=== PATIENT | female | born 1930 | race Caucasian/White ===

== ENCOUNTER 2017-08-26 10:13 | Inpatient (IN) | payer OTHER ==
--- NOTE | 2017-08-26 10:46 | PDOC ---
History of Present Illness <Cass Robbins - Last Filed: 08/26/17 15:04> - General History Source: Patient Exam Limitations: No Limitations - History of Present Illness Initial Comments: 08/26/17 12:18 The patient is a 87 year old female with a significant PMH of HTN and HLD who presents to the emergency department with generalized weakness for the past four days. The daughter is at bedside and states the patient has been complaining of heaviness to the bilateral legs making it difficult for the patient to ambulate. The patient normally ambulates with a walker. The patient is also complaining of sweats, fever TMax 101F, less frequent urination with odor, nausea with solid food and mild shortness of breath. The patient switched to a liquid diet since the onset of these symptoms. The patient is currently on Lasix. The patient denies chest pain, headache and dizziness. Denies fever, chills, nausea, vomit, diarrhea and constipation. Denies dysuria, frequency, urgency and hematuria. Allergies: NKA Past surgical history: None reported. Social history: No reported alcohol, drug, or cigarette use. PCP: Dr. Delgado <Latonya Martínez - Last Filed: 08/26/17 16:29> - General Stated Complaint: PAIN IN LEFT KNEE Time Seen by Provider: 08/26/17 10:40 Past History - Past Medical History HTN: Yes Hypercholesterolemia: Yes - Suicide/Smoking/Psychosocial Hx Smoking Status: No Smoking History: Never smoked Number of Cigarettes Smoked Daily: 0 <Cass Robbins - Last Filed: 08/26/17 15:04> <Latonya Martínez - Last Filed: 08/26/17 16:29> - Past Medical History Allergies/Adverse Reactions: Allergies Allergy/AdvReac Type Severity Reaction Status Date / Time clindamycin Allergy Mild Rash Verified 11/12/11 12:30 sulfamethoxazole Allergy Mild Rash Verified 11/12/11 12:30 [From Bactrim] trimethoprim [From Bactrim] Allergy Mild Rash Verified 11/12/11 12:30 Home Medications: Ambulatory Orders Tramadol HCl 0 mg PO ASDIR 11/12/11 Aspirin 81 mg PO DAILY 08/26/17 Atorvastatin Ca [Lipitor] 10 mg PO HS 08/26/17 Calcium Carbonate/Vitamin D3 [Calcium 600 + Vit D Tablet] 1 each PO DAILY 05/21/ 18 Diclofenac Sodium [Voltaren] 100 gm TP ASDIR PRN 08/26/17 Meloxicam [Mobic] 15 mg PO DAILY 08/26/17 Triamcinolone 0.1% Cream [Aristocort] 0 gm TP DAILY PRN 08/26/17 Valsartan [Diovan] 320 mg PO DAILY 08/26/17 Zolpidem Tartrate [Ambien] 10 mg PO HS 08/26/17 Review of Systems - Review of Systems Able to Perform ROS?: Yes Comments:: 08/26/17 12:19 GENERAL/CONSTITUTIONAL: No chills. (+) Weakness. (+) Sweats. (+) Fever. HEAD, EYES, EARS, NOSE AND THROAT: No change in vision. No ear pain or discharge. No sore throat. CARDIOVASCULAR: No chest pain or shortness of breath. RESPIRATORY: (+) Mild shortness of breath. No cough, wheezing, or hemoptysis. GASTROINTESTINAL: (+) Nausea. No vomiting, diarrhea or constipation. GENITOURINARY: (+) Less frequent urination with odor. No dysuria. MUSCULOSKELETAL: No joint or muscle swelling or pain. No neck or back pain. SKIN: No rash NEUROLOGIC: No headache, vertigo, loss of consciousness, or change in strength/ sensation. ENDOCRINE: No increased thirst. No abnormal weight change. HEMATOLOGIC/LYMPHATIC: No anemia, easy bleeding, or history of blood clots. ALLERGIC/IMMUNOLOGIC: No hives or skin allergy. <Latonya Martínez - Last Filed: 08/26/17 16:29> *Physical Exam - Vital Signs Last Vital Signs Temp Pulse Resp BP Pulse Ox 97.5 F L 83 18 125/48 99 08/26/17 10:54 08/26/17 10:54 08/26/17 10:54 08/26/17 10:54 08/26/17 10:54 - Physical Exam Comments: 08/26/17 12:21 GENERAL: Awake, alert, and fully oriented, in no acute distress HEAD: No signs of trauma EYES: PERRLA, EOMI, sclera anicteric, conjunctiva clear ENT: Auricles normal inspection, hearing grossly normal, nares patent, oropharynx clear without exudates. Moist mucosa NECK: Normal ROM, supple, no lymphadenopathy, JVD, or masses LUNGS: (+) Decreased air entry in the bases. No wheezes, and no crackles HEART: Regular rate and rhythm, normal S1 and S2, no murmurs, rubs or gallops ABDOMEN: Soft, nontender, normoactive bowel sounds. No guarding, no rebound. No masses EXTREMITIES: (+) Asymmetrical, left leg is larger but family states this is chronic. (+) Diffusely tender. Normal range of motion, no edema. No clubbing or cyanosis. No cords or erythema. NEUROLOGICAL: Cranial nerves II through XII grossly intact. Normal speech, normal gait SKIN: Warm, Dry, normal turgor, no rashes or lesions noted. <Latonya Martínez - Last Filed: 08/26/17 16:29> Moderate Sedation - Procedure Monitoring Vital Signs: Vital Signs Temp Pulse Resp BP Pulse Ox 97.5 F L 83 18 125/48 99 08/26/17 10:54 08/26/17 10:54 08/26/17 10:54 08/26/17 10:54 08/26/17 10:54 <Latonya Martínez - Last Filed: 08/26/17 16:29> ED Treatment Course - LABORATORY CBC & Chemistry Diagram: 08/26/17 12:04 08/26/17 12:04 <Cass Robbins - Last Filed: 08/26/17 15:04> - LABORATORY CBC & Chemistry Diagram: 08/26/17 12:04 08/26/17 12:04 <Latonya Martínez - Last Filed: 08/26/17 16:29> Medical Decision Making - Medical Decision Making 08/26/17 14:57 Patient presents to the ED complaining of new onset BERNARD and orthopnea. History of HTN but no known CHF histroty. Daughter reports reduced diuresis after lasix PO. Labs show evidence of CHF. Will treat with lasix and admit for new onset CHF. <Cass Robbins - Last Filed: 08/26/17 15:04> - Medical Decision Making 08/26/17 14:[address] Delgado (PCP). Paged Dr. Jenkins to admit the patient, pending call back. 08/26/17 16:28 Daughter's phone number: [phone] ([place]) <Latonya Martínez - Last Filed: 08/26/17 16:29> *DC/Admit/Observation/Transfer - Discharge Dispostion Decision to Admit order: Yes <Cass Robbins - Last Filed: 08/26/17 15:04> - Attestations Scribe Attestion: 08/26/17 13:38 Documentation prepared by Latonya Martínez, acting as medical record consultant for Cass Robbins MD. <Latonya Martínez - Last Filed: 08/26/17 16:29> Diagnosis at time of Disposition: Congestive heart failure Qualifiers: Heart failure type: unspecified Heart failure chronicity: acute Qualified Code( s): I50.9 - Heart failure, unspecified - Discharge Dispostion Condition at time of disposition: Good
[2017-08-26] MEDS ORDERED: ACETAMINOPHEN 1000 MG/100 ML VIAL (NON FORMULARY) IVPB ONE (12:00)
[2017-08-26 12:14] LABS: BASO % 0.4 % (0-2.0); EOS % 0.3 % (0-4.5); HEMATOCRIT 33.6 % (32.4-45.2); HEMOGLOBIN 11.2 GM/dL (10.7-15.3); LYMPH % 8.3 % (8-40); MCH 29.7 pg (25.7-33.7); MCHC 33.4 g/dl (32.0-36.0); MEAN CELL VOLUME 88.9 fl (80-96); MEAN PLT VOLUME 9.2 fl (7.5-11.1); MONO % 10.4 % (3.8-10.2); NEUT % 80.6 % (42.8-82.8); PLATELET COUNT 243 K/MM3 (134-434); RBC 3.78 M/mm3 (3.60-5.2); RDW 14.5 % (11.6-15.6); WHITE BLOOD COUNT 10.9 K/mm3 (4.0-10.0)
[2017-08-26] MEDS ORDERED: ACETAMINOPHEN INJECTION 100 ML IVPB ONE (12:29)
[2017-08-26 12:46] LABS: ALBUMIN 2.7 g/dl (3.4-5.0); ANION GAP 6 (8-16); BILIRUBIN,TOTAL 0.9 mg/dL (0.2-1.0); BLOOD UREA NITROGEN 27 mg/dL (7-18); CALCIUM 8.2 mg/dL (8.5-10.1); CHLORIDE 102 mmol/L (98-107); CO2 28 mmol/L (21-32); CREATININE 1.3 mg/dL (0.55-1.02); GLUCOSE,RANDOM 117 mg/dL (74-106); POTASSIUM 4.2 mmol/L (3.5-5.1); SGOT/AST 33 U/L (15-37); SGPT/ALT 28 U/L (12-78); SODIUM 136 mmol/L (136-145)
[2017-08-26 12:52] LABS: ALK PHOS 188 U/L (45-117); N-TERMINAL BNP 1914.26 pg/ml (5-450)
[2017-08-26] MEDS ORDERED: FUROSEMIDE 40 MG/4 ML INJECTABLE VIAL IVPUSH ONE (13:36)
[2017-08-26] MEDS ORDERED: FUROSEMIDE 40 MG/4 ML INJECTABLE VIAL ONE (15:04)
[2017-08-26] MEDS ORDERED: traMADol HCL 50 MG TABLET PO PRN (15:19)
[2017-08-26] MEDS ORDERED: TRIAMCINOLONE ACET 0.1% CREAM 15 GM TUBE TP PRN (15:19)
--- NOTE | 2017-08-26 15:26 | HP ---
Admitting History and Physical - Primary Care Physician PCP: Mukesh Delgado - Admission Chief Complaint: Shortness of breath History of Present Illness: The patient is a 87 year old female with a significant PMH of HTN , Osteoarthritis of the knees and HLD who presents to the emergency department with generalized weakness for the past four days. The daughter is at bedside and states the patient has been complaining of heaviness to the bilateral legs making it difficult for the patient to ambulate. The patient normally ambulates with a walker. patient daughter also reports--- that she is getting more short of breath with walking for the last week or so no history of chest pain. patient found to be in new onset CHF Given IV Lasix--in the ER BNP significantly elevated Patient seen by me in the emergency room Above history confirmed with the patient's daughter also complains of pain in the knees----Which is chronic--- x-rays are done--- report pending Patient to be admitted to telemetry patient's daughter--also gave history of subjective fever No history of cough Denies history of urinary burning Denies history of abdominal pain No nausea or vomiting History Source: Patient, Family Member Limitations to Obtaining History: No Limitations - Past Medical History Cardiovascular: Yes: HTN, Hyperlipdemia Musculoskeletal: Yes: Osteoarthritis - Smoking History Smoking history: Never smoked Aproximately how many cigarettes per day: 0 Home Medications - Allergies Allergies/Adverse Reactions: Allergies Allergy/AdvReac Type Severity Reaction Status Date / Time clindamycin Allergy Mild Rash Verified 11/12/11 12:30 sulfamethoxazole Allergy Mild Rash Verified 11/12/11 12:30 [From Bactrim] trimethoprim [From Bactrim] Allergy Mild Rash Verified 11/12/11 12:30 - Home Medications Home Medications: Ambulatory Orders Tramadol HCl 0 mg PO ASDIR 11/12/11 Aspirin 81 mg PO DAILY 08/26/17 Atorvastatin Ca [Lipitor] 10 mg PO HS 08/26/17 Calcium Carbonate/Vitamin D3 [Calcium 600 + Vit D Tablet] 1 each PO DAILY Diclofenac Sodium [Voltaren] 100 gm TP ASDIR PRN 08/26/17 Meloxicam [Mobic] 15 mg PO DAILY 08/26/17 Triamcinolone 0.1% Cream [Aristocort] 0 gm TP DAILY PRN 08/26/17 Valsartan [Diovan] 320 mg PO DAILY 08/26/17 Zolpidem Tartrate [Ambien] 10 mg PO HS 08/26/17 Review of Systems Findings/Remarks: see [place] Physical Examination Vital Signs: Vital Signs Temperature 97.5 F L 08/26/17 10:54 Pulse Rate 76 08/26/17 14:18 Respiratory Rate 18 08/26/17 14:18 Blood Pressure 120/59 08/26/17 14:18 O2 Sat by Pulse Oximetry (%) 97 08/26/17 14:18 Constitutional: Yes: No Distress, Calm Eyes: Yes: Conjunctiva Clear Neck: Yes: Supple, Other (no JVD) Cardiovascular: Yes: Regular Rate and Rhythm Respiratory: Yes: Diminished Gastrointestinal: Yes: Soft Musculoskeletal: Yes: Joint Stiffness (both knees) Edema: LLE: Trace, RLE: Trace Neurological: Yes: Alert Psychiatric: Yes: Alert Labs: CBC, BMP 08/26/17 12:04 08/26/17 12:04 Imaging - Results Chest X-ray: Report Reviewed EKG: Report Reviewed Problem List - Problems (1) Congestive heart failure Assessment/Plan: monitor on telemetry Echocardiogram Cardiology eval Daily weight Monitor electrolytes Code(s): I50.9 - HEART FAILURE, UNSPECIFIED Qualifiers: Heart failure type: unspecified Heart failure chronicity: acute Qualified Code(s): I50.9 - Heart failure, unspecified (2) Hypertension Assessment/Plan: Monitor Code(s): I10 - ESSENTIAL (PRIMARY) HYPERTENSION Qualifiers: Hypertension type: essential hypertension Qualified Code(s): I10 - Essential (primary) hypertension (3) Hyperlipidemia Assessment/Plan: monitor Code(s): E78.5 - HYPERLIPIDEMIA, UNSPECIFIED (4) Osteoarthritis of both knees Assessment/Plan: Will review x-rays Pain control Code(s): M17.0 - BILATERAL PRIMARY OSTEOARTHRITIS OF KNEE (5) Fever Assessment/Plan: subjective history of fever afebrile here Chest x-ray unremarkable for pneumonia Check urinalysis patient also denies any urinary burning No indication for antibiotics at this time Will follow Code(s): R50.9 - FEVER, UNSPECIFIED
--- NOTE | 2017-08-26 18:04 | EKG ---
Test Reason : Blood Pressure : / mmHG Vent. Rate : 084 BPM Atrial Rate : 084 BPM P-R Int : 142 ms QRS Dur : 082 ms QT Int : 398 ms P-R-T Axes : 033 -12 -01 degrees QTc Int : 470 ms SINUS RHYTHM WITH MARKED SINUS ARRHYTHMIA VOLTAGE CRITERIA FOR LEFT VENTRICULAR HYPERTROPHY ABNORMAL ECG WHEN COMPARED WITH ECG OF 09-APR-2010 15:23, NO SIGNIFICANT CHANGE WAS FOUND Confirmed by BRAYAN HICKS MD ([id number]) on 08/26/2017 6:04:46 PM Referred By: Confirmed By:BRAYAN HICKS MD
[2017-08-26] MEDS ORDERED: ZOLPIDEM TARTRATE 5 MG TABLET PO PRN (22:00)
[2017-08-27] MEDS: ATORVASTATIN CA 10 MG TABLET (FP) PO SCH ×2 (00:09→21:32)
[2017-08-27 07:13] LABS: BASO % 0.4 % (0-2.0); HEMATOCRIT 34.1 % (32.4-45.2); HEMOGLOBIN 11.4 GM/dL (10.7-15.3); LYMPH % 12.9 % (8-40); MCH 29.9 pg (25.7-33.7); MCHC 33.5 g/dl (32.0-36.0); MEAN CELL VOLUME 89.2 fl (80-96); MEAN PLT VOLUME 8.9 fl (7.5-11.1); MONO % 8.3 % (3.8-10.2); NEUT % 77.4 % (42.8-82.8); PLATELET COUNT 273 K/MM3 (134-434); RBC 3.83 M/mm3 (3.60-5.2); RDW 14.6 % (11.6-15.6); WHITE BLOOD COUNT 10.5 K/mm3 (4.0-10.0)
[2017-08-27 07:47] LABS: ALBUMIN 2.7 g/dl (3.4-5.0); ANION GAP 8 (8-16); BILIRUBIN,TOTAL 0.7 mg/dL (0.2-1.0); BLOOD UREA NITROGEN 28 mg/dL (7-18); CALCIUM 8.4 mg/dL (8.5-10.1); CHLORIDE 103 mmol/L (98-107); CHOLESTEROL 161 mg/dL (50-200); CO2 28 mmol/L (21-32); CREATININE 1.5 mg/dL (0.55-1.02); GLUCOSE,RANDOM 134 mg/dL (74-106); POTASSIUM 3.6 mmol/L (3.5-5.1); SGOT/AST 34 U/L (15-37); SGPT/ALT 28 U/L (12-78); SODIUM 139 mmol/L (136-145); TRIGLYCERIDES 175 mg/dL (35-160)
[2017-08-27 07:48] LABS: ALK PHOS 197 U/L (45-117); HDL CHOLESTEROL 23 mg/dL (40-60); TOT PROT 7.1 g/dl (6.4-8.2)
[2017-08-27] MEDS: ASPIRIN 81 MG CHEWABLE TABLETS PO SCH (09:25)
[2017-08-27] MEDS: CALCIUM 500MG/VIT-D 200 UNITS COMBO TABLET (FP) PO SCH (09:26)
[2017-08-27] MEDS ORDERED: FUROSEMIDE 40 MG/4 ML INJECTABLE VIAL ONE (09:29)
[2017-08-27] MEDS ORDERED: ENOXAPARIN NA (PORCINE) 30 MG/0.3 ML DISP.SYRIN SQ ONE ×2 (09:29→13:32)
--- NOTE | 2017-08-27 09:58 | PN ---
Progress Note, Physician Chief Complaint: Events noted has pain in left leg and B/L knees Left > right daughter at bedside states that pt has a difficult time to walk to bathroom and back due to SOB and pain - Current Medication List Current Medications: Active Medications Aspirin (Asa -) 81 mg PO DAILY [facility] Last Admin: 08/27/17 09:25 Dose: 81 mg Atorvastatin Calcium (Lipitor -) 10 mg PO HS [facility] Last Admin: 08/27/17 00:09 Dose: 10 mg Calcium Carbonate/Cholecalciferol (Os-Samuel 500+D -) 1 tab PO DAILY [facility] Last Admin: 08/27/17 09:26 Dose: 1 tab Enoxaparin Sodium (Lovenox -) 30 mg SQ DAILY [facility] Furosemide (Lasix Injection -) 40 mg IVPUSH DAILY [facility] Tramadol HCl (Ultram -) 50 mg PO Q12H PRN PRN Reason: PAIN LEVEL 6-10 Triamcinolone Acetonide (Aristocort 0.1% Cream -) 1 applic TP DAILY PRN PRN Reason: rash Valsartan (Diovan -) 320 mg PO DAILY [facility] Last Admin: 08/27/17 09:26 Dose: 320 mg Zolpidem Tartrate (Ambien -) 5 mg PO HS PRN PRN Reason: INSOMNIA - Objective Vital Signs: Vital Signs Temperature 98.6 F 08/27/17 07:31 Pulse Rate 89 08/27/17 07:31 Respiratory Rate 18 08/27/17 07:31 Blood Pressure 131/63 08/27/17 07:31 O2 Sat by Pulse Oximetry (%) 97 08/27/17 07:31 Constitutional: Yes: Anxious Cardiovascular: Yes: Regular Rate and Rhythm Respiratory: Yes: Diminished. No: Rales, Rhonchi Gastrointestinal: Yes: Normal Bowel Sounds, Soft, Abdomen, Obese. No: Tenderness Extremities: Yes: Other (tender left leg and knee, not warm) Edema: Yes Edema: LLE: 2+ Labs: CBC, BMP 08/27/17 06:53 08/27/17 06:30 Problem List - Problems (1) Left knee pain Code(s): M25.562 - PAIN IN LEFT KNEE (2) UTI (urinary tract infection) Code(s): N39.0 - URINARY TRACT INFECTION, SITE NOT SPECIFIED (3) Edema Code(s): R60.9 - EDEMA, UNSPECIFIED (4) Congestive heart failure Code(s): I50.9 - HEART FAILURE, UNSPECIFIED Qualifiers: Heart failure type: unspecified Heart failure chronicity: acute Qualified Code(s): I50.9 - Heart failure, unspecified Assessment/Plan PLAN CHF --echo done, pt received Lasix- pt sounds euvolemic, will hold lasix today. May give PRN -- monitor renal function - worse today UTI -- cardiology eval -- ok to dc Telemetry ?UTI -- had fever [prior to coming to ER -- afebrile now -- will check UA and cultrue -- may need to straight cath Left knee pain and leg edema -- check sono leg to R./O DVT -- right leg-- no edema-- had h/o fracture of tib/fib -- xrays done -- on Lovenox for DVT prophylaxis
[2017-08-27] MEDS ORDERED: VALSARTAN 160 MG TABLET (UD) PO SCH (10:00)
[2017-08-27] MEDS ORDERED: FUROSEMIDE 40 MG/4 ML INJECTABLE VIAL IVPUSH SCH (10:00)
[2017-08-27] MEDS ORDERED: traMADol HCL 50 MG TABLET PO PRN (10:37)
[2017-08-27] MEDS: ENOXAPARIN NA (PORCINE) 30 MG/0.3 ML DISP.SYRIN SQ SCH (11:45)
--- NOTE | 2017-08-27 12:21 | CON.CARD ---
Cardiology Consult (text) - Consultation Consultation Note: CC: weakness. 87 year old female with a significant PMH of HTN, HL, LE edema on lasix and OA on daily mobic who presents to the emergency department with generalized weakness for the past four days. Also with worsened LE edema despite being adherent to home lasix and 10 pound weight gain this month in setting of dietary indiscretions. s/p lasix 40 mg IV x 1 in the ER, slight worsening of cr today but patient feels LE edema improved. + chronic orthpnea, unchanged. + stable sob. The patient is also complaining of sweats, fever TMax 101F, less frequent urination with odor, nausea/dysphagia with solid food and mild shortness of breath. The patient switched to a liquid diet since the onset of these symptoms. + chronic knee pain, on daily mobic. The patient denies chest pain, pnd, palps, dizziness, syncope, bleeding, transient neurologic sx's. Denies vomit, diarrhea , h/a, cough, congestion, rash, visual disturbances. pmhx/pshx: None reported. social hx: never smoked, The patient normally ambulates with a walker. fam hx: no premature cad. ros: per [facility] Ambulatory Orders Tramadol HCl 0 mg PO ASDIR 11/12/11 Aspirin 81 mg PO DAILY 08/26/17 Atorvastatin Ca [Lipitor] 10 mg PO HS 08/26/17 Calcium Carbonate/Vitamin D3 [Calcium 600 + Vit D Tablet] 1 each PO DAILY Diclofenac Sodium [Voltaren] 100 gm TP ASDIR PRN 08/26/17 Meloxicam [Mobic] 15 mg PO DAILY 08/26/17 Triamcinolone 0.1% Cream [Aristocort] 0 gm TP DAILY PRN 08/26/17 Valsartan [Diovan] 320 mg PO DAILY 08/26/17 Zolpidem Tartrate [Ambien] 10 mg PO HS 08/26/17 Current Medications Aspirin (Asa -) 81 mg PO DAILY [facility] Last Admin: 08/27/17 09:25 Dose: 81 mg Atorvastatin Calcium (Lipitor -) 10 mg PO HS [facility] Last Admin: 08/27/17 00:09 Dose: 10 mg Calcium Carbonate/Cholecalciferol (Os-Samuel 500+D -) 1 tab PO DAILY [facility] Last Admin: 08/27/17 09:26 Dose: 1 tab Enoxaparin Sodium (Lovenox -) 30 mg SQ DAILY [facility] Tramadol HCl (Ultram -) 50 mg PO Q8H PRN PRN Reason: PAIN LEVEL 6-10 Triamcinolone Acetonide (Aristocort 0.1% Cream -) 1 applic TP DAILY PRN PRN Reason: rash Valsartan (Diovan -) 320 mg PO DAILY [facility] Last Admin: 08/27/17 09:26 Dose: 320 mg Zolpidem Tartrate (Ambien -) 5 mg PO HS PRN PRN Reason: INSOMNIA Vital Signs - 24 hr 08/26/17 08/26/17 08/27/17 14:18 22:00 04:12 Temperature 98.7 F Pulse Rate [ 76 88 Radial] Respiratory 18 18 18 Rate Blood Pressure 120/59 119/72 [Right Arm] O2 Sat by Pulse 97 97 96 Oximetry (%) 08/27/17 07:31 Temperature 98.6 F Pulse Rate [ 89 Radial] Respiratory 18 Rate Blood Pressure 131/63 [Right Arm] O2 Sat by Pulse 97 Oximetry (%) Intake & Output 08/25/17 08/26/17 08/27/17 08/28/17 07:59 07:59 07:59 07:59 Weight 230 lb nad, calm jvd flat, neck supple ctab, nl effort rrr nl s1, s2 no mrg + bs soft nt nd ext with trace edema. no c/c + dp/pt aaox3 no jaundice, diaphoresis. CBC, BMP 08/27/17 06:53 08/27/17 06:30 Laboratory Tests 08/26/17 08/27/17 12:04 06:30 Total Bilirubin 0.7 D AST 34 ALT 28 Alkaline Phosphatase 197 H Creatine Kinase 159 125 CK-MB (CK-2) 1.411 Troponin I < 0.02 B-Natriuretic Peptide 1914.26 H Albumin 2.7 L Cholesterol 161 Total LDL Cholesterol 105 H HDL Cholesterol 23 L ekg: sr with pac's. lvh. no acute ischemic changes. cxr: no acute pathology. 87 year old female with a significant PMH of HTN, HL, LE edema on lasix and OA on daily mobic who presents to the emergency department with generalized weakness/LE edema for the past four days. Le edema/weakness - s/p lasix 40 mg IV x 1 yesterday with slight worsening of cr today. checked bladder scanner and no evidence of urinary retention. Le edema now improved, can resume home lasix dose. - echo pending - no signs of acs. con't ernie - non-cardiac work up per pmd. - bp running on low end, will reduce dose of diovan. HTN/HL - med adjustment as above. con't statin.
[2017-08-27 13:53] LABS: URINE APPEARANCE SLCLOUDY; URINE BILIRUBIN NEGATIVE (<2.0 mg/dL); URINE COLOR LTYELLOW; URINE GLUCOSE (UA) NEGATIVE (NEGATIVE); URINE KETONE NEGATIVE (NEGATIVE); URINE LEUK ESTERASE TRACE (NEGATIVE); URINE NITRITE NEGATIVE (NEGATIVE); URINE PROTEIN NEGATIVE (NEGATIVE); URINE UROBILINOGEN NEGATIVE mg/dL (0.2-1.0)
[2017-08-27 14:05] LABS: EPI CELLS RARE /HPF (FEW); URINE BACTERIA RARE /hpf (NONE SEEN); URINE HYALINE CAST 1 /lpf; URINE MUCUS RARE
[2017-08-27] MEDS ORDERED: POTASSIUM CHLORIDE TABS 10 MEQ TABLET.ER (FP) PO ONE (16:47)
[2017-08-28 08:20] LABS: CHLORIDE 105 mmol/L (98-107); POTASSIUM 3.8 mmol/L (3.5-5.1); SODIUM 141 mmol/L (136-145)
[2017-08-28 08:28] LABS: ANION GAP 9 (8-16); BLOOD UREA NITROGEN 27 mg/dL (7-18); CALCIUM 8.5 mg/dL (8.5-10.1); CO2 27 mmol/L (21-32); CREATININE 1.2 mg/dL (0.55-1.02); GLUCOSE,RANDOM 129 mg/dL (74-106)
[2017-08-28] MEDS: ASPIRIN 81 MG CHEWABLE TABLETS PO SCH (09:36)
[2017-08-28] MEDS: CALCIUM 500MG/VIT-D 200 UNITS COMBO TABLET (FP) PO SCH (09:36)
[2017-08-28] MEDS: ENOXAPARIN NA (PORCINE) 30 MG/0.3 ML DISP.SYRIN SQ SCH (09:38)
[2017-08-28] MEDS: FUROSEMIDE 40 MG TABLET (FP) PO SCH (10:26)
[2017-08-28] MEDS: VALSARTAN 160 MG TABLET (UD) PO SCH (10:27)
--- NOTE | 2017-08-28 11:26 | PN ---
Progress Note, Physician Chief Complaint: has pain in left leg and B/L knees Left > right daughter at bedside today pt underwent physical therapy - Current Medication List Current Medications: Active Medications Aspirin (Asa -) 81 mg PO DAILY [facility] Last Admin: 08/28/17 09:36 Dose: 81 mg Atorvastatin Calcium (Lipitor -) 10 mg PO HS [facility] Last Admin: 08/27/17 21:32 Dose: 10 mg Calcium Carbonate/Cholecalciferol (Os-Samuel 500+D -) 1 tab PO DAILY [facility] Last Admin: 08/28/17 09:36 Dose: 1 tab Enoxaparin Sodium (Lovenox -) 30 mg SQ DAILY [facility] Last Admin: 08/28/17 09:38 Dose: 30 mg Furosemide (Lasix -) 40 mg PO DAILY [facility] Last Admin: 08/28/17 10:26 Dose: 40 mg Ceftriaxone Sodium 1 gm/ (Dextrose) 50 mls @ 100 mls/hr IVPB DAILY [facility] Tramadol HCl (Ultram -) 50 mg PO Q8H PRN PRN Reason: PAIN LEVEL 6-10 Last Admin: 08/28/17 09:37 Dose: 50 mg Triamcinolone Acetonide (Aristocort 0.1% Cream -) 1 applic TP DAILY PRN PRN Reason: rash Valsartan (Diovan -) 160 mg PO DAILY [facility] Last Admin: 08/28/17 10:27 Dose: 160 mg Zolpidem Tartrate (Ambien -) 5 mg PO HS PRN PRN Reason: INSOMNIA - Objective Vital Signs: Vital Signs Temperature 98.8 F 08/28/17 10:00 Pulse Rate 103 H 08/28/17 10:00 Respiratory Rate 20 08/28/17 10:00 Blood Pressure 132/58 08/28/17 10:00 O2 Sat by Pulse Oximetry (%) 94 L 08/28/17 09:00 Constitutional: Yes: No Distress, Calm Cardiovascular: Yes: Regular Rate and Rhythm Respiratory: Yes: Diminished. No: Rales, Rhonchi Gastrointestinal: Yes: Normal Bowel Sounds, Soft, Abdomen, Obese. No: Tenderness Extremities: Yes: Other (tender B.L l;egs- soft palpation) Edema: Yes (decreased) Labs: CBC, BMP 08/27/17 06:53 08/28/17 07:25 Problem List - Problems (1) Left knee pain Code(s): M25.562 - PAIN IN LEFT KNEE (2) UTI (urinary tract infection) Code(s): N39.0 - URINARY TRACT INFECTION, SITE NOT SPECIFIED (3) Edema Code(s): R60.9 - EDEMA, UNSPECIFIED (4) Congestive heart failure Code(s): I50.9 - HEART FAILURE, UNSPECIFIED Qualifiers: Heart failure type: unspecified Heart failure chronicity: acute Qualified Code(s): I50.9 - Heart failure, unspecified (5) Neuropathy Code(s): G62.9 - POLYNEUROPATHY, UNSPECIFIED Assessment/Plan PLAN CHF -- monitor renal function - worse today UTI -- cardiology eval appreciated -- Echo-- normal EF , mild -- PO Lasix, decreased dose Diovan -- creatinine improved UTI -- had fever prior to coming to ER -- afebrile now -- UA and culture -- positive-- start Ceftriaxone Left knee pain and leg edema -- sono leg no DVT -- right leg-- no edema-- had h/o fracture of tib/fib -- xrays done-- arthritis -- h/o cortisone injection sto left knee in the aspt by PMD-- did not help much -- Ortho eval -- on Lovenox for DVT prophylaxis Neuropathy -- check A1C -- start Neurontin -- tramadol as needed spoke with daughter in detail
[2017-08-28] MEDS ORDERED: cefTRIAXone SODIUM 1 GM VIAL ONE ×2 (11:42→12:02)
[2017-08-28] MEDS ORDERED: DEXTROSE 5%-WATER - 50 ML IVPB ONE ×2 (11:45→12:03)
[2017-08-28] MEDS: CEFTRIAXONE 1 GM in DEXTROSE 5%-WATER - 50 ML IVPB SCH (12:06)
[2017-08-28] MEDS: GABAPENTIN 100 MG CAPSULE (FP) PO SCH ×2 (13:50→21:24)
--- NOTE | 2017-08-28 16:00 | CON.ORTH ---
Consult Reason for Consultation:: b/l knee pain - Past Medical History Cardio/Vascular: Yes: HTN, Hyperlipdemia ...: No Musculoskeletal: Yes: Osteoarthritis - Alcohol/Substance Use Hx Alcohol Use: No - Smoking History Smoking history: Never smoked Have you smoked in the past 12 months: No Aproximately how many cigarettes per day: 0 Home Medications - Allergies Allergies/Adverse Reactions: Allergies Allergy/AdvReac Type Severity Reaction Status Date / Time clindamycin Allergy Mild Rash Verified 11/12/11 12:30 sulfamethoxazole Allergy Mild Rash Verified 11/12/11 12:30 [From Bactrim] trimethoprim [From Bactrim] Allergy Mild Rash Verified 11/12/11 12:30 - Home Medications Home Medications: Ambulatory Orders Tramadol HCl 0 mg PO ASDIR 11/12/11 Aspirin 81 mg PO DAILY 08/26/17 Atorvastatin Ca [Lipitor] 10 mg PO HS 08/26/17 Calcium Carbonate/Vitamin D3 [Calcium 600 + Vit D Tablet] 1 each PO DAILY Diclofenac Sodium [Voltaren] 100 gm TP ASDIR PRN 08/26/17 Meloxicam [Mobic] 15 mg PO DAILY 08/26/17 Triamcinolone 0.1% Cream [Aristocort] 0 gm TP DAILY PRN 08/26/17 Valsartan [Diovan] 320 mg PO DAILY 08/26/17 Zolpidem Tartrate [Ambien] 10 mg PO HS 08/26/17 Furosemide [Lasix] 40 mg PO DAILY 08/27/17 Physical Exam for Ortho Vital Signs: Vital Signs Temperature 98.8 F 08/28/17 10:00 Pulse Rate 103 H 08/28/17 10:00 Respiratory Rate 20 08/28/17 10:00 Blood Pressure 132/58 08/28/17 10:00 O2 Sat by Pulse Oximetry (%) 94 L 08/28/17 09:00 Constitutional: Yes: Well Nourished, No Distress Labs: CBC, BMP 08/27/17 06:53 08/28/17 07:25 - Lower Extremity Knee: Yes: Left, Right, Limited ROM, Pain, Swelling, Tenderness, Other (Left knee- ROM 0-60, right knee 0-100, nvi) Imaging - Results X-ray: Report Reviewed, Image Reviewed Assessment/Plan 87 year old female with a significant PMH of HTN and HLD who presented to the emergency department with generalized weakness for the past four days. c/p bilateral knee pain L>R. no new injury/trauma. h/o OA a/p Bilateral knee grade 4 tricompartmental djd L>R Risks and benefits were d/w pt and daughter in detail will order lido/depo injection Injection tomorrow PT eval wbat pain control dvt ppx d/w Dr. Schaefer
[2017-08-28] MEDS ORDERED: LIDOCAINE HCL 1%, 10 MG/ML (50 mL VIAL) SQ ONE (16:15)
[2017-08-28 16:18] LABS: MAGNESIUM 2.7 mg/dL (1.8-2.4)
[2017-08-28] MEDS ORDERED: PT OWN MED DRAWER 7, Y5N ONE (17:25)
[2017-08-28] MEDS: ATORVASTATIN CA 10 MG TABLET (FP) PO SCH (21:24)
[2017-08-29] MEDS: GABAPENTIN 100 MG CAPSULE (FP) PO SCH ×3 (06:16→21:22)
[2017-08-29 08:18] LABS: CHLORIDE 102 mmol/L (98-107); POTASSIUM 4.2 mmol/L (3.5-5.1); SODIUM 137 mmol/L (136-145)
[2017-08-29 08:23] LABS: ANION GAP 8 (8-16); BLOOD UREA NITROGEN 25 mg/dL (7-18); CALCIUM 8.3 mg/dL (8.5-10.1); CO2 27 mmol/L (21-32); CREATININE 1.1 mg/dL (0.55-1.02); GLUCOSE,RANDOM 120 mg/dL (74-106)
--- NOTE | 2017-08-29 09:40 | PN ---
Progress Note (short form) - Note Progress Note: Pt seen and examined. She c/o chronic, severe, B/L knee pain. She has severe, Grade IV OA both knees. Rec WBAT, no restrictions She can be DC'd from an ortho pov NTD She refused a cortisone injection into the knee today. She will consider it as an out patient.
[2017-08-29] MEDS ORDERED: PT OWN MED DRAWER 7, Y5N ONE (09:54)
[2017-08-29] MEDS: VALSARTAN 160 MG TABLET (UD) PO SCH (09:58)
[2017-08-29] MEDS: CALCIUM 500MG/VIT-D 200 UNITS COMBO TABLET (FP) PO SCH (09:58)
[2017-08-29] MEDS: FUROSEMIDE 40 MG TABLET (FP) PO SCH (09:58)
[2017-08-29] MEDS: ASPIRIN 81 MG CHEWABLE TABLETS PO SCH (09:58)
[2017-08-29] MEDS: ENOXAPARIN NA (PORCINE) 30 MG/0.3 ML DISP.SYRIN SQ SCH (09:58)
[2017-08-29] MEDS ORDERED: cefTRIAXone SODIUM 1 GM VIAL ONE (10:24)
[2017-08-29] MEDS ORDERED: DEXTROSE 5%-WATER - 50 ML IVPB ONE (10:25)
[2017-08-29] MEDS: CEFTRIAXONE 1 GM in DEXTROSE 5%-WATER - 50 ML IVPB SCH (10:29)
--- NOTE | 2017-08-29 11:44 | PN ---
Progress Note, Physician Chief Complaint: has pain in left leg and B/L knees Left > right daughter at bedside today pt refused cortisone injection to knee- stated she wanted as outpt - Current Medication List Current Medications: Active Medications Aspirin (Asa -) 81 mg PO DAILY [facility] Last Admin: 08/29/17 09:58 Dose: 81 mg Atorvastatin Calcium (Lipitor -) 10 mg PO HS [facility] Last Admin: 08/28/17 21:24 Dose: 10 mg Calcium Carbonate/Cholecalciferol (Os-Samuel 500+D -) 1 tab PO DAILY [facility] Last Admin: 08/29/17 09:58 Dose: 1 tab Enoxaparin Sodium (Lovenox -) 30 mg SQ DAILY [facility] Last Admin: 08/29/17 09:58 Dose: 30 mg Furosemide (Lasix -) 40 mg PO DAILY [facility] Last Admin: 08/29/17 09:58 Dose: 40 mg Gabapentin (Neurontin -) 100 mg PO TID [facility] Last Admin: 08/29/17 06:16 Dose: 100 mg Ceftriaxone Sodium 1 gm/ (Dextrose) 50 mls @ 100 mls/hr IVPB DAILY [facility] Last Admin: 08/29/17 10:29 Dose: 100 mls/hr Tramadol HCl (Ultram -) 50 mg PO Q8H PRN PRN Reason: PAIN LEVEL 6-10 Last Admin: 08/28/17 09:37 Dose: 50 mg Triamcinolone Acetonide (Aristocort 0.1% Cream -) 1 applic TP DAILY PRN PRN Reason: rash Valsartan (Diovan -) 160 mg PO DAILY [facility] Last Admin: 08/29/17 09:58 Dose: 160 mg Zolpidem Tartrate (Ambien -) 5 mg PO HS PRN PRN Reason: INSOMNIA - Objective Vital Signs: Vital Signs Temperature 99.7 F H 08/29/17 06:00 Pulse Rate 90 08/29/17 06:00 Respiratory Rate 20 08/29/17 06:00 Blood Pressure 140/60 08/29/17 06:00 O2 Sat by Pulse Oximetry (%) 94 L 08/28/17 21:00 Constitutional: Yes: No Distress Cardiovascular: Yes: Regular Rate and Rhythm Respiratory: Yes: Diminished Gastrointestinal: Yes: Normal Bowel Sounds, Soft. No: Tenderness Edema: Yes Edema: LLE: 1+, RLE: 1+ Labs: CBC, BMP 08/27/17 06:53 08/29/17 06:30 Problem List - Problems (1) Left knee pain Code(s): M25.562 - PAIN IN LEFT KNEE (2) UTI (urinary tract infection) Code(s): N39.0 - URINARY TRACT INFECTION, SITE NOT SPECIFIED (3) Edema Code(s): R60.9 - EDEMA, UNSPECIFIED (4) Congestive heart failure Code(s): I50.9 - HEART FAILURE, UNSPECIFIED Qualifiers: Heart failure type: unspecified Heart failure chronicity: acute Qualified Code(s): I50.9 - Heart failure, unspecified (5) Neuropathy Code(s): G62.9 - POLYNEUROPATHY, UNSPECIFIED Assessment/Plan PLAN CHF -- monitor renal function - better -- cardiology eval appreciated -- Echo-- normal EF , mild -- PO Lasix, decreased dose Diovan -- creatinine improved UTI -- had fever prior to coming to ER -- afebrile now -- UA and culture -- positive-- on Ceftriaxone Left knee pain and leg edema -- sono leg no DVT -- right leg-- no edema-- had h/o fracture of tib/fib -- xrays done-- arthritis -- daughter requests to call back Ortho for injection to knee -- on Lovenox for DVT prophylaxis Neuropathy -- A1C noted -- on Neurontin -- tramadol as needed spoke with daughter in detail
[2017-08-29] MEDS ORDERED: methylPREDNISolone ACET (DEPO) 80 MG/1 ML VIAL IAR ONE (14:15)
[2017-08-29] MEDS: LIDOCAINE HCL 1%, 10 MG/ML (20ML VIAL) NR ONE ×2 (14:27→14:29)
[2017-08-29] MEDS: methylPREDNISolone ACET (DEPO) 80 MG/1 ML VIAL IAR ONE ×2 (14:29→14:30)
--- NOTE | 2017-08-29 14:44 | PROC ---
Arthrocentesis - Arthrocentesis Indication: Steriod Injection Arthrocentesis Site: left: knee Flexion: <20 degrees Skin prep: Alcohol Joint Injection of: Depo Medrol, Lidocaine 1% Remarks: injection tolerated well, band-aid applied
[2017-08-29] MEDS: ATORVASTATIN CA 10 MG TABLET (FP) PO SCH (21:22)
[2017-08-30] MEDS: GABAPENTIN 100 MG CAPSULE (FP) PO SCH ×3 (06:08→21:25)
[2017-08-30] MEDS: CALCIUM 500MG/VIT-D 200 UNITS COMBO TABLET (FP) PO SCH (09:25)
[2017-08-30] MEDS: FUROSEMIDE 40 MG TABLET (FP) PO SCH (09:25)
[2017-08-30] MEDS: VALSARTAN 160 MG TABLET (UD) PO SCH (09:25)
[2017-08-30] MEDS: ASPIRIN 81 MG CHEWABLE TABLETS PO SCH (09:25)
[2017-08-30] MEDS: ENOXAPARIN NA (PORCINE) 30 MG/0.3 ML DISP.SYRIN SQ SCH (09:25)
--- NOTE | 2017-08-30 09:49 | PN ---
Progress Note (short form) - Note Progress Note: Ortho Pt seen and examined feeling much better s/p injection decr pain, incr rom nvi a/p PT wbat ok to d/c from ortho pov d/w Dr. Schaefer
--- NOTE | 2017-08-30 13:46 | PN ---
Progress Note (short form) - Note Progress Note: pt seen/ examined daughter at bedside feels better no cp. no sob. knee better s/p medrol inj - left knee Vital Signs Temp 98.1 F 08/30/17 06:00 Pulse 84 08/30/17 06:00 Resp 20 08/30/17 06:00 BP 125/60 08/30/17 06:00 Pulse Ox 95 08/29/17 21:00 Intake & Output 08/29/17 08/30/17 08/30/17 23:59 11:59 23:59 Intake Total 550 Output Total 200 Balance 350 Weight 206 lb 4 oz Intake: Oral 550 Output: Urine 200 Void 200 Other: Voiding Method Bedside Commode Bedside Commode # Unmeasured Voids Void 1 2 Bowel Movement No Weight Measurement Method Built in [facility] Active Medications Amoxicillin (Amoxicillin -) 500 mg PO TID [facility] Aspirin (Asa -) 81 mg PO DAILY [facility] Last Admin: 08/30/17 09:25 Dose: 81 mg Atorvastatin Calcium (Lipitor -) 10 mg PO HS [facility] Last Admin: 08/29/17 21:22 Dose: 10 mg Calcium Carbonate/Cholecalciferol (Os-Samuel 500+D -) 1 tab PO DAILY [facility] Last Admin: 08/30/17 09:25 Dose: 1 tab Enoxaparin Sodium (Lovenox -) 30 mg SQ DAILY [facility] Last Admin: 08/30/17 09:25 Dose: 30 mg Furosemide (Lasix -) 40 mg PO DAILY [facility] Last Admin: 08/30/17 09:25 Dose: 40 mg Gabapentin (Neurontin -) 100 mg PO TID [facility] Last Admin: 08/30/17 06:08 Dose: 100 mg Tramadol HCl (Ultram -) 50 mg PO Q8H PRN PRN Reason: PAIN LEVEL 6-10 Last Admin: 08/28/17 09:37 Dose: 50 mg Triamcinolone Acetonide (Aristocort 0.1% Cream -) 1 applic TP DAILY PRN PRN Reason: rash Valsartan (Diovan -) 160 mg PO DAILY [facility] Last Admin: 08/30/17 09:25 Dose: 160 mg Zolpidem Tartrate (Ambien -) 5 mg PO HS PRN PRN Reason: INSOMNIA CBC, BMP 08/27/17 06:53 08/29/17 06:30 Microbiology 08/27/17 13:31 Urine Culture - Final Urine - Urine Clean Catch Escherichia Coli Physical Constitutional: Yes: No Distress, Calm Cardiovascular: Yes: Regular Rate and Rhythm Respiratory: Yes: Diminished. No: Rales, Rhonchi Gastrointestinal: Yes: Normal Bowel Sounds, Soft, Abdomen, Obese. No: Tenderness Extremities: Yes: Other (tender B.L l;egs- soft palpation) Edema: Yes (decreased) overall better d/c planning discussed with pts daughter wants to take her tomorrow physical therapy Problem List - Problems (1) Congestive heart failure Code(s): I50.9 - HEART FAILURE, UNSPECIFIED Qualifiers: Heart failure type: unspecified Heart failure chronicity: acute Qualified Code(s): I50.9 - Heart failure, unspecified (2) Hypertension Code(s): I10 - ESSENTIAL (PRIMARY) HYPERTENSION Qualifiers: Hypertension type: essential hypertension Qualified Code(s): I10 - Essential (primary) hypertension (3) Hyperlipidemia Code(s): E78.5 - HYPERLIPIDEMIA, UNSPECIFIED (4) Osteoarthritis of both knees Code(s): M17.0 - BILATERAL PRIMARY OSTEOARTHRITIS OF KNEE (5) Fever Code(s): R50.9 - FEVER, UNSPECIFIED
[2017-08-30] MEDS: AMOXICILLIN 500 MG CAPSULE (FP) PO SCH ×2 (17:54→21:25)
[2017-08-30] MEDS ORDERED: PT OWN MED DRAWER 7, Y5N ONE (17:57)
[2017-08-30 20:11] VITALS: BMI 38.5
[2017-08-30] MEDS: ATORVASTATIN CA 10 MG TABLET (FP) PO SCH (21:25)
[2017-08-31] MEDS: GABAPENTIN 100 MG CAPSULE (FP) PO SCH ×2 (06:01→14:06)
[2017-08-31] MEDS: AMOXICILLIN 500 MG CAPSULE (FP) PO SCH ×2 (06:28→14:06)
[2017-08-31 08:43] VITALS: BP 104/54; PULSE 76; TEMP 98.1
[2017-08-31] MEDS: CALCIUM 500MG/VIT-D 200 UNITS COMBO TABLET (FP) PO SCH (09:24)
[2017-08-31] MEDS: ENOXAPARIN NA (PORCINE) 30 MG/0.3 ML DISP.SYRIN SQ SCH (09:24)
[2017-08-31] MEDS: VALSARTAN 160 MG TABLET (UD) PO SCH (09:24)
[2017-08-31] MEDS: FUROSEMIDE 40 MG TABLET (FP) PO SCH (09:24)
[2017-08-31] MEDS: ASPIRIN 81 MG CHEWABLE TABLETS PO SCH (09:24)
--- NOTE | 2017-08-31 09:58 | DS ---
Physical Examination Vital Signs: Vital Signs Temperature 98.1 F 08/31/17 08:42 Pulse Rate 76 08/31/17 08:42 Respiratory Rate 18 08/31/17 08:42 Blood Pressure 104/54 08/31/17 08:42 O2 Sat by Pulse Oximetry (%) 99 08/31/17 08:09 Labs: CBC, BMP 08/27/17 06:53 08/29/17 06:30 Discharge Summary Reason For Visit: CHF Current Active Problems Congestive heart failure (Acute) Edema (Acute) Fever (Acute) Hyperlipidemia (Acute) Hypertension (Acute) Left knee pain (Acute) Neuropathy (Acute) Osteoarthritis of both knees (Acute) UTI (urinary tract infection) (Acute) Condition: Good - Instructions Referrals: Mukesh Delgado MD [Primary Care Provider] - - Home Medications Comprehensive Discharge Medication List: Ambulatory Orders Tramadol HCl 0 mg PO ASDIR 11/12/11 Aspirin 81 mg PO DAILY 08/26/17 Atorvastatin Ca [Lipitor] 10 mg PO HS 08/26/17 Calcium Carbonate/Vitamin D3 [Calcium 600 + Vit D Tablet] 1 each PO DAILY Diclofenac Sodium [Voltaren] 100 gm TP ASDIR PRN 08/26/17 Meloxicam [Mobic] 15 mg PO DAILY 08/26/17 Triamcinolone 0.1% Cream [Aristocort] 0 gm TP DAILY PRN 08/26/17 Valsartan [Diovan] 320 mg PO DAILY 08/26/17 Zolpidem Tartrate [Ambien] 10 mg PO HS 08/26/17 Furosemide [Lasix] 40 mg PO DAILY 08/27/17
--- NOTE | 2017-08-31 10:38 | DS ---
Physical Examination Vital Signs: Vital Signs Temperature 98.1 F 08/31/17 08:42 Pulse Rate 76 08/31/17 08:42 Respiratory Rate 18 08/31/17 08:42 Blood Pressure 104/54 08/31/17 08:42 O2 Sat by Pulse Oximetry (%) 99 08/31/17 08:09 Findings/Remarks: feels good no complains Constitutional: Yes: No Distress, Calm Eyes: Yes: Conjunctiva Clear Neck: Yes: Supple Cardiovascular: Yes: Regular Rate and Rhythm Respiratory: Yes: CTA Bilaterally Gastrointestinal: Yes: Soft Edema: No Labs: CBC, BMP 08/27/17 06:53 08/29/17 06:30 Discharge Summary Reason For Visit: CHF Current Active Problems Congestive heart failure (Acute) Edema (Acute) Fever (Acute) Hyperlipidemia (Acute) Hypertension (Acute) Left knee pain (Acute) Neuropathy (Acute) Osteoarthritis of both knees (Acute) UTI (urinary tract infection) (Acute) Hospital Course: admitted for new onset chf echo- diastolic dysfn treated with lasix cardiology followed also gor medrol for left knee arthritis walks with walker as before overall much better d/c home today meds reconcilled discussed with pts daughter also who is at bedside f/u with pmd in one week discussed with nursing staff also Condition: Improved - Instructions Referrals: Mukesh Delgado MD [Primary Care Provider] - Disposition: HOME - Home Medications Comprehensive Discharge Medication List: Ambulatory Orders Tramadol HCl 0 mg PO ASDIR 11/12/11 Aspirin 81 mg PO DAILY 08/26/17 Atorvastatin Ca [Lipitor] 10 mg PO HS 08/26/17 Calcium Carbonate/Vitamin D3 [Calcium 600 + Vit D Tablet] 1 each PO DAILY Diclofenac Sodium [Voltaren] 100 gm TP ASDIR PRN 08/26/17 Triamcinolone 0.1% Cream [Aristocort 0.1% Cream -] 0 gm TP DAILY PRN 08/26/17 Valsartan [Diovan] 320 mg PO DAILY 08/26/17 Zolpidem Tartrate [Ambien] 10 mg PO HS 08/26/17 Furosemide [Lasix] 40 mg PO DAILY 08/27/17 Amoxicillin - [Amoxicillin 500mg Capsule -] 500 mg PO TID 3 Days #9 capsule Gabapentin [Neurontin -] 100 mg PO TID capsule 08/31/17
== END 2017-08-31 14:07 | disposition home or self-care (01) | DRG 292 ==
LOC: JER 10:13 → JERBED 15:04 → J6S 08-27 15:24
PROVIDERS: ADMIT Internal Medicine; ATTEND Internal Medicine
PROC: 3E0U33Z Introduction of Anti-inflammatory into Joints, Percutaneous Approach (ICD-10-PCS; principal; 2017-08-29)
PROC: 3E0U3BZ Introduction of Anesthetic Agent into Joints, Percutaneous Approach (ICD-10-PCS; 2017-08-29)
DX: I11.0 Hypertensive heart disease with heart failure (principal); N39.0 Urinary tract infection, site not specified; I50.31 Acute diastolic (congestive) heart failure; E78.5 Hyperlipidemia, unspecified; M17.0 Bilateral primary osteoarthritis of knee; R50.9 Fever, unspecified; G62.9 Polyneuropathy, unspecified
CPT/HCPCS: 36415; 71045-TC-FY; 73560-TC-LT-FY; 73560-TC-RT-FY; 80048; 80053; 80061; 81003; 81015; 82550; 82553; 83036; 83721; 83735; 83880; 84443; 84484; 85025; 87086; 87186; 93005; 93010; 93306-TC; 93970-TC; 97116-GP; 97161-GP; 99285-25; J0131

== ENCOUNTER 2018-02-08 18:29 | Inpatient (IN) | payer OTHER ==
[2018-02-08] MEDS ORDERED: ACETAMINOPHEN 500 MG TABLET (FP) PO ONE (19:10)
[2018-02-08 19:35] LABS: BASO % 0.5 % (0-2.0); EOS % 0.9 % (0-4.5); HEMATOCRIT 33.5 % (32.4-45.2); HEMOGLOBIN 11.3 GM/dL (10.7-15.3); LYMPH % 20.4 % (8-40); MCHC 33.6 g/dl (32.0-36.0); MEAN CELL VOLUME 83.4 fl (80-96); MEAN PLT VOLUME 8.4 fl (7.5-11.1); MONO % 6.7 % (3.8-10.2); NEUT % 71.5 % (42.8-82.8); PLATELET COUNT 236 K/MM3 (134-434); RBC 4.02 M/mm3 (3.60-5.2); RDW 17.1 % (11.6-15.6); WHITE BLOOD COUNT 11.6 K/mm3 (4.0-10.0)
[2018-02-08] MEDS ORDERED: ACETAMINOPHEN 325 MG TABLET (FP) ONE (19:36)
--- NOTE | 2018-02-08 19:44 | PDOC ---
History of Present Illness <Chayo Kraft - Last Filed: 02/08/18 23:54> - General History Source: Patient, Family (daughter) Exam Limitations: Language Barrier - History of Present Illness Initial Comments: 02/08/18 19:40 Pt is an 87yo f with PMH of HTN on lasix, OA presenting to ED s/p fall. Pt said she was getting up to use the restroom when she had a pressure in her chest and fell down. Pt does not recall what happened. Son reached the patient and she was awake but could not tell him what happened. Pt is now complaining of headache where she hit her head, R shoulder pain and L knee pain (Chronic). She is not on any blood thinners. Pt has had multiple falls in the past. She has bilateral hip replacement, R ankle fracture s/p ORIF and rods, shoulder repair. Admits to SOB. Denies changes in vision, chest pain, abdominal pain, n/v/d, urinary symptoms. PMD: Danny PMH: HTN, OA PSH: see hpi Meds: lasix, tramadol Social: denies Allergies: sulfa, clindamycin <Lia Loza - Last Filed: 02/09/18 00:51> - General Chief Complaint: Injury Stated Complaint: FALL Time Seen by Provider: 02/08/18 18:32 Past History <Chayo Kraft - Last Filed: 02/08/18 23:54> - Past Medical History Anemia: No Asthma: No Cancer: No Cardiac Disorders: No CVA: No COPD: No CHF: No Dementia: No Diabetes: No GI Disorders: No Disorders: No HTN: Yes Hypercholesterolemia: Yes Liver Disease: No Seizures: No Thyroid Disease: No - Surgical History Abdominal Surgery: No Appendectomy: No Cardiac Surgery: No Cholecystectomy: No Lung Surgery: No Neurologic Surgery: No Orthopedic Surgery: No - Suicide/Smoking/Psychosocial Hx Smoking Status: No Smoking History: Never smoked Have you smoked in the past 12 months: No Number of Cigarettes Smoked Daily: 0 Information on smoking cessation initiated: No Hx Alcohol Use: No Drug/Substance Use Hx: No Substance Use Type: None Hx Substance Use Treatment: No <Lia Loza - Last Filed: 02/09/18 00:51> - Past Medical History Allergies/Adverse Reactions: Allergies Allergy/AdvReac Type Severity Reaction Status Date / Time clindamycin Allergy Mild Rash Verified 02/08/18 18:38 sulfamethoxazole Allergy Mild Rash Verified 02/08/18 18:38 [From Bactrim] trimethoprim [From Bactrim] Allergy Mild Rash Verified 02/08/18 18:38 lactose AdvReac Mild Verified 02/08/18 18:38 Home Medications: Ambulatory Orders RX: Atorvastatin Ca [Lipitor] 10 mg PO HS 08/26/17 RX: Calcium Carbonate/Vitamin D3 [Calcium 600 + Vit D Tablet] 1 each PO DAILY RX: Diclofenac Sodium [Voltaren] 100 gm TP ASDIR PRN 08/26/17 RX: Triamcinolone 0.1% Cream [Aristocort 0.1% Cream -] 0 gm TP DAILY PRN RX: Zolpidem Tartrate [Ambien] 10 mg PO HS 08/26/17 RX: Furosemide [Lasix] 40 mg PO DAILY 08/27/17 Ergocalciferol [Drisdol Oral Solution -] 1.25 units PO DAILY 02/08/18 Review of Systems - Review of Systems Constitutional: No: Symptoms Reported HEENTM: No: Blurred Vision, Recent change in vision, Double Vision Respiratory: Yes: Shortness of Breath. No: Cough, Hemoptysis Cardiac (ROS): No: Chest Pain, Lightheadedness, Palpitations, Syncope ABD/GI: No: Constipated, Diarrhea, Nausea, Vomiting, Abdominal cramping : No: Burning, Dysuria, Frequency Musculoskeletal: Yes: Joint Pain (L knee, R shoulder). No: Muscle Pain, Muscle Weakness, Neck Pain Integumentary: Yes: Lesions (laceration to lateral R orbit) Neurological: Yes: Headache. No: Numbness, Tingling, Tremors, Weakness <Lia Loza - Last Filed: 02/09/18 00:51> *Physical Exam - Vital Signs Last Vital Signs Temp Pulse Resp BP Pulse Ox 98.9 F 122 H 22 H 85/48 L 100 02/08/18 22:20 02/08/18 22:20 02/08/18 22:20 02/08/18 22:20 02/08/18 22:20 <Chayo Kraft - Last Filed: 02/08/18 23:54> - Vital Signs Last Vital Signs Temp Pulse Resp BP Pulse Ox 97 F L 117 H 16 137/76 100 02/08/18 18:32 02/08/18 18:32 02/08/18 18:32 02/08/18 18:32 02/08/18 18:32 - Physical Exam General Appearance: Yes: Nourished, Appropriately Dressed. No: Apparent Distress HEENT: positive: EOMI, CAMILA. negative: Pale Conjunctivae, Scleral Icterus (R), Scleral Icterus (L) Neck: positive: Trachea midline, Supple. negative: Carotid bruit, Lymphadenopathy (R), Lymphadenopathy (L) Respiratory/Chest: positive: Lungs Clear, Normal Breath Sounds. negative: Crackles, Rales, Rhonchi, Stridor, Wheezing Cardiovascular: positive: S1, S2, Tachycardia. negative: Edema, JVD, Murmur Vascular Pulses: Carotid (R): 2+, Carotid (L): 2+, Dorsalis-Pedis (R): 2+, Doralis-Pedis (L): 2+ Gastrointestinal/Abdominal: positive: Normal Bowel Sounds, Soft. negative: Rebound, Tenderness, Hernia, Mass Musculoskeletal: positive: Other (L knee tenderness, R upper arm tenderness). negative: CVA Tenderness Extremity: positive: Normal Capillary Refill. negative: Coldness, Cyanosis, Swelling, Calf Tenderness Integumentary: positive: Normal Color, Dry, Warm Neurologic: positive: supervisor dials II-XII NML intact, Fully Oriented, Alert, Normal Mood/ Affect, Normal Response, Motor Strength 5/5 <Lia Loza - Last Filed: 02/09/18 00:51> ED Treatment Course - LABORATORY CBC & Chemistry Diagram: 02/08/18 19:26 02/08/18 19:26 - ADDITIONAL ORDERS Additional order review: Laboratory Results 02/08/18 02/08/18 02/08/18 23:14 19:26 19:26 PT with INR INR PTT (Actin FS) Sodium 136 Potassium 4.5 Chloride 99 Carbon Dioxide 24 Anion Gap 13 BUN 22 H Creatinine 1.2 Creat Clearance w eGFR 42.70 Random Glucose 145 H Calcium 8.9 Total Bilirubin 0.4 AST 41 H ALT 21 Alkaline Phosphatase 144 H Creatine Kinase 63 Troponin I 0.58 H 0.11 H B-Natriuretic Peptide 5299.1 H Total Protein 8.1 Albumin 3.1 L 02/08/18 19:26 PT with INR 11.80 INR 1.00 PTT (Actin FS) 19.6 L Sodium Potassium Chloride Carbon Dioxide Anion Gap BUN Creatinine Creat Clearance w eGFR Random Glucose Calcium Total Bilirubin AST ALT Alkaline Phosphatase Creatine Kinase Troponin I B-Natriuretic Peptide Total Protein Albumin 02/08/18 19:26 RBC 4.02 MCV 83.4 MCHC 33.6 RDW 17.1 H MPV 8.4 Neutrophils % 71.5 Lymphocytes % 20.4 D Monocytes % 6.7 Eosinophils % 0.9 Basophils % 0.5 - Medications Given in the ED: ED Medications Discontinued Medications Generic Name Dose Route Start Last Admin Trade Name Freq PRN Reason Stop Dose Admin Acetaminophen 975 mg 02/08/18 19:10 02/08/18 19:39 Tylenol - PO 02/08/18 19:11 975 mg ONCE ONE Administration Sodium Chloride 1,000 mls @ 1,000 mls/hr 02/08/18 22:12 02/08/18 22:16 Normal Saline - IV 02/08/18 23:11 1,000 mls/hr ASDIR STA Administration Sodium Chloride 1,000 mls @ 1,000 mls/hr 02/08/18 22:33 02/08/18 22:36 Normal Saline - IV 02/08/18 23:32 1,000 mls/hr ASDIR STA Administration Ondansetron HCl 4 mg 02/08/18 22:32 02/08/18 22:36 Zofran Injection IVPB 02/08/18 22:33 4 mg ONCE ONE Administration <Chayo Kraft - Last Filed: 02/08/18 23:54> - LABORATORY CBC & Chemistry Diagram: 02/08/18 19:26 02/08/18 19:26 - RADIOLOGY Radiology Studies Ordered: Category Date Time Status FACIAL BONES CT W/O CONTRAST [CT] Stat CT Scan 02/08/18 19:[address] WITHOUT CONTRAST [CT] Stat CT Scan 02/08/18 19:07 Ordered HIP & PELVIS-LEFT [RAD] Stat Radiology 02/08/18 19:07 Ordered HIP & PELVIS-RIGHT [RAD] Stat Radiology 02/08/18 19:07 Ordered KNEE 4 POS-LEFT [RAD] Stat Radiology 02/08/18 19:07 Ordered SHOULDER-RIGHT [RAD] Stat Radiology 02/08/18 19:07 Ordered - Medications Given in the ED: ED Medications Discontinued Medications Generic Name Dose Route Start Last Admin Trade Name Carlos PRN Reason Stop Dose Admin Acetaminophen 975 mg 02/08/18 19:10 02/08/18 19:39 Tylenol - PO 02/08/18 19:11 975 mg ONCE ONE Administration <Lia Loza - Last Filed: 02/09/18 00:51> Medical Decision Making - Medical Decision Making 02/08/18 19:44 Pt is an 87yo f with PMH of HTN on lasix, OA presenting to ED s/p fall. Pt said she was getting up to use the restroom when she had a pressure in her chest and fell down. Pt does not recall what happened. Son reached the patient and she was awake but could not tell him what happened. Pt is now complaining of headache where she hit her head, R shoulder pain and L knee pain (Chronic). Vitals: Selected Entries 02/08/18 18:32 Temperature 97 F L Pulse Rate 117 H Respiratory 16 Rate Blood Pressure 137/76 Blood Pressure 96 Mean O2 Sat by Pulse 100 Oximetry (%) PE: abrasion with bruising to lateral aspect of R orbit, normal vision, no bleeding in eyes. R upper arm tender to palpation. L knee tender to palpation not swollen or erythematous or warm. clear breath sounds, normal cardiac exam. DDx: Syncope- cardiogenic, neurogenic v. mechanical. Fracture v. sprain -Will order EKG, labs, ct head and facial, xr of R shoulder, pevlis and L knee. Given Tylenol for pain 02/08/18 20:26 Laboratory Tests 02/08/18 02/08/18 02/08/18 19:26 19:26 19:26 WBC 11.6 H Hgb 11.3 Hct 33.5 Plt Count 236 BUN 22 H Creatinine 1.2 Random Glucose 145 H AST 41 H Alkaline Phosphatase 144 H Troponin I 0.11 H Albumin 3.1 L Elevated troponin (08/2017). EKG: sinus tachycardia, no benito or depressions, inverted T in III similar to prior done August 2017. 02/08/18 20:27 CT Maxillofacial: There is mild right preseptal periorbital soft tissue swelling and a small laceration seen superficial to the lateral right orbital wall. There are no intracranial hemorrhages or brain parenchymal contusion injuries; no fractures seen in the calvarial, facial or skull base bones imaged on the current exam CT Head: IMPRESSION: Mild right preseptal periorbital soft tissue swelling and a small laceration seen superficial to the lateral right orbital wall. 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 This cyst does not appear to be communicating with the arachnoid spaces surrounding the left frontal lobe. There is no clear evidence of an associated soft tissue nodule. This cyst may be further evaluated with an MRI scan, with contrast, if clinically indicated. Moderate age related involutional changes. The study is otherwise unremarkable. No calvarial, facial or skull base fractures imaged on the current exam. No intracranial hemorrhages or brain parenchymal contusion injuries.No evidence of acute or chronic ischemic change. Xray of hip, shoulder and knee did not show fracture. After CT, pt appeared diaphoretic and had pre-syncopal episode, started vomiting. Pt was clammy. Placed on monitor. BP 70s/40s. 90%RA, tachy 120s. tachypneic 20s. Placed on NRB, saturation increased to 100%. bedside US by Dr. Kraft showed right heart strain. High suspicion for PE. CT head negative for bleed. Pt started on 5000u heparin bolus and heparin drip. Given zofran for nausea. FSBG was 237. repeat trop, bnp and lactate drawn. Pt started on another liter of fluid. Will go to CTA. Repeat EKG: sinus tachycardia. T inversion in III. incomplete RBBB. NO BENITO or depressions 02/09/18 00:02 Large saddle embolism is identified. There is no aortic aneurysm or dissection. Heart size is normal. The trachea and bronchi are patent. There is no pleural or pericardial effusion. The lungs are clear other than minimal atelectasis. No fractures identified. The left kidney is incompletely visualized but appears abnormal, possibly secondary to hydronephrosis or mass. ICU consulted. Deciding between tPA or thrombectomy. Possible transfer out. Saturating 100% at 2L, tach in 120s. tachypneic 20s. BP 70s systolic after 2L. Trop increased to 0.5, BNP 5299. 02/09/18 00:30 LAc 6.7 <Lia Loza - Last Filed: 02/09/18 00:51> *DC/Admit/Observation/Transfer - Discharge Dispostion Decision to Admit order: Yes <Chayo Kraft - Last Filed: 02/08/18 23:54> - Discharge Dispostion Decision to Admit order: Yes <Lia Loza - Last Filed: 02/09/18 00:51> Diagnosis at time of Disposition: Pulmonary emboli Qualifiers: Pulmonary embolism type: saddle Chronicity: acute Acute cor pulmonale presence : without acute cor pulmonale Qualified Code(s): I26.92 - Saddle embolus of pulmonary artery without acute cor pulmonale Syncope Qualifiers: Syncope type: unspecified Qualified Code(s): R55 - Syncope and collapse - Referrals Referrals: Mukesh Delgado MD [Primary Care Provider] - - Patient Instructions - Post Discharge Activity
[2018-02-08 19:51] LABS: PROTHROMBIN TIME (PATIENT) 11.8 SEC (9.7-13.0)
[2018-02-08 19:54] LABS: ACTIVATED PTT 19.6 SECONDS (25.2-36.5)
[2018-02-08 20:05] LABS: ALBUMIN 3.1 g/dl (3.4-5.0); ALK PHOS 144 U/L (45-117); ANION GAP 13 MMOL/L (8-16); BILIRUBIN,TOTAL 0.4 mg/dL (0.2-1); BLOOD UREA NITROGEN 22 mg/dL (7-18); CALCIUM 8.9 mg/dL (8.5-10.1); CHLORIDE 99 mmol/L (98-107); CO2 24 mmol/L (21-32); CREATININE 1.2 mg/dL (0.55-1.3); GLUCOSE,RANDOM 145 mg/dL (74-106); POTASSIUM 4.5 mmol/L (3.5-5.1); SGOT/AST 41 U/L (15-37); SGPT/ALT 21 U/L (13-61); SODIUM 136 mmol/L (136-145); TOT PROT 8.1 g/dl (6.4-8.2)
--- NOTE | 2018-02-08 20:46 | PDOC ---
Attending Attestation - HPI HPI: 02/08/18 20:47 The patient is an 87-year-old female with past medical history significant for HTN, HLD, OA of the knees, and CHF (diagnosed 08/2017) presents to the emergency department s/p an unwitnessed fall. The patient reports she is unable to recall the details of the incident. The patient states she was going to the bathroom when she felt a pressure to the chest followed by the fall. The patient reports at the ED she has a headache and R. shoulder pain. Currently, patient denies having chest pain. Denies fever, chills, abdominal pain, dysuria , hematuria, frequency or urgency to urinate, diarrhea or constipation. Allergies: Clindamycin, Sulfamethoxazole, trimethoprim, lactose PCP: Mukesh Delgado - Medical Decision Making 02/08/18 20:48 Documentation prepared by Taylor Magaña, acting as emergency medical technician basic for Chayo Kraft MD. <Taylor Magaña - Last Filed: 02/08/18 22:06> - Resident Resident Name: Lia Loza - ED Attending Attestation I have performed the following: I have examined & evaluated the patient, The case was reviewed & discussed with the resident, I agree w/resident's findings & plan, Exceptions are as noted - HPI HPI: 02/08/18 21:57 pt denies current chest pain in the ed, no f/c no urinary complaints. fall was unwitnessed, additional history from daughter states she fell after getting up to go to bathroom, found on bathroom floor after hearing her fall. has had vertigo like sxs in the past, none recently. - Physicial Exam PE: 02/08/18 n20:47 pt awake alert . right periorbital superior orbital rim laceration. superficial skin avulsion. no bony step off. EOMI. nasal bridge nt. no cervcial spine tenderness. lungs clear bilaterally heart reg tachycarida. no audible m/r /g abd soft nt nd. ext wwp. FROM nuero alert oriented x 3. 5/5 all four ext lower ext exam limited by prior knee surgery/ pain ( chronic). no eccymosis. no deformities. pelvis stable. no peripheral edema. no calf tenderness. 2_ dp/ pt pulses bilaterally. - Medical Decision Making differential traumatic head injury facial fx, infection such as uti, or pna, dysrhythmia, dehyration, anemia, mi, plan ct head max facial, will await to give asa penidng head ct results. cxr xray pelvis, knee and shoulder, after head ct. pt developed n/v. c/o vertigo like sensation on exam. pt with symmetric strength. facies symmetric. finger to nose normal bilaterally. repeat ekg obtained. pt trop 0.11. possible nstemi. zofran, meclizine, and asa after head ct results. 02/08/18 21:59 02/08/18 23:56 focused ED ultrasound TTE indication sob, hypotension four views of heart obtained ( parasternal long and short, apical) significan RV dilation and strain pattern, rv hypocontractility septal Ding. impingment on LV no pericardial effusion impression: RV strain pattern. bilat lower extremities doppler, suspected PE right lower extremity scanned common femoral full compression, popliteal vein noncompressible. left leg full compression at common femoral vein, and popliteal past trifurcation. impression: right popliteal v. dvt. Left leg no proximal dvt. upon diagnosis of RV strain, pt given heparin bolus. ct head reviewed negative for acute bleed. laceration right eye. heparin drip started. ct angio obtained immediately, noted large saddle PE. ICU consulted. consider pt for TPA due to instability d/w pt matty. 02/09/18 00:30 d/w family regarding risk of systemic tpa/ d/w transfer team and [facility] , per icu attending there , due to pt instability, and no other well documented options for her via a "pert" team at [facility], recommend keep in icu for tpa at [facility]. not good candidate for transfer. consulted IR, d/w dr. Osvaldo Abad for possibility of Ir directed TPA will come to hospital to perform. accepted to ICU. <Chayo Kraft - Last Filed: 02/10/18 14:23>
[2018-02-08] MEDS ORDERED: SODIUM CHLORIDE 1,000 ML IV STA ×2 (22:12→22:33)
[2018-02-08] MEDS ORDERED: HEPARIN NA (PORCINE) 5,000 UNITS/ML 1ML VIAL ONE (22:22)
[2018-02-08] MEDS ORDERED: HEPARIN INFUSION - 25,000 UNITS/500 ML INFUS.BAG IVPB ONE (22:22)
[2018-02-08] MEDS: HEPARIN NA (PORCINE) 5,000 UNITS/ML 1ML VIAL IVPUSH PRN (22:23)
[2018-02-08] MEDS ORDERED: ONDANSETRON 4 MG/2 ML VIAL IVPB ONE (22:32)
[2018-02-08] MEDS ORDERED: ONDANSETRON 4 MG/2 ML VIAL ONE (22:33)
[2018-02-08] MEDS: HEPARIN - 25,000 UNIT in SODIUM CHLORIDE 495 ML IV SCH (22:36)
[2018-02-08 23:43] LABS: N-TERMINAL BNP 5299.1 pg/ml (5-450)
[2018-02-09] MEDS ORDERED: ALTEPLASE 50 MG VIAL IVPB ONE (00:32)
[2018-02-09] MEDS ORDERED: LIDOCAINE HCL 1%, 10 MG/ML (50 mL VIAL) SQ ONE (00:36)
[2018-02-09] MEDS ORDERED: LIDOCAINE HCL 1%, 10 MG/ML (20ML VIAL) ONE (00:43)
--- NOTE | 2018-02-09 01:07 | HP ---
Admitting History and Physical - Admission Chief Complaint: SOB and dyspnea History of Present Illness: this is an 87 y/o f presented to the hospital for an acute SOB that started while she was at her home walking, patient passed out and lacerated her forehead she was found to have a massive/submassive PE IR contacted patient is to go for urgent embolectomy History Source: Patient, Family Member Limitations to Obtaining History: No Limitations - Past Medical History Cardiovascular: Yes: HTN, Hyperlipdemia Musculoskeletal: Yes: Osteoarthritis - Smoking History Smoking history: Never smoked Have you smoked in the past 12 months: No Aproximately how many cigarettes per day: 0 - Alcohol/Substance Use Hx Alcohol Use: No Home Medications - Allergies Allergies/Adverse Reactions: Allergies Allergy/AdvReac Type Severity Reaction Status Date / Time clindamycin Allergy Mild Rash Verified 02/08/18 18:38 sulfamethoxazole Allergy Mild Rash Verified 02/08/18 18:38 [From Bactrim] trimethoprim [From Bactrim] Allergy Mild Rash Verified 02/08/18 18:38 lactose AdvReac Mild Verified 02/08/18 18:38 - Home Medications Home Medications: Ambulatory Orders Atorvastatin Ca [Lipitor] 10 mg PO HS 08/26/17 Calcium Carbonate/Vitamin D3 [Calcium 600 + Vit D Tablet] 1 each PO DAILY Diclofenac Sodium [Voltaren] 100 gm TP ASDIR PRN 08/26/17 Triamcinolone 0.1% Cream [Aristocort 0.1% Cream -] 0 gm TP DAILY PRN 08/26/17 Zolpidem Tartrate [Ambien] 10 mg PO HS 08/26/17 Furosemide [Lasix] 40 mg PO DAILY 08/27/17 Ergocalciferol [Drisdol Oral Solution -] 1.25 units PO DAILY 02/08/18 Review of Systems - Review of Systems Constitutional: reports: No Symptoms Eyes: reports: No Symptoms HENT: reports: No Symptoms Neck: reports: No Symptoms Cardiovascular: reports: Palpitations, Shortness of Breath Respiratory: reports: SOB, SOB on Exertion Gastrointestinal: reports: No Symptoms Integumentary: reports: No Symptoms Neurological: reports: No Symptoms Endocrine: reports: No Symptoms Physical Examination Vital Signs: Vital Signs Temperature 98.9 F 02/08/18 22:20 Pulse Rate 122 H 02/08/18 22:20 Respiratory Rate 22 H 02/08/18 22:20 Blood Pressure 85/48 L 02/08/18 22:20 O2 Sat by Pulse Oximetry (%) 100 02/08/18 22:20 Constitutional: Yes: Well Nourished, No Distress, Calm Eyes: Yes: WNL, Conjunctiva Clear, EOM Intact HENT: Yes: WNL, Atraumatic, Normocephalic Neck: Yes: WNL, Supple, Trachea Midline Cardiovascular: Yes: WNL, Regular Rate and Rhythm, S1, S2 Respiratory: Yes: WNL, Regular, CTA Bilaterally Gastrointestinal: Yes: WNL, Normal Bowel Sounds, Soft ...Rectal Exam: Yes: Deferred Labs: CBC, BMP 02/08/18 19:26 02/08/18 19:26 Imaging - Results Cat Scan: Image Reviewed EKG: Image Reviewed Problem List - Problems (1) Pulmonary emboli Assessment/Plan: patient is being admitted to the ICU for massive PE A line placement IR - urgent embolectomy critical care consult hold off anticoagulation until cleared by IR since patient is going to receive Thrombolytic therapy no anticoagulation insulin sliding scale low salt diet Code(s): I26.99 - OTHER PULMONARY EMBOLISM WITHOUT ACUTE COR PULMONALE Qualifiers: Pulmonary embolism type: saddle Chronicity: acute Acute cor pulmonale presence: without acute cor pulmonale Qualified Code(s): I26.92 - Saddle embolus of pulmonary artery without acute cor pulmonale (2) Syncope Assessment/Plan: 05/10 to PE will monitor patient consult cardiology Code(s): R55 - SYNCOPE AND COLLAPSE Qualifiers: Syncope type: unspecified Qualified Code(s): R55 - Syncope and collapse (3) Hyperlipidemia Assessment/Plan: c./w home medication Code(s): E78.5 - HYPERLIPIDEMIA, UNSPECIFIED (4) Hypertension Assessment/Plan: hold due to hypotension Code(s): I10 - ESSENTIAL (PRIMARY) HYPERTENSION Qualifiers: Hypertension type: essential hypertension Qualified Code(s): I10 - Essential (primary) hypertension
[2018-02-09] MEDS ORDERED: ALTEPLASE 100MG 100 MG IVPB ONE (01:47)
[2018-02-09] MEDS ORDERED: ZOLPIDEM TARTRATE 5 MG TABLET PO PRN (02:23)
[2018-02-09 06:11] LABS: ACTIVATED PTT 67.4 SECONDS (25.2-36.5)
[2018-02-09 06:29] LABS: ALBUMIN 2.7 g/dl (3.4-5.0); ALK PHOS 217 U/L (45-117); ANION GAP 12 MMOL/L (8-16); BILIRUBIN,TOTAL 0.4 mg/dL (0.2-1); BLOOD UREA NITROGEN 24 mg/dL (7-18); CHLORIDE 103 mmol/L (98-107); CO2 22 mmol/L (21-32); CREATININE 1.3 mg/dL (0.55-1.3); GLUCOSE,RANDOM 103 mg/dL (74-106); MAGNESIUM 2.2 mg/dL (1.8-2.4); PHOSPHOROUS 4.5 mg/dL (2.5-4.9); POTASSIUM 4.6 mmol/L (3.5-5.1); SGOT/AST 78 U/L (15-37); SGPT/ALT 48 U/L (13-61); SODIUM 137 mmol/L (136-145); TOT PROT 7.3 g/dl (6.4-8.2)
[2018-02-09 06:37] LABS: ARTERIAL BLD GAS O2 SATURATION 99.3 % (90-98.9); ARTERIAL BLOOD GAS BASE EXCESS -4.1 meq/l (-2-2); ARTERIAL BLOOD GAS PCO2 36.4 mmHg (35-45); ARTERIAL BLOOD GAS pH 7.36 (7.35-7.45)
[2018-02-09] MEDS: INSULIN SLIDING SCALE (NOVOLOG) 1 VIAL SQ SCH ×3 (06:37→17:26)
[2018-02-09 06:38] LABS: ALLENS TEST POSITIVE
--- NOTE | 2018-02-09 06:52 | CONSULT ---
Consult - text type - Consultation Consultation Note: PULM/CCM Pt seen and examined in ED CC: syncope, shock, dysnpea Hx obtained from patient and daughter HPI: Briefly Ms Torres is a 89 year-old female with past medical history significant for HTN, HLD, OA of the knees, and CHF (diagnosed 08/2017) presented to ED after syncopal event walking to bathroom. She had been having increase work of breathing for approx two weeks, and chest pressure just prior to event. At baseline she walks with walker, indepdent of most ADLS. She got up walked to bathroom, daughter heard crash, found pt on floor, bleeding from R orbit. She was initiallly unresponsive and pale. EMS was called, and pt brought to ED. She was initially normotensive, tachycardic, and requiring some supplemental o2. She underwent CT head and workup for possible fracture given various musculoskeletal complaints. She returned from CT scanner became pale, hypotensive 60/40, now requiring NRB. She went for CTA, showing large bilateral and saddle pulmonary emboli. She was given heparin bolus and started on gtt. She became increasing hypotensive, requiring fluid boluses. BP 70/40. Bedside TTE showed R heart strain hypokinetic RV, lactate was 6, trop 1. Case was discussed extensively with pt's daughter regarding risks and benefits of tPA in this setting ([place] [phone]). Daughter agreed that despite risk, she was amenable to intervention given pts deteriorating hemodynamics [facility] was also contacted for possible tertiary care transfer (they declined). IR was consulted and pt underwent fluro guided, catheter directed tPA. Pt BP improved, o2 requirement decreased. Per IR attending some clot appeared chronic. Pt Denies fever, chills, abdominal pain, dysuria, hematuria, frequency or urgency to urinate, diarrhea or constipation. THere was no sick contacts, no recent travel, no recent leg trauma. She does sit or lay down for most of the day. Allergies: Clindamycin, Sulfamethoxazole, trimethoprim, lactose PCP: Mukesh Delgado Past Medical History Cardio/Vascular HTN,Hyperlipdemia Smoking History Smoking history Never smoked Aproximately how many 0 cigarettes per day Alcohol/Substance Use Hx Alcohol Use No Home Medications Medication Instructions Recorded Atorvastatin Ca [Lipitor] 10 mg PO HS 08/26/17 Calcium Carbonate/Vitamin D3 1 each PO DAILY 08/26/17 [Calcium 600 + Vit D Tablet] Diclofenac Sodium [Voltaren] 100 gm TP ASDIR PRN 08/26/17 Triamcinolone 0.1% Cream 0 gm TP DAILY PRN 08/26/17 [Aristocort 0.1% Cream -] Zolpidem Tartrate [Ambien] 10 mg PO HS 08/26/17 Furosemide [Lasix] 40 mg PO DAILY 08/27/17 Ergocalciferol [Drisdol Oral 1.25 units PO DAILY 02/08/18 Solution -] Active Medications Atorvastatin Calcium (Lipitor -) 10 mg PO HS ANA Chlorhexidine Gluconate (Hibiclens For Decolonization -) 1 applic TP HS ANA Furosemide (Lasix -) 40 mg PO DAILY ANA Heparin Sodium (Porcine) (Heparin -) 5,000 unit IVPUSH PRN PRN PRN Reason: Heparin Last Admin: 02/08/18 22:23 Dose: 5,000 unit Heparin Sodium (Porcine) 25, (000 unit/ Sodium Chloride) 500 mls @ 20 mls/hr IV TITR ANA; Protocol Last Titration: 02/09/18 03:00 Dose: 0 unit/hr, 0 mls/hr Insulin Aspart (Novolog Vial Sliding Scale -) 1 vial SQ TIDAC ANA; Protocol Mupirocin (Bactroban Ointment (For Decolonization) -) 1 applic NS BID ANA Stop: 02/14/18 09:59 Zolpidem Tartrate (Ambien -) 5 mg PO HS PRN PRN Reason: INSOMNIA CTA reviewed, large bilateral PE in nearly all segments, saddle CXR reviewed EKG : sinus arrthymia, TWI III, V1, flattening AVF Vital Signs Temp 98.8 F 02/09/18 06:00 Pulse 74 02/09/18 06:00 Resp 18 02/09/18 06:00 BP 137/55 L 02/09/18 06:00 Pulse Ox 100 02/09/18 02:44 Intake & Output 02/08/18 02/08/18 02/09/18 11:59 23:59 10:59 Intake Total 30 Output Total 400 Balance -370 Weight 86.183 kg 83.461 kg Intake: IV 30 Normal Saline - 1,000 ml 30 @ 1000 mls/hr IV ASDIR STA Rx#:[id number] Output: Urine 400 Mariee 400 Other: Voiding Method Diaper Indwelling Catheter Height 5 ft 1 in 5 ft 1 in Body Mass Index (BMI) 35.9 35.9 Weight Measurement Method Built in [facility] PE: Gen: eld woman in moderated distress pale HEENT: Large R orbit hematoma, with laceration, significant venous bleeding, PERRL PULM: clear bilaterally, no wheezes CV: tachy, no m/r/g appreciated ABD: obese, soft EXT: cool 1+ pulses NEURO: intact, non focal A/ 87 y/o woman with likely 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 cards consult. -hypercoag workup -will consider IVC if significant clot burden in LE -no scd -will need suturing of orbit once tPA resolve Ashley NOGUERA [id number] Critical Care Total Critical Care Time (in minutes): 45 Critical Care Statement: The care of this patient involved high complexity decision making to prevent further life threatening deterioration of the patient 's condition and/or to evaluate & treat vital organ system(s) failure or risk of failure.
[2018-02-09 07:00] LABS: INR 1.61 (0.83-1.09); PROTHROMBIN TIME (PATIENT) 19.1 SEC (9.7-13.0)
[2018-02-09 07:16] LABS: BASO % 0.2 % (0-2.0); EOS % 0.1 % (0-4.5); HEMATOCRIT 32.4 % (32.4-45.2); HEMOGLOBIN 10.9 GM/dL (10.7-15.3); LYMPH % 14.5 % (8-40); MCH 28.4 pg (25.7-33.7); MCHC 33.7 g/dl (32.0-36.0); MEAN CELL VOLUME 84.4 fl (80-96); MEAN PLT VOLUME 8.8 fl (7.5-11.1); MONO % 11.1 % (3.8-10.2); NEUT % 74.1 % (42.8-82.8); PLATELET COUNT 211 K/MM3 (134-434); RBC 3.84 M/mm3 (3.60-5.2); RDW 17.5 % (11.6-15.6); WHITE BLOOD COUNT 8.1 K/mm3 (4.0-10.0)
[2018-02-09] MEDS: MUPIROCIN 2% TOPICAL OINTMENT FOR DECOLONIZATION NS SCH ×2 (09:47→21:30)
[2018-02-09] MEDS ORDERED: FUROSEMIDE 40 MG TABLET (FP) PO SCH (10:00)
--- NOTE | 2018-02-09 11:08 | PN ---
Progress Note (short form) - Note Progress Note: Events noted Admitted for s/p fall, Extensive PE- saddle embolism , s/p catheter driven TPA Pt in ICU BP is better has pain in right periorbital region, rt forehead Vital Signs - 24 hr 02/08/18 02/08/18 02/09/18 18:32 22:20 01:00 EDT Temperature 97 F L 98.9 F Pulse Rate 117 H Pulse Rate [ 122 H 113 H Left Radial] Pulse Rate [ Left Upper Arm] Respiratory 16 22 H 18 Rate Respiratory Rate [Left Upper Arm] Blood Pressure 137/76 Blood Pressure 85/48 L 114/71 [Left Arm] Blood Pressure [Left Upper Arm ] O2 Sat by Pulse 100 100 100 Oximetry (%) O2 Sat by Pulse Oximetry (%) [ Left Upper Arm] 02/09/18 02/09/18 02/09/18 01:10 EDT 01:10 EST 01:18 EST Temperature Pulse Rate 107 H Pulse Rate [ 114 H 113 H Left Radial] Pulse Rate [ 93 H Left Upper Arm] Respiratory 20 20 20 Rate Respiratory 20 Rate [Left Upper Arm] Blood Pressure 122/72 Blood Pressure 131/75 134/64 [Left Arm] Blood Pressure 131/75 [Left Upper Arm ] O2 Sat by Pulse 98 100 97 Oximetry (%) O2 Sat by Pulse 100 Oximetry (%) [ Left Upper Arm] 02/09/18 02/09/18 02/09/18 01:29 EST 01:39 EST 01:48 EST Temperature Pulse Rate Pulse Rate [ 107 H 112 H 107 H Left Radial] Pulse Rate [ Left Upper Arm] Respiratory 18 18 20 Rate Respiratory Rate [Left Upper Arm] Blood Pressure Blood Pressure 113/72 126/65 122/72 [Left Arm] Blood Pressure [Left Upper Arm ] O2 Sat by Pulse 95 94 L 98 Oximetry (%) O2 Sat by Pulse Oximetry (%) [ Left Upper Arm] 02/09/18 02/09/18 02/09/18 02:37 02:44 04:00 Temperature Pulse Rate 84 64 Pulse Rate [ Left Radial] Pulse Rate [ Left Upper Arm] Respiratory 20 20 Rate Respiratory Rate [Left Upper Arm] Blood Pressure 142/62 141/60 Blood Pressure [Left Arm] Blood Pressure [Left Upper Arm ] O2 Sat by Pulse 100 Oximetry (%) O2 Sat by Pulse Oximetry (%) [ Left Upper Arm] 02/09/18 02/09/18 02/09/18 06:00 08:00 08:24 Temperature 98.8 F Pulse Rate 74 74 Pulse Rate [ Left Radial] Pulse Rate [ Left Upper Arm] Respiratory 18 18 18 Rate Respiratory Rate [Left Upper Arm] Blood Pressure 137/55 L 144/60 Blood Pressure [Left Arm] Blood Pressure [Left Upper Arm ] O2 Sat by Pulse 100 Oximetry (%) O2 Sat by Pulse Oximetry (%) [ Left Upper Arm] 02/09/18 02/09/18 08:26 10:55 Temperature 97.8 F Pulse Rate 84 Pulse Rate [ Left Radial] Pulse Rate [ Left Upper Arm] Respiratory 18 18 Rate Respiratory Rate [Left Upper Arm] Blood Pressure 145/66 Blood Pressure [Left Arm] Blood Pressure [Left Upper Arm ] O2 Sat by Pulse Oximetry (%) O2 Sat by Pulse Oximetry (%) [ Left Upper Arm] Current Medications Generic Name Dose Route Start Last Admin Trade Name Freq PRN Reason Stop Dose Admin Atorvastatin Calcium 10 mg 02/09/18 22:00 Lipitor - PO HS ANA Chlorhexidine Gluconate 1 applic 02/09/18 22:00 Hibiclens For Decolonization - TP HS ANA Heparin Sodium (Porcine) 5,000 unit 02/08/18 22:18 02/08/18 22:23 Heparin - IVPUSH 5,000 unit PRN PRN Administration Heparin Heparin Sodium (Porcine) 25, 500 mls @ 20 mls/hr 02/08/18 22:30 02/09/18 03: 00 000 unit/ Sodium Chloride IV 0 unit/hr TITR ANA 0 mls/hr Titration Protocol 1,000 UNIT/HR Insulin Aspart 1 vial 02/09/18 07:00 02/09/18 06:37 Novolog Vial Sliding Scale - SQ Not Given TIDAC [facility] Protocol Mupirocin 1 applic 02/09/18 10:00 02/09/18 09:47 Bactroban Ointment (For Decolonization) - NS 02/14/18 09:59 1 applic BID ANA Administration Zolpidem Tartrate 5 mg 02/09/18 02:23 Ambien - PO HS PRN INSOMNIA Laboratory Results - last 24 hr 02/08/18 02/08/18 02/08/18 19:26 19:26 19:26 WBC 11.6 H RBC 4.02 Hgb 11.3 Hct 33.5 MCV 83.4 MCH 28.0 MCHC 33.6 RDW 17.1 H Plt Count 236 MPV 8.4 Absolute Neuts (auto) 8.3 H Neutrophils % 71.5 Lymphocytes % 20.4 D Monocytes % 6.7 Eosinophils % 0.9 Basophils % 0.5 Nucleated RBC % 0 PT with INR 11.80 INR 1.00 PTT (Actin FS) 19.6 L Puncture Site ABG pH ABG pCO2 at Pt Temp ABG pO2 at Pt Temp ABG HCO3 ABG O2 Sat (Measured) ABG O2 Content ABG Base Excess Jose Test O2 Delivery Device Oxygen Flow Rate Sodium 136 Potassium 4.5 Chloride 99 Carbon Dioxide 24 Anion Gap 13 BUN 22 H Creatinine 1.2 Creat Clearance w eGFR 42.70 Random Glucose 145 H Hemoglobin A1c % Lactic Acid Calcium 8.9 Phosphorus Magnesium Total Bilirubin 0.4 AST 41 H ALT 21 Alkaline Phosphatase 144 H Creatine Kinase Troponin I B-Natriuretic Peptide Total Protein 8.1 Albumin 3.1 L 02/08/18 02/08/18 02/08/18 19:26 23:00 23:14 WBC RBC Hgb Hct MCV MCH MCHC RDW Plt Count MPV Absolute Neuts (auto) Neutrophils % Lymphocytes % Monocytes % Eosinophils % Basophils % Nucleated RBC % PT with INR INR PTT (Actin FS) Puncture Site ABG pH ABG pCO2 at Pt Temp ABG pO2 at Pt Temp ABG HCO3 ABG O2 Sat (Measured) ABG O2 Content ABG Base Excess Jose Test O2 Delivery Device Oxygen Flow Rate Sodium Potassium Chloride Carbon Dioxide Anion Gap BUN Creatinine Creat Clearance w eGFR Random Glucose Hemoglobin A1c % Lactic Acid 6.7 H* Calcium Phosphorus Magnesium Total Bilirubin AST ALT Alkaline Phosphatase Creatine Kinase 63 Troponin I 0.11 H 0.58 H B-Natriuretic Peptide 5299.1 H Total Protein Albumin 02/09/18 02/09/18 02/09/18 01:02 EST 05:30 05:30 WBC 8.1 RBC 3.84 Hgb 10.9 Hct 32.4 MCV 84.4 MCH 28.4 MCHC 33.7 RDW 17.5 H Plt Count 211 MPV 8.8 Absolute Neuts (auto) 6.0 Neutrophils % 74.1 Lymphocytes % 14.5 D Monocytes % 11.1 H Eosinophils % 0.1 D Basophils % 0.2 Nucleated RBC % 0 PT with INR 19.10 H INR 1.61 H PTT (Actin FS) 67.4 H Puncture Site ABG pH ABG pCO2 at Pt Temp ABG pO2 at Pt Temp ABG HCO3 ABG O2 Sat (Measured) ABG O2 Content ABG Base Excess Jose Test O2 Delivery Device Oxygen Flow Rate Sodium Potassium Chloride Carbon Dioxide Anion Gap BUN Creatinine Creat Clearance w eGFR Random Glucose Hemoglobin A1c % Lactic Acid Calcium Phosphorus Magnesium Total Bilirubin AST ALT Alkaline Phosphatase Creatine Kinase Troponin I 0.53 H B-Natriuretic Peptide Total Protein Albumin 02/09/18 02/09/18 02/09/18 05:30 05:30 06:30 WBC RBC Hgb Hct MCV MCH MCHC RDW Plt Count MPV Absolute Neuts (auto) Neutrophils % Lymphocytes % Monocytes % Eosinophils % Basophils % Nucleated RBC % PT with INR INR PTT (Actin FS) Puncture Site Arterial line ABG pH 7.36 ABG pCO2 at Pt Temp 36.4 ABG pO2 at Pt Temp 174.0 H* ABG HCO3 20.3 L ABG O2 Sat (Measured) 99.3 H ABG O2 Content 13.3 L ABG Base Excess -4.1 L Jose Test Positive O2 Delivery Device N/c Oxygen Flow Rate 4l Sodium 137 Potassium 4.6 Chloride 103 Carbon Dioxide 22 Anion Gap 12 BUN 24 H Creatinine 1.3 Creat Clearance w eGFR 38.93 Random Glucose 103 Hemoglobin A1c % 6.4 H Lactic Acid Calcium 8.0 L Phosphorus 4.5 Magnesium 2.2 Total Bilirubin 0.4 AST 78 H ALT 48 Alkaline Phosphatase 217 H Creatine Kinase 68 Troponin I 1.15 H* B-Natriuretic Peptide Total Protein 7.3 Albumin 2.7 L 02/09/18 06:50 WBC RBC Hgb Hct MCV MCH MCHC RDW Plt Count MPV Absolute Neuts (auto) Neutrophils % Lymphocytes % Monocytes % Eosinophils % Basophils % Nucleated RBC % PT with INR INR PTT (Actin FS) Puncture Site ABG pH ABG pCO2 at Pt Temp ABG pO2 at Pt Temp ABG HCO3 ABG O2 Sat (Measured) ABG O2 Content ABG Base Excess Jose Test O2 Delivery Device Oxygen Flow Rate Sodium Potassium Chloride Carbon Dioxide Anion Gap BUN Creatinine Creat Clearance w eGFR Random Glucose Hemoglobin A1c % Lactic Acid Cancelled Calcium Phosphorus Magnesium Total Bilirubin AST ALT Alkaline Phosphatase Creatine Kinase Troponin I B-Natriuretic Peptide Total Protein Albumin no pallor rt forehead and periorbital region- hematoma S1 S2 RRR Lungs clear Abd- soft, NT No edema PLAN On Heparin drip monitor CBC spoke with ICU attending-consult Cardiology for elevated cardiac enzymes continue with meds check ultrasound of legs Problem List - Problems (1) Pulmonary emboli Code(s): I26.99 - OTHER PULMONARY EMBOLISM WITHOUT ACUTE COR PULMONALE Qualifiers: Pulmonary embolism type: saddle Chronicity: acute Acute cor pulmonale presence: without acute cor pulmonale Qualified Code(s): I26.92 - Saddle embolus of pulmonary artery without acute cor pulmonale (2) Syncope Code(s): R55 - SYNCOPE AND COLLAPSE Qualifiers: Syncope type: unspecified Qualified Code(s): R55 - Syncope and collapse (3) Congestive heart failure Code(s): I50.9 - HEART FAILURE, UNSPECIFIED Qualifiers: Heart failure type: unspecified Heart failure chronicity: acute Qualified Code(s): I50.9 - Heart failure, unspecified (4) Hyperlipidemia Code(s): E78.5 - HYPERLIPIDEMIA, UNSPECIFIED (5) Hypertension Code(s): I10 - ESSENTIAL (PRIMARY) HYPERTENSION Qualifiers: Hypertension type: essential hypertension Qualified Code(s): I10 - Essential (primary) hypertension
--- NOTE | 2018-02-09 11:42 | EKG ---
Test Reason : Blood Pressure : / mmHG Vent. Rate : 127 BPM Atrial Rate : 127 BPM P-R Int : 152 ms QRS Dur : 106 ms QT Int : 306 ms P-R-T Axes : 064 010 003 degrees QTc Int : 444 ms SINUS TACHYCARDIA INCOMPLETE RIGHT BUNDLE BRANCH BLOCK NONSPECIFIC ST AND T WAVE ABNORMALITY ABNORMAL ECG WHEN COMPARED WITH ECG OF 26-AUG-2017 12:09, VENT. RATE HAS INCREASED BY 43 BPM INCOMPLETE RIGHT BUNDLE BRANCH BLOCK IS NOW PRESENT Confirmed by ZAFAR CHIU MD ([id number]) on 02/09/2018 11:41:50 AM Referred By: Confirmed By:ZAFAR CHIU MD
--- NOTE | 2018-02-09 11:44 | CON.CARD ---
Consult Consult Specialty:: Cardiology Referred by:: Joce Reason for Consultation:: PE - History of Present Illness Chief Complaint: syncope History of Present Illness: 87F h/o HTN, HLD, diastolic HF p/w dyspnea, PE, syncope. Syncope happened after walking to bathroom, also had worsening dyspnea on exertion and chest pain prior to syncopal event. Was found on floor by daughter. Hypotensive in ER 60/ 40, CTA chest showed saddle PE, tim PE, given heparin. Reportedly bedside TTE showed R heart strain, lactate 6 in ER. s/p catheter directed tPA by IR this morning, admitted to ICU. - History Source History Provided By: Patient Limitations to Obtaining History: No Limitations - Past Medical History Cardio/Vascular: Yes: HTN, Hyperlipdemia Musculoskeletal: Yes: Osteoarthritis - Alcohol/Substance Use Hx Alcohol Use: No - Smoking History Smoking history: Never smoked Have you smoked in the past 12 months: No Aproximately how many cigarettes per day: 0 Home Medications - Allergies Allergies/Adverse Reactions: Allergies Allergy/AdvReac Type Severity Reaction Status Date / Time clindamycin Allergy Mild Rash Verified 02/08/18 18:38 sulfamethoxazole Allergy Mild Rash Verified 02/08/18 18:38 [From Bactrim] trimethoprim [From Bactrim] Allergy Mild Rash Verified 02/08/18 18:38 lactose AdvReac Mild Verified 02/08/18 18:38 - Home Medications Home Medications: Ambulatory Orders Atorvastatin Ca [Lipitor] 10 mg PO HS 08/26/17 Calcium Carbonate/Vitamin D3 [Calcium 600 + Vit D Tablet] 1 each PO DAILY Diclofenac Sodium [Voltaren] 100 gm TP ASDIR PRN 08/26/17 Triamcinolone 0.1% Cream [Aristocort 0.1% Cream -] 0 gm TP DAILY PRN 08/26/17 Zolpidem Tartrate [Ambien] 10 mg PO HS 08/26/17 Furosemide [Lasix] 40 mg PO DAILY 08/27/17 Ergocalciferol [Drisdol Oral Solution -] 1.25 units PO DAILY 02/08/18 Family Disease History - Family Disease History Family History: Unremarkable Review of Systems - Review of Systems Constitutional: reports: No Symptoms Eyes: reports: Eye Pain HENT: reports: No Symptoms Neck: reports: No Symptoms Cardiovascular: reports: Chest Pain, Shortness of Breath Respiratory: reports: SOB on Exertion Gastrointestinal: reports: No Symptoms Genitourinary: reports: No Symptoms Musculoskeletal: reports: No Symptoms Integumentary: reports: No Symptoms Neurological: reports: No Symptoms Endocrine: reports: No Symptoms Hematology/Lymphatic: reports: No Symptoms Psychiatric: reports: No Symptoms Vital Signs: Vital Signs Temperature 97.8 F 02/09/18 10:55 Pulse Rate 84 02/09/18 10:55 Respiratory Rate 19 02/09/18 10:55 Blood Pressure 145/66 02/09/18 10:55 O2 Sat by Pulse Oximetry (%) 100 02/09/18 08:24 Constitutional: Yes: No Distress, Calm Eyes: Yes: Conjunctiva Clear, EOM Intact HENT: Yes: Normocephalic, Other (closed R eye, ecchymosis and laceration above eye) Neck: Yes: Supple, Trachea Midline Respiratory: Yes: Regular, CTA Bilaterally Gastrointestinal: Yes: Normal Bowel Sounds, Soft Renal/: Yes: WNL Cardiovascular: Yes: Regular Rate and Rhythm JVD: No Carotid Bruit: No PMI: Non-Displaced Heart Sounds: Yes: S1, S2 Musculoskeletal: No: Back Pain Extremities: No: Cyanosis Edema: No Peripheral Pulses WNL: Yes Peripheral Pulses: 2+ Left Doralis Pedis, 2+ Right Dorsalis Pedis Neurological: Yes: Alert, Oriented Psychiatric: Yes: Alert, Oriented - Other Data Labs, Other Data: CBC, BMP 02/09/18 05:30 02/09/18 05:30 INR, PTT INR 1.61 (0.83-1.09) H 02/09/18 05:30 Troponin, BNP 02/08/18 02/08/18 02/09/18 19:26 23:14 01:02 EST Troponin I 0.11 H 0.58 H 0.53 H B-Natriuretic Peptide 5299.1 H 02/09/18 05:30 Troponin I 1.15 H* B-Natriuretic Peptide Troponin, BNP 02/08/18 02/08/18 02/09/18 19:26 23:14 01:02 EST Troponin I 0.11 H 0.58 H 0.53 H B-Natriuretic Peptide 5299.1 H 02/09/18 05:30 Troponin I 1.15 H* B-Natriuretic Peptide Assessment/Plan Echo 08/2017: nl lv/rv size/fn. 1+ as. 1+ tr. --> no change in mgm't. routine outpatient echo surveillance for . EKG sinus tach, nonspecific ST changes, IRBBB CTA chest large saddle PE Pulmonary embolism - likely etiology for syncope - s/p IR guided tPA - check echocardiogram for RV function, pulm pressurse - hypercoagulable workup per primary Elevated troponin - trop 0.11->0.58->0.53->1.15 - likely in setting of massive PE, less likely ACS - trend to peak, management of PE as above HLD - cont statin HTN - stable, holding home meds chronic diastolic HF - holding home lasix
--- NOTE | 2018-02-09 13:34 | PROC ---
Procedure Note Procedure: Arterial line Verbal consent from daughter during emergent condition in ED. Pt in shock, needs tPA. R wrist prepped and drapped in sterile fashion, using local anesthesia and modified seldinger technique at 20ga cath placed in R radial artery. + arterial wave form confirmed condition. [place] [id number]
[2018-02-09 20:29] LABS: URINE APPEARANCE CLOUDY; URINE BILIRUBIN NEGATIVE (<2.0 mg/dL); URINE COLOR YELLOW; URINE GLUCOSE (UA) NEGATIVE (NEGATIVE); URINE KETONE NEGATIVE (NEGATIVE); URINE LEUK ESTERASE 3+ (NEGATIVE); URINE NITRITE NEGATIVE (NEGATIVE); URINE PROTEIN 1+ (NEGATIVE); URINE UROBILINOGEN NEGATIVE mg/dL (0.2-1.0)
[2018-02-09 20:33] LABS: EPI CELLS RARE /HPF (FEW); URINE MUCUS RARE; YEAST FEW
[2018-02-09] MEDS: HEPARIN - 25,000 UNIT in SODIUM CHLORIDE 495 ML IV SCH (21:30)
[2018-02-09] MEDS ORDERED: ATORVASTATIN CA 10 MG TABLET (FP) PO SCH (22:00)
[2018-02-09] MEDS ORDERED: CHLORHEXIDINE GLUCONATE 4% CLEANSER FOR DECOLONIZATION TP SCH (22:00)
[2018-02-10 06:05] LABS: BASO % 0.8 % (0-2.0); EOS % 2.1 % (0-4.5); HEMATOCRIT 26.6 % (32.4-45.2); HEMOGLOBIN 9.1 GM/dL (10.7-15.3); LYMPH % 20.6 % (8-40); MCH 28.9 pg (25.7-33.7); MCHC 34.4 g/dl (32.0-36.0); MEAN PLT VOLUME 9.1 fl (7.5-11.1); NEUT % 67.5 % (42.8-82.8); PLATELET COUNT 191 K/MM3 (134-434); RBC 3.16 M/mm3 (3.60-5.2); RDW 17.3 % (11.6-15.6); WHITE BLOOD COUNT 6.3 K/mm3 (4.0-10.0)
[2018-02-10 06:38] LABS: ALBUMIN 2.4 g/dl (3.4-5.0); ALK PHOS 162 U/L (45-117); ANION GAP 9 MMOL/L (8-16); BILIRUBIN,TOTAL 0.2 mg/dL (0.2-1); BLOOD UREA NITROGEN 17 mg/dL (7-18); CHLORIDE 109 mmol/L (98-107); CO2 22 mmol/L (21-32); GLUCOSE,RANDOM 120 mg/dL (74-106); MAGNESIUM 2.2 mg/dL (1.8-2.4); PHOSPHOROUS 2.8 mg/dL (2.5-4.9); POTASSIUM 4.3 mmol/L (3.5-5.1); SGOT/AST 42 U/L (15-37); SGPT/ALT 32 U/L (13-61); SODIUM 140 mmol/L (136-145); TOT PROT 6.4 g/dl (6.4-8.2)
[2018-02-10 06:40] LABS: INR 1.19 (0.83-1.09); PROTHROMBIN TIME (PATIENT) 14.1 SEC (9.7-13.0)
[2018-02-10 06:43] LABS: ACTIVATED PTT 28.9 SECONDS (25.2-36.5)
[2018-02-10] MEDS: INSULIN SLIDING SCALE (NOVOLOG) 1 VIAL SQ SCH ×3 (07:17→17:52)
[2018-02-10] MEDS: HEPARIN NA (PORCINE) 5,000 UNITS/ML 1ML VIAL IVPUSH PRN (08:24)
--- NOTE | 2018-02-10 10:26 | PN ---
Progress Note (short form) - Note Progress Note: pt seen/ examined in icu chart reviewed Status post catheter driven--TPA due to large PE all f/u noted/ appreciated On heparin drip for dvt now. Awake and comfortable Pain okay Afebrile Vital Signs Temp 98.8 F 02/10/18 10:12 Pulse 80 02/10/18 10:12 Resp 16 02/10/18 10:12 BP 126/59 L 02/10/18 10:12 Pulse Ox 100 02/10/18 08:17 Intake & Output 02/09/18 02/09/18 02/10/18 11:59 23:59 11:59 Intake Total 716 112 Output Total 1000 350 Balance -284 -238 Weight 183 lb 4.8 oz Intake: IV 16 112 Heparin - 25,000 Unit In 16 112 Normal Saline - 495 ml @ 1,000 UNIT/HR 20 mls/hr IV TITR ANA Rx#: [id number] Normal Saline - 1,000 ml @ 1000 mls/hr IV ASDIR STA Rx#:[id number] Oral 700 Output: Urine 1000 350 Mariee 1000 350 Other: Voiding Method Indwelling Catheter Indwelling Catheter Height Body Mass Index (BMI) Weight Measurement Method Built in [facility] Active Medications Atorvastatin Calcium (Lipitor -) 10 mg PO HS ANA Last Admin: 02/09/18 21:30 Dose: 10 mg Chlorhexidine Gluconate (Hibiclens For Decolonization -) 1 applic TP HS ANA Last Admin: 02/09/18 21:30 Dose: 1 applic Heparin Sodium (Porcine) (Heparin -) 5,000 unit IVPUSH PRN PRN PRN Reason: Heparin Last Admin: 02/10/18 08:24 Dose: 5,000 unit Heparin Sodium (Porcine) 25, (000 unit/ Sodium Chloride) 500 mls @ 20 mls/hr IV TITR ANA; Protocol Last Titration: 02/10/18 08:25 Dose: 950 unit/hr, 19 mls/hr Insulin Aspart (Novolog Vial Sliding Scale -) 1 vial SQ TIDAC ANA; Protocol Last Admin: 02/10/18 07:17 Dose: Not Given Mupirocin (Bactroban Ointment (For Decolonization) -) 1 applic NS BID ANA Stop: 02/14/18 09:59 Last Admin: 02/09/18 21:30 Dose: 1 applic Zolpidem Tartrate (Ambien -) 5 mg PO HS PRN PRN Reason: INSOMNIA CBC, BMP 02/10/18 05:20 02/10/18 05:20 u/s -- +ve rle Dvt -- Extensive. Physical Exam Awake and comfortable ecchymosis/ around right eye S1 S2 RRR Lungs clear Abd- soft, NT extremities--- trace edema neuro--alert and awake Assessment and plan clinically stable continue heparin drip Monitor--CBC and electrolytes Physical therapy Medications reviewed Discussed with nursing staff/ICU team. Will follow Critical care time--25 minutes
[2018-02-10] MEDS: MUPIROCIN 2% TOPICAL OINTMENT FOR DECOLONIZATION NS SCH (11:07)
[2018-02-10] MEDS ORDERED: PT OWN MED DRAWER 7, Y5N ONE (11:19)
--- NOTE | 2018-02-10 11:28 | ECHO ---
Name: SARA MONTES Exam:Adult Echocardiogram Study Date: 02/10/2018 09:27 AM Age: 87 yrs Reason For Study: PE Height: 61 in Weight: 190 lb BSA: 1.8 m2 BP: 155/58 mmHg MMode/2D Measurements & Calculations IVSd: 0.84 cm Ao root diam: 2.7 cm LVIDd: 3.7 cm LA dimension: 2.5 cm LVIDs: 2.6 cm LVPWd: 0.78 cm EDV(Teich): 58.4 ml LVOT diam: 1.9 cm ESV(Teich): 23.5 ml TAPSE: 1.6 cm Doppler Measurements & Calculations MV E max lyn: 67.4 cm/sec Ao V2 max: 277.3 cm/sec MV A max lyn: 117.4 cm/sec Ao max P.8 mmHg MV E/A: 0.57 TR max lyn: 294.1 cm/sec Med Peak E' Lyn: 7.5 cm/sec TR max P.6 mmHg Med E/e': 9.0 Lat Peak E' Lyn: 8.9 cm/sec Lat E/e': 7.6 Procedure A complete two-dimensional transthoracic echocardiogram was performed (2D, M-mode, Doppler and color flow Doppler). Left Ventricle The left ventricle is normal in size. Left ventricular systolic function is normal. Ejection Fraction = 65- 70%. E/A reversal consistent with but not diagnostic of poor LV compliance. No regional wall motion abnormalities noted. Right Ventricle The right ventricle is normal size. The right ventricular systolic function is normal. Atria The left atrial size is normal. Right atrial size is normal. Mitral Valve The mitral valve is normal in structure and function. There is mild mitral regurgitation. Tricuspid Valve The tricuspid valve is normal in structure and function. There is mild tricuspid regurgitation. Pulmo nary artery systolic pressure is at least 39 mmHg assuming RA pressure of 3 mmHg. Aortic Valve There is mild aortic sclerosis.;. No aortic regurgitation is present. Pulmonic Valve The pulmonic valve is not well visualized. Great Vessels The aortic root is normal size. Pericardium/Pleura There is no pericardial effusion. Interpretation Summary The left ventricle is normal in size. Left ventricular systolic function is normal. No regional wall motion abnormalities noted. Ejection Fraction = 65-70%. E/A reversal consistent with but not diagnostic of poor LV compliance The right ventricular systolic function is normal. The left atrial size is normal. Right atrial size is normal. There is mild mitral regurgitation. There is mild tricuspid regurgitation. Pulmonary artery systolic pressure is at least 39 mmHg assuming RA pressure of 3 mmHg There is mild aortic sclerosis.; There is no pericardial effusion. When compared to study dated 08/27/17, no significant changes Wood Weldon MD 02/10/2018 11:27 AM
--- NOTE | 2018-02-10 12:09 | PN ---
Teaching Attending Note Name of Resident: Trice Gramajo ATTENDING PHYSICIAN STATEMENT I saw and evaluated the patient. I reviewed the resident's note and discussed the case with the resident. I agree with the resident's findings and plan as documented. SUBJECTIVE: Patient seen and examined in the ICU. Awake and alert. No CP or SOB. Discomfort around right eye from hematoma. On IV Heparin. Intake & Output 02/08/18 02/09/18 02/09/18 02/10/18 00:59 00:59 23:59 23:59 Intake Total 112 Output Total 600 Balance -488 Weight 183 lb 4.8 oz Last Vital Signs Temp Pulse Resp BP Pulse Ox 98.8 F 80 16 126/59 L 100 02/10/18 10:12 02/10/18 10:12 02/10/18 10:12 02/10/18 10:12 02/10/18 08:17 Active Medications Atorvastatin Calcium (Lipitor -) 10 mg PO HS ANA Last Admin: 02/09/18 21:30 Dose: 10 mg Chlorhexidine Gluconate (Hibiclens For Decolonization -) 1 applic TP HS ANA Last Admin: 02/09/18 21:30 Dose: 1 applic Heparin Sodium (Porcine) (Heparin -) 5,000 unit IVPUSH PRN PRN PRN Reason: Heparin Last Admin: 02/10/18 08:24 Dose: 5,000 unit Heparin Sodium (Porcine) 25, (000 unit/ Sodium Chloride) 500 mls @ 20 mls/hr IV TITR ANA; Protocol Last Titration: 02/10/18 08:25 Dose: 950 unit/hr, 19 mls/hr Insulin Aspart (Novolog Vial Sliding Scale -) 1 vial SQ TIDAC ANA; Protocol Last Admin: 02/10/18 11:07 Dose: Not Given Mupirocin (Bactroban Ointment (For Decolonization) -) 1 applic NS BID ANA Stop: 02/14/18 09:59 Last Admin: 02/10/18 11:07 Dose: Not Given Zolpidem Tartrate (Ambien -) 5 mg PO HS PRN PRN Reason: INSOMNIA PE: Gen: elderly woman in NAD HEENT: Large R orbit hematoma, with laceration, significant venous bleeding, PERRL PULM: few scattered rhonhci CV: S1S2 regular ABD: obese, soft EXT: (+) PP, (-) edema NEURO: intact, non focal Laboratory Results - last 24 hr 02/09/18 02/09/18 02/09/18 11:52 17:24 19:00 WBC RBC Hgb Hct MCV MCH MCHC RDW Plt Count MPV Absolute Neuts (auto) Neutrophils % Lymphocytes % Monocytes % Eosinophils % Basophils % Nucleated RBC % PT with INR INR PTT (Actin FS) Sodium Potassium Chloride Carbon Dioxide Anion Gap BUN Creatinine Creat Clearance w eGFR POC Glucometer 94.11984 121.30016 Random Glucose Lactic Acid Calcium Phosphorus Magnesium Total Bilirubin AST ALT Alkaline Phosphatase Troponin I Total Protein Albumin Urine Color Yellow Urine Appearance Cloudy Urine pH 5.0 Ur Specific [place] 1.042 H Urine Protein 1+ H Urine Glucose (UA) Negative Urine Ketones Negative Urine Blood 1+ H Urine Nitrite Negative Urine Bilirubin Negative Urine Urobilinogen Negative Ur Leukocyte Esterase 3+ H Urine WBC (Auto) 412 Urine RBC (Auto) 57 Ur Epithelial Cells Rare Urine Mucus Rare Urine Yeast Few 02/09/18 02/10/18 02/10/18 20:35 05:20 05:20 WBC 6.3 RBC 3.16 L Hgb 9.1 L Hct 26.6 L D MCV 84.0 MCH 28.9 MCHC 34.4 RDW 17.3 H Plt Count 191 MPV 9.1 Absolute Neuts (auto) 4.3 Neutrophils % 67.5 Lymphocytes % 20.6 D Monocytes % 9.0 Eosinophils % 2.1 D Basophils % 0.8 D Nucleated RBC % 0 PT with INR INR PTT (Actin FS) Sodium 140 Potassium 4.3 Chloride 109 H Carbon Dioxide 22 Anion Gap 9 BUN 17 Creatinine 1.0 Creat Clearance w eGFR 52.69 POC Glucometer Random Glucose 120 H Lactic Acid Calcium 8.0 L Phosphorus 2.8 Magnesium 2.2 Total Bilirubin 0.2 AST 42 H ALT 32 Alkaline Phosphatase 162 H Troponin I 0.37 H Total Protein 6.4 Albumin 2.4 L Urine Color Urine Appearance Urine pH Ur Specific [place] Urine Protein Urine Glucose (UA) Urine Ketones Urine Blood Urine Nitrite Urine Bilirubin Urine Urobilinogen Ur Leukocyte Esterase Urine WBC (Auto) Urine RBC (Auto) Ur Epithelial Cells Urine Mucus Urine Yeast 02/10/18 02/10/18 02/10/18 05:20 05:20 11:06 WBC RBC Hgb Hct MCV MCH MCHC RDW Plt Count MPV Absolute Neuts (auto) Neutrophils % Lymphocytes % Monocytes % Eosinophils % Basophils % Nucleated RBC % PT with INR 14.10 H INR 1.19 H PTT (Actin FS) 28.9 Sodium Potassium Chloride Carbon Dioxide Anion Gap BUN Creatinine Creat Clearance w eGFR POC Glucometer 139.32959 Random Glucose Lactic Acid 0.6 Calcium Phosphorus Magnesium Total Bilirubin AST ALT Alkaline Phosphatase Troponin I Total Protein Albumin Urine Color Urine Appearance Urine pH Ur Specific [place] Urine Protein Urine Glucose (UA) Urine Ketones Urine Blood Urine Nitrite Urine Bilirubin Urine Urobilinogen Ur Leukocyte Esterase Urine WBC (Auto) Urine RBC (Auto) Ur Epithelial Cells Urine Mucus Urine Yeast IMP: 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
--- NOTE | 2018-02-10 13:57 | PN ---
Physical Exam: SUBJECTIVE: Patient seen and examined at bedside. tPA completed yesterday. Patient now on heparin drip. Patient reports discomfort around the right eye. Patient denies SOB, dyspnea, chest pain, palpitations, headache, dizziness, fever, chills. She denies abdominal pain, diarrhea, constipation, dysuria, hematuria, frequency or urgency. OBJECTIVE: Vital Signs Period Temp Pulse Resp BP Sys/Corral Pulse Ox Last 24 Hr 98 F-98.8 F 70-99 16-18 109-163/37-66 100-100 GENERAL: The patient is awake, alert, and fully oriented, in no acute distress. HEAD: +hematoma of R orbit, +laceration R temporal area NECK: Trachea midline, full range of motion, supple. LUNGS: Breath sounds equal, clear to auscultation bilaterally, no wheezes, no crackles. HEART: Regular rate and rhythm, S1, S2 without murmur, rub or gallop. ABDOMEN: Soft, nontender, nondistended, normoactive bowel sounds. EXTREMITIES: 2+ pulses, warm, well-perfused, no edema. NEUROLOGICAL: Cranial nerves II through XII grossly intact. Normal speech, gait not observed. PSYCH: Normal mood, normal affect. Laboratory Results - last 24 hr 02/09/18 02/09/18 02/09/18 11:52 17:24 19:00 WBC RBC Hgb Hct MCV MCH MCHC RDW Plt Count MPV Absolute Neuts (auto) Neutrophils % Lymphocytes % Monocytes % Eosinophils % Basophils % Nucleated RBC % PT with INR INR PTT (Actin FS) Sodium Potassium Chloride Carbon Dioxide Anion Gap BUN Creatinine Creat Clearance w eGFR POC Glucometer 94.21729 121.98338 Random Glucose Lactic Acid Calcium Phosphorus Magnesium Total Bilirubin AST ALT Alkaline Phosphatase Troponin I Total Protein Albumin Urine Color Yellow Urine Appearance Cloudy Urine pH 5.0 Ur Specific [place] 1.042 H Urine Protein 1+ H Urine Glucose (UA) Negative Urine Ketones Negative Urine Blood 1+ H Urine Nitrite Negative Urine Bilirubin Negative Urine Urobilinogen Negative Ur Leukocyte Esterase 3+ H Urine WBC (Auto) 412 Urine RBC (Auto) 57 Ur Epithelial Cells Rare Urine Mucus Rare Urine Yeast Few 02/09/18 02/10/18 02/10/18 20:35 05:20 05:20 WBC 6.3 RBC 3.16 L Hgb 9.1 L Hct 26.6 L D MCV 84.0 MCH 28.9 MCHC 34.4 RDW 17.3 H Plt Count 191 MPV 9.1 Absolute Neuts (auto) 4.3 Neutrophils % 67.5 Lymphocytes % 20.6 D Monocytes % 9.0 Eosinophils % 2.1 D Basophils % 0.8 D Nucleated RBC % 0 PT with INR INR PTT (Actin FS) Sodium 140 Potassium 4.3 Chloride 109 H Carbon Dioxide 22 Anion Gap 9 BUN 17 Creatinine 1.0 Creat Clearance w eGFR 52.69 POC Glucometer Random Glucose 120 H Lactic Acid Calcium 8.0 L Phosphorus 2.8 Magnesium 2.2 Total Bilirubin 0.2 AST 42 H ALT 32 Alkaline Phosphatase 162 H Troponin I 0.37 H Total Protein 6.4 Albumin 2.4 L Urine Color Urine Appearance Urine pH Ur Specific [place] Urine Protein Urine Glucose (UA) Urine Ketones Urine Blood Urine Nitrite Urine Bilirubin Urine Urobilinogen Ur Leukocyte Esterase Urine WBC (Auto) Urine RBC (Auto) Ur Epithelial Cells Urine Mucus Urine Yeast 02/10/18 02/10/18 02/10/18 05:20 05:20 11:06 WBC RBC Hgb Hct MCV MCH MCHC RDW Plt Count MPV Absolute Neuts (auto) Neutrophils % Lymphocytes % Monocytes % Eosinophils % Basophils % Nucleated RBC % PT with INR 14.10 H INR 1.19 H PTT (Actin FS) 28.9 Sodium Potassium Chloride Carbon Dioxide Anion Gap BUN Creatinine Creat Clearance w eGFR POC Glucometer 139.79805 Random Glucose Lactic Acid 0.6 Calcium Phosphorus Magnesium Total Bilirubin AST ALT Alkaline Phosphatase Troponin I Total Protein Albumin Urine Color Urine Appearance Urine pH Ur Specific [place] Urine Protein Urine Glucose (UA) Urine Ketones Urine Blood Urine Nitrite Urine Bilirubin Urine Urobilinogen Ur Leukocyte Esterase Urine WBC (Auto) Urine RBC (Auto) Ur Epithelial Cells Urine Mucus Urine Yeast Active Medications Generic Name Dose Route Start Last Admin Trade Name Freq PRN Reason Stop Dose Admin Atorvastatin Calcium 10 mg 02/09/18 22:00 02/09/18 21:30 Lipitor - PO 10 mg HS ANA Administration Chlorhexidine Gluconate 1 applic 02/09/18 22:00 02/09/18 21:30 Hibiclens For Decolonization - TP 1 applic HS ANA Administration Heparin Sodium (Porcine) 5,000 unit 02/08/18 22:18 02/10/18 08:24 Heparin - IVPUSH 5,000 unit PRN PRN Administration Heparin Heparin Sodium (Porcine) 25, 500 mls @ 20 mls/hr 02/08/18 22:30 02/10/18 08: 25 000 unit/ Sodium Chloride IV 950 unit/hr TITR ANA 19 mls/hr Titration Protocol 1,000 UNIT/HR Insulin Aspart 1 vial 02/09/18 07:00 02/10/18 11:07 Novolog Vial Sliding Scale - SQ Not Given TIDAC [facility] Protocol Mupirocin 1 applic 02/09/18 10:00 02/10/18 11:07 Bactroban Ointment (For Decolonization) - NS 02/14/18 09:59 Not Given BID ANA Zolpidem Tartrate 5 mg 02/09/18 02:23 Ambien - PO HS PRN INSOMNIA ASSESSMENT/PLAN: Patient is an 87 year old female with past medical history of HTN, HLD, and diastolic CHF, presented with an episode of syncope followed by hemodynamic instability. On CTA, patient was noted to have large bilateral and saddle pulmonary emboli. IR-guided catheter-directed tPA was done and patient started on heparin drip. #Cardiovascular 1)Pulmonary embolism -CTA: large bilateral and saddle pulmonary emboli -s/p IR-guided catheter tPA -Cardiology (Dr. Rey) consulted. Recommendations appreciated. -Echocardiogram done - LV size is normal. LV systolic function normal. No regional wall motion abnormalities. EF 65-70%. E/A reversal consistent with but not diagnostic of poor LV compliance. RV systolic function normal. LA size normal. RA size normal. Mild MR. Mild TR. Pulmonary artery systolic pressure at least 39mmHg assuming RA pressure of 3mmHg. Mild . No pericardial effusion. -Hypercoagulability work up as per primary team -On Heparin drip 2)RLE DVT -RLE ultrasound: extensive DVT of right lower extremity. 3)Hypertension, stable -hold home Lasix -Cardiology consulted. 4)Hyperlipidemia -continue Lipitor 10mg PO HS 5)Diastolic CHF: not on acute exacerbation -hold home Lasix 6)Troponinemia -0.53 --> 1.15 --> 0.37 -likely demand ischemia 2/2 to pulmonary embolism, less likely due to ACS #Pulmonology 1) Shortness of breath, likely 2/2 pulmonary emboli #FEN -Not on any standing fluids -electrolytes wnl, routine bmp monitoring -regular diet #Prophylaxis -On heparin drip -no SCDs #Disposition -transfer to tele Visit type - Emergency Visit Emergency Visit: Yes ED Registration Date: 02/08/18 Care time: The patient presented to the Emergency Department on the above date and was hospitalized for further evaluation of their emergent condition. - New Patient This patient is new to me today: Yes Date on this admission: 02/10/18 - Critical Care Critical Care patient: Yes Total Critical Care Time (in minutes): 40 Critical Care Statement: The care of this patient involved high complexity decision making to prevent further life threatening deterioration of the patient 's condition and/or to evaluate & treat vital organ system(s) failure or risk of failure.
--- NOTE | 2018-02-10 14:01 | PN ---
Progress Note (short form) - Note Progress Note: Chief Complaint: syncope History of Present Illness: no chest pain, palps, dizzy, lightheadedness. dyspnea improved. Current Medications Atorvastatin Calcium (Lipitor -) 10 mg PO HS ANA Last Admin: 02/09/18 21:30 Dose: 10 mg Chlorhexidine Gluconate (Hibiclens For Decolonization -) 1 applic TP HS ANA Last Admin: 02/09/18 21:30 Dose: 1 applic Heparin Sodium (Porcine) (Heparin -) 5,000 unit IVPUSH PRN PRN PRN Reason: Heparin Last Admin: 02/10/18 08:24 Dose: 5,000 unit Heparin Sodium (Porcine) 25, (000 unit/ Sodium Chloride) 500 mls @ 20 mls/hr IV TITR [facility]; Protocol Last Titration: 02/10/18 08:25 Dose: 950 unit/hr, 19 mls/hr Insulin Aspart (Novolog Vial Sliding Scale -) 1 vial SQ TIDAC [facility]; Protocol Last Admin: 02/10/18 11:07 Dose: Not Given Mupirocin (Bactroban Ointment (For Decolonization) -) 1 applic NS BID [facility] Stop: 02/14/18 09:59 Last Admin: 02/10/18 11:07 Dose: Not Given Zolpidem Tartrate (Ambien -) 5 mg PO HS PRN PRN Reason: INSOMNIA Vital Signs: Vital Signs Temperature 97.8 F 02/09/18 10:55 Pulse Rate 84 02/09/18 10:55 Respiratory Rate 19 02/09/18 10:55 Blood Pressure 145/66 02/09/18 10:55 O2 Sat by Pulse Oximetry (%) 100 02/09/18 08:24 Constitutional: Yes: No Distress, Calm Eyes: Yes: Conjunctiva Clear, EOM Intact HENT: Yes: Normocephalic, Other (closed R eye, ecchymosis and laceration above eye) Neck: Yes: Supple, Trachea Midline Respiratory: Yes: Regular, CTA Bilaterally Gastrointestinal: Yes: Normal Bowel Sounds, Soft Renal/: Yes: WNL Cardiovascular: Yes: Regular Rate and Rhythm JVD: No Carotid Bruit: No PMI: Non-Displaced Heart Sounds: Yes: S1, S2 Musculoskeletal: No: Back Pain Extremities: No: Cyanosis Edema: No Peripheral Pulses WNL: Yes Peripheral Pulses: 2+ Left Doralis Pedis, 2+ Right Dorsalis Pedis Neurological: Yes: Alert, Oriented Psychiatric: Yes: Alert, Oriented Assessment/Plan Echo 08/2017: nl lv/rv size/fn. 1+ as. 1+ tr. --> no change in mgm't. routine outpatient echo surveillance for . EKG sinus tach, nonspecific ST changes, IRBBB CTA chest large saddle PE lower ext doppler: extensive RLE DVT echo 02/2018 nl LV/RV, E/A reversal, mild MR, PASP at least 39 mmHg Pulmonary embolism, DVT - likely etiology for syncope, dyspnea - s/p IR guided tPA, symptoms improved - nl RV function on echo with at least mild pulm HTN likely 2/2 PE - extensive RLE DVT noted on doppler - on heparin gtt, manage anticoagulation and hypercoagulable workup per ICU team Elevated troponin - trop 0.11->0.58->0.53->1.15->0.34 - likely in setting of massive PE, less likely ACS - management of PE as above HLD - cont statin HTN - stable, holding home meds chronic diastolic HF - holding home lasix, euvolemic
[2018-02-10 14:03] VITALS: BMI 34.5
[2018-02-10] MEDS ORDERED: ZOLPIDEM TARTRATE 5 MG TABLET PO PRN (15:42)
[2018-02-10] MEDS ORDERED: HEPARIN NA (PORCINE) 5,000 UNITS/ML 1ML VIAL IVPUSH PRN ×2 (15:42)
[2018-02-10] MEDS: HEPARIN - 25,000 UNIT in SODIUM CHLORIDE 495 ML IV SCH (17:51)
[2018-02-10] MEDS: ATORVASTATIN CA 10 MG TABLET (FP) PO SCH (21:23)
[2018-02-11] MEDS: INSULIN SLIDING SCALE (NOVOLOG) 1 VIAL SQ SCH ×3 (06:07→17:51)
[2018-02-11 07:02] LABS: HEMATOCRIT 26.4 % (32.4-45.2); HEMOGLOBIN 9.1 GM/dL (10.7-15.3); MCH 28.7 pg (25.7-33.7); MCHC 34.4 g/dl (32.0-36.0); MEAN CELL VOLUME 83.3 fl (80-96); MEAN PLT VOLUME 8.8 fl (7.5-11.1); PLATELET COUNT 231 K/MM3 (134-434); RBC 3.17 M/mm3 (3.60-5.2); RDW 17.5 % (11.6-15.6); WHITE BLOOD COUNT 7.4 K/mm3 (4.0-10.0)
[2018-02-11 07:36] LABS: ANION GAP 8 MMOL/L (8-16); BLOOD UREA NITROGEN 13 mg/dL (7-18); CALCIUM 8.4 mg/dL (8.5-10.1); CHLORIDE 106 mmol/L (98-107); CO2 26 mmol/L (21-32); CREATININE 0.9 mg/dL (0.55-1.3); GLUCOSE,RANDOM 114 mg/dL (74-106); MAGNESIUM 2.2 mg/dL (1.8-2.4); PHOSPHOROUS 2.9 mg/dL (2.5-4.9); POTASSIUM 4.3 mmol/L (3.5-5.1); SODIUM 140 mmol/L (136-145)
[2018-02-11] MEDS ORDERED: ACETAMINOPHEN 325 MG TABLET (FP) ONE (08:26)
--- NOTE | 2018-02-11 11:53 | PN ---
Progress Note (short form) - Note Progress Note: on heparin GTT BP is better has pain in right periorbital region, rt forehead vitals stable Current Medications Generic Name Dose Route Start Last Admin Trade Name Carlos PRN Reason Stop Dose Admin Atorvastatin Calcium 10 mg 02/09/18 22:00 Lipitor - PO HS ANA Chlorhexidine Gluconate 1 applic 02/09/18 22:00 Hibiclens For Decolonization - TP HS ANA Heparin Sodium (Porcine) 5,000 unit 02/08/18 22:18 02/08/18 22:23 Heparin - IVPUSH 5,000 unit PRN PRN Administration Heparin Heparin Sodium (Porcine) 25, 500 mls @ 20 mls/hr 02/08/18 22:30 02/09/18 03: 00 000 unit/ Sodium Chloride IV 0 unit/hr TITR ANA 0 mls/hr Titration Protocol 1,000 UNIT/HR Insulin Aspart 1 vial 02/09/18 07:00 02/09/18 06:37 Novolog Vial Sliding Scale - SQ Not Given TIDAC ANA Protocol Mupirocin 1 applic 02/09/18 10:00 02/09/18 09:47 Bactroban Ointment (For Decolonization) - NS 02/14/18 09:59 1 applic BID ANA Administration Zolpidem Tartrate 5 mg 02/09/18 02:23 Ambien - PO HS PRN INSOMNIA labs noted no pallor rt forehead and periorbital region- hematoma S1 S2 RRR Lungs clear Abd- soft, NT No edema PLAN On Heparin drip monitor CBC cardiology eval noted continue with meds check ultrasound of legs - negative Problem List - Problems (1) Pulmonary emboli Code(s): I26.99 - OTHER PULMONARY EMBOLISM WITHOUT ACUTE COR PULMONALE Qualifiers: Pulmonary embolism type: saddle Chronicity: acute Acute cor pulmonale presence: without acute cor pulmonale Qualified Code(s): I26.92 - Saddle embolus of pulmonary artery without acute cor pulmonale (2) Syncope Code(s): R55 - SYNCOPE AND COLLAPSE Qualifiers: Syncope type: unspecified Qualified Code(s): R55 - Syncope and collapse (3) Congestive heart failure Code(s): I50.9 - HEART FAILURE, UNSPECIFIED Qualifiers: Heart failure type: unspecified Heart failure chronicity: acute Qualified Code(s): I50.9 - Heart failure, unspecified (4) Hyperlipidemia Code(s): E78.5 - HYPERLIPIDEMIA, UNSPECIFIED (5) Hypertension Code(s): I10 - ESSENTIAL (PRIMARY) HYPERTENSION Qualifiers: Hypertension type: essential hypertension Qualified Code(s): I10 - Essential (primary) hypertension
[2018-02-11] MEDS ORDERED: POLYETHYLENE GLYCOL 3350 119 GM BTL PO PRN (12:35)
[2018-02-11] MEDS: HEPARIN - 25,000 UNIT in SODIUM CHLORIDE 495 ML IV SCH (15:39)
--- NOTE | 2018-02-11 15:53 | PN ---
Progress Note, Physician Chief Complaint: sob History of Present Illness: breathing much better no cp, palp, syncope - Current Medication List Current Medications: Active Medications Atorvastatin Calcium (Lipitor -) 10 mg PO HS ANA Last Admin: 02/10/18 21:23 Dose: 10 mg Heparin Sodium (Porcine) (Heparin -) 5,000 unit IVPUSH PRN PRN PRN Reason: Heparin Last Admin: 02/11/18 15:38 Dose: 5,000 unit Heparin Sodium (Porcine) (Heparin -) 1,000 unit IVPUSH PRN PRN PRN Reason: Heparin Heparin Sodium (Porcine) 25, (000 unit/ Sodium Chloride) 500 mls @ 20 mls/hr IV TITR [facility]; Protocol Last Titration: 02/11/18 15:39 Dose: 1,100 unit/hr, 22 mls/hr Insulin Aspart (Novolog Vial Sliding Scale -) 1 vial SQ TIDAC [facility]; Protocol Last Admin: 02/11/18 11:40 Dose: Not Given Polyethylene Glycol (Miralax (For Daily Use) -) 17 gm PO DAILY PRN PRN Reason: CONSTIPATION Zolpidem Tartrate (Ambien -) 5 mg PO HS PRN PRN Reason: INSOMNIA - Objective Vital Signs: Vital Signs Temperature 98.2 F 02/11/18 06:00 Pulse Rate 80 02/11/18 10:00 Respiratory Rate 20 02/11/18 10:00 Blood Pressure 147/65 02/11/18 10:00 O2 Sat by Pulse Oximetry (%) 100 02/10/18 21:00 Constitutional: Yes: Well Nourished, No Distress, Calm Cardiovascular: Yes: Regular Rate and Rhythm, S1, S2. No: Gallop, Murmur Respiratory: Yes: Regular, CTA Bilaterally. No: Accessory Muscle Use, Rales, Wheezes Extremities: No: Cold Edema: No Neurological: Yes: Alert, Oriented Psychiatric: No: Agitated Labs: CBC, BMP 02/11/18 05:30 02/11/18 05:30 INR, PTT INR 1.19 (0.83-1.09) H 02/10/18 05:20 Assessment/Plan EKG sinus tach, nonspecific ST changes, IRBBB CTA chest large saddle PE lower ext doppler: extensive RLE DVT Echo 02/2018: nl LV/RV, E/A reversal, mild MR, PASP at least 39 mmHg Echo 08/2017: nl lv/rv size/fn. 1+ as. 1+ tr. tele: NSR Pulmonary embolism, DVT - likely etiology for syncope, dyspnea - s/p IR guided tPA, symptoms improved - nl RV function on echo with at least mild pulm HTN likely 2/2 PE - extensive RLE DVT noted on doppler - cont heparin gtt, transition to NOAC when ok with crit care (s/p t-PA) - rec heme input for hypercoagulable workup as inpt or outpt Elevated troponin - trop 0.11->0.58->0.53->1.15->0.34. no ischemic ECG changes. - secondary to massive PE - no further CV w/u indicated at present time. HLD - cont statin HTN - holding home meds while observing for signs of cardiogenic shock (massive PE) - bp 150s, rarely 170s. - can resume home meds tomorrow if remains without hypotension. chronic diastolic HF - holding home lasix, appears euvolemic
[2018-02-11] MEDS: ATORVASTATIN CA 10 MG TABLET (FP) PO SCH (21:16)
[2018-02-11] MEDS: HEPARIN NA (PORCINE) 5,000 UNITS/ML 1ML VIAL IVPUSH PRN (23:00)
[2018-02-12] MEDS: INSULIN SLIDING SCALE (NOVOLOG) 1 VIAL SQ SCH ×3 (06:04→16:52)
--- NOTE | 2018-02-12 09:58 | PN ---
Progress Note (short form) - Note Progress Note: cc: sob History of Present Illness: breathing much better no cp, palp, syncope Current Medications Atorvastatin Calcium (Lipitor -) 10 mg PO HS ANA Last Admin: 02/11/18 21:16 Dose: 10 mg Heparin Sodium (Porcine) (Heparin -) 5,000 unit IVPUSH PRN PRN PRN Reason: Heparin Last Admin: 02/11/18 15:38 Dose: 5,000 unit Heparin Sodium (Porcine) (Heparin -) 1,000 unit IVPUSH PRN PRN PRN Reason: Heparin Last Admin: 02/11/18 23:00 Dose: 1,000 unit Heparin Sodium (Porcine) 25, (000 unit/ Sodium Chloride) 500 mls @ 20 mls/hr IV TITR [facility]; Protocol Last Titration: 02/11/18 23:00 Dose: 1,200 unit/hr, 24 mls/hr Insulin Aspart (Novolog Vial Sliding Scale -) 1 vial SQ TIDAC [facility]; Protocol Last Admin: 02/12/18 06:04 Dose: Not Given Polyethylene Glycol (Miralax (For Daily Use) -) 17 gm PO DAILY PRN PRN Reason: CONSTIPATION Zolpidem Tartrate (Ambien -) 5 mg PO HS PRN PRN Reason: INSOMNIA - Objective Vital Signs: Vital Signs Period Temp Pulse Resp BP Sys/Corral Pulse Ox Last 24 Hr 98.5 F-99.4 F 78-98 18-22 128-168/54-92 100-100 Constitutional: Yes: Well Nourished, No Distress, Calm Cardiovascular: Yes: Regular Rate and Rhythm, S1, S2. No: Gallop, Murmur Respiratory: Yes: Regular, CTA Bilaterally. No: Accessory Muscle Use, Rales, Wheezes Extremities: No: Cold Edema: No Neurological: Yes: Alert, Oriented Psychiatric: No: Agitated Assessment/Plan EKG sinus tach, nonspecific ST changes, IRBBB CTA chest large saddle PE lower ext doppler: extensive RLE DVT Echo 02/2018: nl LV/RV, E/A reversal, mild MR, PASP at least 39 mmHg Echo 08/2017: nl lv/rv size/fn. 1+ as. 1+ tr. tele: NSR Pulmonary embolism, DVT - likely etiology for syncope, dyspnea - s/p IR guided tPA, symptoms improved - nl RV function on echo with at least mild pulm HTN likely 2/2 PE - extensive RLE DVT noted on doppler - cont heparin gtt, transition to NOAC when ok with crit care (s/p t-PA) - rec heme consult for hypercoagulable workup as inpt or outpt Elevated troponin - trop 0.11->0.58->0.53->1.15->0.34. no ischemic ECG changes. - secondary to massive PE - no further CV w/u indicated at present time HLD - cont statin HTN - bp 150s, rarely 170s. - improved today, monitor chronic diastolic HF - holding home lasix, appears euvolemic
--- NOTE | 2018-02-12 12:19 | PN ---
Progress Note (short form) - Note Progress Note: on heparin GTT BP is better has pain in right periorbital region, rt forehead - decreased generalized aches vitals stable Current Medications Generic Name Dose Route Start Last Admin Trade Name Carlos PRN Reason Stop Dose Admin Atorvastatin Calcium 10 mg 02/09/18 22:00 Lipitor - PO HS ANA Chlorhexidine Gluconate 1 applic 02/09/18 22:00 Hibiclens For Decolonization - TP HS ANA Heparin Sodium (Porcine) 5,000 unit 02/08/18 22:18 02/08/18 22:23 Heparin - IVPUSH 5,000 unit PRN PRN Administration Heparin Heparin Sodium (Porcine) 25, 500 mls @ 20 mls/hr 02/08/18 22:30 02/09/18 03: 00 000 unit/ Sodium Chloride IV 0 unit/hr TITR ANA 0 mls/hr Titration Protocol 1,000 UNIT/HR Insulin Aspart 1 vial 02/09/18 07:00 02/09/18 06:37 Novolog Vial Sliding Scale - SQ Not Given TIDAC ANA Protocol Mupirocin 1 applic 02/09/18 10:00 02/09/18 09:47 Bactroban Ointment (For Decolonization) - NS 02/14/18 09:59 1 applic BID ANA Administration Zolpidem Tartrate 5 mg 02/09/18 02:23 Ambien - PO HS PRN INSOMNIA labs noted no pallor rt forehead and periorbital region- hematoma S1 S2 RRR Lungs clear Abd- soft, NT No edema PLAN On Heparin drip monitor CBC cardiology eval noted will need Coumadin - start continue with meds hematology eval as this is unprovoked PE check ultrasound of legs -rt leg DVT Problem List - Problems (1) Pulmonary emboli Code(s): I26.99 - OTHER PULMONARY EMBOLISM WITHOUT ACUTE COR PULMONALE Qualifiers: Pulmonary embolism type: saddle Chronicity: acute Acute cor pulmonale presence: without acute cor pulmonale Qualified Code(s): I26.92 - Saddle embolus of pulmonary artery without acute cor pulmonale (2) Syncope Code(s): R55 - SYNCOPE AND COLLAPSE Qualifiers: Syncope type: unspecified Qualified Code(s): R55 - Syncope and collapse (3) Congestive heart failure Code(s): I50.9 - HEART FAILURE, UNSPECIFIED Qualifiers: Heart failure type: unspecified Heart failure chronicity: acute Qualified Code(s): I50.9 - Heart failure, unspecified (4) Hyperlipidemia Code(s): E78.5 - HYPERLIPIDEMIA, UNSPECIFIED (5) Hypertension Code(s): I10 - ESSENTIAL (PRIMARY) HYPERTENSION Qualifiers: Hypertension type: essential hypertension Qualified Code(s): I10 - Essential (primary) hypertension
--- NOTE | 2018-02-12 13:03 | PN ---
Progress Note, Physician History of Present Illness: PULMONARY ALERT,FEELING BETTER,-CP,-SOB - Current Medication List Current Medications: Active Medications Atorvastatin Calcium (Lipitor -) 10 mg PO HS ANA Last Admin: 02/11/18 21:16 Dose: 10 mg Heparin Sodium (Porcine) (Heparin -) 5,000 unit IVPUSH PRN PRN PRN Reason: Heparin Last Admin: 02/11/18 15:38 Dose: 5,000 unit Heparin Sodium (Porcine) (Heparin -) 1,000 unit IVPUSH PRN PRN PRN Reason: Heparin Last Admin: 02/11/18 23:00 Dose: 1,000 unit Heparin Sodium (Porcine) 25, (000 unit/ Sodium Chloride) 500 mls @ 20 mls/hr IV TITR [facility]; Protocol Last Titration: 02/11/18 23:00 Dose: 1,200 unit/hr, 24 mls/hr Insulin Aspart (Novolog Vial Sliding Scale -) 1 vial SQ TIDAC [facility]; Protocol Last Admin: 02/12/18 12:11 Dose: Not Given Polyethylene Glycol (Miralax (For Daily Use) -) 17 gm PO DAILY PRN PRN Reason: CONSTIPATION Zolpidem Tartrate (Ambien -) 5 mg PO HS PRN PRN Reason: INSOMNIA - Objective Vital Signs: Vital Signs Temperature 99.1 F 02/12/18 08:43 Pulse Rate 78 02/12/18 08:43 Respiratory Rate 18 02/12/18 08:43 Blood Pressure 148/92 02/12/18 08:43 O2 Sat by Pulse Oximetry (%) 100 02/12/18 09:00 Constitutional: Yes: Well Nourished, Calm Eyes: Yes: WNL HENT: Yes: WNL Neck: Yes: WNL Cardiovascular: Yes: Regular Rate and Rhythm, S1, S2 Respiratory: Yes: Diminished Gastrointestinal: Yes: Normal Bowel Sounds, Soft Extremities: Yes: WNL Edema: Yes Labs: CBC, BMP Problem List - Problems (1) DVT (deep venous thrombosis) Code(s): I82.409 - ACUTE EMBOLISM AND THOMBOS UNSP DEEP VN UNSP LOWER EXTREMITY (2) Pulmonary emboli Code(s): I26.99 - OTHER PULMONARY EMBOLISM WITHOUT ACUTE COR PULMONALE Qualifiers: Pulmonary embolism type: saddle Chronicity: acute Acute cor pulmonale presence: without acute cor pulmonale Qualified Code(s): I26.92 - Saddle embolus of pulmonary artery without acute cor pulmonale (3) Syncope Code(s): R55 - SYNCOPE AND COLLAPSE Qualifiers: Syncope type: unspecified Qualified Code(s): R55 - Syncope and collapse (4) Edema Code(s): R60.9 - EDEMA, UNSPECIFIED Assessment/Plan IMP: 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
[2018-02-12] MEDS: ACETAMINOPHEN 325 MG TABLET (FP) PO PRN (13:43)
[2018-02-12] MEDS: HEPARIN - 25,000 UNIT in SODIUM CHLORIDE 495 ML IV SCH (16:00)
[2018-02-12] MEDS ORDERED: PT OWN MED DRAWER 7, Y5N ONE (17:21)
--- NOTE | 2018-02-12 18:41 | CONSULT ---
Consult Consult Specialty:: Heme/Onc Referred by:: Dr. Henley Reason for Consultation:: PE - History of Present Illness Chief Complaint: s/p fall History of Present Illness: 87F with history of HTN HLD diadtolic CHF presents s/p syncope and fall. Patient had chest pain and SOB for a few days prior to syncopizing. Patient states she fell at home and lost consciousness. She was found to have a RLE DVT and bilateral obstructive PE. She is s/p thrombolysis and thrombectomy. Patient currently denies nausea vomiting fever chills chest pain or SOB. Denies history of bleeding disorders or clotting in her family. She denies history of cancer in her or her family. She denies recent weight loss or food being stuck in her throat or esophagus. - History Source History Provided By: Patient, Medical Record Limitations to Obtaining History: Clinical Condition - Past Medical History Cardio/Vascular: Yes: CHF (diastolic), HTN, Hyperlipdemia Musculoskeletal: Yes: Osteoarthritis Additional Medical History: Osteoarthitis - Alcohol/Substance Use Hx Alcohol Use: No - Smoking History Smoking history: Never smoked Have you smoked in the past 12 months: No Aproximately how many cigarettes per day: 0 Home Medications - Allergies Allergies/Adverse Reactions: Allergies Allergy/AdvReac Type Severity Reaction Status Date / Time clindamycin Allergy Mild Rash Verified 02/08/18 18:38 sulfamethoxazole Allergy Mild Rash Verified 02/08/18 18:38 [From Bactrim] trimethoprim [From Bactrim] Allergy Mild Rash Verified 02/08/18 18:38 lactose AdvReac Mild Verified 02/08/18 18:38 - Home Medications Home Medications: Ambulatory Orders Atorvastatin Ca [Lipitor] 10 mg PO HS 08/26/17 Calcium Carbonate/Vitamin D3 [Calcium 600 + Vit D Tablet] 1 each PO DAILY Diclofenac Sodium [Voltaren] 100 gm TP ASDIR PRN 08/26/17 Triamcinolone 0.1% Cream [Aristocort 0.1% Cream -] 0 gm TP DAILY PRN 08/26/17 Zolpidem Tartrate [Ambien] 10 mg PO HS 08/26/17 Furosemide [Lasix] 40 mg PO DAILY 08/27/17 Ergocalciferol [Drisdol Oral Solution -] 1.25 units PO DAILY 02/08/18 Family Disease History - Family Disease History Family History: Denies (denies history of cancer) Review of Systems Findings/Remarks: Currently denies all symptoms - Review of Systems Constitutional: reports: No Symptoms Eyes: reports: No Symptoms HENT: reports: No Symptoms Neck: reports: No Symptoms Cardiovascular: reports: No Symptoms Respiratory: reports: No Symptoms Gastrointestinal: reports: No Symptoms Genitourinary: reports: No Symptoms Breasts: reports: No Symptoms Reported Musculoskeletal: reports: No Symptoms Physical Exam Vital Signs: Vital Signs Temperature 99.9 F H 02/12/18 14:00 Pulse Rate 92 H 02/12/18 14:00 Respiratory Rate 20 02/12/18 14:00 Blood Pressure 134/59 L 02/12/18 14:00 O2 Sat by Pulse Oximetry (%) 100 02/12/18 09:00 Constitutional: Yes: No Distress, Calm, Obese Eyes: Yes: PERRL HENT: Yes: Other (right side of face all brusied) Neck: Yes: Supple, Trachea Midline. No: Lymphadenopathy Cardiovascular: Yes: Regular Rate and Rhythm, Murmur (3/6 systolic), S1, S2 Respiratory: Yes: Regular, CTA Bilaterally Gastrointestinal: Yes: Normal Bowel Sounds, Soft, Abdomen, Obese Extremities: Yes: Other (both lower extremities tender to palpation no inguinalo adenopathy) Integumentary: Yes: Bruising (face) Psychiatric: Yes: Alert Labs: CBC, BMP 02/11/18 05:30 02/11/18 05:30 Imaging - Results Chest X-ray: Report Reviewed, Image Reviewed X-ray: Report Reviewed Ultrasound: Report Reviewed Assessment/Plan 87F with multiple medical problems presents to the hospital s/p syncope and fall presents with facial trauma found to have extensive RLE DVT and bilateral obstructing PE s/p TPA thrombolysis and thrombectomy. Problem List: Bilateral obstucting PEs s/p thrombolysis and thrombectomy RLE extensive DVT Syncope-likely secondary to obstructing PE HTN HLD diastolic CHD osteoarthritis Plan: Patient with unprovoked DVT/PE Given her being on current anticoagulation would consider thrombophilia work up as outpatient vs age appropriate malignancy work up as outpatient given her unprovoked DVT/PE malignancy in this patient needs to be considered this patient will also require life long anticoagulation Primary team can discuss DOACs vs Coumadin with this patient can follow up with Dr. Ramirez/Dr Elam as outpatient thank you for this consultative opportunity
--- NOTE | 2018-02-12 20:25 | PN ---
Teaching Attending Note Name of Resident: Yohannes Chao ATTENDING PHYSICIAN STATEMENT I saw and evaluated the patient. I reviewed the resident's note and discussed the case with the resident. I agree with the resident's findings and plan as documented. SUBJECTIVE: Patient seen and examined Presented after syncopal episode with extensive RLE DVT and bilateral pulmonary emboli . Treated with tpa and catheter directed thrombolysis. Extensive ecchymoses and hematoma right side of face Last Vital Signs Temp Pulse Resp BP Pulse Ox 98.6 F 88 20 142/64 100 02/12/18 18:00 02/12/18 18:00 02/12/18 18:00 02/12/18 18:00 02/12/18 09:00 HEENT: HAYDER, EOM Intact Oropharynx: No thrush, No mucositis extensive ecchymoses right orbit, cheek and neck Breasts: Without masses Cor: RSR, No murmurs, No gallops Lungs: Clear to P&A Abd: Soft, Normal bowel sounds, No organomegaly Ext:No significant edema Skin: No rashes, Integument intact, numerous ecchymoses CBC, BMP 02/11/18 05:30 02/11/18 05:30 INR, PTT INR 1.19 (0.83-1.09) H 02/10/18 05:20 Fibrinogen 215.0 mg/dL (238-498) L 02/12/18 11:58 Current Medications Generic Name Dose Route Start Last Admin Trade Name Freq PRN Reason Stop Dose Admin Acetaminophen 650 mg 02/12/18 12:58 02/12/18 13:43 Tylenol - PO 650 mg Q6H PRN Administration MODERATE PAIN Atorvastatin Calcium 10 mg 02/10/18 22:00 02/11/18 21:16 Lipitor - PO 10 mg HS ANA Administration Heparin Sodium (Porcine) 5,000 unit 02/10/18 15:42 02/11/18 15:38 Heparin - IVPUSH 5,000 unit PRN PRN Administration Heparin Heparin Sodium (Porcine) 1,000 unit 02/10/18 15:42 02/11/18 23:00 Heparin - IVPUSH 1,000 unit PRN PRN Administration Heparin Heparin Sodium (Porcine) 25, 500 mls @ 20 mls/hr 02/10/18 15:42 02/11/18 23: 00 000 unit/ Sodium Chloride IV 1,200 unit/hr TITR ANA 24 mls/hr Titration Protocol 1,000 UNIT/HR Insulin Aspart 1 vial 02/10/18 16:30 02/12/18 16:52 Novolog Vial Sliding Scale - SQ Not Given TIDAC [facility] Protocol Polyethylene Glycol 17 gm 02/11/18 12:35 02/12/18 13:44 Miralax (For Daily Use) - PO 17 grams DAILY PRN Administration CONSTIPATION Zolpidem Tartrate 5 mg 02/10/18 15:42 Ambien - PO HS PRN Impression: Extensive RLE DVT s/p syncopal episode secondary to bilateral pulmonary emboli. Unprovoked P.E. s- thrombolysis and tpa. Will need prison a/c. Would consider age appropriate malignancy work up with CT scans, stool for occult , etc. OBJECTIVE: ASSESSMENT AND PLAN:
[2018-02-12] MEDS: ATORVASTATIN CA 10 MG TABLET (FP) PO SCH (21:27)
[2018-02-13] MEDS: INSULIN SLIDING SCALE (NOVOLOG) 1 VIAL SQ SCH ×2 (06:03→12:09)
--- NOTE | 2018-02-13 10:04 | PN ---
Progress Note (short form) - Note Progress Note: on heparin GTT BP is better has pain in right periorbital region, rt forehead - decreased generalized aches constipated daughter at bedside Vital Signs - 24 hr 02/12/18 02/12/18 02/12/18 14:00 18:00 20:25 Temperature 99.9 F H 98.6 F Pulse Rate 92 H 88 Respiratory 20 20 Rate Blood Pressure 134/59 L 142/64 O2 Sat by Pulse 99 Oximetry (%) 02/12/18 02/12/18 02/13/18 21:00 22:00 02:00 Temperature 98.5 F 99.5 F Pulse Rate 86 94 H Respiratory 20 20 20 Rate Blood Pressure 112/73 130/53 L O2 Sat by Pulse 99 Oximetry (%) 02/13/18 02/13/18 06:00 09:18 Temperature 98.9 F 98.4 F Pulse Rate 80 74 Respiratory 20 18 Rate Blood Pressure 127/66 146/78 O2 Sat by Pulse 100 Oximetry (%) Current Medications Generic Name Dose Route Start Last Admin Trade Name Freq PRN Reason Stop Dose Admin Acetaminophen 650 mg 02/12/18 12:58 02/12/18 13:43 Tylenol - PO 650 mg Q6H PRN Administration MODERATE PAIN Atorvastatin Calcium 10 mg 02/10/18 22:00 02/12/18 21:27 Lipitor - PO 10 mg HS ANA Administration Heparin Sodium (Porcine) 5,000 unit 02/10/18 15:42 02/11/18 15:38 Heparin - IVPUSH 5,000 unit PRN PRN Administration Heparin Heparin Sodium (Porcine) 1,000 unit 02/10/18 15:42 02/11/18 23:00 Heparin - IVPUSH 1,000 unit PRN PRN Administration Heparin Heparin Sodium (Porcine) 25, 500 mls @ 20 mls/hr 02/10/18 15:42 02/11/18 23: 00 000 unit/ Sodium Chloride IV 1,200 unit/hr TITR ANA 24 mls/hr Titration Protocol 1,000 UNIT/HR Insulin Aspart 1 vial 02/10/18 16:30 02/13/18 06:03 Novolog Vial Sliding Scale - SQ Not Given TIDAC [facility] Protocol Polyethylene Glycol 17 gm 02/11/18 12:35 02/12/18 13:44 Miralax (For Daily Use) - PO 17 grams DAILY PRN Administration CONSTIPATION Zolpidem Tartrate 5 mg 02/10/18 15:42 Ambien - PO HS PRN INSOMNIA Laboratory Results - last 24 hr 02/12/18 02/12/18 02/12/18 11:48 11:58 16:49 PTT (Actin FS) Fibrinogen 215.0 L POC Glucometer 129 132 02/12/18 02/13/18 02/13/18 21:22 05:30 05:41 PTT (Actin FS) 51.5 H Fibrinogen POC Glucometer 138 131 no pallor rt forehead and periorbital region- hematoma S1 S2 RRR Lungs clear Abd- soft, NT No edema PLAN On Heparin drip monitor CBC cardiology eval noted will need Coumadin - start continue with meds hematology eval as this is unprovoked PE - noted check ultrasound of legs -rt leg DVT Problem List - Problems (1) Pulmonary emboli Code(s): I26.99 - OTHER PULMONARY EMBOLISM WITHOUT ACUTE COR PULMONALE Qualifiers: Pulmonary embolism type: saddle Chronicity: acute Acute cor pulmonale presence: without acute cor pulmonale Qualified Code(s): I26.92 - Saddle embolus of pulmonary artery without acute cor pulmonale (2) Syncope Code(s): R55 - SYNCOPE AND COLLAPSE Qualifiers: Syncope type: unspecified Qualified Code(s): R55 - Syncope and collapse (3) Congestive heart failure Code(s): I50.9 - HEART FAILURE, UNSPECIFIED Qualifiers: Heart failure type: unspecified Heart failure chronicity: acute Qualified Code(s): I50.9 - Heart failure, unspecified (4) Hyperlipidemia Code(s): E78.5 - HYPERLIPIDEMIA, UNSPECIFIED (5) Hypertension Code(s): I10 - ESSENTIAL (PRIMARY) HYPERTENSION Qualifiers: Hypertension type: essential hypertension Qualified Code(s): I10 - Essential (primary) hypertension
--- NOTE | 2018-02-13 10:37 | PN ---
Progress Note (short form) - Note Progress Note: cc: sob History of Present Illness: breathing much better no cp, palp, syncope Current Medications Generic Name Dose Route Start Last Admin Trade Name Carlos PRN Reason Stop Dose Admin Acetaminophen 650 mg 02/12/18 12:58 02/12/18 13:43 Tylenol - PO 650 mg Q6H PRN Administration MODERATE PAIN Atorvastatin Calcium 10 mg 02/10/18 22:00 02/12/18 21:27 Lipitor - PO 10 mg HS ANA Administration Heparin Sodium (Porcine) 5,000 unit 02/10/18 15:42 02/11/18 15:38 Heparin - IVPUSH 5,000 unit PRN PRN Administration Heparin Heparin Sodium (Porcine) 1,000 unit 02/10/18 15:42 02/11/18 23:00 Heparin - IVPUSH 1,000 unit PRN PRN Administration Heparin Heparin Sodium (Porcine) 25, 500 mls @ 20 mls/hr 02/10/18 15:42 02/11/18 23: 00 000 unit/ Sodium Chloride IV 1,200 unit/hr TITR ANA 24 mls/hr Titration Protocol 1,000 UNIT/HR Insulin Aspart 1 vial 02/10/18 16:30 02/13/18 06:03 Novolog Vial Sliding Scale - SQ Not Given TIDAC [facility] Protocol Polyethylene Glycol 17 gm 02/11/18 12:35 02/12/18 13:44 Miralax (For Daily Use) - PO 17 grams DAILY PRN Administration CONSTIPATION Warfarin Sodium 5 mg 02/13/18 18:00 Coumadin - PO DAILY@1800 ANA Zolpidem Tartrate 5 mg 02/10/18 15:42 Ambien - PO HS PRN INSOMNIA - Objective Vital Signs: Vital Signs Period Temp Pulse Resp BP Sys/Corral Pulse Ox Last 24 Hr 98.4 F-99.9 F 74-94 18-20 112-146/53-78 99-100 Constitutional: Yes: Well Nourished, No Distress, Calm Cardiovascular: Yes: Regular Rate and Rhythm, S1, S2. No: Gallop, Murmur Respiratory: Yes: Regular, CTA Bilaterally. No: Accessory Muscle Use, Rales, Wheezes Extremities: No: Cold Edema: No Neurological: Yes: Alert, Oriented Psychiatric: No: Agitated no jaundice diaphoresis Laboratory Last Values WBC 7.4 K/mm3 (4.0-10.0) 02/11/18 05:30 RBC 3.17 M/mm3 (3.60-5.2) L 02/11/18 05:30 Hgb 9.1 GM/dL (10.7-15.3) L 02/11/18 05:30 Hct 26.4 % (32.4-45.2) L 02/11/18 05:30 MCV 83.3 fl (80-96) 02/11/18 05:30 MCH 28.7 pg (25.7-33.7) 02/11/18 05:30 MCHC 34.4 g/dl (32.0-36.0) 02/11/18 05:30 RDW 17.5 % (11.6-15.6) H 02/11/18 05:30 Plt Count 231 K/MM3 (134-434) D 02/11/18 05:30 MPV 8.8 fl (7.5-11.1) 02/11/18 05:30 Absolute Neuts (auto) 4.3 K/mm3 (1.5-8.0) 02/10/18 05:20 Neutrophils % 67.5 % (42.8-82.8) 02/10/18 05:20 Lymphocytes % 20.6 % (8-40) D 02/10/18 05:20 Monocytes % 9.0 % (3.8-10.2) 02/10/18 05:20 Eosinophils % 2.1 % (0-4.5) D 02/10/18 05:20 Basophils % 0.8 % (0-2.0) D 02/10/18 05:20 Nucleated RBC % 0 % (0-0) 02/10/18 05:20 PT with INR 14.10 SEC (9.7-13.0) H 02/10/18 05:20 INR 1.19 (0.83-1.09) H 02/10/18 05:20 PTT (Actin FS) 51.5 SECONDS (25.2-36.5) H 02/13/18 05:30 Fibrinogen 215.0 mg/dL (238-498) L 02/12/18 11:58 Puncture Site Arterial line 02/09/18 06:30 ABG pH 7.36 (7.35-7.45) 02/09/18 06:30 ABG pCO2 at Pt Temp 36.4 mmHg (35-45) 02/09/18 06:30 ABG pO2 at Pt Temp 174.0 mmHg (68-100) H* 02/09/18 06:30 ABG HCO3 20.3 meq/L (22-26) L 02/09/18 06:30 ABG O2 Sat (Measured) 99.3 % (90-98.9) H 02/09/18 06:30 ABG O2 Content 13.3 % vol (15-22) L 02/09/18 06:30 ABG Base Excess -4.1 meq/l (-2-2) L 02/09/18 06:30 Jose Test Positive 02/09/18 06:30 O2 Delivery Device N/c 02/09/18 06:30 Oxygen Flow Rate 4l 02/09/18 06:30 Sodium 140 mmol/L (136-145) 02/11/18 05:30 Potassium 4.3 mmol/L (3.5-5.1) 02/11/18 05:30 Chloride 106 mmol/L (98-107) 02/11/18 05:30 Carbon Dioxide 26 mmol/L (21-32) 02/11/18 05:30 Anion Gap 8 MMOL/L (8-16) 02/11/18 05:30 BUN 13 mg/dL (7-18) 02/11/18 05:30 Creatinine 0.9 mg/dL (0.55-1.3) 02/11/18 05:30 Creat Clearance w eGFR 59.51 (>60) 02/11/18 05:30 POC Glucometer 131 UNITS (80-120) 02/13/18 05:41 Random Glucose 114 mg/dL (74-106) H 02/11/18 05:30 Hemoglobin A1c % 6.4 % (4.2-6.3) H 02/09/18 05:30 Lactic Acid 0.6 mmol/L (0.4-2.0) 02/10/18 05:20 Calcium 8.4 mg/dL (8.5-10.1) L 02/11/18 05:30 Phosphorus 2.9 mg/dL (2.5-4.9) 02/11/18 05:30 Magnesium 2.2 mg/dL (1.8-2.4) 02/11/18 05:30 Total Bilirubin 0.2 mg/dL (0.2-1) 02/10/18 05:20 AST 42 U/L (15-37) H 02/10/18 05:20 ALT 32 U/L (13-61) 02/10/18 05:20 Alkaline Phosphatase 162 U/L (45-117) H 02/10/18 05:20 Creatine Kinase 68 IU/L (26-192) 02/09/18 05:30 Troponin I 0.37 ng/ml (0.00-0.05) H 02/09/18 20:35 B-Natriuretic Peptide 5299.1 pg/ml (5-450) H 02/08/18 23:14 Total Protein 6.4 g/dl (6.4-8.2) 02/10/18 05:20 Albumin 2.4 g/dl (3.4-5.0) L 02/10/18 05:20 Urine Color Yellow 02/09/18 19:00 Urine Appearance Cloudy 02/09/18 19:00 Urine pH 5.0 (5.0-8.0) 02/09/18 19:00 Ur Specific [place] 1.042 (1.010-1.035) H 02/09/18 19:00 Urine Protein 1+ (NEGATIVE) H 02/09/18 19:00 Urine Glucose (UA) Negative (NEGATIVE) 02/09/18 19:00 Urine Ketones Negative (NEGATIVE) 02/09/18 19:00 Urine Blood 1+ (NEGATIVE) H 02/09/18 19:00 Urine Nitrite Negative (NEGATIVE) 02/09/18 19:00 Urine Bilirubin Negative (<2.0 mg/dL) 02/09/18 19:00 Urine Urobilinogen Negative mg/dL (0.2-1.0) 02/09/18 19:00 Ur Leukocyte Esterase 3+ (NEGATIVE) H 02/09/18 19:00 Urine WBC (Auto) 412 /hpf (3-5) 02/09/18 19:00 Urine RBC (Auto) 57 /hpf (0-3) 02/09/18 19:00 Ur Epithelial Cells Rare /HPF (FEW) 02/09/18 19:00 Urine Mucus Rare 02/09/18 19:00 Urine Yeast Few 02/09/18 19:00 Assessment/Plan EKG sinus tach, nonspecific ST changes, IRBBB CTA chest large saddle PE lower ext doppler: extensive RLE DVT Echo 02/2018: nl LV/RV, E/A reversal, mild MR, PASP at least 39 mmHg Echo 08/2017: nl lv/rv size/fn. 1+ as. 1+ tr. tele: SR Pulmonary embolism, DVT - likely etiology for syncope, dyspnea - s/p IR guided tPA, symptoms improved - nl RV function on echo with at least mild pulm HTN likely 2/2 PE - extensive RLE DVT noted on doppler - cont heparin gtt, transition to NOAC when ok with crit care (s/p t-PA) - heme consult for hypercoagulable workup Elevated troponin - trop 0.11->0.58->0.53->1.15->0.34. no ischemic ECG changes. - secondary to massive PE - no further CV w/u indicated at present time HLD - cont statin HTN -stable chronic diastolic HF - holding home lasix, appears euvolemic
--- NOTE | 2018-02-13 14:26 | PN ---
Progress Note (short form) - Note Progress Note: PULMONARY Denies shortness of breath or chest pain. Bruising stable per pt. Vital Signs Period Temp Pulse Resp BP Sys/Corral Pulse Ox Last 24 Hr 97.8 F-99.5 F 74-94 18-20 112-146/53-78 99-100 Gen: NAD at rest Heart: RRR Lung: decreased breath sounds at the bases Abd: soft, nontender Ext: no edema CBC, BMP 02/11/18 05:30 02/11/18 05:30 Active Medications Acetaminophen (Tylenol -) 650 mg PO Q6H PRN PRN Reason: MODERATE PAIN Last Admin: 02/12/18 13:43 Dose: 650 mg Atorvastatin Calcium (Lipitor -) 10 mg PO HS ANA Last Admin: 02/12/18 21:27 Dose: 10 mg Heparin Sodium (Porcine) (Heparin -) 5,000 unit IVPUSH PRN PRN PRN Reason: Heparin Last Admin: 02/11/18 15:38 Dose: 5,000 unit Heparin Sodium (Porcine) (Heparin -) 1,000 unit IVPUSH PRN PRN PRN Reason: Heparin Last Admin: 02/11/18 23:00 Dose: 1,000 unit Heparin Sodium (Porcine) 25, (000 unit/ Sodium Chloride) 500 mls @ 20 mls/hr IV TITR ANA; Protocol Last Admin: 02/12/18 16:00 Dose: 1,200 unit/hr, 24 mls/hr Insulin Aspart (Novolog Vial Sliding Scale -) 1 vial SQ TIDAC ANA; Protocol Last Admin: 02/13/18 12:09 Dose: Not Given Polyethylene Glycol (Miralax (For Daily Use) -) 17 gm PO DAILY PRN PRN Reason: CONSTIPATION Last Admin: 02/12/18 13:44 Dose: 17 grams Warfarin Sodium (Coumadin -) 5 mg PO DAILY@1800 ANA Zolpidem Tartrate (Ambien -) 5 mg PO HS PRN PRN Reason: INSOMNIA A/P Acute on Chronic Pulmonary Emboli Obstructive Shock improved S/P catheter directed tPA Extensive RLE DVT Pulmonary HTN - continue anticoagulation - can start oral agent - monitor ecchymoses - O2 as needed
[2018-02-13] MEDS: HEPARIN - 25,000 UNIT in SODIUM CHLORIDE 495 ML IV SCH (15:54)
[2018-02-13] MEDS: WARFARIN NA 5 MG TABLET (UD) PO SCH (17:09)
[2018-02-13] MEDS: traMADol HCL 50 MG TABLET PO PRN (17:56)
[2018-02-13] MEDS: ATORVASTATIN CA 10 MG TABLET (FP) PO SCH (21:57)
[2018-02-14] MEDS: traMADol HCL 50 MG TABLET PO PRN ×2 (07:01→18:15)
[2018-02-14 08:34] LABS: INR 1.13 (0.83-1.09); PROTHROMBIN TIME (PATIENT) 13.3 SEC (9.7-13.0)
[2018-02-14] MEDS: HEPARIN - 25,000 UNIT in SODIUM CHLORIDE 495 ML IV SCH ×2 (10:54→17:32)
--- NOTE | 2018-02-14 10:54 | PN ---
Progress Note (short form) - Note Progress Note: pt seen/ examined chart reviewed no distress but reports not 100 percent ok no specific complains low grade temp-- Tmax 100.9 last night Vital Signs Temp 99.9 F H 02/14/18 06:00 Pulse 104 H 02/14/18 06:00 Resp 20 02/14/18 06:00 BP 154/73 02/14/18 06:00 Pulse Ox 95 02/13/18 21:00 Intake & Output 02/13/18 02/13/18 02/14/18 11:59 23:59 11:59 Intake Total 438 1008 288 Balance 438 1008 288 Weight 183 lb 12.8 oz Intake: IV 288 168 288 Heparin - 25,000 Unit In 288 168 288 Normal Saline - 495 ml @ 1,000 UNIT/HR 20 mls/hr IV TITR NAA Rx#: [id number] Oral 150 840 Other: Voiding Method Incontinent Diaper Incontinent # Unmeasured Voids Mariee 2 Void 2 3 1 Bowel Movement Yes # Bowel Movements 1 Weight Measurement Method Standing Scale Active Medications Acetaminophen (Tylenol -) 650 mg PO Q6H PRN PRN Reason: PAIN 4-6 Last Admin: 02/12/18 13:43 Dose: 650 mg Atorvastatin Calcium (Lipitor -) 10 mg PO HS ANA Last Admin: 02/13/18 21:57 Dose: 10 mg Bisacodyl (Dulcolax Suppository -) 10 mg RC DAILY PRN PRN Reason: CONSTIPATION Heparin Sodium (Porcine) (Heparin -) 5,000 unit IVPUSH PRN PRN PRN Reason: Heparin Last Admin: 02/11/18 15:38 Dose: 5,000 unit Heparin Sodium (Porcine) (Heparin -) 1,000 unit IVPUSH PRN PRN PRN Reason: Heparin Last Admin: 02/11/18 23:00 Dose: 1,000 unit Heparin Sodium (Porcine) 25, (000 unit/ Sodium Chloride) 500 mls @ 20 mls/hr IV TITR ANA; Protocol Last Admin: 02/13/18 15:54 Dose: 1,200 unit/hr, 24 mls/hr Ceftriaxone Sodium 1 gm/ (Dextrose) 100 mls @ 200 mls/hr IVPB DAILY ANA; Protocol Polyethylene Glycol (Miralax (For Daily Use) -) 17 gm PO DAILY PRN PRN Reason: CONSTIPATION Last Admin: 02/12/18 13:44 Dose: 17 grams Tramadol HCl (Ultram -) 50 mg PO Q6H PRN PRN Reason: PAIN LEVEL 7-10 Last Admin: 02/14/18 07:01 Dose: 50 mg Warfarin Sodium (Coumadin -) 5 mg PO DAILY@1800 ANA Last Admin: 02/13/18 17:09 Dose: 5 mg Zolpidem Tartrate (Ambien -) 5 mg PO HS PRN PRN Reason: INSOMNIA CBC, BMP 02/11/18 05:30 02/11/18 05:30 u/a -- +ve for uti u/c - not done-- ordered Physical exam Awake/ comfortable. rt forehead and periorbital region- hematoma S1 S2 RRR Lungs clear Abd- soft, NT No edema PLAN On Heparin drip/ started on coumadin low grade fever uti ? start on rocephin labs today as well as cxr blood cultures will follow Problem List - Problems (1) DVT (deep venous thrombosis) Code(s): I82.409 - ACUTE EMBOLISM AND THOMBOS UNSP DEEP VN UNSP LOWER EXTREMITY (2) Pulmonary emboli Code(s): I26.99 - OTHER PULMONARY EMBOLISM WITHOUT ACUTE COR PULMONALE Qualifiers: Pulmonary embolism type: saddle Chronicity: acute Acute cor pulmonale presence: without acute cor pulmonale Qualified Code(s): I26.92 - Saddle embolus of pulmonary artery without acute cor pulmonale (3) Syncope Code(s): R55 - SYNCOPE AND COLLAPSE Qualifiers: Syncope type: unspecified Qualified Code(s): R55 - Syncope and collapse (4) Hypertension Code(s): I10 - ESSENTIAL (PRIMARY) HYPERTENSION Qualifiers: Hypertension type: essential hypertension Qualified Code(s): I10 - Essential (primary) hypertension (5) UTI (urinary tract infection) Code(s): N39.0 - URINARY TRACT INFECTION, SITE NOT SPECIFIED
--- NOTE | 2018-02-14 11:00 | PN ---
Progress Note (short form) - Note Progress Note: cc: sob History of Present Illness: no cp, palp, syncope Current Medications Generic Name Dose Route Start Last Admin Trade Name Freq PRN Reason Stop Dose Admin Acetaminophen 650 mg 02/12/18 12:58 02/12/18 13:43 Tylenol - PO 650 mg Q6H PRN Administration PAIN 4-6 Atorvastatin Calcium 10 mg 02/10/18 22:00 02/13/18 21:57 Lipitor - PO 10 mg HS ANA Administration Bisacodyl 10 mg 02/13/18 15:43 Dulcolax Suppository - RC DAILY PRN CONSTIPATION Heparin Sodium (Porcine) 5,000 unit 02/10/18 15:42 02/11/18 15:38 Heparin - IVPUSH 5,000 unit PRN PRN Administration Heparin Heparin Sodium (Porcine) 1,000 unit 02/10/18 15:42 02/11/18 23:00 Heparin - IVPUSH 1,000 unit PRN PRN Administration Heparin Heparin Sodium (Porcine) 25, 500 mls @ 20 mls/hr 02/10/18 15:42 02/13/18 15: 54 000 unit/ Sodium Chloride IV 1,200 unit/hr TITR ANA 24 mls/hr Administration Protocol 1,000 UNIT/HR Ceftriaxone Sodium 1 gm/ 100 mls @ 200 mls/hr 02/14/18 11:00 Dextrose IVPB DAILY [facility] Protocol Polyethylene Glycol 17 gm 02/11/18 12:35 02/12/18 13:44 Miralax (For Daily Use) - PO 17 grams DAILY PRN Administration CONSTIPATION Tramadol HCl 50 mg 02/13/18 15:44 02/14/18 07:01 Ultram - PO 50 mg Q6H PRN Administration PAIN LEVEL 7-10 Warfarin Sodium 5 mg 02/13/18 18:00 02/13/18 17:09 Coumadin - PO 5 mg DAILY@1800 [facility] Administration Zolpidem Tartrate 5 mg 02/10/18 15:42 Ambien - PO HS PRN INSOMNIA - Objective Vital Signs: Vital Signs Period Temp Pulse Resp BP Sys/Corral Pulse Ox Last 24 Hr 97.8 F-100.9 F 91-116 18-20 130-154/52-73 95 Constitutional: Yes: Well Nourished, No Distress, Calm Cardiovascular: Yes: Regular Rate and Rhythm, S1, S2. No: Gallop, Murmur Respiratory: Yes: Regular, CTA Bilaterally. No: Accessory Muscle Use, Rales, Wheezes Extremities: No: Cold Edema: No Neurological: Yes: Alert, Oriented Psychiatric: No: Agitated no jaundice diaphoresis Assessment/Plan EKG sinus tach, nonspecific ST changes, IRBBB CTA chest large saddle PE lower ext doppler: extensive RLE DVT Echo 02/2018: nl LV/RV, E/A reversal, mild MR, PASP at least 39 mmHg Echo 08/2017: nl lv/rv size/fn. 1+ as. 1+ tr. tele: SR/sinus tachy Pulmonary embolism, DVT - likely etiology for syncope, dyspnea - s/p IR guided tPA, symptoms improved - nl RV function on echo with at least mild pulm HTN likely 2/2 PE - extensive RLE DVT noted on doppler - cont ac - heme consult for hypercoagulable workup Elevated troponin - trop 0.11->0.58->0.53->1.15->0.34. no ischemic ECG changes. - secondary to massive PE - no further CV w/u indicated at present time HLD - cont statin HTN -stable chronic diastolic HF - holding home lasix, appears euvolemic
[2018-02-14] MEDS: HEPARIN NA (PORCINE) 5,000 UNITS/ML 1ML VIAL IVPUSH PRN (11:01)
[2018-02-14 11:05] LABS: BASO % 0.5 % (0-2.0); EOS % 0.4 % (0-4.5); HEMATOCRIT 26.4 % (32.4-45.2); HEMOGLOBIN 8.9 GM/dL (10.7-15.3); LYMPH % 12.9 % (8-40); MCH 28.3 pg (25.7-33.7); MCHC 33.7 g/dl (32.0-36.0); MEAN CELL VOLUME 84.2 fl (80-96); MEAN PLT VOLUME 9.1 fl (7.5-11.1); MONO % 11.9 % (3.8-10.2); NEUT % 74.3 % (42.8-82.8); PLATELET COUNT 281 K/MM3 (134-434); RBC 3.14 M/mm3 (3.60-5.2); WHITE BLOOD COUNT 9.4 K/mm3 (4.0-10.0)
[2018-02-14 11:30] LABS: ALBUMIN 2.4 g/dl (3.4-5.0); ALK PHOS 146 U/L (45-117); ANION GAP 12 MMOL/L (8-16); BILIRUBIN,TOTAL 0.8 mg/dL (0.2-1); BLOOD UREA NITROGEN 13 mg/dL (7-18); CALCIUM 8.3 mg/dL (8.5-10.1); CHLORIDE 102 mmol/L (98-107); CO2 24 mmol/L (21-32); CREATININE 0.8 mg/dL (0.55-1.3); GLUCOSE,RANDOM 133 mg/dL (74-106); POTASSIUM 4.4 mmol/L (3.5-5.1); SGOT/AST 25 U/L (15-37); SGPT/ALT 23 U/L (13-61); SODIUM 137 mmol/L (136-145); TOT PROT 6.8 g/dl (6.4-8.2)
--- NOTE | 2018-02-14 12:25 | PN ---
Progress Note, Physician History of Present Illness: PULMONARY ALERT,NO DISTRESS,-SOB,-CP - Current Medication List Current Medications: Active Medications Acetaminophen (Tylenol -) 650 mg PO Q6H PRN PRN Reason: PAIN 4-6 Last Admin: 02/12/18 13:43 Dose: 650 mg Atorvastatin Calcium (Lipitor -) 10 mg PO HS ANA Last Admin: 02/13/18 21:57 Dose: 10 mg Bisacodyl (Dulcolax Suppository -) 10 mg RC DAILY PRN PRN Reason: CONSTIPATION Heparin Sodium (Porcine) (Heparin -) 5,000 unit IVPUSH PRN PRN PRN Reason: Heparin Last Admin: 02/11/18 15:38 Dose: 5,000 unit Heparin Sodium (Porcine) (Heparin -) 1,000 unit IVPUSH PRN PRN PRN Reason: Heparin Last Admin: 02/14/18 11:01 Dose: 1,000 unit Heparin Sodium (Porcine) 25, (000 unit/ Sodium Chloride) 500 mls @ 20 mls/hr IV TITR ANA; Protocol Last Admin: 02/14/18 10:54 Dose: 1,300 unit/hr, 26 mls/hr Ceftriaxone Sodium 1 gm/ (Dextrose) 50 mls @ 100 mls/hr IVPB DAILY ANA; Protocol Polyethylene Glycol (Miralax (For Daily Use) -) 17 gm PO DAILY PRN PRN Reason: CONSTIPATION Last Admin: 02/12/18 13:44 Dose: 17 grams Tramadol HCl (Ultram -) 50 mg PO Q6H PRN PRN Reason: PAIN LEVEL 7-10 Last Admin: 02/14/18 07:01 Dose: 50 mg Warfarin Sodium (Coumadin -) 5 mg PO DAILY@1800 ANA Last Admin: 02/13/18 17:09 Dose: 5 mg Zolpidem Tartrate (Ambien -) 5 mg PO HS PRN PRN Reason: INSOMNIA - Objective Vital Signs: Vital Signs Temperature 99.9 F H 02/14/18 06:00 Pulse Rate 104 H 02/14/18 06:00 Respiratory Rate 20 02/14/18 06:00 Blood Pressure 154/73 02/14/18 06:00 O2 Sat by Pulse Oximetry (%) 95 02/13/18 21:00 Constitutional: Yes: Well Nourished, Calm Eyes: Yes: WNL HENT: Yes: WNL Neck: Yes: WNL Cardiovascular: Yes: Regular Rate and Rhythm, S1, S2 Respiratory: Yes: CTA Bilaterally Gastrointestinal: Yes: Normal Bowel Sounds, Soft Extremities: Yes: WNL Edema: Yes Labs: CBC, BMP 02/14/18 05:30 02/14/18 05:30 INR, PTT INR 1.13 (0.83-1.09) H 02/14/18 05:30 Fibrinogen 215.0 mg/dL (238-498) L 02/12/18 11:58 Problem List - Problems (1) DVT (deep venous thrombosis) Code(s): I82.409 - ACUTE EMBOLISM AND THOMBOS UNSP DEEP VN UNSP LOWER EXTREMITY (2) Pulmonary emboli Code(s): I26.99 - OTHER PULMONARY EMBOLISM WITHOUT ACUTE COR PULMONALE Qualifiers: Pulmonary embolism type: saddle Chronicity: acute Acute cor pulmonale presence: without acute cor pulmonale Qualified Code(s): I26.92 - Saddle embolus of pulmonary artery without acute cor pulmonale (3) Syncope Code(s): R55 - SYNCOPE AND COLLAPSE Qualifiers: Syncope type: unspecified Qualified Code(s): R55 - Syncope and collapse (4) Edema Code(s): R60.9 - EDEMA, UNSPECIFIED Assessment/Plan IMP: Acute on Chronic PE with Obstructive Shock S/P catheter directed tPA Resolved hypotension Extensive RLE DVT Pulmonary htn IV Heparin /coumadin O2 as needed Fall precautions DR KOO
[2018-02-14] MEDS ORDERED: cefTRIAXone SODIUM 1 GM VIAL ONE (13:57)
[2018-02-14] MEDS ORDERED: DEXTROSE 5%-WATER - 50 ML IVPB ONE (13:59)
[2018-02-14] MEDS: CEFTRIAXONE 1 GM in DEXTROSE 5%-WATER - 50 ML IVPB SCH (14:58)
[2018-02-14] MEDS: WARFARIN NA 5 MG TABLET (UD) PO SCH (17:33)
[2018-02-14] MEDS: ACETAMINOPHEN 325 MG TABLET (FP) PO PRN (20:36)
[2018-02-14] MEDS: ATORVASTATIN CA 10 MG TABLET (FP) PO SCH (21:37)
[2018-02-15] MEDS: HEPARIN NA (PORCINE) 5,000 UNITS/ML 1ML VIAL IVPUSH PRN
[2018-02-15 00:08] LABS: DRVVT - 44.6 sec (0.0-47.0)
[2018-02-15 07:56] LABS: EOS % 2.4 % (0-4.5); HEMATOCRIT 26.1 % (32.4-45.2); HEMOGLOBIN 8.5 GM/dL (10.7-15.3); LYMPH % 16.4 % (8-40); MCH 27.5 pg (25.7-33.7); MCHC 32.5 g/dl (32.0-36.0); MEAN CELL VOLUME 84.6 fl (80-96); MEAN PLT VOLUME 9.4 fl (7.5-11.1); NEUT % 67.2 % (42.8-82.8); PLATELET COUNT 245 K/MM3 (134-434); RBC 3.08 M/mm3 (3.60-5.2); RDW 17.9 % (11.6-15.6); WHITE BLOOD COUNT 8.9 K/mm3 (4.0-10.0)
[2018-02-15 08:00] LABS: INR 1.23 (0.83-1.09); PROTHROMBIN TIME (PATIENT) 14.6 SEC (9.7-13.0)
[2018-02-15 08:22] LABS: ALBUMIN 2.2 g/dl (3.4-5.0); ALK PHOS 150 U/L (45-117); ANION GAP 7 MMOL/L (8-16); BILIRUBIN,TOTAL 0.8 mg/dL (0.2-1); BLOOD UREA NITROGEN 13 mg/dL (7-18); CALCIUM 8.3 mg/dL (8.5-10.1); CHLORIDE 101 mmol/L (98-107); CO2 27 mmol/L (21-32); CREATININE 0.9 mg/dL (0.55-1.3); GLUCOSE,RANDOM 116 mg/dL (74-106); POTASSIUM 4.2 mmol/L (3.5-5.1); SGOT/AST 29 U/L (15-37); SGPT/ALT 22 U/L (13-61); SODIUM 135 mmol/L (136-145); TOT PROT 6.6 g/dl (6.4-8.2)
[2018-02-15] MEDS ORDERED: DEXTROSE 5%-WATER - 50 ML IVPB ONE (09:02)
[2018-02-15] MEDS ORDERED: cefTRIAXone SODIUM 1 GM VIAL ONE (09:02)
[2018-02-15] MEDS: CEFTRIAXONE 1 GM in DEXTROSE 5%-WATER - 50 ML IVPB SCH (09:10)
--- NOTE | 2018-02-15 11:55 | PN ---
Progress Note (short form) - Note Progress Note: cc: sob History of Present Illness: no cp, palp, syncope Current Medications Generic Name Dose Route Start Last Admin Trade Name Freq PRN Reason Stop Dose Admin Acetaminophen 650 mg 02/12/18 12:58 02/14/18 20:36 Tylenol - PO 650 mg Q6H PRN Administration PAIN 4-6 Atorvastatin Calcium 10 mg 02/10/18 22:00 02/14/18 21:37 Lipitor - PO 10 mg HS ANA Administration Bisacodyl 10 mg 02/13/18 15:43 Dulcolax Suppository - RC DAILY PRN CONSTIPATION Heparin Sodium (Porcine) 5,000 unit 02/10/18 15:42 02/11/18 15:38 Heparin - IVPUSH 5,000 unit PRN PRN Administration Heparin Heparin Sodium (Porcine) 1,000 unit 02/10/18 15:42 02/15/18 00:00 Heparin - IVPUSH 1,000 unit PRN PRN Administration Heparin Heparin Sodium (Porcine) 25, 500 mls @ 20 mls/hr 02/10/18 15:42 02/15/18 00: 00 000 unit/ Sodium Chloride IV 1,400 unit/hr TITR ANA 28 mls/hr Administration Protocol 1,000 UNIT/HR Ceftriaxone Sodium 1 gm/ 50 mls @ 100 mls/hr 02/14/18 11:00 02/15/18 09:10 Dextrose IVPB 100 mls/hr DAILY ANA Administration Protocol Polyethylene Glycol 17 gm 02/11/18 12:35 02/12/18 13:44 Miralax (For Daily Use) - PO 17 grams DAILY PRN Administration CONSTIPATION Tramadol HCl 50 mg 02/13/18 15:44 02/14/18 18:15 Ultram - PO 50 mg Q6H PRN Administration PAIN LEVEL 7-10 Warfarin Sodium 5 mg 02/13/18 18:00 02/14/18 17:33 Coumadin - PO 5 mg DAILY@1800 ANA Administration Zolpidem Tartrate 5 mg 02/10/18 15:42 Ambien - PO HS PRN INSOMNIA - Objective Vital Signs: Vital Signs Period Temp Pulse Resp BP Sys/Corral Pulse Ox Last 24 Hr 97.1 F-101.9 F 84-103 18-20 105-145/39-72 95-100 Constitutional: Yes: Well Nourished, No Distress, Calm Cardiovascular: Yes: Regular Rate and Rhythm, S1, S2. No: Gallop, Murmur Respiratory: Yes: Regular, CTA Bilaterally. No: Accessory Muscle Use, Rales, Wheezes Extremities: No: Cold Edema: No Neurological: Yes: Alert, Oriented Psychiatric: No: Agitated no jaundice diaphoresis Assessment/Plan EKG sinus tach, nonspecific ST changes, IRBBB CTA chest large saddle PE lower ext doppler: extensive RLE DVT Echo 02/2018: nl LV/RV, E/A reversal, mild MR, PASP at least 39 mmHg Echo 08/2017: nl lv/rv size/fn. 1+ as. 1+ tr. tele: SR Pulmonary embolism, DVT - likely etiology for syncope, dyspnea - s/p IR guided tPA, symptoms improved - nl RV function on echo with at least mild pulm HTN likely 2/2 PE - extensive RLE DVT noted on doppler - cont ac - heme consult for hypercoagulable workup Elevated troponin - trop 0.11->0.58->0.53->1.15->0.34. no ischemic ECG changes. - secondary to massive PE - no further CV w/u indicated at present time HLD - cont statin HTN -stable chronic diastolic HF - holding home lasix, appears euvolemic
[2018-02-15] MEDS: HEPARIN - 25,000 UNIT in SODIUM CHLORIDE 495 ML IV SCH ×3 (12:02→20:56)
[2018-02-15] MEDS: BISACODYL 10 MG SUPP.RECT RC PRN (12:02)
[2018-02-15] MEDS: ACETAMINOPHEN 325 MG TABLET (FP) PO PRN ×2 (12:15→21:43)
--- NOTE | 2018-02-15 12:42 | PN ---
Progress Note (short form) - Note Progress Note: awake/ comfortable no new issues but having fever u/a +ve c/c- pain in knees -- chronic due to arthritis-- as per pts daughter who is at bedside all f/u noted Vital Signs Temp 101 F H 02/15/18 12:16 Pulse 93 H 02/15/18 08:51 Resp 18 02/15/18 08:51 BP 105/39 L 02/15/18 08:51 Pulse Ox 100 02/15/18 09:33 Intake & Output 02/14/18 02/15/18 02/15/18 23:59 11:59 23:59 Intake Total 308 300 Balance 308 300 Intake: IV 308 300 Heparin - 25,000 Unit In 308 300 Normal Saline - 495 ml @ 1,000 UNIT/HR 20 mls/hr IV TITR ANA Rx#: [id number] Other: Voiding Method Incontinent Incontinent # Unmeasured Voids Void 1 Active Medications Acetaminophen (Tylenol -) 650 mg PO Q6H PRN PRN Reason: PAIN 4-6 Last Admin: 02/15/18 12:15 Dose: 650 mg Atorvastatin Calcium (Lipitor -) 10 mg PO HS ANA Last Admin: 02/14/18 21:37 Dose: 10 mg Bisacodyl (Dulcolax Suppository -) 10 mg RC DAILY PRN PRN Reason: CONSTIPATION Last Admin: 02/15/18 12:02 Dose: 10 mg Heparin Sodium (Porcine) (Heparin -) 5,000 unit IVPUSH PRN PRN PRN Reason: Heparin Last Admin: 02/11/18 15:38 Dose: 5,000 unit Heparin Sodium (Porcine) (Heparin -) 1,000 unit IVPUSH PRN PRN PRN Reason: Heparin Last Admin: 02/15/18 00:00 Dose: 1,000 unit Heparin Sodium (Porcine) 25, (000 unit/ Sodium Chloride) 500 mls @ 20 mls/hr IV TITR ANA; Protocol Last Admin: 02/15/18 12:02 Dose: 1,400 unit/hr, 28 mls/hr Ceftriaxone Sodium 1 gm/ (Dextrose) 50 mls @ 100 mls/hr IVPB DAILY ANA; Protocol Last Admin: 02/15/18 09:10 Dose: 100 mls/hr Polyethylene Glycol (Miralax (For Daily Use) -) 17 gm PO DAILY PRN PRN Reason: CONSTIPATION Last Admin: 02/12/18 13:44 Dose: 17 grams Tramadol HCl (Ultram -) 50 mg PO Q6H PRN PRN Reason: PAIN LEVEL 7-10 Last Admin: 02/14/18 18:15 Dose: 50 mg Warfarin Sodium (Coumadin -) 5 mg PO DAILY@1800 ANA Last Admin: 02/14/18 17:33 Dose: 5 mg Zolpidem Tartrate (Ambien -) 5 mg PO HS PRN PRN Reason: INSOMNIA CBC, BMP 02/15/18 06:15 02/15/18 06:15 INR, PTT INR 1.23 (0.83-1.09) H 02/15/18 06:15 Fibrinogen 215.0 mg/dL (238-498) L 02/12/18 11:58 Microbiology 02/14/18 11:06 Blood Culture - Preliminary Blood - Peripheral Venous NO GROWTH OBTAINED AFTER 24 HOURS, INCUBATION TO CONTINUE FOR 4 DAYS. 02/14/18 11:20 Blood Culture - Preliminary Blood - Peripheral Venous NO GROWTH OBTAINED AFTER 24 HOURS, INCUBATION TO CONTINUE FOR 4 DAYS. cxr-- no infiltrate Physical exam Awake/ comfortable. rt forehead and periorbital region- hematoma S1 S2 RRR Lungs clear Abd- soft, NT trace edema neuro- alert/ awake knee-- mild tenderness -- no reddness PLAN On Heparin drip/ coumadin fever uti rocephin f/u cultures pt will follow Problem List - Problems (1) DVT (deep venous thrombosis) Code(s): I82.409 - ACUTE EMBOLISM AND THOMBOS UNSP DEEP VN UNSP LOWER EXTREMITY (2) Pulmonary emboli Code(s): I26.99 - OTHER PULMONARY EMBOLISM WITHOUT ACUTE COR PULMONALE Qualifiers: Pulmonary embolism type: saddle Chronicity: acute Acute cor pulmonale presence: without acute cor pulmonale Qualified Code(s): I26.92 - Saddle embolus of pulmonary artery without acute cor pulmonale (3) Syncope Code(s): R55 - SYNCOPE AND COLLAPSE Qualifiers: Syncope type: unspecified Qualified Code(s): R55 - Syncope and collapse (4) Hypertension Code(s): I10 - ESSENTIAL (PRIMARY) HYPERTENSION Qualifiers: Hypertension type: essential hypertension Qualified Code(s): I10 - Essential (primary) hypertension (5) UTI (urinary tract infection) Code(s): N39.0 - URINARY TRACT INFECTION, SITE NOT SPECIFIED Problem List - Problems (1) DVT (deep venous thrombosis) Code(s): I82.409 - ACUTE EMBOLISM AND THOMBOS UNSP DEEP VN UNSP LOWER EXTREMITY (2) Pulmonary emboli Code(s): I26.99 - OTHER PULMONARY EMBOLISM WITHOUT ACUTE COR PULMONALE Qualifiers: Pulmonary embolism type: saddle Chronicity: acute Acute cor pulmonale presence: without acute cor pulmonale Qualified Code(s): I26.92 - Saddle embolus of pulmonary artery without acute cor pulmonale (3) Syncope Code(s): R55 - SYNCOPE AND COLLAPSE Qualifiers: Syncope type: unspecified Qualified Code(s): R55 - Syncope and collapse (4) Hypertension Code(s): I10 - ESSENTIAL (PRIMARY) HYPERTENSION Qualifiers: Hypertension type: essential hypertension Qualified Code(s): I10 - Essential (primary) hypertension (5) UTI (urinary tract infection) Code(s): N39.0 - URINARY TRACT INFECTION, SITE NOT SPECIFIED
--- NOTE | 2018-02-15 13:47 | PN ---
Progress Note (short form) - Note Progress Note: Resting in NAD. No CP or SOB. Knee pain. Noted fever. Intake & Output 02/12/18 02/13/18 02/14/18 02/15/18 23:59 23:59 23:59 23:59 Intake Total 732 1446 596 300 Balance 732 1446 596 300 Weight 185 lb 183 lb 12.8 oz Last Vital Signs Temp Pulse Resp BP Pulse Ox 101 F H 93 H 18 105/39 L 100 02/15/18 12:16 02/15/18 08:51 02/15/18 08:51 02/15/18 08:51 02/15/18 09:33 Active Medications Acetaminophen (Tylenol -) 650 mg PO Q6H PRN PRN Reason: PAIN 4-6 Last Admin: 02/15/18 12:15 Dose: 650 mg Atorvastatin Calcium (Lipitor -) 10 mg PO HS ANA Last Admin: 02/14/18 21:37 Dose: 10 mg Bisacodyl (Dulcolax Suppository -) 10 mg RC DAILY PRN PRN Reason: CONSTIPATION Last Admin: 02/15/18 12:02 Dose: 10 mg Heparin Sodium (Porcine) (Heparin -) 5,000 unit IVPUSH PRN PRN PRN Reason: Heparin Last Admin: 02/11/18 15:38 Dose: 5,000 unit Heparin Sodium (Porcine) (Heparin -) 1,000 unit IVPUSH PRN PRN PRN Reason: Heparin Last Admin: 02/15/18 00:00 Dose: 1,000 unit Heparin Sodium (Porcine) 25, (000 unit/ Sodium Chloride) 500 mls @ 20 mls/hr IV TITR ANA; Protocol Last Admin: 02/15/18 12:02 Dose: 1,400 unit/hr, 28 mls/hr Ceftriaxone Sodium 1 gm/ (Dextrose) 50 mls @ 100 mls/hr IVPB DAILY ANA; Protocol Last Admin: 02/15/18 09:10 Dose: 100 mls/hr Polyethylene Glycol (Miralax (For Daily Use) -) 17 gm PO DAILY PRN PRN Reason: CONSTIPATION Last Admin: 02/12/18 13:44 Dose: 17 grams Tramadol HCl (Ultram -) 50 mg PO Q6H PRN PRN Reason: PAIN LEVEL 7-10 Last Admin: 02/14/18 18:15 Dose: 50 mg Warfarin Sodium (Coumadin -) 5 mg PO DAILY@1800 ANA Last Admin: 02/14/18 17:33 Dose: 5 mg Zolpidem Tartrate (Ambien -) 5 mg PO HS PRN PRN Reason: INSOMNIA Constitutional: Yes: NAD Eyes: Yes: WNL HENT: Yes: WNL Neck: Yes: WNL Cardiovascular: Yes: Regular Rate and Rhythm, S1, S2 Respiratory: Yes: few basilar rhonchi Gastrointestinal: Yes: Normal Bowel Sounds, Soft Extremities: Yes: WNL Edema: Yes Labs: Laboratory Results - last 24 hr 02/12/18 02/14/18 02/14/18 11:58 18:00 23:45 WBC RBC Hgb Hct MCV MCH MCHC RDW Plt Count MPV Absolute Neuts (auto) Neutrophils % Lymphocytes % Monocytes % Eosinophils % Basophils % Nucleated RBC % PT with INR INR PTT (Actin FS) 44.5 H 47.0 H LA PTT Baseline 46.3 dRVVT Confirm Interp 44.6 Sodium Potassium Chloride Carbon Dioxide Anion Gap BUN Creatinine Creat Clearance w eGFR POC Glucometer Random Glucose Calcium Total Bilirubin AST ALT Alkaline Phosphatase Total Protein Albumin 02/15/18 02/15/18 02/15/18 06:15 06:15 06:15 WBC 8.9 RBC 3.08 L Hgb 8.5 L Hct 26.1 L MCV 84.6 MCH 27.5 MCHC 32.5 RDW 17.9 H Plt Count 245 MPV 9.4 Absolute Neuts (auto) 6.0 Neutrophils % 67.2 Lymphocytes % 16.4 D Monocytes % 13.0 H Eosinophils % 2.4 D Basophils % 1.0 Nucleated RBC % 0 PT with INR 14.60 H INR 1.23 H PTT (Actin FS) 59.2 H LA PTT Baseline dRVVT Confirm Interp Sodium Potassium Chloride Carbon Dioxide Anion Gap BUN Creatinine Creat Clearance w eGFR POC Glucometer Random Glucose Calcium Total Bilirubin AST ALT Alkaline Phosphatase Total Protein Albumin 02/15/18 02/15/18 06:15 11:29 WBC RBC Hgb Hct MCV MCH MCHC RDW Plt Count MPV Absolute Neuts (auto) Neutrophils % Lymphocytes % Monocytes % Eosinophils % Basophils % Nucleated RBC % PT with INR INR PTT (Actin FS) LA PTT Baseline dRVVT Confirm Interp Sodium 135 L Potassium 4.2 Chloride 101 Carbon Dioxide 27 Anion Gap 7 L BUN 13 Creatinine 0.9 Creat Clearance w eGFR 59.51 POC Glucometer 149 Random Glucose 116 H Calcium 8.3 L Total Bilirubin 0.8 AST 29 ALT 22 Alkaline Phosphatase 150 H Total Protein 6.6 Albumin 2.2 L Problem List - Problems (1) DVT (deep venous thrombosis) Code(s): I82.409 - ACUTE EMBOLISM AND THOMBOS UNSP DEEP VN UNSP LOWER EXTREMITY (2) Pulmonary emboli Code(s): I26.99 - OTHER PULMONARY EMBOLISM WITHOUT ACUTE COR PULMONALE Qualifiers: Pulmonary embolism type: saddle Chronicity: acute Acute cor pulmonale presence: without acute cor pulmonale Qualified Code(s): I26.92 - Saddle embolus of pulmonary artery without acute cor pulmonale (3) Syncope Code(s): R55 - SYNCOPE AND COLLAPSE Qualifiers: Syncope type: unspecified Qualified Code(s): R55 - Syncope and collapse (4) Edema Code(s): R60.9 - EDEMA, UNSPECIFIED Assessment/Plan 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
[2018-02-15] MEDS: WARFARIN NA 5 MG TABLET (UD) PO SCH (17:52)
[2018-02-15] MEDS: traMADol HCL 50 MG TABLET PO PRN (17:59)
[2018-02-15] MEDS: ATORVASTATIN CA 10 MG TABLET (FP) PO SCH (21:42)
[2018-02-16 07:05] LABS: INR 1.44 (0.83-1.09); PROTHROMBIN TIME (PATIENT) 17.1 SEC (9.7-13.0)
[2018-02-16] MEDS ORDERED: cefTRIAXone SODIUM 1 GM VIAL ONE (09:52)
[2018-02-16] MEDS ORDERED: DEXTROSE 5%-WATER - 50 ML IVPB ONE (09:52)
[2018-02-16] MEDS: CEFTRIAXONE 1 GM in DEXTROSE 5%-WATER - 50 ML IVPB SCH (09:59)
--- NOTE | 2018-02-16 10:30 | PN ---
Progress Note (short form) - Note Progress Note: Pt seen/ examined. awake/ comfortable pain in knees better pt reports she feels better afebrile now Vital Signs Temp 98.8 F 02/16/18 09:57 Pulse 94 H 02/16/18 09:57 Resp 18 02/16/18 09:57 BP 128/58 L 02/16/18 09:57 Pulse Ox 98 02/15/18 21:00 Intake & Output 02/15/18 02/15/18 02/16/18 11:59 23:59 11:59 Intake Total 300 746 436 Balance 300 746 436 Weight 182 lb Intake: IV 300 336 336 Heparin - 25,000 Unit In 300 336 336 Normal Saline - 495 ml @ 1,000 UNIT/HR 20 mls/hr IV TITR ANA Rx#: [id number] IVPB 50 Oral 360 100 Other: Voiding Method Incontinent Incontinent # Unmeasured Voids Void 1 1 1 Bowel Movement Yes Yes Weight Measurement Method Standing Scale Active Medications Acetaminophen (Tylenol -) 650 mg PO Q6H PRN PRN Reason: PAIN 4-6 Last Admin: 02/15/18 21:43 Dose: 650 mg Atorvastatin Calcium (Lipitor -) 10 mg PO HS ANA Last Admin: 02/15/18 21:42 Dose: 10 mg Bisacodyl (Dulcolax Suppository -) 10 mg RC DAILY PRN PRN Reason: CONSTIPATION Last Admin: 02/15/18 12:02 Dose: 10 mg Heparin Sodium (Porcine) (Heparin -) 5,000 unit IVPUSH PRN PRN PRN Reason: Heparin Last Admin: 02/11/18 15:38 Dose: 5,000 unit Heparin Sodium (Porcine) (Heparin -) 1,000 unit IVPUSH PRN PRN PRN Reason: Heparin Last Admin: 02/15/18 00:00 Dose: 1,000 unit Heparin Sodium (Porcine) 25, (000 unit/ Sodium Chloride) 500 mls @ 20 mls/hr IV TITR ANA; Protocol Last Admin: 02/15/18 20:56 Dose: Not Given Ceftriaxone Sodium 1 gm/ (Dextrose) 50 mls @ 100 mls/hr IVPB DAILY ANA; Protocol Last Admin: 02/16/18 09:59 Dose: 100 mls/hr Polyethylene Glycol (Miralax (For Daily Use) -) 17 gm PO DAILY PRN PRN Reason: CONSTIPATION Last Admin: 02/12/18 13:44 Dose: 17 grams Tramadol HCl (Ultram -) 50 mg PO Q6H PRN PRN Reason: PAIN LEVEL 7-10 Last Admin: 02/15/18 17:59 Dose: 50 mg Warfarin Sodium (Coumadin -) 5 mg PO DAILY@1800 ANA Last Admin: 02/15/18 17:52 Dose: 5 mg INR, PTT INR 1.44 (0.83-1.09) H 02/16/18 05:20 Fibrinogen 215.0 mg/dL (238-498) L 02/12/18 11:58 CBC, BMP 02/15/18 06:15 02/15/18 06:15 Microbiology 02/14/18 23:45 Urine Culture - Preliminary Urine - Urine - Catheterized Lactose Fermenting Neg Bacilli 02/14/18 11:06 Blood Culture - Preliminary Blood - Peripheral Venous NO GROWTH OBTAINED AFTER 24 HOURS, INCUBATION TO CONTINUE FOR 4 DAYS. 02/14/18 11:20 Blood Culture - Preliminary Blood - Peripheral Venous NO GROWTH OBTAINED AFTER 24 HOURS, INCUBATION TO CONTINUE FOR 4 DAYS. Physical exam Awake/ comfortable. rt forehead and periorbital region- hematoma--better S1 S2 RRR Lungs clear Abd- soft, NT trace edema neuro- alert/ awake knee-- mild tenderness -- no reddness PLAN On Heparin drip/ coumadin till inr therapeutic fever-- no fever today uti -- await culture rocephin daily oob - chair will follow Problem List - Problems (1) DVT (deep venous thrombosis) Code(s): I82.409 - ACUTE EMBOLISM AND THOMBOS UNSP DEEP VN UNSP LOWER EXTREMITY (2) Pulmonary emboli Code(s): I26.99 - OTHER PULMONARY EMBOLISM WITHOUT ACUTE COR PULMONALE Qualifiers: Pulmonary embolism type: saddle Chronicity: acute Acute cor pulmonale presence: without acute cor pulmonale Qualified Code(s): I26.92 - Saddle embolus of pulmonary artery without acute cor pulmonale (3) Syncope Code(s): R55 - SYNCOPE AND COLLAPSE Qualifiers: Syncope type: unspecified Qualified Code(s): R55 - Syncope and collapse (4) Hypertension Code(s): I10 - ESSENTIAL (PRIMARY) HYPERTENSION Qualifiers: Hypertension type: essential hypertension Qualified Code(s): I10 - Essential (primary) hypertension (5) UTI (urinary tract infection) Code(s): N39.0 - URINARY TRACT INFECTION, SITE NOT SPECIFIED Problem List - Problems (1) DVT (deep venous thrombosis) Code(s): I82.409 - ACUTE EMBOLISM AND THOMBOS UNSP DEEP VN UNSP LOWER EXTREMITY (2) Pulmonary emboli Code(s): I26.99 - OTHER PULMONARY EMBOLISM WITHOUT ACUTE COR PULMONALE Qualifiers: Pulmonary embolism type: saddle Chronicity: acute Acute cor pulmonale presence: without acute cor pulmonale Qualified Code(s): I26.92 - Saddle embolus of pulmonary artery without acute cor pulmonale (3) Syncope Code(s): R55 - SYNCOPE AND COLLAPSE Qualifiers: Syncope type: unspecified Qualified Code(s): R55 - Syncope and collapse (4) Hypertension Code(s): I10 - ESSENTIAL (PRIMARY) HYPERTENSION Qualifiers: Hypertension type: essential hypertension Qualified Code(s): I10 - Essential (primary) hypertension (5) UTI (urinary tract infection) Code(s): N39.0 - URINARY TRACT INFECTION, SITE NOT SPECIFIED
--- NOTE | 2018-02-16 12:29 | PN ---
Progress Note (short form) - Note Progress Note: cc: sob History of Present Illness: no cp, palp, syncope Current Medications Generic Name Dose Route Start Last Admin Trade Name Freq PRN Reason Stop Dose Admin Acetaminophen 650 mg 02/12/18 12:58 02/15/18 21:43 Tylenol - PO 650 mg Q6H PRN Administration PAIN 4-6 Atorvastatin Calcium 10 mg 02/10/18 22:00 02/15/18 21:42 Lipitor - PO 10 mg HS ANA Administration Bisacodyl 10 mg 02/13/18 15:43 02/15/18 12:02 Dulcolax Suppository - RC 10 mg DAILY PRN Administration CONSTIPATION Heparin Sodium (Porcine) 5,000 unit 02/10/18 15:42 02/11/18 15:38 Heparin - IVPUSH 5,000 unit PRN PRN Administration Heparin Heparin Sodium (Porcine) 1,000 unit 02/10/18 15:42 02/15/18 00:00 Heparin - IVPUSH 1,000 unit PRN PRN Administration Heparin Heparin Sodium (Porcine) 25, 500 mls @ 20 mls/hr 02/10/18 15:42 02/15/18 20: 56 000 unit/ Sodium Chloride IV Not Given TITR ANA Protocol 1,000 UNIT/HR Ceftriaxone Sodium 1 gm/ 50 mls @ 100 mls/hr 02/14/18 11:00 02/16/18 09:59 Dextrose IVPB 100 mls/hr DAILY ANA Administration Protocol Polyethylene Glycol 17 gm 02/11/18 12:35 02/12/18 13:44 Miralax (For Daily Use) - PO 17 grams DAILY PRN Administration CONSTIPATION Tramadol HCl 50 mg 02/13/18 15:44 02/15/18 17:59 Ultram - PO 50 mg Q6H PRN Administration PAIN LEVEL 7-10 Warfarin Sodium 5 mg 02/13/18 18:00 02/15/18 17:52 Coumadin - PO 5 mg DAILY@1800 ANA Administration - Objective Vital Signs: Vital Signs Period Temp Pulse Resp BP Sys/Corral Pulse Ox Last 24 Hr 98.0 F-99.6 F 82-102 18-22 123-143/48-73 98 Constitutional: Yes: Well Nourished, No Distress, Calm Cardiovascular: Yes: Regular Rate and Rhythm, S1, S2. No: Gallop, Murmur Respiratory: Yes: Regular, CTA Bilaterally. No: Accessory Muscle Use, Rales, Wheezes Extremities: No: Cold Edema: No Neurological: Yes: Alert, Oriented Psychiatric: No: Agitated no jaundice diaphoresis Assessment/Plan EKG sinus tach, nonspecific ST changes, IRBBB CTA chest large saddle PE lower ext doppler: extensive RLE DVT Echo 02/2018: nl LV/RV, E/A reversal, mild MR, PASP at least 39 mmHg Echo 08/2017: nl lv/rv size/fn. 1+ as. 1+ tr. tele: SR Pulmonary embolism, DVT - likely etiology for syncope, dyspnea - s/p IR guided tPA, symptoms improved - nl RV function on echo with at least mild pulm HTN likely 2/2 PE - extensive RLE DVT noted on doppler - cont ac Elevated troponin - trop 0.11->0.58->0.53->1.15->0.34. no ischemic ECG changes. - secondary to massive PE - no further CV w/u indicated at present time HLD - cont statin HTN -stable chronic diastolic HF - holding home lasix, appears euvolemic
--- NOTE | 2018-02-16 13:17 | PN ---
Progress Note (short form) - Note Progress Note: Resting in NAD. No CP or SOB. No fever. Intake & Output 02/13/18 02/14/18 02/15/18 02/16/18 23:59 23:59 23:59 23:59 Intake Total 2231 867 8694 436 Balance 1239 383 2702 436 Weight 183 lb 12.8 oz 182 lb Last Vital Signs Temp Pulse Resp BP Pulse Ox 98.8 F 94 H 18 128/58 L 98 02/16/18 09:57 02/16/18 09:57 02/16/18 09:57 02/16/18 09:57 02/15/18 21:00 Active Medications Acetaminophen (Tylenol -) 650 mg PO Q6H PRN PRN Reason: PAIN 4-6 Last Admin: 02/15/18 21:43 Dose: 650 mg Atorvastatin Calcium (Lipitor -) 10 mg PO HS ANA Last Admin: 02/15/18 21:42 Dose: 10 mg Bisacodyl (Dulcolax Suppository -) 10 mg RC DAILY PRN PRN Reason: CONSTIPATION Last Admin: 02/15/18 12:02 Dose: 10 mg Heparin Sodium (Porcine) (Heparin -) 5,000 unit IVPUSH PRN PRN PRN Reason: Heparin Last Admin: 02/11/18 15:38 Dose: 5,000 unit Heparin Sodium (Porcine) (Heparin -) 1,000 unit IVPUSH PRN PRN PRN Reason: Heparin Last Admin: 02/15/18 00:00 Dose: 1,000 unit Heparin Sodium (Porcine) 25, (000 unit/ Sodium Chloride) 500 mls @ 20 mls/hr IV TITR ANA; Protocol Last Admin: 02/15/18 20:56 Dose: Not Given Ceftriaxone Sodium 1 gm/ (Dextrose) 50 mls @ 100 mls/hr IVPB DAILY ANA; Protocol Last Admin: 02/16/18 09:59 Dose: 100 mls/hr Polyethylene Glycol (Miralax (For Daily Use) -) 17 gm PO DAILY PRN PRN Reason: CONSTIPATION Last Admin: 02/12/18 13:44 Dose: 17 grams Tramadol HCl (Ultram -) 50 mg PO Q6H PRN PRN Reason: PAIN LEVEL 7-10 Last Admin: 02/15/18 17:59 Dose: 50 mg Warfarin Sodium (Coumadin -) 5 mg PO DAILY@1800 ANA Last Admin: 02/15/18 17:52 Dose: 5 mg Constitutional: Yes: NAD Eyes: Yes: WNL HENT: Yes: WNL Neck: Yes: WNL Cardiovascular: Yes: Regular Rate and Rhythm, S1, S2 Respiratory: Yes: few basilar rhonchi Gastrointestinal: Yes: Normal Bowel Sounds, Soft Extremities: Yes: WNL Edema: Yes Labs: Laboratory Results - last 24 hr 02/16/18 02/16/18 05:20 05:20 PT with INR 17.10 H INR 1.44 H PTT (Actin FS) 51.0 H Problem List - Problems (1) DVT (deep venous thrombosis) Code(s): I82.409 - ACUTE EMBOLISM AND THOMBOS UNSP DEEP VN UNSP LOWER EXTREMITY (2) Pulmonary emboli Code(s): I26.99 - OTHER PULMONARY EMBOLISM WITHOUT ACUTE COR PULMONALE Qualifiers: Pulmonary embolism type: saddle Chronicity: acute Acute cor pulmonale presence: without acute cor pulmonale Qualified Code(s): I26.92 - Saddle embolus of pulmonary artery without acute cor pulmonale (3) Syncope Code(s): R55 - SYNCOPE AND COLLAPSE Qualifiers: Syncope type: unspecified Qualified Code(s): R55 - Syncope and collapse (4) Edema Code(s): R60.9 - EDEMA, UNSPECIFIED Assessment/Plan 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
[2018-02-16] MEDS: WARFARIN NA 5 MG TABLET (UD) PO SCH (17:24)
[2018-02-16] MEDS: HEPARIN - 25,000 UNIT in SODIUM CHLORIDE 495 ML IV SCH ×2 (17:28→21:12)
[2018-02-16] MEDS: ACETAMINOPHEN 325 MG TABLET (FP) PO PRN (17:32)
[2018-02-16] MEDS: traMADol HCL 50 MG TABLET PO PRN (18:21)
[2018-02-16] MEDS: ATORVASTATIN CA 10 MG TABLET (FP) PO SCH (21:41)
[2018-02-17 07:39] LABS: INR 1.79 (0.83-1.09); PROTHROMBIN TIME (PATIENT) 21.2 SEC (9.7-13.0)
[2018-02-17] MEDS ORDERED: cefTRIAXone SODIUM 1 GM VIAL ONE (09:06)
[2018-02-17] MEDS ORDERED: DEXTROSE 5%-WATER - 50 ML IVPB ONE (09:07)
[2018-02-17] MEDS: HEPARIN - 25,000 UNIT in SODIUM CHLORIDE 495 ML IV SCH ×2 (09:41→15:35)
[2018-02-17] MEDS: CEFTRIAXONE 1 GM in DEXTROSE 5%-WATER - 50 ML IVPB SCH (09:42)
--- NOTE | 2018-02-17 10:52 | PN ---
Progress Note, Physician History of Present Illness: pulmonary alert,feeling better,-resp distress - Current Medication List Current Medications: Active Medications Acetaminophen (Tylenol -) 650 mg PO Q6H PRN PRN Reason: PAIN 4-6 Last Admin: 02/16/18 17:32 Dose: 650 mg Atorvastatin Calcium (Lipitor -) 10 mg PO HS ANA Last Admin: 02/16/18 21:41 Dose: 10 mg Bisacodyl (Dulcolax Suppository -) 10 mg RC DAILY PRN PRN Reason: CONSTIPATION Last Admin: 02/15/18 12:02 Dose: 10 mg Heparin Sodium (Porcine) (Heparin -) 5,000 unit IVPUSH PRN PRN PRN Reason: Heparin Last Admin: 02/11/18 15:38 Dose: 5,000 unit Heparin Sodium (Porcine) (Heparin -) 1,000 unit IVPUSH PRN PRN PRN Reason: Heparin Last Admin: 02/15/18 00:00 Dose: 1,000 unit Heparin Sodium (Porcine) 25, (000 unit/ Sodium Chloride) 500 mls @ 20 mls/hr IV TITR ANA; Protocol Last Admin: 02/17/18 09:41 Dose: 1,350 unit/hr, 27 mls/hr Ceftriaxone Sodium 1 gm/ (Dextrose) 50 mls @ 100 mls/hr IVPB DAILY ANA; Protocol Last Admin: 02/17/18 09:42 Dose: 100 mls/hr Polyethylene Glycol (Miralax (For Daily Use) -) 17 gm PO DAILY PRN PRN Reason: CONSTIPATION Last Admin: 02/12/18 13:44 Dose: 17 grams Tramadol HCl (Ultram -) 50 mg PO Q6H PRN PRN Reason: PAIN LEVEL 7-10 Last Admin: 02/16/18 18:21 Dose: 50 mg Warfarin Sodium (Coumadin -) 5 mg PO DAILY@1800 ANA Last Admin: 02/16/18 17:24 Dose: 5 mg - Objective Vital Signs: Vital Signs Temperature 98.2 F 02/17/18 06:00 Pulse Rate 88 02/17/18 06:00 Respiratory Rate 20 02/17/18 06:00 Blood Pressure 148/64 02/17/18 06:00 O2 Sat by Pulse Oximetry (%) 100 02/16/18 21:00 Constitutional: Yes: Well Nourished, Calm Eyes: Yes: WNL HENT: Yes: WNL Neck: Yes: WNL Cardiovascular: Yes: Regular Rate and Rhythm, S1, S2 Respiratory: Yes: Diminished Gastrointestinal: Yes: Normal Bowel Sounds, Soft Extremities: Yes: Other (LLE SWELLING TENDERNESS) Edema: Yes (lle) Labs: CBC, BMP INR, PTT INR 1.79 (0.83-1.09) H 02/17/18 05:30 Fibrinogen 215.0 mg/dL (238-498) L 02/12/18 11:58 Problem List - Problems (1) DVT (deep venous thrombosis) Code(s): I82.409 - ACUTE EMBOLISM AND THOMBOS UNSP DEEP VN UNSP LOWER EXTREMITY (2) Pulmonary emboli Code(s): I26.99 - OTHER PULMONARY EMBOLISM WITHOUT ACUTE COR PULMONALE Qualifiers: Pulmonary embolism type: saddle Chronicity: acute Acute cor pulmonale presence: without acute cor pulmonale Qualified Code(s): I26.92 - Saddle embolus of pulmonary artery without acute cor pulmonale (3) Syncope Code(s): R55 - SYNCOPE AND COLLAPSE Qualifiers: Syncope type: unspecified Qualified Code(s): R55 - Syncope and collapse (4) Edema Code(s): R60.9 - EDEMA, UNSPECIFIED Assessment/Plan IMP: Acute on Chronic PE with Obstructive Shock S/P catheter directed tPA Resolved hypotension Extensive RLE DVT Pulmonary htn IV Heparin /coumadin O2 as needed Fall precautions monitor inr DR KOO
--- NOTE | 2018-02-17 11:51 | PN ---
Progress Note (short form) - Note Progress Note: alert/ awake comfortable feels ok Vital Signs Temp 98.2 F 02/17/18 06:00 Pulse 88 02/17/18 06:00 Resp 20 02/17/18 06:00 BP 148/64 02/17/18 06:00 Pulse Ox 100 02/16/18 21:00 Intake & Output 02/16/18 02/16/18 02/17/18 11:59 23:59 11:59 Intake Total 436 360 436 Balance 436 360 436 Weight 182 lb 182 lb Intake: IV 336 336 Heparin - 25,000 Unit In 336 336 Normal Saline - 495 ml @ 1,000 UNIT/HR 20 mls/hr IV TITR ANA Rx#: [id number] Oral 100 360 100 Other: Voiding Method Bedpan Diaper Diaper # Unmeasured Voids Void 1 2 2 Bowel Movement Yes Yes Weight Measurement Method Standing Scale Standing Scale Active Medications Acetaminophen (Tylenol -) 650 mg PO Q6H PRN PRN Reason: PAIN 4-6 Last Admin: 02/16/18 17:32 Dose: 650 mg Atorvastatin Calcium (Lipitor -) 10 mg PO HS ANA Last Admin: 02/16/18 21:41 Dose: 10 mg Bisacodyl (Dulcolax Suppository -) 10 mg RC DAILY PRN PRN Reason: CONSTIPATION Last Admin: 02/15/18 12:02 Dose: 10 mg Heparin Sodium (Porcine) (Heparin -) 5,000 unit IVPUSH PRN PRN PRN Reason: Heparin Last Admin: 02/11/18 15:38 Dose: 5,000 unit Heparin Sodium (Porcine) (Heparin -) 1,000 unit IVPUSH PRN PRN PRN Reason: Heparin Last Admin: 02/15/18 00:00 Dose: 1,000 unit Heparin Sodium (Porcine) 25, (000 unit/ Sodium Chloride) 500 mls @ 20 mls/hr IV TITR ANA; Protocol Last Admin: 02/17/18 09:41 Dose: 1,350 unit/hr, 27 mls/hr Ceftriaxone Sodium 1 gm/ (Dextrose) 50 mls @ 100 mls/hr IVPB DAILY ANA; Protocol Last Admin: 02/17/18 09:42 Dose: 100 mls/hr Polyethylene Glycol (Miralax (For Daily Use) -) 17 gm PO DAILY PRN PRN Reason: CONSTIPATION Last Admin: 02/12/18 13:44 Dose: 17 grams Tramadol HCl (Ultram -) 50 mg PO Q6H PRN PRN Reason: PAIN LEVEL 7-10 Last Admin: 02/16/18 18:21 Dose: 50 mg Warfarin Sodium (Coumadin -) 5 mg PO DAILY@1800 ANA Last Admin: 02/16/18 17:24 Dose: 5 mg CBC, BMP 02/15/18 06:15 02/15/18 06:15 Microbiology 02/14/18 11:06 Blood Culture - Preliminary Blood - Peripheral Venous NO GROWTH OBTAINED AFTER 72 HOURS, INCUBATION TO CONTINUE FOR 2 DAYS. 02/14/18 11:20 Blood Culture - Preliminary Blood - Peripheral Venous NO GROWTH OBTAINED AFTER 72 HOURS, INCUBATION TO CONTINUE FOR 2 DAYS. 02/14/18 23:45 Urine Culture - Final Urine - Urine - Catheterized Klebsiella Pneumoniae INR, PTT INR 1.79 (0.83-1.09) H 02/17/18 05:30 Fibrinogen 215.0 mg/dL (238-498) L 02/12/18 11:58 Physical exam Awake/ comfortable. rt forehead and periorbital region- hematoma--better S1 S2 RRR Lungs clear Abd- soft, NT trace edema neuro- alert/ awake knee-- mild tenderness -- no reddness. PLAN On Heparin drip/ coumadin till inr therapeutic. uti -- rocephin daily oob - chair f/u labs likely will need str will follow Problem List - Problems (1) DVT (deep venous thrombosis) Code(s): I82.409 - ACUTE EMBOLISM AND THOMBOS UNSP DEEP VN UNSP LOWER EXTREMITY (2) Pulmonary emboli Code(s): I26.99 - OTHER PULMONARY EMBOLISM WITHOUT ACUTE COR PULMONALE Qualifiers: Pulmonary embolism type: saddle Chronicity: acute Acute cor pulmonale presence: without acute cor pulmonale Qualified Code(s): I26.92 - Saddle embolus of pulmonary artery without acute cor pulmonale (3) Syncope Code(s): R55 - SYNCOPE AND COLLAPSE Qualifiers: Syncope type: unspecified Qualified Code(s): R55 - Syncope and collapse (4) Hypertension Code(s): I10 - ESSENTIAL (PRIMARY) HYPERTENSION Qualifiers: Hypertension type: essential hypertension Qualified Code(s): I10 - Essential (primary) hypertension (5) UTI (urinary tract infection) Code(s): N39.0 - URINARY TRACT INFECTION, SITE NOT SPECIFIED
[2018-02-17] MEDS: traMADol HCL 50 MG TABLET PO PRN ×2 (12:24→21:23)
--- NOTE | 2018-02-17 14:49 | PN ---
Progress Note (short form) - Note Progress Note: Progress Note: cc: sob History of Present Illness: no cp, palp, syncope. complains of L leg pain Current Medications Acetaminophen (Tylenol -) 650 mg PO Q6H PRN PRN Reason: PAIN 4-6 Last Admin: 02/16/18 17:32 Dose: 650 mg Atorvastatin Calcium (Lipitor -) 10 mg PO HS ANA Last Admin: 02/16/18 21:41 Dose: 10 mg Bisacodyl (Dulcolax Suppository -) 10 mg RC DAILY PRN PRN Reason: CONSTIPATION Last Admin: 02/15/18 12:02 Dose: 10 mg Heparin Sodium (Porcine) (Heparin -) 5,000 unit IVPUSH PRN PRN PRN Reason: Heparin Last Admin: 02/11/18 15:38 Dose: 5,000 unit Heparin Sodium (Porcine) (Heparin -) 1,000 unit IVPUSH PRN PRN PRN Reason: Heparin Last Admin: 02/15/18 00:00 Dose: 1,000 unit Heparin Sodium (Porcine) 25, (000 unit/ Sodium Chloride) 500 mls @ 20 mls/hr IV TITR ANA; Protocol Last Admin: 02/17/18 09:41 Dose: 1,350 unit/hr, 27 mls/hr Ceftriaxone Sodium 1 gm/ (Dextrose) 50 mls @ 100 mls/hr IVPB DAILY ANA; Protocol Last Admin: 02/17/18 09:42 Dose: 100 mls/hr Polyethylene Glycol (Miralax (For Daily Use) -) 17 gm PO DAILY PRN PRN Reason: CONSTIPATION Last Admin: 02/12/18 13:44 Dose: 17 grams Tramadol HCl (Ultram -) 50 mg PO Q6H PRN PRN Reason: PAIN LEVEL 7-10 Last Admin: 02/17/18 12:24 Dose: 50 mg Warfarin Sodium (Coumadin -) 5 mg PO DAILY@1800 ANA Last Admin: 02/16/18 17:24 Dose: 5 mg - Objective Vital Signs: Vital Signs Period Temp Pulse Resp BP Sys/Corral Pulse Ox Last 24 Hr 98.1 F-101.0 F 73-99 18-20 126-148/40-64 99-100 Constitutional: Yes: Well Nourished, No Distress, Calm Cardiovascular: Yes: Regular Rate and Rhythm, S1, S2. No: Gallop, Murmur Respiratory: Yes: Regular, CTA Bilaterally. No: Accessory Muscle Use, Rales, Wheezes Extremities: No: Cold Edema: No Neurological: Yes: Alert, Oriented Psychiatric: No: Agitated no jaundice diaphoresis Assessment/Plan EKG sinus tach, nonspecific ST changes, IRBBB CTA chest large saddle PE lower ext doppler: extensive RLE DVT Echo 02/2018: nl LV/RV, E/A reversal, mild MR, PASP at least 39 mmHg Echo 08/2017: nl lv/rv size/fn. 1+ as. 1+ tr. tele: sinus, PVCs Pulmonary embolism, DVT - likely etiology for syncope, dyspnea - s/p IR guided tPA, symptoms improved - nl RV function on echo with at least mild pulm HTN likely 2/2 PE - extensive RLE DVT noted on doppler - cont ac Elevated troponin - trop 0.11->0.58->0.53->1.15->0.34. no ischemic ECG changes. - secondary to massive PE - no further CV w/u indicated at present time HLD - cont statin HTN -stable chronic diastolic HF - holding home lasix, appears euvolemic dc telemetry
[2018-02-17] MEDS: FUROSEMIDE 40 MG TABLET (FP) PO SCH (16:31)
[2018-02-17] MEDS: WARFARIN NA 5 MG TABLET (UD) PO SCH (17:07)
[2018-02-17] MEDS ORDERED: PT OWN MED DRAWER 7, Y5N ONE (18:45)
[2018-02-17] MEDS: ATORVASTATIN CA 10 MG TABLET (FP) PO SCH (21:23)
[2018-02-18 06:38] LABS: EOS % 2.8 % (0-4.5); HEMATOCRIT 23.4 % (32.4-45.2); HEMOGLOBIN 7.6 GM/dL (10.7-15.3); LYMPH % 25.1 % (8-40); MCH 27.2 pg (25.7-33.7); MCHC 32.6 g/dl (32.0-36.0); MEAN CELL VOLUME 83.5 fl (80-96); MEAN PLT VOLUME 8.5 fl (7.5-11.1); MONO % 11.1 % (3.8-10.2); PLATELET COUNT 316 K/MM3 (134-434); RDW 17.5 % (11.6-15.6); WHITE BLOOD COUNT 6.8 K/mm3 (4.0-10.0)
[2018-02-18 06:45] LABS: INR 2.33 (0.83-1.09); PROTHROMBIN TIME (PATIENT) 27.7 SEC (9.7-13.0)
[2018-02-18 08:45] LABS: ALK PHOS 160 U/L (45-117); ANION GAP 11 MMOL/L (8-16); BILIRUBIN,TOTAL 0.3 mg/dL (0.2-1); BLOOD UREA NITROGEN 12 mg/dL (7-18); CALCIUM 8.1 mg/dL (8.5-10.1); CHLORIDE 103 mmol/L (98-107); CO2 26 mmol/L (21-32); CREATININE 0.7 mg/dL (0.55-1.3); GLUCOSE,RANDOM 98 mg/dL (74-106); POTASSIUM 3.9 mmol/L (3.5-5.1); SGOT/AST 24 U/L (15-37); SGPT/ALT 17 U/L (13-61); SODIUM 140 mmol/L (136-145); TOT PROT 6.5 g/dl (6.4-8.2)
[2018-02-18] MEDS ORDERED: DEXTROSE 5%-WATER - 50 ML IVPB ONE (09:34)
[2018-02-18] MEDS ORDERED: cefTRIAXone SODIUM 1 GM VIAL ONE (09:34)
[2018-02-18] MEDS: traMADol HCL 50 MG TABLET PO PRN ×2 (10:14→16:22)
[2018-02-18] MEDS: FUROSEMIDE 40 MG TABLET (FP) PO SCH (10:14)
[2018-02-18] MEDS: CEFTRIAXONE 1 GM in DEXTROSE 5%-WATER - 50 ML IVPB SCH (10:14)
--- NOTE | 2018-02-18 11:44 | PN ---
Progress Note, Physician History of Present Illness: PULMONARY ALERT,NO DISTRESS,-CP,-SOB - Current Medication List Current Medications: Active Medications Acetaminophen (Tylenol -) 650 mg PO Q6H PRN PRN Reason: PAIN 4-6 Last Admin: 02/16/18 17:32 Dose: 650 mg Atorvastatin Calcium (Lipitor -) 10 mg PO HS ANA Last Admin: 02/17/18 21:23 Dose: 10 mg Bisacodyl (Dulcolax Suppository -) 10 mg RC DAILY PRN PRN Reason: CONSTIPATION Last Admin: 02/15/18 12:02 Dose: 10 mg Furosemide (Lasix -) 40 mg PO DAILY ANA Last Admin: 02/18/18 10:14 Dose: 40 mg Heparin Sodium (Porcine) 25, (000 unit/ Sodium Chloride) 500 mls @ 20 mls/hr IV TITR ANA; Protocol Last Titration: 02/18/18 09:00 Dose: 1,250 unit/hr, 25 mls/hr Ceftriaxone Sodium 1 gm/ (Dextrose) 50 mls @ 100 mls/hr IVPB DAILY ANA; Protocol Last Admin: 02/18/18 10:14 Dose: 100 mls/hr Polyethylene Glycol (Miralax (For Daily Use) -) 17 gm PO DAILY PRN PRN Reason: CONSTIPATION Last Admin: 02/12/18 13:44 Dose: 17 grams Tramadol HCl (Ultram -) 50 mg PO Q6H PRN PRN Reason: PAIN LEVEL 7-10 Last Admin: 02/18/18 10:14 Dose: 50 mg Warfarin Sodium (Coumadin -) 5 mg PO DAILY@1800 ANA Last Admin: 02/17/18 17:07 Dose: 5 mg - Objective Vital Signs: Vital Signs Temperature 98.8 F 02/18/18 10:00 Pulse Rate 79 02/18/18 10:00 Respiratory Rate 20 02/18/18 10:00 Blood Pressure 150/60 02/18/18 10:00 O2 Sat by Pulse Oximetry (%) 99 02/18/18 09:00 Constitutional: Yes: Well Nourished, Calm Eyes: Yes: WNL HENT: Yes: WNL Neck: Yes: WNL Cardiovascular: Yes: Regular Rate and Rhythm, S1, S2 Respiratory: Yes: CTA Bilaterally Gastrointestinal: Yes: Normal Bowel Sounds, Soft Extremities: Yes: Calf Tenderness (LLE), Other Edema: Yes (LLE) Labs: CBC, BMP 02/18/18 05:30 02/18/18 05:30 INR, PTT INR 2.33 (0.83-1.09) H 02/18/18 05:30 Fibrinogen 215.0 mg/dL (238-498) L 02/12/18 11:58 Problem List - Problems (1) DVT (deep venous thrombosis) Code(s): I82.409 - ACUTE EMBOLISM AND THOMBOS UNSP DEEP VN UNSP LOWER EXTREMITY (2) Pulmonary emboli Code(s): I26.99 - OTHER PULMONARY EMBOLISM WITHOUT ACUTE COR PULMONALE Qualifiers: Pulmonary embolism type: saddle Chronicity: acute Acute cor pulmonale presence: without acute cor pulmonale Qualified Code(s): I26.92 - Saddle embolus of pulmonary artery without acute cor pulmonale (3) Syncope Code(s): R55 - SYNCOPE AND COLLAPSE Qualifiers: Syncope type: unspecified Qualified Code(s): R55 - Syncope and collapse (4) Edema Code(s): R60.9 - EDEMA, UNSPECIFIED Assessment/Plan IMP: 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
--- NOTE | 2018-02-18 11:48 | PN ---
Progress Note (short form) - Note Progress Note: pain in left ankle, edema of leg+ vitals and labs noted no pallor rt forehead and periorbital region- hematoma S1 S2 RRR Lungs clear Abd- soft, NT left leg edema+ PLAN on Coumadin continue with meds check xray of ankle Problem List - Problems (1) Pulmonary emboli Code(s): I26.99 - OTHER PULMONARY EMBOLISM WITHOUT ACUTE COR PULMONALE Qualifiers: Pulmonary embolism type: saddle Chronicity: acute Acute cor pulmonale presence: without acute cor pulmonale Qualified Code(s): I26.92 - Saddle embolus of pulmonary artery without acute cor pulmonale (2) Syncope Code(s): R55 - SYNCOPE AND COLLAPSE Qualifiers: Syncope type: unspecified Qualified Code(s): R55 - Syncope and collapse (3) Congestive heart failure Code(s): I50.9 - HEART FAILURE, UNSPECIFIED Qualifiers: Heart failure type: unspecified Heart failure chronicity: acute Qualified Code(s): I50.9 - Heart failure, unspecified (4) Hyperlipidemia Code(s): E78.5 - HYPERLIPIDEMIA, UNSPECIFIED (5) Hypertension Code(s): I10 - ESSENTIAL (PRIMARY) HYPERTENSION Qualifiers: Hypertension type: essential hypertension Qualified Code(s): I10 - Essential (primary) hypertension
--- NOTE | 2018-02-18 11:54 | PN ---
Progress Note (short form) - Note Progress Note: cc: sob History of Present Illness: no cp, palp, syncope Current Medications Generic Name Dose Route Start Last Admin Trade Name Freq PRN Reason Stop Dose Admin Acetaminophen 650 mg 02/12/18 12:58 02/16/18 17:32 Tylenol - PO 650 mg Q6H PRN Administration PAIN 4-6 Atorvastatin Calcium 10 mg 02/10/18 22:00 02/17/18 21:23 Lipitor - PO 10 mg HS ANA Administration Bisacodyl 10 mg 02/13/18 15:43 02/15/18 12:02 Dulcolax Suppository - RC 10 mg DAILY PRN Administration CONSTIPATION Furosemide 40 mg 02/17/18 16:15 02/18/18 10:14 Lasix - PO 40 mg DAILY ANA Administration Heparin Sodium (Porcine) 25, 500 mls @ 20 mls/hr 02/10/18 15:42 02/18/18 09: 00 000 unit/ Sodium Chloride IV 1,250 unit/hr TITR ANA 25 mls/hr Titration Protocol 1,000 UNIT/HR Ceftriaxone Sodium 1 gm/ 50 mls @ 100 mls/hr 02/14/18 11:00 02/18/18 10:14 Dextrose IVPB 100 mls/hr DAILY ANA Administration Protocol Polyethylene Glycol 17 gm 02/11/18 12:35 02/12/18 13:44 Miralax (For Daily Use) - PO 17 grams DAILY PRN Administration CONSTIPATION Tramadol HCl 50 mg 02/13/18 15:44 02/18/18 10:14 Ultram - PO 50 mg Q6H PRN Administration PAIN LEVEL 7-10 Warfarin Sodium 5 mg 02/13/18 18:00 02/17/18 17:07 Coumadin - PO 5 mg DAILY@1800 ANA Administration - Objective Vital Signs: Vital Signs Period Temp Pulse Resp BP Sys/Corral Pulse Ox Last 24 Hr 98.2 F-99.8 F 79-88 18-20 134-155/60-88 99-99 Constitutional: Yes: Well Nourished, No Distress, Calm Cardiovascular: Yes: Regular Rate and Rhythm, S1, S2. No: Gallop, Murmur Respiratory: Yes: Regular, CTA Bilaterally. No: Accessory Muscle Use, Rales, Wheezes Extremities: No: Cold Edema: No Neurological: Yes: Alert, Oriented Psychiatric: No: Agitated no jaundice diaphoresis Assessment/Plan EKG sinus tach, nonspecific ST changes, IRBBB CTA chest large saddle PE lower ext doppler: extensive RLE DVT Echo 02/2018: nl LV/RV, E/A reversal, mild MR, PASP at least 39 mmHg Echo 08/2017: nl lv/rv size/fn. 1+ as. 1+ tr. tele: SR Pulmonary embolism, DVT - likely etiology for syncope, dyspnea - s/p IR guided tPA, symptoms improved - nl RV function on echo with at least mild pulm HTN likely 2/2 PE - extensive RLE DVT noted on doppler - cont ac Elevated troponin - trop 0.11->0.58->0.53->1.15->0.34. no ischemic ECG changes. - secondary to massive PE - no further CV w/u indicated at present time HLD - cont statin HTN -stable chronic diastolic HF - cont home lasix 40 qd cardiac foote stable
[2018-02-18] MEDS: HEPARIN - 25,000 UNIT in SODIUM CHLORIDE 495 ML IV SCH (16:24)
[2018-02-18] MEDS: WARFARIN NA 5 MG TABLET (UD) PO SCH (17:15)
[2018-02-18] MEDS: ACETAMINOPHEN 325 MG TABLET (FP) PO PRN (21:55)
[2018-02-18] MEDS: ATORVASTATIN CA 10 MG TABLET (FP) PO SCH (21:55)
[2018-02-19 07:39] LABS: INR 3.16 (0.83-1.09); PROTHROMBIN TIME (PATIENT) 37.7 SEC (9.7-13.0)
[2018-02-19] MEDS ORDERED: DEXTROSE 5%-WATER - 50 ML IVPB ONE (08:22)
[2018-02-19] MEDS ORDERED: cefTRIAXone SODIUM 1 GM VIAL ONE (08:22)
[2018-02-19] MEDS: CEFTRIAXONE 1 GM in DEXTROSE 5%-WATER - 50 ML IVPB SCH (09:13)
[2018-02-19] MEDS: FUROSEMIDE 40 MG TABLET (FP) PO SCH (09:13)
[2018-02-19] MEDS: traMADol HCL 50 MG TABLET PO PRN ×2 (09:22→21:12)
--- NOTE | 2018-02-19 10:00 | PN ---
Progress Note (short form) - Note Progress Note: cc: sob History of Present Illness: no cp, palp, syncope Current Medications Acetaminophen (Tylenol -) 650 mg PO Q6H PRN PRN Reason: PAIN 4-6 Last Admin: 02/18/18 21:55 Dose: 650 mg Atorvastatin Calcium (Lipitor -) 10 mg PO HS ANA Last Admin: 02/18/18 21:55 Dose: 10 mg Bisacodyl (Dulcolax Suppository -) 10 mg RC DAILY PRN PRN Reason: CONSTIPATION Last Admin: 02/15/18 12:02 Dose: 10 mg Furosemide (Lasix -) 40 mg PO DAILY ANA Last Admin: 02/19/18 09:13 Dose: 40 mg Heparin Sodium (Porcine) 25, (000 unit/ Sodium Chloride) 500 mls @ 20 mls/hr IV TITR ANA; Protocol Last Titration: 02/18/18 21:56 Dose: 1,150 unit/hr, 23 mls/hr Ceftriaxone Sodium 1 gm/ (Dextrose) 50 mls @ 100 mls/hr IVPB DAILY ANA; Protocol Last Admin: 02/19/18 09:13 Dose: 100 mls/hr Polyethylene Glycol (Miralax (For Daily Use) -) 17 gm PO DAILY PRN PRN Reason: CONSTIPATION Last Admin: 02/12/18 13:44 Dose: 17 grams Tramadol HCl (Ultram -) 50 mg PO Q6H PRN PRN Reason: PAIN LEVEL 7-10 Last Admin: 02/19/18 09:22 Dose: 50 mg Warfarin Sodium (Coumadin -) 5 mg PO DAILY@1800 ANA Last Admin: 02/18/18 17:15 Dose: 5 mg - Objective Vital Signs: Vital Signs Period Temp Pulse Resp BP Sys/Corral Pulse Ox Last 24 Hr 98.1 F-99.1 F 72-94 20-20 145-172/62-92 100 Constitutional: Yes: Well Nourished, No Distress, Calm Cardiovascular: Yes: Regular Rate and Rhythm, S1, S2. No: Gallop, Murmur Respiratory: Yes: Regular, CTA Bilaterally. No: Accessory Muscle Use, Rales, Wheezes Extremities: No: Cold Edema: No Neurological: Yes: Alert, Oriented Psychiatric: No: Agitated no jaundice diaphoresis Assessment/Plan EKG sinus tach, nonspecific ST changes, IRBBB CTA chest large saddle PE lower ext doppler: extensive RLE DVT Echo 02/2018: nl LV/RV, E/A reversal, mild MR, PASP at least 39 mmHg Echo 08/2017: nl lv/rv size/fn. 1+ as. 1+ tr. tele: sinus Pulmonary embolism, DVT - likely etiology for syncope, dyspnea - s/p IR guided tPA, symptoms improved - nl RV function on echo with at least mild pulm HTN likely 2/2 PE - extensive RLE DVT noted on doppler - cont ac Elevated troponin - trop 0.11->0.58->0.53->1.15->0.34. no ischemic ECG changes. - secondary to massive PE - no further CV w/u indicated at present time - dc tele HLD - cont statin HTN -stable chronic diastolic HF - cont home lasix 40 qd cardiac foote stable, dc tele
[2018-02-19 11:16] LABS: BASO % 0.9 % (0-2.0); HEMATOCRIT 28.7 % (32.4-45.2); HEMOGLOBIN 9.2 GM/dL (10.7-15.3); MCH 27.2 pg (25.7-33.7); MCHC 31.9 g/dl (32.0-36.0); MEAN CELL VOLUME 85.1 fl (80-96); MEAN PLT VOLUME 8.9 fl (7.5-11.1); MONO % 9.9 % (3.8-10.2); NEUT % 70.2 % (42.8-82.8); PLATELET COUNT 346 K/MM3 (134-434); RBC 3.37 M/mm3 (3.60-5.2); RDW 17.1 % (11.6-15.6); WHITE BLOOD COUNT 6.4 K/mm3 (4.0-10.0)
--- NOTE | 2018-02-19 11:55 | PN ---
Progress Note, Physician History of Present Illness: PULMONARY ALERT,NO COMPLAINTS,-CP,-SOB - Current Medication List Current Medications: Active Medications Acetaminophen (Tylenol -) 650 mg PO Q6H PRN PRN Reason: PAIN 4-6 Last Admin: 02/18/18 21:55 Dose: 650 mg Atorvastatin Calcium (Lipitor -) 10 mg PO HS ANA Last Admin: 02/18/18 21:55 Dose: 10 mg Bisacodyl (Dulcolax Suppository -) 10 mg RC DAILY PRN PRN Reason: CONSTIPATION Last Admin: 02/15/18 12:02 Dose: 10 mg Furosemide (Lasix -) 40 mg PO DAILY ANA Last Admin: 02/19/18 09:13 Dose: 40 mg Heparin Sodium (Porcine) 25, (000 unit/ Sodium Chloride) 500 mls @ 20 mls/hr IV TITR ANA; Protocol Last Titration: 02/18/18 21:56 Dose: 1,150 unit/hr, 23 mls/hr Ceftriaxone Sodium 1 gm/ (Dextrose) 50 mls @ 100 mls/hr IVPB DAILY ANA; Protocol Last Admin: 02/19/18 09:13 Dose: 100 mls/hr Polyethylene Glycol (Miralax (For Daily Use) -) 17 gm PO DAILY PRN PRN Reason: CONSTIPATION Last Admin: 02/12/18 13:44 Dose: 17 grams Tramadol HCl (Ultram -) 50 mg PO Q6H PRN PRN Reason: PAIN LEVEL 7-10 Last Admin: 02/19/18 09:22 Dose: 50 mg Warfarin Sodium (Coumadin -) 5 mg PO DAILY@1800 ANA Last Admin: 02/18/18 17:15 Dose: 5 mg - Objective Vital Signs: Vital Signs Temperature 98.3 F 02/19/18 10:00 Pulse Rate 72 02/19/18 10:00 Respiratory Rate 20 02/19/18 10:00 Blood Pressure 158/72 02/19/18 10:00 O2 Sat by Pulse Oximetry (%) 100 02/19/18 09:00 Constitutional: Yes: Well Nourished, Calm Eyes: Yes: WNL HENT: Yes: WNL Neck: Yes: WNL Cardiovascular: Yes: Regular Rate and Rhythm, S1, S2 Respiratory: Yes: CTA Bilaterally Gastrointestinal: Yes: Normal Bowel Sounds, Soft Extremities: Yes: WNL, Other (LEFT CALF TENDERNESS) Edema: Yes (LLE) Labs: CBC, BMP 02/19/18 05:30 INR, PTT INR 3.16 (0.83-1.09) H 02/19/18 05:30 Fibrinogen 215.0 mg/dL (238-498) L 02/12/18 11:58 Problem List - Problems (1) DVT (deep venous thrombosis) Code(s): I82.409 - ACUTE EMBOLISM AND THOMBOS UNSP DEEP VN UNSP LOWER EXTREMITY (2) Pulmonary emboli Code(s): I26.99 - OTHER PULMONARY EMBOLISM WITHOUT ACUTE COR PULMONALE Qualifiers: Pulmonary embolism type: saddle Chronicity: acute Acute cor pulmonale presence: without acute cor pulmonale Qualified Code(s): I26.92 - Saddle embolus of pulmonary artery without acute cor pulmonale (3) Syncope Code(s): R55 - SYNCOPE AND COLLAPSE Qualifiers: Syncope type: unspecified Qualified Code(s): R55 - Syncope and collapse (4) Edema Code(s): R60.9 - EDEMA, UNSPECIFIED Assessment/Plan IMP: 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
--- NOTE | 2018-02-19 16:37 | PN ---
Progress Note (short form) - Note Progress Note: pain in left ankle, edema of leg+ decreased pain is better with Tramadol Vital Signs - 24 hr 02/18/18 02/18/18 02/19/18 21:00 22:00 02:09 Temperature 99.1 F 98.1 F Pulse Rate 94 H 79 Respiratory 20 20 20 Rate Blood Pressure 172/89 H 145/92 O2 Sat by Pulse 100 Oximetry (%) 02/19/18 02/19/18 02/19/18 05:42 09:00 10:00 Temperature 98.4 F 98.3 F Pulse Rate 72 72 Respiratory 20 20 20 Rate Blood Pressure 151/62 158/72 O2 Sat by Pulse 100 Oximetry (%) 02/19/18 15:05 Temperature 98.1 F Pulse Rate 79 Respiratory Rate Blood Pressure 152/65 O2 Sat by Pulse Oximetry (%) Current Medications Generic Name Dose Route Start Last Admin Trade Name Freq PRN Reason Stop Dose Admin Acetaminophen 650 mg 02/12/18 12:58 02/18/18 21:55 Tylenol - PO 650 mg Q6H PRN Administration PAIN 4-6 Atorvastatin Calcium 10 mg 02/10/18 22:00 02/18/18 21:55 Lipitor - PO 10 mg HS ANA Administration Bisacodyl 10 mg 02/13/18 15:43 02/15/18 12:02 Dulcolax Suppository - RC 10 mg DAILY PRN Administration CONSTIPATION Furosemide 40 mg 02/17/18 16:15 02/19/18 09:13 Lasix - PO 40 mg DAILY ANA Administration Ceftriaxone Sodium 1 gm/ 50 mls @ 100 mls/hr 02/14/18 11:00 02/19/18 09:13 Dextrose IVPB 100 mls/hr DAILY ANA Administration Protocol Polyethylene Glycol 17 gm 02/11/18 12:35 02/12/18 13:44 Miralax (For Daily Use) - PO 17 grams DAILY PRN Administration CONSTIPATION Tramadol HCl 50 mg 02/13/18 15:44 02/19/18 09:22 Ultram - PO 50 mg Q6H PRN Administration PAIN LEVEL 7-10 Warfarin Sodium 4 mg 02/20/18 18:00 Coumadin - PO DAILY@1800 [facility] Laboratory Results - last 24 hr 02/18/18 02/19/18 02/19/18 15:00 05:30 05:30 WBC RBC Hgb Hct MCV MCH MCHC RDW Plt Count MPV Absolute Neuts (auto) Neutrophils % Lymphocytes % Monocytes % Eosinophils % Basophils % Nucleated RBC % PT with INR 37.70 H INR 3.16 H PTT (Actin FS) 90.5 H 82.1 H 02/19/18 05:30 WBC 6.4 RBC 3.37 L Hgb 9.2 L Hct 28.7 L D MCV 85.1 MCH 27.2 MCHC 31.9 L RDW 17.1 H Plt Count 346 MPV 8.9 Absolute Neuts (auto) 4.5 Neutrophils % 70.2 Lymphocytes % 16.0 D Monocytes % 9.9 Eosinophils % 3.0 Basophils % 0.9 Nucleated RBC % 0 PT with INR INR PTT (Actin FS) vitals and labs noted no pallor rt forehead and periorbital region- hematoma S1 S2 RRR Lungs clear Abd- soft, NT left leg edema+ decreasing PLAN on Coumadin-- will hold off today xray noted pain control will need PT-- daughter wants pt to go home with VNS and Home PT continue with meds Problem List - Problems (1) Pulmonary emboli Code(s): I26.99 - OTHER PULMONARY EMBOLISM WITHOUT ACUTE COR PULMONALE Qualifiers: Pulmonary embolism type: saddle Chronicity: acute Acute cor pulmonale presence: without acute cor pulmonale Qualified Code(s): I26.92 - Saddle embolus of pulmonary artery without acute cor pulmonale (2) Syncope Code(s): R55 - SYNCOPE AND COLLAPSE Qualifiers: Syncope type: unspecified Qualified Code(s): R55 - Syncope and collapse (3) Congestive heart failure Code(s): I50.9 - HEART FAILURE, UNSPECIFIED Qualifiers: Heart failure type: unspecified Heart failure chronicity: acute Qualified Code(s): I50.9 - Heart failure, unspecified (4) Hyperlipidemia Code(s): E78.5 - HYPERLIPIDEMIA, UNSPECIFIED (5) Hypertension Code(s): I10 - ESSENTIAL (PRIMARY) HYPERTENSION Qualifiers: Hypertension type: essential hypertension Qualified Code(s): I10 - Essential (primary) hypertension
[2018-02-19] MEDS: ATORVASTATIN CA 10 MG TABLET (FP) PO SCH (21:14)
[2018-02-20 07:57] LABS: EOS % 2.3 % (0-4.5); HEMATOCRIT 27.7 % (32.4-45.2); HEMOGLOBIN 9.1 GM/dL (10.7-15.3); LYMPH % 19.4 % (8-40); MCH 27.7 pg (25.7-33.7); MCHC 32.9 g/dl (32.0-36.0); MEAN CELL VOLUME 84.2 fl (80-96); MEAN PLT VOLUME 8.2 fl (7.5-11.1); MONO % 11.8 % (3.8-10.2); NEUT % 65.5 % (42.8-82.8); PLATELET COUNT 361 K/MM3 (134-434); RBC 3.28 M/mm3 (3.60-5.2); RDW 16.7 % (11.6-15.6); WHITE BLOOD COUNT 6.3 K/mm3 (4.0-10.0)
[2018-02-20 08:08] LABS: INR 3.27 (0.83-1.09); PROTHROMBIN TIME (PATIENT) 39.1 SEC (9.7-13.0)
[2018-02-20] MEDS ORDERED: cefTRIAXone SODIUM 1 GM VIAL ONE (09:11)
[2018-02-20] MEDS ORDERED: DEXTROSE 5%-WATER - 50 ML IVPB ONE (09:11)
[2018-02-20] MEDS: CEFTRIAXONE 1 GM in DEXTROSE 5%-WATER - 50 ML IVPB SCH (09:27)
[2018-02-20] MEDS: FUROSEMIDE 40 MG TABLET (FP) PO SCH (09:28)
[2018-02-20] MEDS: BISACODYL 10 MG SUPP.RECT RC PRN (10:51)
[2018-02-20] MEDS: traMADol HCL 50 MG TABLET PO PRN (10:51)
--- NOTE | 2018-02-20 10:52 | PN ---
Progress Note (short form) - Note Progress Note: pain in left ankle, left knee- edema of leg+ decreased pain is better with Tramadol Vital Signs - 24 hr 02/19/18 02/19/18 02/19/18 15:05 18:00 20:46 Temperature 98.1 F 99.8 F H Pulse Rate 79 82 Respiratory 20 Rate Blood Pressure 152/65 149/66 O2 Sat by Pulse 99 Oximetry (%) 02/19/18 02/20/18 02/20/18 21:11 01:57 05:45 Temperature 99.4 F 98.1 F 98.2 F Pulse Rate 88 76 73 Respiratory 20 20 18 Rate Blood Pressure 140/60 144/74 142/64 O2 Sat by Pulse Oximetry (%) Current Medications Generic Name Dose Route Start Last Admin Trade Name Freq PRN Reason Stop Dose Admin Acetaminophen 650 mg 02/12/18 12:58 02/18/18 21:55 Tylenol - PO 650 mg Q6H PRN Administration PAIN 4-6 Atorvastatin Calcium 10 mg 02/10/18 22:00 02/19/18 21:14 Lipitor - PO 10 mg HS ANA Administration Bisacodyl 10 mg 02/13/18 15:43 02/15/18 12:02 Dulcolax Suppository - RC 10 mg DAILY PRN Administration CONSTIPATION Furosemide 40 mg 02/17/18 16:15 02/20/18 09:28 Lasix - PO 40 mg DAILY ANA Administration Ceftriaxone Sodium 1 gm/ 50 mls @ 100 mls/hr 02/14/18 11:00 02/20/18 09:27 Dextrose IVPB 100 mls/hr DAILY ANA Administration Protocol Polyethylene Glycol 17 gm 02/11/18 12:35 02/12/18 13:44 Miralax (For Daily Use) - PO 17 grams DAILY PRN Administration CONSTIPATION Tramadol HCl 50 mg 02/13/18 15:44 02/19/18 21:12 Ultram - PO 50 mg Q6H PRN Administration PAIN LEVEL 7-10 Laboratory Results - last 24 hr 02/19/18 02/20/18 02/20/18 05:30 05:30 05:30 WBC 6.4 6.3 Corrected WBC (auto) RBC 3.37 L 3.28 L Hgb 9.2 L 9.1 L Hct 28.7 L D 27.7 L MCV 85.1 84.2 MCH 27.2 27.7 MCHC 31.9 L 32.9 RDW 17.1 H 16.7 H Plt Count 346 361 MPV 8.9 8.2 Absolute Neuts (auto) 4.5 4.1 Neutrophils % 70.2 65.5 Lymphocytes % 16.0 D 19.4 D Monocytes % 9.9 11.8 H Eosinophils % 3.0 2.3 Basophils % 0.9 1.0 Nucleated RBC % 0 0 Manual Slide Review Platelet Comment PT with INR 39.10 H INR 3.27 H 02/20/18 05:30 WBC Cancelled Corrected WBC (auto) Cancelled RBC Cancelled Hgb Cancelled Hct Cancelled MCV Cancelled MCH Cancelled MCHC Cancelled RDW Cancelled Plt Count Cancelled MPV Cancelled Absolute Neuts (auto) Neutrophils % Lymphocytes % Monocytes % Eosinophils % Basophils % Nucleated RBC % Manual Slide Review Cancelled Platelet Comment Cancelled PT with INR INR vitals and labs noted no pallor rt forehead and periorbital region- hematoma S1 S2 RRR Lungs clear Abd- soft, NT left leg edema+ decreasing PLAN on Coumadin--will dc today xray noted pain control with tramadol will need PT-- daughter wants pt to go home with VNS and Home PT continue with meds cbc stable Problem List - Problems (1) Pulmonary emboli Code(s): I26.99 - OTHER PULMONARY EMBOLISM WITHOUT ACUTE COR PULMONALE Qualifiers: Pulmonary embolism type: saddle Chronicity: acute Acute cor pulmonale presence: without acute cor pulmonale Qualified Code(s): I26.92 - Saddle embolus of pulmonary artery without acute cor pulmonale (2) Syncope Code(s): R55 - SYNCOPE AND COLLAPSE Qualifiers: Syncope type: unspecified Qualified Code(s): R55 - Syncope and collapse (3) Congestive heart failure Code(s): I50.9 - HEART FAILURE, UNSPECIFIED Qualifiers: Heart failure type: unspecified Heart failure chronicity: acute Qualified Code(s): I50.9 - Heart failure, unspecified (4) Hyperlipidemia Code(s): E78.5 - HYPERLIPIDEMIA, UNSPECIFIED (5) Hypertension Code(s): I10 - ESSENTIAL (PRIMARY) HYPERTENSION Qualifiers: Hypertension type: essential hypertension Qualified Code(s): I10 - Essential (primary) hypertension
--- NOTE | 2018-02-20 11:42 | PN ---
Progress Note (short form) - Note Progress Note: cc: sob History of Present Illness: no cp, palp, syncope Current Medications Acetaminophen (Tylenol -) 650 mg PO Q6H PRN PRN Reason: PAIN 4-6 Last Admin: 02/18/18 21:55 Dose: 650 mg Atorvastatin Calcium (Lipitor -) 10 mg PO HS ANA Last Admin: 02/19/18 21:14 Dose: 10 mg Bisacodyl (Dulcolax Suppository -) 10 mg RC DAILY PRN PRN Reason: CONSTIPATION Last Admin: 02/20/18 10:51 Dose: 10 mg Furosemide (Lasix -) 40 mg PO DAILY ANA Last Admin: 02/20/18 09:28 Dose: 40 mg Ceftriaxone Sodium 1 gm/ (Dextrose) 50 mls @ 100 mls/hr IVPB DAILY ANA; Protocol Last Admin: 02/20/18 09:27 Dose: 100 mls/hr Polyethylene Glycol (Miralax (For Daily Use) -) 17 gm PO DAILY PRN PRN Reason: CONSTIPATION Last Admin: 02/12/18 13:44 Dose: 17 grams Tramadol HCl (Ultram -) 50 mg PO Q6H PRN PRN Reason: PAIN LEVEL 7-10 Last Admin: 02/20/18 10:51 Dose: 50 mg - Objective Vital Signs: Vital Signs Period Temp Pulse Resp BP Sys/Corral Pulse Ox Last 24 Hr 98.1 F-99.8 F 73-88 18-20 140-152/60-75 99-100 Constitutional: Yes: Well Nourished, No Distress, Calm Cardiovascular: Yes: Regular Rate and Rhythm, S1, S2. No: Gallop, Murmur Respiratory: Yes: Regular, CTA Bilaterally. No: Accessory Muscle Use, Rales, Wheezes Extremities: No: Cold Edema: No Neurological: Yes: Alert, Oriented Psychiatric: No: Agitated no jaundice diaphoresis Assessment/Plan EKG sinus tach, nonspecific ST changes, IRBBB CTA chest large saddle PE lower ext doppler: extensive RLE DVT Echo 02/2018: nl LV/RV, E/A reversal, mild MR, PASP at least 39 mmHg Echo 08/2017: nl lv/rv size/fn. 1+ as. 1+ tr. tele: SR Pulmonary embolism, DVT - likely etiology for syncope, dyspnea - s/p IR guided tPA, symptoms improved - nl RV function on echo with at least mild pulm HTN likely 2/2 PE - extensive RLE DVT noted on doppler - cont ac Elevated troponin - trop 0.11->0.58->0.53->1.15->0.34. no ischemic ECG changes. - secondary to massive PE - no further CV w/u indicated at present time HLD - cont statin HTN -stable chronic diastolic HF - cont home lasix 40 qd cardiac foote stable
--- NOTE | 2018-02-20 13:56 | CON.ORTH ---
Consult Reason for Consultation:: left knee and ankle pain - Past Medical History Cardio/Vascular: Yes: CHF (diastolic), HTN, Hyperlipdemia Musculoskeletal: Yes: Osteoarthritis Additional Medical History: Osteoarthitis - Alcohol/Substance Use Hx Alcohol Use: No - Smoking History Smoking history: Never smoked Have you smoked in the past 12 months: No Aproximately how many cigarettes per day: 0 Home Medications - Allergies Allergies/Adverse Reactions: Allergies Allergy/AdvReac Type Severity Reaction Status Date / Time clindamycin Allergy Mild Rash Verified 02/08/18 18:38 sulfamethoxazole Allergy Mild Rash Verified 02/08/18 18:38 [From Bactrim] trimethoprim [From Bactrim] Allergy Mild Rash Verified 02/08/18 18:38 lactose AdvReac Mild Verified 02/08/18 18:38 - Home Medications Home Medications: Ambulatory Orders Atorvastatin Ca [Lipitor] 10 mg PO HS 08/26/17 Calcium Carbonate/Vitamin D3 [Calcium 600 + Vit D Tablet] 1 each PO DAILY Diclofenac Sodium [Voltaren] 100 gm TP ASDIR PRN 08/26/17 Triamcinolone 0.1% Cream [Aristocort 0.1% Cream -] 0 gm TP DAILY PRN 08/26/17 Zolpidem Tartrate [Ambien] 10 mg PO HS 08/26/17 Furosemide [Lasix] 40 mg PO DAILY 08/27/17 Ergocalciferol [Drisdol Oral Solution -] 1.25 units PO DAILY 02/08/18 Physical Exam for Ortho Vital Signs: Vital Signs Temperature 98.5 F 02/20/18 09:00 Pulse Rate 75 02/20/18 09:00 Respiratory Rate 20 02/20/18 09:00 Blood Pressure 151/75 02/20/18 09:00 O2 Sat by Pulse Oximetry (%) 100 02/20/18 09:00 Labs: CBC, BMP 02/20/18 05:30 02/18/18 05:30 INR, PTT INR 3.27 (0.83-1.09) H 02/20/18 05:30 Fibrinogen 215.0 mg/dL (238-498) L 02/12/18 11:58 - Lower Extremity Knee: Yes: Left, Limited ROM, Pain, Swelling, Tenderness, Other (nvi) Ankle: Yes: Left, Limited ROM, Pain, Swelling, Tenderness, Other (nvi) Imaging - Results X-ray: Report Reviewed, Image Reviewed Assessment/Plan 87F with history of HTN HLD diadtolic CHF presents s/p syncope and fall. Patient had chest pain and SOB for a few days prior to syncopizing. Patient states she fell at home and lost consciousness. She was found to have a RLE DVT and bilateral obstructive PE. She is s/p thrombolysis and thrombectomy. c/o pain in left knee and left ankle. 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 Schaefer
--- NOTE | 2018-02-20 14:31 | PN ---
Progress Note (short form) - Note Progress Note: Resting in NAD. No CP or SOB. No fever. Intake & Output 02/17/18 02/18/18 02/19/18 02/20/18 23:59 23:59 23:59 23:59 Intake Total 1382 1904 880 120 Balance 1382 1904 880 120 Weight 182 lb 188 lb 9.6 oz 188 lb 9.6 oz 188 lb 14.4 oz Last Vital Signs Temp Pulse Resp BP Pulse Ox 98.5 F 75 20 151/75 100 02/20/18 09:00 02/20/18 09:00 02/20/18 09:00 02/20/18 09:00 02/20/18 09:00 Active Medications Acetaminophen (Tylenol -) 650 mg PO Q6H PRN PRN Reason: PAIN 4-6 Last Admin: 02/18/18 21:55 Dose: 650 mg Atorvastatin Calcium (Lipitor -) 10 mg PO HS ANA Last Admin: 02/19/18 21:14 Dose: 10 mg Bisacodyl (Dulcolax Suppository -) 10 mg RC DAILY PRN PRN Reason: CONSTIPATION Last Admin: 02/20/18 10:51 Dose: 10 mg Furosemide (Lasix -) 40 mg PO DAILY ANA Last Admin: 02/20/18 09:28 Dose: 40 mg Ceftriaxone Sodium 1 gm/ (Dextrose) 50 mls @ 100 mls/hr IVPB DAILY ANA; Protocol Last Admin: 02/20/18 09:27 Dose: 100 mls/hr Polyethylene Glycol (Miralax (For Daily Use) -) 17 gm PO DAILY PRN PRN Reason: CONSTIPATION Last Admin: 02/12/18 13:44 Dose: 17 grams Tramadol HCl (Ultram -) 50 mg PO Q6H PRN PRN Reason: PAIN LEVEL 7-10 Last Admin: 02/20/18 10:51 Dose: 50 mg Constitutional: Yes: NAD Eyes: Yes: WNL HENT: Yes: WNL Neck: Yes: WNL Cardiovascular: Yes: Regular Rate and Rhythm, S1, S2 Respiratory: Yes: few basilar rhonchi Gastrointestinal: Yes: Normal Bowel Sounds, Soft Extremities: Yes: WNL Edema: Yes Labs: Laboratory Results - last 24 hr 02/20/18 02/20/18 02/20/18 05:30 05:30 05:30 WBC 6.3 Cancelled Corrected WBC (auto) Cancelled RBC 3.28 L Cancelled Hgb 9.1 L Cancelled Hct 27.7 L Cancelled MCV 84.2 Cancelled MCH 27.7 Cancelled MCHC 32.9 Cancelled RDW 16.7 H Cancelled Plt Count 361 Cancelled MPV 8.2 Cancelled Absolute Neuts (auto) 4.1 Neutrophils % 65.5 Lymphocytes % 19.4 D Monocytes % 11.8 H Eosinophils % 2.3 Basophils % 1.0 Nucleated RBC % 0 Manual Slide Review Cancelled Platelet Comment Cancelled PT with INR 39.10 H INR 3.27 H Problem List - Problems (1) DVT (deep venous thrombosis) Code(s): I82.409 - ACUTE EMBOLISM AND THOMBOS UNSP DEEP VN UNSP LOWER EXTREMITY (2) Pulmonary emboli Code(s): I26.99 - OTHER PULMONARY EMBOLISM WITHOUT ACUTE COR PULMONALE Qualifiers: Pulmonary embolism type: saddle Chronicity: acute Acute cor pulmonale presence: without acute cor pulmonale Qualified Code(s): I26.92 - Saddle embolus of pulmonary artery without acute cor pulmonale (3) Syncope Code(s): R55 - SYNCOPE AND COLLAPSE Qualifiers: Syncope type: unspecified Qualified Code(s): R55 - Syncope and collapse (4) Edema Code(s): R60.9 - EDEMA, UNSPECIFIED Assessment/Plan 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
[2018-02-20] MEDS ORDERED: predniSONE 20 MG TABLET (UD) PO ONE (16:41)
[2018-02-20] MEDS ORDERED: WARFARIN NA 2 MG TABLET (UD) PO SCH (18:00)
[2018-02-20] MEDS: ATORVASTATIN CA 10 MG TABLET (FP) PO SCH (22:25)
[2018-02-21 06:53] LABS: HEMATOCRIT 31.4 % (32.4-45.2); MCH 26.8 pg (25.7-33.7); MCHC 31.9 g/dl (32.0-36.0); MEAN CELL VOLUME 84.3 fl (80-96); MEAN PLT VOLUME 8.4 fl (7.5-11.1); PLATELET COUNT 402 K/MM3 (134-434); RBC 3.73 M/mm3 (3.60-5.2); RDW 17.2 % (11.6-15.6); WHITE BLOOD COUNT 5.9 K/mm3 (4.0-10.0)
[2018-02-21 07:11] LABS: INR 2.41 (0.83-1.09); PROTHROMBIN TIME (PATIENT) 28.7 SEC (9.7-13.0)
[2018-02-21] MEDS ORDERED: cefTRIAXone SODIUM 1 GM VIAL ONE (08:53)
[2018-02-21] MEDS ORDERED: DEXTROSE 5%-WATER - 50 ML IVPB ONE (08:53)
[2018-02-21] MEDS: traMADol HCL 50 MG TABLET PO PRN (09:45)
[2018-02-21] MEDS: FUROSEMIDE 40 MG TABLET (FP) PO SCH (09:46)
[2018-02-21] MEDS: CEFTRIAXONE 1 GM in DEXTROSE 5%-WATER - 50 ML IVPB SCH (09:46)
[2018-02-21] MEDS ORDERED: predniSONE 10 MG TABLET (UD) PO SCH (10:00)
--- NOTE | 2018-02-21 11:33 | DS ---
Physical Examination Vital Signs: Vital Signs Temperature 98.2 F 02/21/18 06:39 Pulse Rate 71 02/21/18 06:39 Respiratory Rate 18 02/21/18 06:39 Blood Pressure 142/55 L 02/21/18 06:39 O2 Sat by Pulse Oximetry (%) 100 02/20/18 20:40 Findings/Remarks: pt seen/ examined chart reviewed awake/ comfortable wants to go home pain much better Constitutional: Yes: No Distress, Calm Eyes: Yes: Conjunctiva Clear Neck: Yes: Supple Cardiovascular: Yes: Regular Rate and Rhythm Respiratory: Yes: CTA Bilaterally Gastrointestinal: Yes: Soft Edema: LLE: Trace, RLE: Trace Neurological: Yes: Alert Labs: CBC, BMP 02/21/18 05:30 02/18/18 05:30 Discharge Summary Reason For Visit: PULMONARY EMBOLISM Current Active Problems DVT (deep venous thrombosis) (Acute) Pulmonary emboli (Acute) Syncope (Acute) Hospital Course: this is an 87 y/o f presented to the hospital for an acute SOB that started while she was at her home walking, patient passed out and lacerated her forehead she was found to have a massive/submassive PE urgent embolectomy done admitted to icu icu team followed stabilized transferred to floor Started on heparin / coumadin Hospital course was complicated by pain in knees / ankle -due to arthritis- advanced Othro consult taken pt placed on prednisone - better also given tramadol-- much better now stable for d/c Str recommended but pt/ daughter wants to go home 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 fall precautions stressed . meds prescribed will look in hcs f/u with her pmd next saturday -- need to monitor inr d/c time 40 min in examining/ documenting and coordating care Condition: Improved - Instructions Diet, Activity, Other Instructions: f/u with next Saturday-- Referrals: Mukesh Delgado MD [Primary Care Provider] - Disposition: HOME - Home Medications Comprehensive Discharge Medication List: Ambulatory Orders Atorvastatin Ca [Lipitor] 10 mg PO HS 08/26/17 Calcium Carbonate/Vitamin D3 [Calcium 600 + Vit D Tablet] 1 each PO DAILY Diclofenac Sodium [Voltaren] 100 gm TP ASDIR PRN 08/26/17 Triamcinolone 0.1% Cream [Aristocort 0.1% Cream -] 0 gm TP DAILY PRN 08/26/17 Furosemide [Lasix] 40 mg PO DAILY 08/27/17 Ergocalciferol [Drisdol -] 1.25 units PO DAILY 02/08/18 Acetaminophen [Tylenol .Regular Strength -] 650 mg PO Q6H PRN tablet 02/21/18 Furosemide [Lasix -] 40 mg PO DAILY tablet 02/21/18 Polyethylene Glycol 3350 [Miralax 119 gm Btl -] 17 gm PO DAILY PRN bottle 02/21 Prednisone 10 mg PO ASDIR #30 tablet 02/21/18 Warfarin Na [Coumadin -] 4 mg PO DAILY@1800 #30 tablet 02/21/18 predniSONE [Deltasone -] 30 mg PO DAILY 15 Days tablet 02/21/18 traMADol HCL [Ultram -] 50 mg PO Q6H PRN #30 tablet MDD 4 02/21/18
--- NOTE | 2018-02-21 11:53 | PN ---
Progress Note (short form) - Note Progress Note: cc: sob History of Present Illness: no cp, palp, syncope sob Current Medications Generic Name Dose Route Start Last Admin Trade Name Freq PRN Reason Stop Dose Admin Acetaminophen 650 mg 02/12/18 12:58 02/18/18 21:55 Tylenol - PO 650 mg Q6H PRN Administration PAIN 4-6 Atorvastatin Calcium 10 mg 02/10/18 22:00 02/20/18 22:25 Lipitor - PO 10 mg HS ANA Administration Bisacodyl 10 mg 02/13/18 15:43 02/20/18 10:51 Dulcolax Suppository - RC 10 mg DAILY PRN Administration CONSTIPATION Furosemide 40 mg 02/17/18 16:15 02/21/18 09:46 Lasix - PO 40 mg DAILY ANA Administration Ceftriaxone Sodium 1 gm/ 50 mls @ 100 mls/hr 02/14/18 11:00 02/21/18 09:46 Dextrose IVPB 100 mls/hr DAILY ANA Administration Protocol Polyethylene Glycol 17 gm 02/11/18 12:35 02/12/18 13:44 Miralax (For Daily Use) - PO 17 grams DAILY PRN Administration CONSTIPATION Prednisone 30 mg 02/21/18 10:00 02/21/18 09:46 Deltasone - PO 30 mg DAILY ANA Administration Tramadol HCl 50 mg 02/13/18 15:44 02/21/18 09:45 Ultram - PO 50 mg Q6H PRN Administration PAIN LEVEL 7-10 - Objective Vital Signs: Vital Signs Period Temp Pulse Resp BP Sys/Corral Pulse Ox Last 24 Hr 98 F-99.4 F 67-94 18-20 126-156/55-71 95-100 Constitutional: Yes: Well Nourished, No Distress, Calm Cardiovascular: Yes: Regular Rate and Rhythm, S1, S2. No: Gallop, Murmur Respiratory: Yes: Regular, CTA Bilaterally. No: Accessory Muscle Use, Rales, Wheezes Extremities: No: Cold Edema: No Neurological: Yes: Alert, Oriented Psychiatric: No: Agitated no jaundice diaphoresis Assessment/Plan EKG sinus tach, nonspecific ST changes, IRBBB CTA chest large saddle PE lower ext doppler: extensive RLE DVT Echo 02/2018: nl LV/RV, E/A reversal, mild MR, PASP at least 39 mmHg Echo 08/2017: nl lv/rv size/fn. 1+ as. 1+ tr. tele: SR Pulmonary embolism, DVT - likely etiology for syncope, dyspnea - s/p IR guided tPA, symptoms improved - nl RV function on echo with at least mild pulm HTN likely 2/2 PE - extensive RLE DVT noted on doppler - cont ac Elevated troponin - trop 0.11->0.58->0.53->1.15->0.34. no ischemic ECG changes. - secondary to massive PE - no further CV w/u indicated at present time HLD - cont statin HTN -stable chronic diastolic HF - cont home lasix 40 qd cardiac foote stable
[2018-02-21 16:29] VITALS: BP 122/61; PULSE 66; TEMP 98
== END 2018-02-21 18:30 | disposition home or self-care (01) | DRG 163 ==
LOC: JER 18:29 → JERBED 23:55 → JICU 02-09 02:35 → J4W 02-10 16:23
PROVIDERS: ADMIT Internal Medicine; ATTEND Internal Medicine
PROC: 3E04017 Introduction of Other Thrombolytic into Central Vein, Open Approach (ICD-10-PCS; principal; 2018-02-08)
PROC: 02CR3ZZ Extirpation of Matter from Left Pulmonary Artery, Percutaneous Approach (ICD-10-PCS; 2018-02-08)
PROC: 02CQ3ZZ Extirpation of Matter from Right Pulmonary Artery, Percutaneous Approach (ICD-10-PCS; 2018-02-08)
PROC: 3E04017 Introduction of Other Thrombolytic into Central Vein, Open Approach (ICD-10-PCS; 2018-02-08)
PROC: 03HB3DZ Insertion of Intraluminal Device into Right Radial Artery, Percutaneous Approach (ICD-10-PCS; 2018-02-09)
DX: I26.92 Saddle embolus of pulmonary artery without acute cor pulmonale (principal); R57.8 Other shock; I50.32 Chronic diastolic (congestive) heart failure; I82.411 Acute embolism and thrombosis of right femoral vein; I82.431 Acute embolism and thrombosis of right popliteal vein; N39.0 Urinary tract infection, site not specified; R55 Syncope and collapse; E78.5 Hyperlipidemia, unspecified; M19.90 Unspecified osteoarthritis, unspecified site; S01.81XA Laceration without foreign body of other part of head, initial encounter; M17.0 Bilateral primary osteoarthritis of knee; H05.231 Hemorrhage of right orbit; I45.10 Unspecified right bundle-branch block; I11.0 Hypertensive heart disease with heart failure; I27.20 Pulmonary hypertension, unspecified; R60.9 Edema, unspecified; M17.12 Unilateral primary osteoarthritis, left knee; M19.072 Primary osteoarthritis, left ankle and foot; W18.30XA Fall on same level, unspecified, initial encounter; Y92.098 Other place in other non-institutional residence as the place of occurrence of the external cause
CPT/HCPCS: 36415; 36430; 36511; 36600; 37187; 61651; 70450-TC; 70486-TC; 71045-TC-FY; 71275-TC; 73030-TC-RT-FY; 73523-TC-FY; 73564-TC-LT-FY; 73610-TC-LT-FY; 75743-TC-FY; 76000-TC-FY; 76937-TC; 80048; 80053; 81003; 81015; 82550; 82803; 82962; 83036; 83605; 83735; 83880; 84100; 84484; 85025; 85027; 85384; 85610; 85613; 85730; 85732; 86038; 86850; 86900; 86901; 86922; 87040; 87086; 87186; 93005; 93010; 93306-TC; 93970-TC; 97116-GP; 97162-GP; 99285-25; C1769; C1887; C1894; J1644; J7030; P9038; P9058

== ENCOUNTER 2019-01-06 15:19 | Emergency (ER) | payer OTHER ==
[2019-01-06 15:26] VITALS: BP 130/70; PULSE 90; TEMP 100.6; BMI 37.8
[2019-01-06] MEDS ORDERED: ACETAMINOPHEN 1000 MG/100 ML VIAL (NON FORMULARY) IVPB ONE (15:48)
[2019-01-06] MEDS ORDERED: SODIUM CHLORIDE 1,000 ML IV STA (15:48)
--- NOTE | 2019-01-06 16:21 | PDOC ---
Attending Attestation - Resident Resident Name: Choco Rees - ED Attending Attestation I have performed the following: I have examined & evaluated the patient, The case was reviewed & discussed with the resident, I agree w/resident's findings & plan, Exceptions are as noted - HPI HPI: 01/06/19 16:19 88y F PE (off a/c now), htn, present with fever to 101 and pain/swelling to the b/l LE for the past week. Pt notes it is more difficult to ambulate. Pt also endorses foul smelling urine, without dysuria, cp, sob, n/v, back pain, cough, hemoptysis, lightheadedness, palpitations, diarrhea, melena. Pt endorsed increased b/l LE edema and chronic knee pain. on exam general: pt well appearing in no distress pulm: cta b/l card: rrr, no mrg abd: soft notneder, no cva tenderness extremity: bl LE edema, mild tenderness to b/l knee without ay erythema, induration, skin: hot to touch ddx - uti, will obtain duplex US to r/o dvt, labs, ekg, ua will reassess tylenol for fever - Physicial Exam PE: 01/08/19 20:41 see above - Medical Decision Making pts labs reviewed noted for mild leukocytosis UA c/w UTI - pt given abx discussed with PMD, - will trial outpatient abx therapy with close pmd fu return precautiosn were discussed Heart Score/ECG Review - ECG Impressions Comment:: 01/06/19 17:07 Twelve-lead EKG was performed and reviewed by me. There is normal sinus rhythm with a normal rate. rate of 92 normal r wave progression
[2019-01-06] MEDS ORDERED: traMADol HCL 50 MG TABLET PO ONE (16:27)
--- NOTE | 2019-01-06 16:31 | PDOC ---
History of Present Illness - General Chief Complaint: SIRS, Suspected/Possible Stated Complaint: FEVER Time Seen by Provider: 01/06/19 15:36 History Source: Patient, Family (Daughter present at bedside.) Exam Limitations: No Limitations - History of Present Illness Initial Comments: HPI: 88 y/o female presenting to [facility] ER complaining of fever (TMax 101 last evening ) as well as swelling and pain to both knees for the past week. Daughter at bedside reports noticing redness overlying left leg last evening that resolved. Also reports pt has been more tired and has not wanted to get out of bed. Additionally, daughter expressed concern for a UTI as her mother has had very foul smelling urine, which occurred with her last UTI. Family reports no cardiac history. Does not believe pt has ever been evaluated by a sieve repairer. PCP: Dr. Delgado Medical Hx: - HTN - H/o submassive PE in 2018. AC discontinued on physician order. - Osteoarthritis in R and L knees Review of Systems: In addition to that documented in the HPI above, the additional ROS was obtained : Constitutional- Endorses fevers. Denies chills or diaphoresis Head- Denies vision changes ENMT- Denies sore throat CV- Denies chest pain Resp- Denies SOB GI- Denies vomiting or diarrhea - Denies painful urination, hematuria, or increased urinary frequency MSK- Denies recent trauma Skin- Endorses redness to R leg Neuro- Endorses weakness. Denies new numbness or tingling Endocrine- Denies polyuria Heme- Denies bleeding or bruising Physical Examination: Constitutional- Elderly adult female in no acute distress or obvious discomfort. Found semi-fowlers on hospital bed. Answered all questions appropriately and completely. Speech was non-labored, non-pressured. Head- Normocephalic. No obvious external signs of trauma. Neck- Supple, trachea is midline. No JVD. Cardiovascular / Chest- Regular rate and regular rhythm. No murmur, rubs, clicks , or gallops. Peripheral pulses- radial pulses full. No pretibial edema. Respiratory- Breathing unlabored. Equal chest rise and fall. Clear to auscultation bilaterally. No stridor, no wheezing, no rhonchi. Gastrointestinal- abdomen is soft, non-tender, non-distended. Neuro- Alert and oriented x4. Moving all four extremities spontaneously. MSK - Diffuse tenderness to R and L knees and lower extremities. Old appearing scar to R lower extremity. No redness or other rash noted on either extremity. Skin- Warm, dry, and intact. - No R or L CVA tenderness. Psych- Affect- appropriate. Mood- normal. MDM: National Early Warning Score (NEWS) 2 RESULT SUMMARY: 2 points National Early Warning Score Low risk Assessment by a competent registered nurse or equivalent, to decide change in frequency of clinical monitoring or escalation of care Every 4-6 hours Frequency of monitoring INPUTS: Respiratory rate, breaths per minute > 0 = 12-20 Hypercapnic respiratory failure > 0 = No SpO? > 0 = ?96% Room air or supplemental O? > 0 = Room air Temperature > 2 = ?39.1C (102.3F) Systolic BP, mmHg > 0 = 111-219 Pulse, beats per minute > 0 = 51-90 Consciousness > 0 = Alert *Reviewed vital signs, nursing notes, and prior visit documentation (if available). 88 y/o female presenting with fever, malaise, and pain to R and L lower extremities. Febrile at triage; given Tylenol. Vitals unremarkable for hypotension or tachycardia. NEWS-2 score 3. Physical exam as described above. CBC revealed mild leukocytosis. UA revealed pyuria and leukocyte esterase. Normal renal function. Suspect acute cystitis. Ordered Ceftriaxone. Will prescribe outpatient course of Keflex. Suspect bilateral leg pain is secondary to known osteoarthritis. Given dose of home Tramadol, which pt did not take today. Bilateral extremity U/S unremarkable for DVT. 06 Jan 2019 18:34 PM Telephone discussion with Dr. Delgado. Verbally appraised of the pts HPI, ED course, and current plan of management. Agrees with plan to discharge home. Will evaluate in clinic in two days. Pt to call to make the appointment. Discussed labs and u/s results with pt and daughter. Answered all questions. Provided return precautions. Pt and daughter expressed verbal understanding and agreement with plan to discharge home with outpatient follow up. Provided copies of todays results. Choco Rees M.D., PGY2 Emergency Medicine Resident Past History - Past Medical History Allergies/Adverse Reactions: Allergies Allergy/AdvReac Type Severity Reaction Status Date / Time clindamycin Allergy Mild Rash Verified 01/06/19 15:20 sulfamethoxazole Allergy Mild Rash Verified 10/01/19 15:20 [From Bactrim] trimethoprim [From Bactrim] Allergy Mild Rash Verified 01/06/19 15:20 lactose AdvReac Mild Verified 01/06/19 15:20 Home Medications: Ambulatory Orders Atorvastatin Ca [Lipitor] 10 mg PO HS 08/26/17 Calcium Carbonate/Vitamin D3 [Calcium 600 + Vit D Tablet] 1 each PO DAILY Diclofenac Sodium [Voltaren] 100 gm TP ASDIR PRN 08/26/17 Triamcinolone 0.1% Cream [Aristocort 0.1% Cream -] 0 gm TP DAILY PRN 08/26/17 Furosemide [Lasix] 40 mg PO DAILY 08/27/17 Ergocalciferol [Drisdol -] 1.25 units PO DAILY 02/08/18 Acetaminophen [Tylenol .Regular Strength -] 650 mg PO Q6H PRN tablet 02/21/18 Furosemide [Lasix -] 40 mg PO DAILY tablet 02/21/18 Polyethylene Glycol 3350 [Miralax 119 gm Btl -] 17 gm PO DAILY PRN bottle 02/21 Prednisone 10 mg PO ASDIR #30 tablet 02/21/18 Warfarin Na [Coumadin -] 4 mg PO DAILY@1800 #30 tablet 02/21/18 predniSONE [Deltasone -] 30 mg PO DAILY 15 Days tablet 02/21/18 traMADol HCL [Ultram -] 50 mg PO Q6H PRN #30 tablet MDD 4 02/21/18 Anemia: No Asthma: No Cancer: No Cardiac Disorders: No CVA: No COPD: No CHF: No Dementia: No Diabetes: No GI Disorders: No Disorders: No HTN: Yes Hypercholesterolemia: Yes Liver Disease: No Seizures: No Thyroid Disease: No - Surgical History Abdominal Surgery: No Appendectomy: No Cardiac Surgery: No Cholecystectomy: No Lung Surgery: No Neurologic Surgery: No Orthopedic Surgery: No - Immunization History Immunization Up to Date: Yes - Psycho Social/Smoking Cessation Hx Smoking Status: No Smoking History: Never smoked Have you smoked in the past 12 months: No Number of Cigarettes Smoked Daily: 0 Information on smoking cessation initiated: No Hx Alcohol Use: No Drug/Substance Use Hx: No Substance Use Type: None Hx Substance Use Treatment: No *Physical Exam - Vital Signs Last Vital Signs Temp Pulse Resp BP Pulse Ox 100.6 F H 90 16 130/70 100 01/06/19 15:21 01/06/19 15:21 01/06/19 15:21 01/06/19 15:21 01/06/19 15:21 ED Treatment Course - LABORATORY CBC & Chemistry Diagram: 01/06/19 16:29 01/06/19 16:29 - RADIOLOGY Radiology Studies Ordered: Category Date Time Status DUPLEX VASCUL US-2LEGS [US] Stat Ultrasound 01/06/19 16:08 Ordered Discharge - Discharge Information Problems reviewed: Yes Clinical Impression/Diagnosis: Fever Qualifiers: Fever type: unspecified Qualified Code(s): R50.9 - Fever, unspecified UTI (urinary tract infection) Qualifiers: Urinary tract infection type: acute cystitis Hematuria presence: without hematuria Qualified Code(s): N30.00 - Acute cystitis without hematuria Knee pain, bilateral Qualifiers: Chronicity: chronic Qualified Code(s): M25.561 - Pain in right knee Condition: Improved Disposition: HOME - Admission No - Follow up/Referral Referrals: Mukesh Delgado MD [Primary Care Provider] - - Patient Discharge Instructions Patient Printed Discharge Instructions: DI for Urinary Tract Infection (UTI), DI for Osteoarthritis, DI for Fever (Symptom) -- Adult Additional Instructions: You were seen today for weakness, malaise, knee pain, and concerns for urinary tract infection. Your urine test revealed you likely have a UTI. You were given a dose of an antibiotic called Ceftriaxone in the emergency department. The ultrasound of your legs did not show any blood clots. The knee pain is likely from your arthritis. Continue to take your pain medication as prescribed. I have sent a prescription for an antibiotic called Keflex to your pharmacy. Take as directed on the package insert. Do not exceed the recommended dosage. You can take over the counter Tylenol as needed for pain. Take as directed on the package insert. Do not exceed the recommended dosage. I called Dr. Delgado to discuss your symptoms. He would like you to see him in the office in the next 2 days. You will need to call to make an appointment. The number is included in this packet. A copy of todays results are attached to this packet. Take it to the appointment so your doctor can review them. Go to the nearest emergency department if your condition worsens or you feel like you need additional emergency evaluation. Print Language: KUWAITI - Post Discharge Activity
[2019-01-06 16:43] LABS: BASO % 0.3 % (0-2.0); HEMATOCRIT 33.4 % (32.4-45.2); HEMOGLOBIN 11.1 GM/dL (10.7-15.3); LYMPH % 7.9 % (8-40); MCH 30.4 pg (25.7-33.7); MCHC 33.3 g/dl (32.0-36.0); MEAN CELL VOLUME 91.4 fl (80-96); MONO % 10.2 % (3.8-10.2); NEUT % 81.6 % (42.8-82.8); PLATELET COUNT 210 K/MM3 (134-434); RBC 3.66 M/mm3 (3.60-5.2); RDW 13.5 % (11.6-15.6); WHITE BLOOD COUNT 11.2 K/mm3 (4.0-10.0)
[2019-01-06 16:47] LABS: EPI CELLS 3.4 /HPF (0-5/HPF); HYALINE CASTS 36 /lpf (0-8); URINE APPEARANCE TURBID; URINE BACTERIA 2598.8 /hpf (NEGATIVE); URINE BILIRUBIN NEGATIVE (NEGATIVE); URINE COLOR DK YELLOW; URINE GLUCOSE (UA) NEGATIVE (NEGATIVE); URINE KETONE TRACE (NEGATIVE); URINE LEUK ESTERASE 3+ (NEGATIVE); URINE NITRITE POSITIVE (NEGATIVE); URINE PROTEIN TRACE (NEGATIVE); URINE RBC 11 /hpf (0-4); URINE WBC 644 /hpf (0-5)
[2019-01-06 16:55] LABS: INR 1.14 (0.83-1.09); PROTHROMBIN TIME (PATIENT) 13.5 SEC (9.7-13.0)
[2019-01-06 17:12] LABS: ALBUMIN 3.3 g/dl (3.4-5.0); BILIRUBIN,TOTAL 1.3 mg/dL (0.2-1); BLOOD UREA NITROGEN 21.5 mg/dL (7-18); CALCIUM 8.8 mg/dL (8.5-10.1); CREATININE 1.2 mg/dL (0.55-1.3); POTASSIUM 3.6 mmol/L (3.5-5.1); TOT PROT 7.4 g/dl (6.4-8.2)
[2019-01-06] MEDS ORDERED: CEFTRIAXONE 1,000 MG in DEXTROSE 5%-WATER - 50 ML IVPB ONE (18:36)
[2019-01-06] MEDS ORDERED: ACETAMINOPHEN INJECTION 100 ML IVPB ONE (18:40)
[2019-01-06] MEDS ORDERED: traMADol HCL 50 MG TABLET ONE (18:40)
[2019-01-06] MEDS ORDERED: CEFTRIAXONE 1 GM/50 ML BAG ONE (18:41)
--- NOTE | 2019-01-07 11:34 | EKG ---
Test Reason : Blood Pressure : / mmHG Vent. Rate : 092 BPM Atrial Rate : 092 BPM P-R Int : 146 ms QRS Dur : 080 ms QT Int : 364 ms P-R-T Axes : 013 -09 008 degrees QTc Int : 450 ms NORMAL SINUS RHYTHM MINIMAL VOLTAGE CRITERIA FOR LVH, MAY BE NORMAL VARIANT BORDERLINE ECG WHEN COMPARED WITH ECG OF 08-FEB-2018 22:00, INCOMPLETE RIGHT BUNDLE BRANCH BLOCK IS NO LONGER PRESENT Confirmed by TED DAI, JAMESON ([id number]) on 01/07/2019 11:34:18 AM Referred By: Confirmed By:JAMESON JEAN MD
== END 2019-01-06 20:00 | disposition home or self-care (01) ==
LOC: JER 15:19
PROC: 3E0337Z Introduction of Electrolytic and Water Balance Substance into Peripheral Vein, Percutaneous Approach (ICD-10-PCS; principal; 2019-01-06)
PROC: 3E03329 Introduction of Other Anti-infective into Peripheral Vein, Percutaneous Approach (ICD-10-PCS; 2019-01-06)
PROC: 3E033NZ Introduction of Analgesics, Hypnotics, Sedatives into Peripheral Vein, Percutaneous Approach (ICD-10-PCS; 2019-01-06)
DX: N30.00 Acute cystitis without hematuria (principal); M17.0 Bilateral primary osteoarthritis of knee; I10 Essential (primary) hypertension; E78.00 Pure hypercholesterolemia, unspecified; Z86.711 Personal history of pulmonary embolism; Z79.01 Long term (current) use of anticoagulants; Z88.2 Allergy status to sulfonamides; Z88.1 Allergy status to other antibiotic agents
CPT/HCPCS: 36415; 71045-TC-FY; 80053; 81003; 83605; 84484; 85025; 85610; 87086; 87186; 93005; 93010; 93970-TC; 96361; 96365; 96375; 99284-25; J0131; J7030

== ENCOUNTER 2019-11-20 14:01 | Inpatient (IN) | payer OTHER ==
[2019-11-20] MEDS ORDERED: SODIUM CHLORIDE 2,722 ML IV ONE (14:57)
[2019-11-20] MEDS ORDERED: ACETAMINOPHEN 1000 MG/100 ML VIAL (NON FORMULARY) IVPB ONE (14:58)
[2019-11-20] MEDS ORDERED: ACETAMINOPHEN INJECTION 100 ML IVPB ONE (15:58)
[2019-11-20 16:12] LABS: BASO % 0.5 % (0-2.0); HEMATOCRIT 37.3 % (32.4-45.2); HEMOGLOBIN 12.4 GM/dL (10.7-15.3); LYMPH % 5.7 % (8-40); MCH 28.8 pg (25.7-33.7); MCHC 33.3 g/dl (32.0-36.0); MEAN CELL VOLUME 86.4 fl (80-96); MONO % 10.2 % (3.8-10.2); NEUT % 83.6 % (42.8-82.8); PLATELET COUNT 249 K/MM3 (134-434); RBC 4.32 M/mm3 (3.60-5.2); RDW 14.3 % (11.6-15.6); WHITE BLOOD COUNT 13.8 K/mm3 (4.0-10.0)
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
[2019-11-20] MEDS ORDERED: PIPERACILLIN/TAZOB 3.375 GM 3.375 GM in DEXTROSE 5%-WATER - 50 ML IVPB ONE (16:24)
[2019-11-20 16:43] LABS: EPI CELLS 21 /uL (0-25.1); HYALINE CASTS 2 /uL (0-3.1); URINE APPEARANCE TURBID; URINE BILIRUBIN NEGATIVE (NEGATIVE); URINE COLOR YELLOW; URINE GLUCOSE (UA) NEGATIVE (NEGATIVE); URINE KETONE NEGATIVE (NEGATIVE); URINE LEUK ESTERASE 2+ (NEGATIVE); URINE NITRITE NEGATIVE (NEGATIVE); URINE PROTEIN 2+ (NEGATIVE); URINE RBC 15 /uL (0-23.9); URINE WBC 1535 /uL (0-25.8)
[2019-11-20 16:46] LABS: ALBUMIN 2.8 g/dl (3.4-5.0); BLOOD UREA NITROGEN 22.8 mg/dL (7-18); CREATININE 1.7 mg/dL (0.55-1.3); TOT PROT 8.3 g/dl (6.4-8.2)
[2019-11-20] MEDS ORDERED: PIPERACILLIN/TAZOB 3.375 GM 3.375 GM/50 ML BAG IVPB ONE (16:54)
[2019-11-20 17:25] LABS: INR 1.18 (0.83-1.09)
[2019-11-20 17:44] LABS: ALBUMIN 2.6 g/dl (3.4-5.0); BILIRUBIN,TOTAL 0.7 mg/dL (0.2-1); BLOOD UREA NITROGEN 22.5 mg/dL (7-18); CALCIUM 8.5 mg/dL (8.5-10.1); CREATININE 1.6 mg/dL (0.55-1.3); POTASSIUM 4.1 mmol/L (3.5-5.1); TOT PROT 7.2 g/dl (6.4-8.2)
--- NOTE | 2019-11-20 18:53 | PDOC ---
Documentation entered by Asuncion Pollock SCRIBE, acting as scribe for Ham Christiansen MD. Ham Christiansen MD: This documentation has been prepared by the hayleeibePhill Ana, SCRIBE, under my direction and personally reviewed by me in its entirety. I confirm that the documentation accurately reflects all work, treatment, procedures, and medical decision making performed by me. Attending Attestation - Resident Resident Name: CoeAlida - ED Attending Attestation I have performed the following: I have examined & evaluated the patient, The case was reviewed & discussed with the resident, I agree w/resident's findings & plan, Exceptions are as noted - HPI HPI: 11/20/19 14:54 Patient is an 89 year old female with a significant past medical history of hypertension, HLD, and UTIs who presents to the ED with constipation, dark malodor urine and decreased frequency x3 days. Patient stated she attempted to self medicate her constipation with laxatives but experienced no relief. Patient disclosed she had a fever last night which improved with Tylenol. Patient endorses: loss of appetite, left shoulder weakness, flank pain, and abdominal distention. Patient denies: nausea, vomiting, SOB, chest pain, any other related symptoms Allergies: clindamycin, sulfamethoxazole, trimethoprim, lactose - Physicial Exam PE: 11/20/19 17:13 Vitals: Triage Vital signs reviewed General Appearance: No acute distress, well nourished well developed, Head: Atraumatic, Cardiac: Regular rate and rhythym, no murmurs, no rubs, no gallops, Lungs: Clear to auscultation bilateral, good air movement bilaterally, Abdomen: Soft, non distended, normal bowel sounds left lower quadrant tenderness to palpation no rebound no guarding Extremities: Full range of motion to all extremities, no cyanosis, clubbing, or edema Skin: Warm and dry, no rashes or lesions, no rash, no petechiae Psych: Normal mood, normal affect - Medical Decision Making 11/20/19 17:14 History examination most consistent with urinary tract infection Given tachycardia fever and elevated white blood cell count broad-spectrum antibiotics ordered Will CT to rule out infected stone Discharge - Discharge Information Problems reviewed: Yes Clinical Impression/Diagnosis: Elevated troponin Sepsis Qualifiers: Sepsis type: sepsis due to unspecified organism Sepsis acute organ dysfunction status: with acute organ dysfunction Severe sepsis acute organ dysfunction type: acute renal failure Acute renal failure type: unspecified Severe sepsis shock status: without septic shock Qualified Code(s): A41.9 - Sepsis, unspecified organism UTI (urinary tract infection) Qualifiers: Urinary tract infection type: acute cystitis Hematuria presence: without hematuria Qualified Code(s): N30.00 - Acute cystitis without hematuria Condition: Stable - Follow up/Referral - Patient Discharge Instructions - Post Discharge Activity
--- NOTE | 2019-11-20 19:57 | HP ---
Admitting History and Physical - Primary Care Physician PCP: Mukesh Delgado - Admission Chief Complaint: Fever, Dark Urine, Flank Pain, Decreased Appetite History of Present Illness: This is a 89 y/o female with a PMHx of HTN, HLD, Saddle PE (s/p IR guided TPA, 2018), Diastolic HF, Frequent UTIs, OA. Who presents to the ED with her daughter for fever, mid lumbar pain, foul smelling urine, left knee pain, decreased appetite x 1-2 days. Per the daughter who was at bedside she noted the patient to have subjective fever 102 which improved with acetaminophen- 99.5, malodorous urine. She reports that her mother has been complaining of lumbar and left knee pain and has had difficulty ambulating more recently due to the pain which was unrelieved with Tramadol. She also reports that her mother has had a decrease in her PO intake and constipation x 3 days, which prompted her to bring her in for evaluation. The patient reports having back and knee pain worsens with movement. Patient denies chills, cough, dizziness, AVERY, CP, palpitations, N/V/D, dysuria. P er the daughter, patient has not had sick contacts or recent travel. History Source: Patient, Family Member Limitations to Obtaining History: Language Barrier (Australian) - Past Medical History Cardiovascular: Yes: CHF (diastolic), HTN, Hyperlipdemia Pulmonary: Yes: Pulmonary Embolus ...: No Musculoskeletal: Yes: Osteoarthritis - Smoking History Smoking history: Never smoked Have you smoked in the past 12 months: No Aproximately how many cigarettes per day: 0 - Alcohol/Substance Use Hx Alcohol Use: No History of Substance Use: reports: None - Social History Usual Living Arrangement: Yes: With Child ADL: Family Assistance History of Recent Travel: No Home Medications - Allergies Allergies/Adverse Reactions: Allergies Allergy/AdvReac Type Severity Reaction Status Date / Time clindamycin Allergy Mild Rash Verified 11/20/19 14:42 sulfamethoxazole Allergy Mild Rash Verified 11/20/19 14:42 [From Bactrim] trimethoprim [From Bactrim] Allergy Mild Rash Verified 11/20/19 14:42 lactose AdvReac Mild Verified 11/20/19 14:42 - Home Medications Home Medications: Ambulatory Orders Atorvastatin Ca [Lipitor] 10 mg PO HS 08/26/17 Calcium Carbonate/Vitamin D3 [Calcium 600 + Vit D Tablet] 1 each PO DAILY 08/26/17 Diclofenac Sodium [Voltaren] 100 gm TP ASDIR PRN 08/26/17 Triamcinolone 0.1% Cream [Aristocort 0.1% Cream -] 0 gm TP DAILY PRN 08/26/17 Acetaminophen [Tylenol .Regular Strength -] 650 mg PO Q6H PRN tablet 02/21/18 Furosemide [Lasix -] 40 mg PO DAILY tablet 02/21/18 traMADol HCL [Ultram -] 50 mg PO Q6H PRN #30 tablet MDD 4 02/21/18 Family Medical History Family History: Unable to Obtain Review of Systems - Review of Systems Constitutional: reports: Fever, Loss of Appetite Eyes: reports: No Symptoms HENT: reports: No Symptoms Neck: reports: No Symptoms Cardiovascular: reports: No Symptoms Respiratory: reports: SOB on Exertion Gastrointestinal: reports: Abdominal Pain, Constipation Genitourinary: reports: No Symptoms Breasts: reports: No Symptoms Reported Musculoskeletal: reports: Back Pain Integumentary: reports: No Symptoms Neurological: reports: Unsteady Gait Endocrine: reports: No Symptoms Hematology/Lymphatic: reports: No Symptoms Psychiatric: reports: No Symptoms Pain Intensity: 6 Physical Examination Vital Signs: Vital Signs Temperature 99.6 F 11/20/19 18:30 Pulse Rate 104 H 11/20/19 18:30 Respiratory Rate 18 11/20/19 18:30 Blood Pressure 155/82 11/20/19 18:30 O2 Sat by Pulse Oximetry (%) 94 L 11/20/19 18:30 Constitutional: Yes: No Distress, Calm, Obese Eyes: Yes: WNL, Conjunctiva Clear, EOM Intact, PERRL HENT: Yes: Atraumatic, Normocephalic, Other (dry mucous membranes) Neck: Yes: WNL, Supple, Trachea Midline Cardiovascular: Yes: Regular Rate and Rhythm, S1, S2 Respiratory: Yes: Regular, CTA Bilaterally Gastrointestinal: Yes: Soft, Abdomen, Obese, Hypoactive Bowel Sounds, Tenderness (RUQ, LUQ) ...Rectal Exam: Yes: Deferred Renal/: Yes: Incontinence Breast(s): Yes: WNL Musculoskeletal: Yes: Back Pain (mid) Extremities: Yes: WNL Edema: No Peripheral Pulses WNL: Yes Integumentary: Yes: Venous Stasis Changes (RLE) Neurological: Yes: Alert, Oriented, Cran Nerves II-XII Intact ...Motor Strength: WNL Psychiatric: Yes: WNL, Alert, Oriented Labs: CBC, BMP 11/20/19 15:25 11/20/19 16:30 Laboratory Results - last 24 hr 11/20/19 11/20/19 11/20/19 15:25 15:25 15:25 WBC 13.8 H RBC 4.32 Hgb 12.4 Hct 37.3 MCV 86.4 MCH 28.8 MCHC 33.3 RDW 14.3 Plt Count 249 MPV 10.0 D Absolute Neuts (auto) 11.5 H Neutrophils % 83.6 H Lymphocytes % 5.7 L D Monocytes % 10.2 Eosinophils % 0.0 Basophils % 0.5 Nucleated RBC % 0 PT with INR Cancelled INR Cancelled PTT (Actin FS) Cancelled Sodium 135 L Potassium 5.0 Chloride 100 Carbon Dioxide 24 Anion Gap 11 BUN 22.8 H Creatinine 1.7 H Est GFR (CKD-EPI)AfAm 30.89 Est GFR (CKD-EPI)NonAf 26.65 Random Glucose 139 H Lactic Acid Calcium 9.0 Total Bilirubin 1.0 AST 62 H ALT 33 Alkaline Phosphatase 178 H Troponin I 0.22 H Total Protein 8.3 H Albumin 2.8 L Urine Color Urine Appearance Urine pH Ur Specific [place] Urine Protein Urine Glucose (UA) Urine Ketones Urine Blood Urine Nitrite Urine Bilirubin Urine Urobilinogen Ur Leukocyte Esterase Urine WBC (Auto) Urine RBC (Auto) Urine Casts (Auto) U Epithel Cells (Auto) Urine Bacteria (Auto) 11/20/19 11/20/19 11/20/19 15:25 15:50 16:30 WBC RBC Hgb Hct MCV MCH MCHC RDW Plt Count MPV Absolute Neuts (auto) Neutrophils % Lymphocytes % Monocytes % Eosinophils % Basophils % Nucleated RBC % PT with INR 14.00 H INR 1.18 H PTT (Actin FS) 26.0 Sodium Potassium Chloride Carbon Dioxide Anion Gap BUN Creatinine Est GFR (CKD-EPI)AfAm Est GFR (CKD-EPI)NonAf Random Glucose Lactic Acid 1.3 Calcium Total Bilirubin AST ALT Alkaline Phosphatase Troponin I Total Protein Albumin Urine Color Yellow Urine Appearance Turbid Urine pH 5.0 Ur Specific [place] 1.017 Urine Protein 2+ H Urine Glucose (UA) Negative Urine Ketones Negative Urine Blood 2+ H Urine Nitrite Negative Urine Bilirubin Negative Urine Urobilinogen 1.0 Ur Leukocyte Esterase 2+ H Urine WBC (Auto) 1535 Urine RBC (Auto) 15 Urine Casts (Auto) 2 U Epithel Cells (Auto) 21 Urine Bacteria (Auto) >10,000 11/20/19 11/20/19 16:30 18:50 WBC RBC Hgb Hct MCV MCH MCHC RDW Plt Count MPV Absolute Neuts (auto) Neutrophils % Lymphocytes % Monocytes % Eosinophils % Basophils % Nucleated RBC % PT with INR INR PTT (Actin FS) Sodium 138 Potassium 4.1 Chloride 103 Carbon Dioxide 25 Anion Gap 10 BUN 22.5 H Creatinine 1.6 H Est GFR (CKD-EPI)AfAm 33.23 Est GFR (CKD-EPI)NonAf 28.67 Random Glucose 141 H Lactic Acid Calcium 8.5 Total Bilirubin 0.7 AST 39 H ALT 27 Alkaline Phosphatase 154 H Troponin I 0.28 H Total Protein 7.2 Albumin 2.6 L Urine Color Urine Appearance Urine pH Ur Specific [place] Urine Protein Urine Glucose (UA) Urine Ketones Urine Blood Urine Nitrite Urine Bilirubin Urine Urobilinogen Ur Leukocyte Esterase Urine WBC (Auto) Urine RBC (Auto) Urine Casts (Auto) U Epithel Cells (Auto) Urine Bacteria (Auto) Imaging - Results Chest X-ray: Report Reviewed, Image Reviewed X-ray: Image Reviewed Cat Scan: Report Reviewed, Image Reviewed EKG: Image Reviewed Problem List - Problems (1) Sepsis Assessment/Plan: Likely secondary to UTI Sepsis Criteria Met: T 101.6, P 109, WBC 13.8, BUN 22.5 qSOFA- 1 UA- +2protein, +2 blood, +2 leukocyte esterase, 1535WBC, >10,000 Bacteria Urine Culture-pending Zosyn given in ED hx E coli, Klebseilla in urine Will continue empirically with Ceftriaxone Fluid Resuscitation given in ED Consider ID consult Maintain Map > 65 Monitor CBC, CMP Monitor vitals Code(s): A41.9 - SEPSIS, UNSPECIFIED ORGANISM Qualifiers: Sepsis type: sepsis due to unspecified organism Sepsis acute organ dysfunction status: with acute organ dysfunction Severe sepsis acute organ dysfunction type: acute renal failure Acute renal failure type: unspecified Severe sepsis shock status: without septic shock Qualified Code(s): A41.9 - Sepsis, unspecified organism; R65.20 - Severe sepsis without septic shock; N17.9 - Acute kidney failure, unspecified (2) UTI (urinary tract infection) Assessment/Plan: Urine Culture-pending Zosyn given in ED Will empirically treat with Ceftriaxone CTAP- reviewed Monitor CBC, CMP Monitor vitals Code(s): N39.0 - URINARY TRACT INFECTION, SITE NOT SPECIFIED Qualifiers: Urinary tract infection type: acute cystitis Hematuria presence: without hematuria Qualified Code(s): N30.00 - Acute cystitis without hematuria (3) Elevated troponin Assessment/Plan: Likely secondary to Sepsis vs Demand Ischemia less likely ACS Continue cardiac monitoring Serial Enzymes Appreciate Cardiology consult Asa given in ED, will continue Monitor CMP Code(s): R79.89 - OTHER SPECIFIED ABNORMAL FINDINGS OF BLOOD CHEMISTRY (4) Left knee pain Assessment/Plan: Likely secondary to OA Denies fall or trauma Left Knee Xray image reviewed Tylenol, Voltaren prn Tramadol use judiciously Code(s): M25.562 - PAIN IN LEFT KNEE (5) Diastolic HF (heart failure) Assessment/Plan: stable No acute flare Chest Xray Code(s): I50.30 - UNSPECIFIED DIASTOLIC (CONGESTIVE) HEART FAILURE (6) Hyperlipidemia Assessment/Plan: Stable Continue Crestor Monitor LFTs Code(s): E78.5 - HYPERLIPIDEMIA, UNSPECIFIED (7) Hypertension Assessment/Plan: stable Monitor BP Continue Code(s): I10 - ESSENTIAL (PRIMARY) HYPERTENSION Qualifiers: Hypertension type: essential hypertension Qualified Code(s): I10 - Essential (primary) hypertension Assessment/Plan This is a 89 y/o female with a PMHx of HTN, HLD, Diastolic HF, Saddle PE (s/p IR guided TPA, 2018), Frequent UTIs, OA. Admitted to Telemetry for Sepsis, UTI, Troponinemia, ALESIA for further evaluation of their emergent condition. Plan: See Problem List FEN PO fluids as tolerated Replete lytes prn Low Na Diet DVT ppx OOB SCDs Heparin SQ Code Status: Full Code Dispo: Requires Inpatient Care Visit type - Medication Review Med list reviewed for High Risk Meds patients 65 and older: Yes - Emergency Visit Emergency Visit: Yes ED Registration Date: 11/20/19 Care time: The patient presented to the Emergency Department on the above date and was hospitalized for further evaluation of their emergent condition. - New Patient This patient is new to me today: Yes Date on this admission: 11/20/19 - Critical Care Critical Care patient: No
[2019-11-20] MEDS ORDERED: POLYETHYLENE GLYCOL 3350 119 GM BTL PO ONE (20:00)
[2019-11-20] MEDS ORDERED: TRIAMCINOLONE ACET 0.1% CREAM 15 GM TUBE TP PRN (21:10)
[2019-11-20] MEDS ORDERED: PATIENT'S OWN MEDICATION (NON-FORMULARY) (Diclofenac Sodium [Voltaren] 100 GM) TP PRN (21:10)
[2019-11-20] MEDS ORDERED: SODIUM CHLORIDE 1,000 ML IV SCH (21:30)
[2019-11-20] MEDS ORDERED: HEPARIN NA (PORCINE) 5,000 UNITS/ML 1ML VIAL ONE (21:45)
[2019-11-20] MEDS: HEPARIN NA (PORCINE) 5,000 UNITS/ML 1ML VIAL SQ SCH (22:17)
[2019-11-20] MEDS: ROSUVASTATIN CA 10 MG TABLET (FP) PO SCH (22:17)
[2019-11-21] MEDS: traMADol HCL 50 MG TABLET PO PRN ×2 (02:05→14:16)
--- NOTE | 2019-11-21 07:11 | CON.CARD ---
Consult Consult Specialty:: cardio - History of Present Illness Chief Complaint: fever History of Present Illness: 89 yo F here with fever. mult non-cardiac complaints: fever, mid lumbar pain, foul smelling urine, left knee pain, decreased appetite x 1-2 days. creat 1.6 from 1.2 troponin 0.2 x2 UA c/w UTI, also blood, culture pending Covid PCR pending pt poor historian even in [place]. describes joint pains, no cp. equivocates on whether or not she has had any sob (denied this to ER). states she cannot understand questioning about palpitations/rapid heart beating denies fever PMH: HTN, HLD, Saddle PE (s/p IR guided TPA, 2018), Diastolic HF, Frequent UTIs, OA - Past Medical History Cardio/Vascular: Yes: CHF (diastolic), HTN, Hyperlipdemia Pulmonary: Yes: Pulmonary Embolus ...: No Musculoskeletal: Yes: Osteoarthritis Additional Medical History: Osteoarthitis - Alcohol/Substance Use Hx Alcohol Use: No History of Substance Use: reports: None - Smoking History Smoking history: Never smoked Have you smoked in the past 12 months: No Aproximately how many cigarettes per day: 0 - Social History ADL: Family Assistance History of Recent Travel: No Home Medications - Allergies Allergies/Adverse Reactions: Allergies Allergy/AdvReac Type Severity Reaction Status Date / Time clindamycin Allergy Mild Rash Verified 11/20/19 14:42 sulfamethoxazole Allergy Mild Rash Verified 11/20/19 14:42 [From Bactrim] trimethoprim [From Bactrim] Allergy Mild Rash Verified 11/20/19 14:42 lactose AdvReac Mild Verified 11/20/19 14:42 - Home Medications Home Medications: Ambulatory Orders Atorvastatin Ca [Lipitor] 10 mg PO HS 08/26/17 Calcium Carbonate/Vitamin D3 [Calcium 600 + Vit D Tablet] 1 each PO DAILY 08/26/17 Diclofenac Sodium [Voltaren] 100 gm TP ASDIR PRN 08/26/17 Triamcinolone 0.1% Cream [Aristocort 0.1% Cream -] 0 gm TP DAILY PRN 08/26/17 Acetaminophen [Tylenol .Regular Strength -] 650 mg PO Q6H PRN tablet 02/21/18 Furosemide [Lasix -] 40 mg PO DAILY tablet 11/16/18 traMADol HCL [Ultram -] 50 mg PO Q6H PRN #30 tablet MDD 4 02/21/18 Family Medical History Family History: Denies (no h/o CMP) Review of Systems Unable to obtain ROS, reason: poor historian Vital Signs: Vital Signs Temperature 99.2 F 11/21/19 05:55 Pulse Rate 100 H 11/21/19 05:55 Respiratory Rate 20 11/21/19 05:55 Blood Pressure 154/89 11/21/19 05:55 O2 Sat by Pulse Oximetry (%) 96 11/21/19 05:55 Constitutional: Yes: Well Nourished, No Distress, Calm Eyes: No: Sclera Icterus HENT: No: Nasal Congestion Neck: No: Decreased ROM Respiratory: Yes: CTA Bilaterally. No: Accessory Muscle Use Gastrointestinal: Yes: Normal Bowel Sounds. No: Distention, Hepatomegaly, Palpable Mass, Tenderness Cardiovascular: Yes: Regular Rate and Rhythm JVD: No Carotid Bruit: No PMI: Non-Displaced Heart Sounds: Yes: S1, S2. No: Gallop Murmur: No: Systolic Murmur, Diastolic Murmur Musculoskeletal: Yes: Other (No kyphosis) Extremities: No: Cool, Cyanosis Edema: No Peripheral Pulses: 2+ Left Carotid, 2+ Right Carotid, 2+ Left Doralis Pedis, 2+ Right Dorsalis Pedis Integumentary: No: Jaundice Neurological: Yes: Alert. No: Seizure Psychiatric: No: Agitated - Other Data Labs, Other Data: CBC, BMP 11/20/19 15:25 11/20/19 16:30 INR, PTT INR 1.18 (0.83-1.09) H 11/20/19 16:30 Troponin, BNP 11/20/19 11/20/19 15:25 18:50 Troponin I 0.22 H 0.28 H Troponin, BNP 11/20/19 11/20/19 15:25 18:50 Troponin I 0.22 H 0.28 H Assessment/Plan Echo 02/2018: nl LV/RV, E/A reversal, mild MR, PASP at least 39 mmHg CXR: clear lungs/pleura ECG x 2: NSR, nl axis/intervals. no ST-T changes vs prior, no q's tele: NSR, artifact fever, UTI sx's with dirty UA, joint pains (h/o OA): -per pmd elevated troponin: -trop in indeterminate range, flat trend (0.2-0.2-0.1)= not c/w ACS event -no ischemic sx's, no ischemic ECG findings -no further cv workup indicated unless clinical picture changes h/o saddle pulmonary embolism, extensive RLE DVT (2018) - circumstances/risk factors for VTE unclear to me at this time -pt was discharged on warfarin, not currently taking, ? was felt to be provoked event -rec clarification with pt's PMD dr harvey whether supposed to be on indefinite AC Elevated troponin - trop 0.11->0.58->0.53->1.15->0.34. no ischemic ECG changes. - secondary to massive PE - no further CV w/u indicated at present time HLD - cont home statin HTN -target < 140/90 -mildly elevated, observe trend. cont home meds for now chronic diastolic HF - cont home lasix 40 qd - no signs HF at present time
[2019-11-21 08:08] LABS: BASO % 0.3 % (0-2.0); EOS % 0.1 % (0-4.5); HEMATOCRIT 35.6 % (32.4-45.2); HEMOGLOBIN 11.8 GM/dL (10.7-15.3); LYMPH % 7.7 % (8-40); MCH 29.2 pg (25.7-33.7); MCHC 33.3 g/dl (32.0-36.0); MEAN CELL VOLUME 87.8 fl (80-96); MONO % 8.5 % (3.8-10.2); NEUT % 83.4 % (42.8-82.8); PLATELET COUNT 219 K/MM3 (134-434); RBC 4.05 M/mm3 (3.60-5.2); RDW 13.9 % (11.6-15.6); WHITE BLOOD COUNT 12.7 K/mm3 (4.0-10.0)
[2019-11-21 08:17] LABS: ALBUMIN 2.5 g/dl (3.4-5.0); BILIRUBIN,TOTAL 0.8 mg/dL (0.2-1); BLOOD UREA NITROGEN 20.7 mg/dL (7-18); CALCIUM 8.3 mg/dL (8.5-10.1); CREATININE 1.5 mg/dL (0.55-1.3); POTASSIUM 3.8 mmol/L (3.5-5.1); TOT PROT 7.1 g/dl (6.4-8.2)
[2019-11-21] MEDS ORDERED: DEXTROSE 5%-WATER - 50 ML IVPB ONE (09:12)
[2019-11-21] MEDS ORDERED: cefTRIAXone SODIUM 1 GM VIAL ONE (09:12)
[2019-11-21] MEDS: CEFTRIAXONE 1 GM in DEXTROSE 5%-WATER - 50 ML IVPB SCH (09:22)
[2019-11-21] MEDS: HEPARIN NA (PORCINE) 5,000 UNITS/ML 1ML VIAL SQ SCH ×2 (09:23→21:31)
[2019-11-21] MEDS: DOCUSATE SODIUM 100 MG CAPSULE (FP) PO PRN ×2 (09:23→21:31)
[2019-11-21] MEDS: CALCIUM 500MG/VIT-D 200 UNITS COMBO TABLET (FP) PO SCH (09:23)
[2019-11-21] MEDS ORDERED: FUROSEMIDE 40 MG TABLET (FP) PO SCH (10:00)
--- NOTE | 2019-11-21 12:46 | PN ---
Progress Note, Physician History of Present Illness: Pt seen/ examined chart is reviewed awake comfortable mild lower abdomen discomfort persists but better + urinary burning Denies cp/sob - Current Medication List Current Medications: Active Medications Calcium Carbonate/Cholecalciferol (Os-Samuel 500+D -) 1 tab PO DAILY [facility] Last Admin: 11/21/19 09:23 Dose: 1 tab Documented by: Docusate Sodium (Colace -) 100 mg PO BID PRN PRN Reason: CONSTIPATION Last Admin: 11/21/19 09:23 Dose: 100 mg Documented by: Heparin Sodium (Porcine) (Heparin -) 5,000 unit SQ BID [facility] Last Admin: 11/21/19 09:23 Dose: 5,000 unit Documented by: Ceftriaxone Sodium 1 gm/ (Dextrose) 50 mls @ 200 mls/hr IVPB DAILY [facility]; Protocol Last Admin: 11/21/19 09:22 Dose: 200 mls/hr Documented by: Non-Formulary Medication (Diclofenac Sodium [Voltaren]) 100 gm TP ASDIR PRN PRN Reason: PAIN Rosuvastatin Calcium (Crestor -) 10 mg PO HS [facility] Last Admin: 11/20/19 22:17 Dose: 10 mg Documented by: Tramadol HCl (Ultram -) 50 mg PO Q12H PRN PRN Reason: PAIN LEVEL 6-10 Last Admin: 11/21/19 02:05 Dose: 50 mg Documented by: Triamcinolone Acetonide (Aristocort 0.1% Cream -) 1 applic TP DAILY PRN PRN Reason: rash - Objective Vital Signs: Vital Signs Temperature 98.9 F 11/21/19 09:21 Pulse Rate 99 H 11/21/19 09:21 Respiratory Rate 18 11/21/19 09:21 Blood Pressure 137/68 11/21/19 09:21 O2 Sat by Pulse Oximetry (%) 98 11/21/19 09:21 Constitutional: Yes: No Distress, Calm Eyes: Yes: Conjunctiva Clear Neck: Yes: Supple Cardiovascular: Yes: Regular Rate and Rhythm Respiratory: Yes: CTA Bilaterally Gastrointestinal: Yes: Soft Edema: No Neurological: Yes: Alert Labs: CBC, BMP 11/21/19 06:53 11/21/19 06:53 INR, PTT INR 1.18 (0.83-1.09) H 11/20/19 16:30 Problem List - Problems (1) UTI (urinary tract infection) Code(s): N39.0 - URINARY TRACT INFECTION, SITE NOT SPECIFIED Qualifiers: Urinary tract infection type: acute cystitis Hematuria presence: without hematuria Qualified Code(s): N30.00 - Acute cystitis without hematuria (2) Elevated troponin Code(s): R79.89 - OTHER SPECIFIED ABNORMAL FINDINGS OF BLOOD CHEMISTRY (3) Sepsis Code(s): A41.9 - SEPSIS, UNSPECIFIED ORGANISM Qualifiers: Sepsis type: sepsis due to unspecified organism Sepsis acute organ dysfunction status: with acute organ dysfunction Severe sepsis acute organ dysfunction type: acute renal failure Acute renal failure type: unspecified Severe sepsis shock status: without septic shock Qualified Code(s): A41.9 - Sepsis, unspecified organism; R65.20 - Severe sepsis without septic shock; N17.9 - Acute kidney failure, unspecified (4) Congestive heart failure Code(s): I50.9 - HEART FAILURE, UNSPECIFIED Qualifiers: Heart failure type: unspecified Heart failure chronicity: acute Qualified Code(s): I50.9 - Heart failure, unspecified (5) Hypertension Code(s): I10 - ESSENTIAL (PRIMARY) HYPERTENSION Qualifiers: Hypertension type: essential hypertension Qualified Code(s): I10 - Essential (primary) hypertension Assessment/Plan Monitor on tele Troponin coming down abx f/u labs cardiology on case will follow d/w Rn also f/u cultures
[2019-11-21] MEDS: POLYETHYLENE GLYCOL 3350 119 GM BTL PO SCH (16:11)
[2019-11-21] MEDS ORDERED: ALBUTEROL SO4 HFA INHALER IH PRN (19:20)
[2019-11-21] MEDS: ACETAMINOPHEN 325 MG TABLET (FP) PO PRN (20:00)
[2019-11-21] MEDS: SENNOSIDES 8.6MG TABLET (FP) PO PRN (21:31)
[2019-11-21] MEDS: ROSUVASTATIN CA 10 MG TABLET (FP) PO SCH (21:31)
--- NOTE | 2019-11-22 07:21 | PN ---
Progress Note (short form) - Note Progress Note: BP slightly labile--reasonable control. troponins flat trend, non-ACS picture. d/c telemetry
[2019-11-22] MEDS ORDERED: cefTRIAXone SODIUM 1 GM VIAL ONE (09:51)
[2019-11-22] MEDS ORDERED: PT OWN MED DRAWER 7, Y5N ONE (09:51)
[2019-11-22] MEDS ORDERED: DEXTROSE 5%-WATER - 50 ML IVPB ONE (09:52)
[2019-11-22] MEDS: CEFTRIAXONE 1 GM in DEXTROSE 5%-WATER - 50 ML IVPB SCH (09:53)
[2019-11-22] MEDS: HEPARIN NA (PORCINE) 5,000 UNITS/ML 1ML VIAL SQ SCH ×2 (09:53→21:28)
[2019-11-22] MEDS: traMADol HCL 50 MG TABLET PO PRN ×2 (09:54→21:26)
[2019-11-22] MEDS: CALCIUM 500MG/VIT-D 200 UNITS COMBO TABLET (FP) PO SCH (09:54)
[2019-11-22] MEDS: DOCUSATE SODIUM 100 MG CAPSULE (FP) PO PRN (09:54)
[2019-11-22] MEDS: POLYETHYLENE GLYCOL 3350 119 GM BTL PO SCH (10:10)
--- NOTE | 2019-11-22 12:48 | PN ---
Progress Note, Physician History of Present Illness: Pt seen/ examined chart is reviewed awake comfortable feels better today Afebrile - Current Medication List Current Medications: Active Medications Acetaminophen (Tylenol -) 650 mg PO Q6H PRN PRN Reason: FEVER Last Admin: 11/21/19 20:00 Dose: 650 mg Documented by: Albuterol Sulfate (Ventolin Hfa Inhaler -) 2 puff IH Q4H PRN PRN Reason: SHORT OF BREATH/WHEEZING Last Admin: 11/21/19 20:01 Dose: 2 puff Documented by: Albuterol/Ipratropium (Duoneb -) 1 amp NEB Q4H PRN PRN Reason: SHORTNESS OF BREATH Calcium Carbonate/Cholecalciferol (Os-Samuel 500+D -) 1 tab PO DAILY [facility] Last Admin: 11/22/19 09:54 Dose: 1 tab Documented by: Docusate Sodium (Colace -) 100 mg PO BID PRN PRN Reason: CONSTIPATION Last Admin: 11/22/19 09:54 Dose: 100 mg Documented by: Heparin Sodium (Porcine) (Heparin -) 5,000 unit SQ BID [facility] Last Admin: 11/22/19 09:53 Dose: 5,000 unit Documented by: Ceftriaxone Sodium 1 gm/ (Dextrose) 50 mls @ 200 mls/hr IVPB DAILY [facility]; Protocol Last Admin: 11/22/19 09:53 Dose: 200 mls/hr Documented by: Non-Formulary Medication (Diclofenac Sodium [Voltaren]) 100 gm TP ASDIR PRN PRN Reason: PAIN Polyethylene Glycol (Miralax (For Daily Use) -) 17 gm PO DAILY [facility] Last Admin: 11/22/19 10:10 Dose: 17 grams Documented by: Rosuvastatin Calcium (Crestor -) 10 mg PO HS [facility] Last Admin: 11/21/19 21:31 Dose: 10 mg Documented by: Senna (Senna -) 2 tab PO HS PRN PRN Reason: CONSTIPATION Last Admin: 11/21/19 21:31 Dose: 2 tab Documented by: Tramadol HCl (Ultram -) 50 mg PO Q12H PRN PRN Reason: PAIN LEVEL 6-10 Last Admin: 11/22/19 09:54 Dose: 50 mg Documented by: Triamcinolone Acetonide (Aristocort 0.1% Cream -) 1 applic TP DAILY PRN PRN Reason: rash - Objective Vital Signs: Vital Signs Temperature 98.1 F 11/22/19 10:00 Pulse Rate 100 H 11/22/19 10:00 Respiratory Rate 11/22/19 10:00 Blood Pressure 160/83 11/22/19 10:00 O2 Sat by Pulse Oximetry (%) 97 11/22/19 10:00 Constitutional: Yes: No Distress, Calm Eyes: Yes: Conjunctiva Clear Neck: Yes: Supple Cardiovascular: Yes: Regular Rate and Rhythm Respiratory: Yes: CTA Bilaterally Gastrointestinal: Yes: Soft Edema: No Neurological: Yes: Alert Labs: CBC, BMP 11/21/19 06:53 11/21/19 06:53 INR, PTT INR 1.18 (0.83-1.09) H 11/20/19 16:30 Problem List - Problems (1) UTI (urinary tract infection) Code(s): N39.0 - URINARY TRACT INFECTION, SITE NOT SPECIFIED Qualifiers: Urinary tract infection type: acute cystitis Hematuria presence: without hematuria Qualified Code(s): N30.00 - Acute cystitis without hematuria (2) Elevated troponin Code(s): R79.89 - OTHER SPECIFIED ABNORMAL FINDINGS OF BLOOD CHEMISTRY (3) Sepsis Code(s): A41.9 - SEPSIS, UNSPECIFIED ORGANISM Qualifiers: Sepsis type: sepsis due to unspecified organism Sepsis acute organ dysfu nction status: with acute organ dysfunction Severe sepsis acute organ dys function type: acute renal failure Acute renal failure type: unspecified Severe sepsis shock status: without septic shock Qualified Code(s): A41.9 - Sepsis, unspecified organism; R65.20 - Severe sepsis without septic shock; N17.9 - Acute kidney failure, unspecified (4) Congestive heart failure Code(s): I50.9 - HEART FAILURE, UNSPECIFIED Qualifiers: Heart failure type: unspecified Heart failure chronicity: acute Qualified Code(s): I50.9 - Heart failure, unspecified (5) Hypertension Code(s): I10 - ESSENTIAL (PRIMARY) HYPERTENSION Qualifiers: Hypertension type: essential hypertension Qualified Code(s): I10 - Essential (primary) hypertension Assessment/Plan clinically better abx f/u cultures discontinue telemetry will follow d/w Rn also out of bed to chair
--- NOTE | 2019-11-22 15:17 | PN ---
Progress Note, Physician Chief Complaint: fever History of Present Illness: denies palpitations, cp. mildly sob at rest, "always", going on for a year or so. no feet swelling - Current Medication List Current Medications: Active Medications Acetaminophen (Tylenol -) 650 mg PO Q6H PRN PRN Reason: FEVER Last Admin: 11/21/19 20:00 Dose: 650 mg Documented by: Albuterol Sulfate (Ventolin Hfa Inhaler -) 2 puff IH Q4H PRN PRN Reason: SHORT OF BREATH/WHEEZING Last Admin: 11/21/19 20:01 Dose: 2 puff Documented by: Albuterol/Ipratropium (Duoneb -) 1 amp NEB Q4H PRN PRN Reason: SHORTNESS OF BREATH Calcium Carbonate/Cholecalciferol (Os-Samuel 500+D -) 1 tab PO DAILY [facility] Last Admin: 11/22/19 09:54 Dose: 1 tab Documented by: Docusate Sodium (Colace -) 100 mg PO BID PRN PRN Reason: CONSTIPATION Last Admin: 11/22/19 09:54 Dose: 100 mg Documented by: Heparin Sodium (Porcine) (Heparin -) 5,000 unit SQ BID [facility] Last Admin: 11/22/19 09:53 Dose: 5,000 unit Documented by: Ceftriaxone Sodium 1 gm/ (Dextrose) 50 mls @ 200 mls/hr IVPB DAILY [facility]; Protocol Last Admin: 11/22/19 09:53 Dose: 200 mls/hr Documented by: Non-Formulary Medication (Diclofenac Sodium [Voltaren]) 100 gm TP ASDIR PRN PRN Reason: PAIN Polyethylene Glycol (Miralax (For Daily Use) -) 17 gm PO DAILY [facility] Last Admin: 11/22/19 10:10 Dose: 17 grams Documented by: Rosuvastatin Calcium (Crestor -) 10 mg PO HS [facility] Last Admin: 11/21/19 21:31 Dose: 10 mg Documented by: Senna (Senna -) 2 tab PO HS PRN PRN Reason: CONSTIPATION Last Admin: 11/21/19 21:31 Dose: 2 tab Documented by: Tramadol HCl (Ultram -) 50 mg PO Q12H PRN PRN Reason: PAIN LEVEL 6-10 Last Admin: 11/22/19 09:54 Dose: 50 mg Documented by: Triamcinolone Acetonide (Aristocort 0.1% Cream -) 1 applic TP DAILY PRN PRN Reason: rash - Objective Vital Signs: Vital Signs Temperature 98.2 F 11/22/19 14:10 Pulse Rate 103 H 11/22/19 14:10 Respiratory Rate 11/22/19 14:10 Blood Pressure 123/67 11/22/19 14:10 O2 Sat by Pulse Oximetry (%) 97 11/22/19 14:10 Constitutional: Yes: Well Nourished, No Distress, Calm Cardiovascular: Yes: Regular Rate and Rhythm, S1, S2. No: JVD, Gallop, Murmur Respiratory: Yes: Regular, CTA Bilaterally. No: Accessory Muscle Use Extremities: No: Cold Edema: No Neurological: Yes: Alert. No: Seizure Psychiatric: No: Agitated Labs: CBC, BMP 11/21/19 06:53 11/21/19 06:53 INR, PTT INR 1.18 (0.83-1.09) H 11/20/19 16:30 Assessment/Plan Echo 02/2018: nl LV/RV, E/A reversal, mild MR, PASP at least 39 mmHg CXR: clear lungs/pleura ECG x 2: NSR, nl axis/intervals. no ST-T changes vs prior, no q's tele: sinus tach with APCs to 130s; no fib/flutter seen fever, UTI sx's with dirty UA, joint pains (h/o OA), tachycardia: -per pmd elevated troponin: -trop in indeterminate range, flat trend (0.2-0.2-0.1)= not c/w ACS event -no ischemic sx's, no ischemic ECG findings -no further cv workup indicated unless clinical picture changes h/o saddle pulmonary embolism, extensive RLE DVT (2018) - circumstances/risk factors for VTE unclear to me at this time -pt was discharged on warfarin, not currently taking, ? was felt to be provoked event -rec clarification with pt's PMD dr harvey whether supposed to be on indefinite AC Elevated troponin - trop 0.11->0.58->0.53->1.15->0.34. no ischemic ECG changes. - secondary to massive PE - no further CV w/u indicated at present time HLD - cont home statin HTN -target < 140/90 -mildly elevated, observe trend. cont home meds for now chronic diastolic HF - cont home lasix 40 qd - no signs HF at present time D/C TELEMETRY
--- NOTE | 2019-11-22 18:36 | EKG ---
Test Reason : Blood Pressure : / mmHG Vent. Rate : 106 BPM Atrial Rate : 106 BPM P-R Int : 174 ms QRS Dur : 078 ms QT Int : 362 ms P-R-T Axes : 036 -11 -02 degrees QTc Int : 480 ms POOR DATA QUALITY, INTERPRETATION MAY BE ADVERSELY AFFECTED SINUS TACHYCARDIA WITH PREMATURE ATRIAL COMPLEXES MODERATE VOLTAGE CRITERIA FOR LVH, MAY BE NORMAL VARIANT NONSPECIFIC ST ABNORMALITY ABNORMAL ECG Confirmed by MD NELLIE, FANNIE ([id number]) on 11/22/2019 6:36:12 PM Referred By: Confirmed By:FANNIE BALLARD MD
--- NOTE | 2019-11-22 18:41 | EKG ---
Test Reason : Blood Pressure : / mmHG Vent. Rate : 102 BPM Atrial Rate : 102 BPM P-R Int : 138 ms QRS Dur : 080 ms QT Int : 354 ms P-R-T Axes : 030 -11 -02 degrees QTc Int : 461 ms POOR DATA QUALITY, INTERPRETATION MAY BE ADVERSELY AFFECTED SINUS TACHYCARDIA WITH PREMATURE ATRIAL COMPLEXES LEFT VENTRICULAR HYPERTROPHY NONSPECIFIC ST ABNORMALITY ABNORMAL ECG Confirmed by MD NELLIE, FANNIE ([id number]) on 11/22/2019 6:41:15 PM Referred By: Confirmed By:FANNIE BALLARD MD
[2019-11-22] MEDS: SENNOSIDES 8.6MG TABLET (FP) PO PRN (21:26)
[2019-11-22] MEDS: ROSUVASTATIN CA 10 MG TABLET (FP) PO SCH (21:26)
[2019-11-23] MEDS ORDERED: ALBUTEROL SO4 2.5/IPRATROPIUM 0.5 INH SOL 3 ML VIAL.NEB. NEB PRN (09:21)
[2019-11-23] MEDS ORDERED: DEXTROSE 5%-WATER - 50 ML IVPB ONE (09:54)
[2019-11-23] MEDS ORDERED: PT OWN MED DRAWER 7, Y5N ONE (09:54)
[2019-11-23] MEDS ORDERED: cefTRIAXone SODIUM 1 GM VIAL ONE (09:54)
[2019-11-23] MEDS: CALCIUM 500MG/VIT-D 200 UNITS COMBO TABLET (FP) PO SCH (09:56)
[2019-11-23] MEDS: CEFTRIAXONE 1 GM in DEXTROSE 5%-WATER - 50 ML IVPB SCH (09:56)
[2019-11-23] MEDS: ACETAMINOPHEN 325 MG TABLET (FP) PO PRN ×2 (09:56→17:34)
[2019-11-23] MEDS: POLYETHYLENE GLYCOL 3350 119 GM BTL PO SCH (09:57)
[2019-11-23] MEDS: HEPARIN NA (PORCINE) 5,000 UNITS/ML 1ML VIAL SQ SCH ×2 (09:57→21:19)
--- NOTE | 2019-11-23 10:30 | PN ---
Progress Note, Physician History of Present Illness: Pt seen/ examined chart is reviewed awake comfortable but weak remains tachy denies cp/sob - Current Medication List Current Medications: Active Medications Acetaminophen (Tylenol -) 650 mg PO Q6H PRN PRN Reason: FEVER Last Admin: 11/23/19 09:56 Dose: 650 mg Documented by: Albuterol Sulfate (Ventolin Hfa Inhaler -) 2 puff IH Q4H PRN PRN Reason: SHORT OF BREATH/WHEEZING Last Admin: 11/21/19 20:01 Dose: 2 puff Documented by: Albuterol/Ipratropium (Duoneb -) 1 amp NEB Q4H PRN PRN Reason: SHORTNESS OF BREATH Calcium Carbonate/Cholecalciferol (Os-Samuel 500+D -) 1 tab PO DAILY [facility] Last Admin: 11/23/19 09:56 Dose: 1 tab Documented by: Docusate Sodium (Colace -) 100 mg PO BID PRN PRN Reason: CONSTIPATION Last Admin: 11/22/19 09:54 Dose: 100 mg Documented by: Heparin Sodium (Porcine) (Heparin -) 5,000 unit SQ BID [facility] Last Admin: 11/23/19 09:57 Dose: 5,000 unit Documented by: Ceftriaxone Sodium 1 gm/ (Dextrose) 50 mls @ 200 mls/hr IVPB DAILY [facility]; Protocol Last Admin: 11/23/19 09:56 Dose: 200 mls/hr Documented by: Metoprolol Tartrate (Lopressor -) 25 mg PO BID [facility] Non-Formulary Medication (Diclofenac Sodium [Voltaren]) 100 gm TP ASDIR PRN PRN Reason: PAIN Polyethylene Glycol (Miralax (For Daily Use) -) 17 gm PO DAILY [facility] Last Admin: 11/23/19 09:57 Dose: 17 grams Documented by: Rosuvastatin Calcium (Crestor -) 10 mg PO HS [facility]NA Last Admin: 11/22/19 21:26 Dose: 10 mg Documented by: Senna (Senna -) 2 tab PO HS PRN PRN Reason: CONSTIPATION Last Admin: 11/22/19 21:26 Dose: 2 tab Documented by: Tramadol HCl (Ultram -) 50 mg PO Q12H PRN PRN Reason: PAIN LEVEL 6-10 Last Admin: 11/22/19 21:26 Dose: 50 mg Documented by: Triamcinolone Acetonide (Aristocort 0.1% Cream -) 1 applic TP DAILY PRN PRN Reason: rash - Objective Vital Signs: Vital Signs Temperature 97.4 F L 11/23/19 06:00 Pulse Rate 111 H 11/23/19 06:00 Respiratory Rate 20 11/23/19 06:00 Blood Pressure 152/60 11/23/19 06:00 O2 Sat by Pulse Oximetry (%) 96 11/23/19 06:00 Constitutional: Yes: No Distress, Calm Neck: Yes: Supple Cardiovascular: Yes: Regular Rate and Rhythm Respiratory: Yes: Diminished Gastrointestinal: Yes: Soft Edema: No Neurological: Yes: Alert Labs: CBC, BMP 11/21/19 06:53 11/21/19 06:53 INR, PTT INR 1.18 (0.83-1.09) H 11/20/19 16:30 Problem List - Problems (1) UTI (urinary tract infection) Code(s): N39.0 - URINARY TRACT INFECTION, SITE NOT SPECIFIED Qualifiers: Urinary tract infection type: acute cystitis Hematuria presence: without hematuria Qualified Code(s): N30.00 - Acute cystitis without hematuria (2) Elevated troponin Code(s): R79.89 - OTHER SPECIFIED ABNORMAL FINDINGS OF BLOOD CHEMISTRY (3) Sepsis Code(s): A41.9 - SEPSIS, UNSPECIFIED ORGANISM Qualifiers: Sepsis type: sepsis due to unspecified organism Sepsis acute organ dysfunction status: with acute organ dysfunction Severe sepsis acute organ dysfunction type: acute renal failure Acute renal failure type: unspecified Severe sepsis shock status: without septic shock Qualified Code(s): A41.9 - Sepsis, unspecified organism; R65.20 - Severe sepsis without septic shock; N17.9 - Acute kidney failure, unspecified (4) Congestive heart failure Code(s): I50.9 - HEART FAILURE, UNSPECIFIED Qualifiers: Heart failure type: unspecified Heart failure chronicity: acute Qualified Code(s): I50.9 - Heart failure, unspecified (5) Hypertension Code(s): I10 - ESSENTIAL (PRIMARY) HYPERTENSION Qualifiers: Hypertension type: essential hypertension Qualified Code(s): I10 - Essential (primary) hypertension (6) Tachycardia Code(s): R00.0 - TACHYCARDIA, UNSPECIFIED Assessment/Plan D/W Rn Add BB Echo D dimer Pulmonary consult H/O PE D/W Dr. Delgado-- Pt was only on A/C for 6 months after PE episode. PT Abx Will follow [facility] for today also ordered
[2019-11-23] MEDS: METOPROLOL TARTRATE 25 MG TABLET (FP) PO SCH ×2 (10:52→21:20)
--- NOTE | 2019-11-23 11:36 | CON.PULM ---
Consult Consult Specialty:: PULMONARY Referred by:: PMD Reason for Consultation:: R/O PE DUE TO TACHYCARDIA AND PREV H/O PE - History of Present Illness Chief Complaint: "SLOW BREATHING" History of Present Illness: This is a 89 y/o female with a PMHx of HTN, HLD, Saddle PE (s/p IR guided TPA, 2018), Diastolic HF, Frequent UTIs, OA. Who presents to the ED with her daughter for fever, mid lumbar pain, foul smelling urine, left knee pain, decreased appetite x 1-2 days. Per the daughter who was at bedside she noted the patient to have subjective fever 102 which improved with acetaminophen- 99.5, malodorous urine. She reports that her mother has been complaining of lumbar and left knee pain and has had difficulty ambulating more recently due to the pain which was unrelieved with Tramadol. She also reports that her mother has had a decrease in her PO intake and constipation x 3 days, which prompted her to bring her in for evaluation. The patient reports having back and knee pain worsens with movement. Patient denies chills, cough, dizziness, AVREY, CP, palpitations, N/V/D, dysuria. Per the daughter, patient has not had sick contacts or recent travel. 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 No: AFIB Pulmonary: Yes: Pulmonary Embolus ...: No Musculoskeletal: Yes: Osteoarthritis Additional Medical History: Osteoarthitis - Alcohol/Substance Use Hx Alcohol Use: No History of Substance Use: reports: None - Smoking History Smoking history: Never smoked Have you smoked in the past 12 months: No Aproximately how many cigarettes per day: 0 - Social History ADL: Family Assistance History of Recent Travel: No Home Medications - Allergies Allergies/Adverse Reactions: Allergies Allergy/AdvReac Type Severity Reaction Status Date / Time clindamycin Allergy Mild Rash Verified 11/20/19 14:42 sulfamethoxazole Allergy Mild Rash Verified 11/20/19 14:42 [From Bactrim] trimethoprim [From Bactrim] Allergy Mild Rash Verified 11/20/19 14:42 lactose AdvReac Mild Verified 11/20/19 14:42 - Home Medications Home Medications: Ambulatory Orders Atorvastatin Ca [Lipitor] 10 mg PO HS 08/26/17 Calcium Carbonate/Vitamin D3 [Calcium 600 + Vit D Tablet] 1 each PO DAILY 08/26/17 Diclofenac Sodium [Voltaren] 100 gm TP ASDIR PRN 08/26/17 Triamcinolone 0.1% Cream [Aristocort 0.1% Cream -] 0 gm TP DAILY PRN 08/26/17 Acetaminophen [Tylenol .Regular Strength -] 650 mg PO Q6H PRN tablet 02/21/18 Furosemide [Lasix -] 40 mg PO DAILY tablet 02/21/18 traMADol HCL [Ultram -] 50 mg PO Q6H PRN #30 tablet MDD 4 02/21/18 Family Medical History Family History: Denies (no h/o CMP), Unremarkable Review of Systems - Review of Systems Constitutional: reports: Fever, Lethargy. denies: Night Sweats Eyes: denies: Blind Spots HENT: denies: Difficult Swallowing Neck: denies: Decreased ROM Cardiovascular: denies: Chest Pain, Palpitations Respiratory: reports: SOB on Exertion. denies: Cough, Hemoptysis, Orthopnea, Wheezing Gastrointestinal: denies: Abdominal Pain Genitourinary: reports: Burning, Dysuria Breasts: reports: No Symptoms Reported Musculoskeletal: reports: Back Pain, Joint Pain Integumentary: reports: No Symptoms Neurological: reports: No Symptoms Endocrine: reports: No Symptoms Physical Exam Vital Sings: Vital Signs Temperature 99.1 F 11/23/19 10:00 Pulse Rate 113 H 11/23/19 10:00 Respiratory Rate 20 11/23/19 10:00 Blood Pressure 129/75 11/23/19 10:00 O2 Sat by Pulse Oximetry (%) 99 11/23/19 10:00 Constitutional: Yes: Calm Eyes: Yes: EOM Intact HENT: Yes: Normocephalic Neck: Yes: Trachea Midline Cardiovascular: Yes: Tachycardia (MILD TACHY), S1, S2 Respiratory: Yes: Diminished Gastrointestinal: Yes: Soft, Abdomen, Obese Musculoskeletal: Yes: Back Pain, Joint Stiffness Edema: No Integumentary: Yes: WNL Neurological: Yes: Alert Psychiatric: Yes: Alert Labs: CBC, BMP 11/21/19 06:53 11/21/19 06:53 REST REVIEWED Imaging - Results Chest X-ray: Report Reviewed, Image Reviewed EKG: Report Reviewed, Image Reviewed Problem List - Problems (1) Diastolic HF (heart failure) Code(s): I50.30 - UNSPECIFIED DIASTOLIC (CONGESTIVE) HEART FAILURE (2) UTI (urinary tract infection) Code(s): N39.0 - URINARY TRACT INFECTION, SITE NOT SPECIFIED Qualifiers: Urinary tract infection type: acute cystitis Hematuria presence: without hematuria Qualified Code(s): N30.00 - Acute cystitis without hematuria (3) Congestive heart failure Code(s): I50.9 - HEART FAILURE, UNSPECIFIED Qualifiers: Heart failure type: unspecified Heart failure chronicity: acute Qualified Code(s): I50.9 - Heart failure, unspecified (4) Fever Code(s): R50.9 - FEVER, UNSPECIFIED Qualifiers: Fever type: unspecified Qualified Code(s): R50.9 - Fever, unspecified Assessment/Plan LOW INDEX OF SUSPICION FOR PE AT THIS TIME TACHY LIKLEY DUE TO FEVER AND E.COLI UTI MULTIPLE CO-MORBID CONDITIONS LISTED WOULD CHECK D-DIMER (HELPFUL IF NEGATIVE) OOB TO CHAIR CONTINUE ANTIBIOTICS PER PRIMARY TEAM WILL FOLLOW Key HERNANDEZ MD
[2019-11-23 12:09] LABS: BASO % 0.3 % (0-2.0); EOS % 1.3 % (0-4.5); HEMATOCRIT 34.6 % (32.4-45.2); HEMOGLOBIN 11.2 GM/dL (10.7-15.3); LYMPH % 9.4 % (8-40); MCH 28.4 pg (25.7-33.7); MCHC 32.5 g/dl (32.0-36.0); MEAN CELL VOLUME 87.3 fl (80-96); MEAN PLT VOLUME 8.5 fl (7.5-11.1); MONO % 6.5 % (3.8-10.2); NEUT % 82.5 % (42.8-82.8); PLATELET COUNT 280 K/MM3 (134-434); RBC 3.96 M/mm3 (3.60-5.2); RDW 14.3 % (11.6-15.6); WHITE BLOOD COUNT 11.1 K/mm3 (4.0-10.0)
--- NOTE | 2019-11-23 12:12 | PN ---
Progress Note (short form) - Note Progress Note: Chief Complaint: fever History of Present Illness: denies palpitations, cp. mildly sob at rest, "always", going on for a year or so. no feet swelling Current Medications Generic Name Dose Route Start Last Admin Trade Name Freq PRN Reason Stop Dose Admin Acetaminophen 650 mg 11/21/19 19:21 11/23/19 09:56 Tylenol - PO 650 mg Q6H PRN Administration FEVER Albuterol Sulfate 2 puff 11/21/19 19:20 11/21/19 20:01 Ventolin Hfa Inhaler - IH 2 puff Q4H PRN Administration SHORT OF BREATH/WHEEZING Albuterol/Ipratropium 1 amp 11/23/19 09:21 Duoneb - NEB Q4H PRN SHORTNESS OF BREATH Calcium Carbonate/Cholecalciferol 1 tab 11/21/19 10:00 11/23/19 09:56 Os-Samuel 500+D - PO 1 tab DAILY ANA Administration Docusate Sodium 100 mg 11/20/19 21:23 11/22/19 09:54 Colace - PO 100 mg BID PRN Administration CONSTIPATION Heparin Sodium (Porcine) 5,000 unit 11/20/19 22:00 11/23/19 09:57 Heparin - SQ 5,000 unit BID ANA Administration Ceftriaxone Sodium 1 gm/ 50 mls @ 200 mls/hr 11/21/19 10:00 11/23/19 09:56 Dextrose IVPB 200 mls/hr DAILY ANA Administration Protocol Metoprolol Tartrate 25 mg 11/23/19 10:30 11/23/19 10:52 Lopressor - PO 25 mg BID ANA Administration Polyethylene Glycol 17 gm 11/21/19 15:00 11/23/19 09:57 Miralax (For Daily Use) - PO 17 grams DAILY ANA Administration Rosuvastatin Calcium 10 mg 11/20/19 22:00 11/22/19 21:26 Crestor - PO 10 mg HS ANA Administration Senna 2 tab 11/21/19 22:00 11/22/19 21:26 Senna - PO 2 tab HS PRN Administration CONSTIPATION Tramadol HCl 50 mg 11/21/19 00:37 11/22/19 21:26 Ultram - PO 50 mg Q12H PRN Administration PAIN LEVEL 6-10 Triamcinolone Acetonide 1 applic 11/20/19 21:10 Aristocort 0.1% Cream - TP DAILY PRN rash Vital Signs Period Temp Pulse Resp BP Sys/Corral Pulse Ox Last 24 Hr 97.4 F-99.1 F 103-119 117-152/57-75 93-99 Constitutional: Yes: Well Nourished, No Distress, Calm Cardiovascular: Yes: Regular Rate and Rhythm, S1, S2. No: JVD, Gallop, Murmur Respiratory: Yes: Regular, CTA Bilaterally. No: Accessory Muscle Use Extremities: No: Cold Edema: No Neurological: Yes: Alert. No: Seizure Psychiatric: No: Agitated Labs: Laboratory Last Values WBC 12.7 K/mm3 (4.0-10.0) H 11/21/19 06:53 RBC 4.05 M/mm3 (3.60-5.2) 11/21/19 06:53 Hgb 11.8 GM/dL (10.7-15.3) 11/21/19 06:53 Hct 35.6 % (32.4-45.2) 11/21/19 06:53 MCV 87.8 fl (80-96) 11/21/19 06:53 MCH 29.2 pg (25.7-33.7) 11/21/19 06:53 MCHC 33.3 g/dl (32.0-36.0) 11/21/19 06:53 RDW 13.9 % (11.6-15.6) 11/21/19 06:53 Plt Count 219 K/MM3 (134-434) 11/21/19 06:53 MPV 9.0 fl (7.5-11.1) 11/21/19 06:53 Absolute Neuts (auto) 10.6 K/mm3 (1.5-8.0) H 11/21/19 06:53 Neutrophils % 83.4 % (42.8-82.8) H 11/21/19 06:53 Lymphocytes % 7.7 % (8-40) L D 11/21/19 06:53 Monocytes % 8.5 % (3.8-10.2) 11/21/19 06:53 Eosinophils % 0.1 % (0-4.5) D 11/21/19 06:53 Basophils % 0.3 % (0-2.0) 11/21/19 06:53 Nucleated RBC % 0 % (0-0) 11/21/19 06:53 PT with INR 14.00 SEC (9.7-13.0) H 11/20/19 16:30 INR 1.18 (0.83-1.09) H 11/20/19 16:30 PTT (Actin FS) 26.0 SECONDS (25.2-36.5) 11/20/19 16:30 Sodium 138 mmol/L (136-145) 11/21/19 06:53 Potassium 3.8 mmol/L (3.5-5.1) 11/21/19 06:53 Chloride 103 mmol/L (98-107) 11/21/19 06:53 Carbon Dioxide 24 mmol/L (21-32) 11/21/19 06:53 Anion Gap 11 MMOL/L (8-16) 11/21/19 06:53 BUN 20.7 mg/dL (7-18) H 11/21/19 06:53 Creatinine 1.5 mg/dL (0.55-1.3) H 11/21/19 06:53 Est GFR (CKD-EPI)AfAm 35.93 11/21/19 06:53 Est GFR (CKD-EPI)NonAf 31.00 11/21/19 06:53 Random Glucose 123 mg/dL (74-106) H 11/21/19 06:53 Hemoglobin A1c % 6.1 % (4.2-6.3) 11/21/19 06:53 Lactic Acid 1.3 mmol/L (0.4-2.0) 11/20/19 15:25 Calcium 8.3 mg/dL (8.5-10.1) L 11/21/19 06:53 Total Bilirubin 0.8 mg/dL (0.2-1) 11/21/19 06:53 AST 40 U/L (15-37) H 11/21/19 06:53 ALT 25 U/L (13-61) 11/21/19 06:53 Alkaline Phosphatase 163 U/L (45-117) H 11/21/19 06:53 Troponin I 0.13 ng/ml (0.00-0.05) H 11/21/19 06:53 Total Protein 7.1 g/dl (6.4-8.2) 11/21/19 06:53 Albumin 2.5 g/dl (3.4-5.0) L 11/21/19 06:53 Urine Color Yellow 11/20/19 15:50 Urine Appearance Turbid 11/20/19 15:50 Urine pH 5.0 (5.0-8.0) 11/20/19 15:50 Ur Specific Supai 1.017 (1.010-1.035) 11/20/19 15:50 Urine Protein 2+ (NEGATIVE) H 11/20/19 15:50 Urine Glucose (UA) Negative (NEGATIVE) 11/20/19 15:50 Urine Ketones Negative (NEGATIVE) 11/20/19 15:50 Urine Blood 2+ (NEGATIVE) H 11/20/19 15:50 Urine Nitrite Negative (NEGATIVE) 11/20/19 15:50 Urine Bilirubin Negative (NEGATIVE) 11/20/19 15:50 Urine Urobilinogen 1.0 mg/dL (0.2-1.0) 11/20/19 15:50 Ur Leukocyte Esterase 2+ (NEGATIVE) H 11/20/19 15:50 Urine WBC (Auto) 1535 /uL (0-25.8) 11/20/19 15:50 Urine RBC (Auto) 15 /uL (0-23.9) 11/20/19 15:50 Urine Casts (Auto) 2 /uL (0-3.1) 11/20/19 15:50 U Epithel Cells (Auto) 21 /uL (0-25.1) 11/20/19 15:50 Urine Bacteria (Auto) >10,000 /uL (0-1359) 11/20/19 15:50 COVID-19 ([facility]) Not detected (Not Detected) 11/20/19 20:02 Assessment/Plan Echo 02/2018: nl LV/RV, E/A reversal, mild MR, PASP at least 39 mmHg CXR: clear lungs/pleura ECG x 2: NSR, nl axis/intervals. no ST-T changes vs prior, no q's tele: sinus fever, UTI sx's with dirty UA, joint pains (h/o OA), tachycardia: -per pmd elevated troponin: -trop in indeterminate range, flat trend (0.2-0.2-0.1)= not c/w ACS event -no ischemic sx's, no ischemic ECG findings -no further cv workup indicated unless clinical picture changes h/o saddle pulmonary embolism, extensive RLE DVT (2018) - circumstances/risk factors for VTE unclear to me at this time -pt was discharged on warfarin, not currently taking, ? was felt to be provoked event -rec clarification with pt's PMD dr harvey whether supposed to be on indefinite AC Elevated troponin - trop 0.11->0.58->0.53->1.15->0.34. no ischemic ECG changes. - secondary to massive PE - no further CV w/u indicated at present time HLD - cont home statin HTN -target < 140/90 -mildly elevated, observe trend. cont home meds for now chronic diastolic HF - cont home lasix 40 qd - no signs HF at present time D/C TELEMETRY
[2019-11-23 13:18] LABS: ALBUMIN 2.3 g/dl (3.4-5.0); CREATININE 3.5 mg/dL (0.55-1.3); POTASSIUM 4.7 mmol/L (3.5-5.1); TOT PROT 7.2 g/dl (6.4-8.2)
[2019-11-23 13:19] LABS: BLOOD UREA NITROGEN 49.7 mg/dL (7-18)
[2019-11-23] MEDS: traMADol HCL 50 MG TABLET PO PRN (14:49)
--- NOTE | 2019-11-23 16:37 | CONSULT ---
Consult Consult Specialty:: Nephrology Reason for Consultation:: ALESIA - History of Present Illness Chief Complaint: initially presented with fever History of Present Illness: Pt is an 89 year old female with pmhx of htn, hld, saddle PE, chf, and uti who initially presented with fever and foul smelling urine. 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 She does have history of CKD. She denies dysuria or hematuria. She has not been eating or drinking. Her daughter is at bedside who helped with history. SHe was on ceftriaxone. 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 No: AFIB Pulmonary: Yes: Pulmonary Embolus ...: No Musculoskeletal: Yes: Osteoarthritis Additional Medical History: Osteoarthitis - Alcohol/Substance Use Hx Alcohol Use: No History of Substance Use: reports: None - Smoking History Smoking history: Never smoked Have you smoked in the past 12 months: No Aproximately how many cigarettes per day: 0 - Social History ADL: Family Assistance History of Recent Travel: No Home Medications - Allergies Allergies/Adverse Reactions: Allergies Allergy/AdvReac Type Severity Reaction Status Date / Time clindamycin Allergy Mild Rash Verified 11/20/19 14:42 sulfamethoxazole Allergy Mild Rash Verified 11/20/19 14:42 [From Bactrim] trimethoprim [From Bactrim] Allergy Mild Rash Verified 11/20/19 14:42 lactose AdvReac Mild Verified 11/20/19 14:42 - Home Medications Home Medications: Ambulatory Orders Atorvastatin Ca [Lipitor] 10 mg PO HS 08/26/17 Calcium Carbonate/Vitamin D3 [Calcium 600 + Vit D Tablet] 1 each PO DAILY 08/26/17 Diclofenac Sodium [Voltaren] 100 gm TP ASDIR PRN 08/26/17 Triamcinolone 0.1% Cream [Aristocort 0.1% Cream -] 0 gm TP DAILY PRN 08/26/17 Acetaminophen [Tylenol .Regular Strength -] 650 mg PO Q6H PRN tablet 02/21/18 Furosemide [Lasix -] 40 mg PO DAILY tablet 02/21/18 traMADol HCL [Ultram -] 50 mg PO Q6H PRN #30 tablet MDD 4 02/21/18 Family Medical History Family History: Denies (no h/o CMP), Unremarkable Review of Systems - Review of Systems Constitutional: reports: Loss of Appetite, Malaise Eyes: reports: No Symptoms HENT: reports: No Symptoms Neck: reports: No Symptoms Cardiovascular: reports: No Symptoms Respiratory: reports: No Symptoms Gastrointestinal: reports: No Symptoms Genitourinary: reports: No Symptoms Musculoskeletal: reports: No Symptoms Integumentary: reports: No Symptoms Neurological: reports: No Symptoms Endocrine: reports: No Symptoms Hematology/Lymphatic: reports: No Symptoms Psychiatric: reports: No Symptoms Physical Exam Vital Signs: Vital Signs Temperature 99.4 F 11/23/19 14:00 Pulse Rate 108 H 11/23/19 14:00 Respiratory Rate 20 11/23/19 14:00 Blood Pressure 129/52 L 11/23/19 14:00 O2 Sat by Pulse Oximetry (%) 99 11/23/19 10:00 Constitutional: Yes: Anxious Eyes: Yes: Conjunctiva Clear HENT: Yes: Atraumatic Cardiovascular: Yes: S1, S2 Respiratory: Yes: CTA Bilaterally Gastrointestinal: Yes: Soft, Abdomen, Obese Renal/: Yes: WNL Edema: No Neurological: Yes: Oriented Psychiatric: Yes: Oriented Labs: CBC, BMP 11/23/19 11:33 11/23/19 11:33 Imaging - Results Cat Scan: Report Reviewed Problem List - Problems (1) ALESIA (acute kidney injury) Code(s): N17.9 - ACUTE KIDNEY FAILURE, UNSPECIFIED (2) CKD (chronic kidney disease) Code(s): N18.9 - CHRONIC KIDNEY DISEASE, UNSPECIFIED Assessment/Plan Current Medications Generic Name Dose Route Start Last Admin Trade Name Dominicq PRN Reason Stop Dose Admin Acetaminophen 650 mg 11/21/19 19:21 11/23/19 09:56 Tylenol - PO 650 mg Q6H PRN Administration FEVER Albuterol Sulfate 2 puff 11/21/19 19:20 11/21/19 20:01 Ventolin Hfa Inhaler - IH 2 puff Q4H PRN Administration SHORT OF BREATH/WHEEZING Albuterol/Ipratropium 1 amp 11/23/19 09:21 Duoneb - NEB Q4H PRN SHORTNESS OF BREATH Calcium Carbonate/Cholecalciferol 1 tab 11/21/19 10:00 11/23/19 09:56 Os-Samuel 500+D - PO 1 tab DAILY ANA Administration Docusate Sodium 100 mg 11/20/19 21:23 11/22/19 09:54 Colace - PO 100 mg BID PRN Administration CONSTIPATION Heparin Sodium (Porcine) 5,000 unit 11/20/19 22:00 11/23/19 09:57 Heparin - SQ 5,000 unit BID ANA Administration Ceftriaxone Sodium 1 gm/ 50 mls @ 200 mls/hr 11/21/19 10:00 11/23/19 09:56 Dextrose IVPB 200 mls/hr DAILY ANA Administration Protocol Metoprolol Tartrate 25 mg 11/23/19 10:30 11/23/19 10:52 Lopressor - PO 25 mg BID ANA Administration Polyethylene Glycol 17 gm 11/21/19 15:00 11/23/19 09:57 Miralax (For Daily Use) - PO 17 grams DAILY ANA Administration Rosuvastatin Calcium 10 mg 11/20/19 22:00 11/22/19 21:26 Crestor - PO 10 mg HS ANA Administration Senna 2 tab 11/21/19 22:00 11/22/19 21:26 Senna - PO 2 tab HS PRN Administration CONSTIPATION Tramadol HCl 50 mg 11/21/19 00:37 11/23/19 14:49 Ultram - PO 50 mg Q12H PRN Administration PAIN LEVEL 6-10 Triamcinolone Acetonide 1 applic 11/20/19 21:10 Aristocort 0.1% Cream - TP DAILY PRN rash Impression 1. ALESIA 2. ckd 3. uti 4. atrophic kidney 5. constipation 6. htn 7. PE 8. 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
[2019-11-23] MEDS ORDERED: SODIUM CHLORIDE 1,000 ML IV SCH ×2 (16:45)
[2019-11-23 17:56] LABS: URINE APPEARANCE Clear; URINE BILIRUBIN 1+ (NEGATIVE); URINE COLOR Yellow; URINE GLUCOSE (UA) Negative (NEGATIVE); URINE KETONE Negative (NEGATIVE); URINE LEUK ESTERASE Trace (NEGATIVE); URINE NITRITE Positive (NEGATIVE); URINE PROTEIN 2+ (NEGATIVE)
[2019-11-23 20:33] LABS: EPI CELLS 78.4 /uL (0-25.1); HYALINE CASTS 3.59 /uL (0-3.1); URINE BACTERIA 290 /uL (0-1359); URINE RBC 213.1 /uL (0-23.9); URINE WBC 90.9 /uL (0-25.8)
[2019-11-23] MEDS ORDERED: traMADol HCL 50 MG TABLET PO PRN (21:15)
[2019-11-23] MEDS: ROSUVASTATIN CA 10 MG TABLET (FP) PO SCH (21:19)
[2019-11-24 07:48] LABS: ALBUMIN 1.9 g/dl (3.4-5.0); BILIRUBIN,TOTAL 0.4 mg/dL (0.2-1); BLOOD UREA NITROGEN 63.1 mg/dL (7-18); CALCIUM 8.9 mg/dL (8.5-10.1); CREATININE 4.2 mg/dL (0.55-1.3); POTASSIUM 4.8 mmol/L (3.5-5.1); TOT PROT 6.4 g/dl (6.4-8.2)
--- NOTE | 2019-11-24 10:33 | PN ---
Progress Note, Physician History of Present Illness: PULMONARY ALERT,COMFORTABLE,-SOB,AFEBRILE - Current Medication List Current Medications: Active Medications Acetaminophen (Tylenol -) 650 mg PO Q6H PRN PRN Reason: FEVER Last Admin: 11/23/19 17:34 Dose: 650 mg Documented by: Albuterol Sulfate (Ventolin Hfa Inhaler -) 2 puff IH Q4H PRN PRN Reason: SHORT OF BREATH/WHEEZING Last Admin: 11/21/19 20:01 Dose: 2 puff Documented by: Albuterol/Ipratropium (Duoneb -) 1 amp NEB Q4H PRN PRN Reason: SHORTNESS OF BREATH Calcium Carbonate/Cholecalciferol (Os-Samuel 500+D -) 1 tab PO DAILY AAN Last Admin: 11/23/19 09:56 Dose: 1 tab Documented by: Docusate Sodium (Colace -) 100 mg PO BID PRN PRN Reason: CONSTIPATION Last Admin: 11/22/19 09:54 Dose: 100 mg Documented by: Heparin Sodium (Porcine) (Heparin -) 5,000 unit SQ BID ANA Last Admin: 11/23/19 21:19 Dose: 5,000 unit Documented by: Ceftriaxone Sodium 1 gm/ (Dextrose) 50 mls @ 200 mls/hr IVPB DAILY ANA; Protocol Last Admin: 11/23/19 09:56 Dose: 200 mls/hr Documented by: Sodium Chloride (Normal Saline -) 1,000 mls @ 60 mls/hr IV ASDIR ANA Stop: 11/24/19 16:41 Last Admin: 11/23/19 17:06 Dose: 60 mls/hr Documented by: Metoprolol Tartrate (Lopressor -) 25 mg PO BID ANA Last Admin: 11/23/19 21:20 Dose: 25 mg Documented by: Polyethylene Glycol (Miralax (For Daily Use) -) 17 gm PO DAILY ANA Last Admin: 11/23/19 09:57 Dose: 17 grams Documented by: Rosuvastatin Calcium (Crestor -) 10 mg PO HS ANA Last Admin: 11/23/19 21:19 Dose: 10 mg Documented by: Senna (Senna -) 2 tab PO HS PRN PRN Reason: CONSTIPATION Last Admin: 11/22/19 21:26 Dose: 2 tab Documented by: Tramadol HCl (Ultram -) 50 mg PO Q12H PRN PRN Reason: PAIN LEVEL 6-10 Triamcinolone Acetonide (Aristocort 0.1% Cream -) 1 applic TP DAILY PRN PRN Reason: rash - Objective Vital Signs: Vital Signs Temperature 98.0 F 11/24/19 06:00 Pulse Rate 72 11/24/19 06:00 Respiratory Rate 18 11/24/19 06:00 Blood Pressure 108/65 11/24/19 06:00 O2 Sat by Pulse Oximetry (%) 95 11/24/19 06:00 Constitutional: Yes: Well Nourished, Calm Eyes: Yes: WNL HENT: Yes: WNL Neck: Yes: WNL Cardiovascular: Yes: Regular Rate and Rhythm, S1, S2 Respiratory: Yes: CTA Bilaterally Gastrointestinal: Yes: Normal Bowel Sounds, Soft Extremities: Yes: WNL Edema: No Labs: CBC, BMP 11/23/19 11:33 11/24/19 06:20 INR, PTT INR 1.18 (0.83-1.09) H 11/20/19 16:30 Assessment/Plan roblem List - Problems (1) Diastolic HF (heart failure) Code(s): I50.30 - UNSPECIFIED DIASTOLIC (CONGESTIVE) HEART FAILURE (2) UTI (urinary tract infection) Code(s): N39.0 - URINARY TRACT INFECTION, SITE NOT SPECIFIED Qualifiers: Urinary tract infection type: acute cystitis Hematuria presence: without hematuria Qualified Code(s): N30.00 - Acute cystitis without hematuria (3) Congestive heart failure Code(s): I50.9 - HEART FAILURE, UNSPECIFIED Qualifiers: Heart failure type: unspecified Heart failure chronicity: acute Qualified Code(s): I50.9 - Heart failure, unspecified (4) Fever Code(s): R50.9 - FEVER, UNSPECIFIED Qualifiers: Fever type: unspecified Qualified Code(s): R50.9 - Fever, unspecified Assessment/Plan FEVER/UTI + E-COLI ACUTE ON CHRONIC KIDNEY DISEASE PULMONARY HTN H/P SADDLE PE S/P IR CATHETER GUIDED TPA DAISTOLIC HF HTN HLD + TROPONIN PLAN SUPPLEMENTAL O2 INHALED BRONCHODILATORS PRN ABX MONITOR LYTES,RENAL FUNCTION TREND TROPONIN DR KOO
[2019-11-24] MEDS ORDERED: DEXTROSE 5%-WATER - 50 ML IVPB ONE (10:34)
[2019-11-24] MEDS ORDERED: cefTRIAXone SODIUM 1 GM VIAL ONE (10:34)
[2019-11-24] MEDS: CALCIUM 500MG/VIT-D 200 UNITS COMBO TABLET (FP) PO SCH (10:40)
[2019-11-24] MEDS: METOPROLOL TARTRATE 25 MG TABLET (FP) PO SCH ×2 (10:40→21:40)
[2019-11-24] MEDS: HEPARIN NA (PORCINE) 5,000 UNITS/ML 1ML VIAL SQ SCH ×2 (10:40→21:40)
[2019-11-24] MEDS: CEFTRIAXONE 1 GM in DEXTROSE 5%-WATER - 50 ML IVPB SCH (10:41)
[2019-11-24] MEDS: POLYETHYLENE GLYCOL 3350 119 GM BTL PO SCH (10:41)
--- NOTE | 2019-11-24 11:28 | ECHO ---
Version: 1 Name: SARA MONTES Exam: Adult Echocardiogram Study Date: 11/24/2019, 9:45 AM Age: 89 Years MMode/2D Measurements & Calculations IVSd: 0.87 cm LVIDs: 2.49 cm LVIDd: 3.6 cm LVPWd: 0.81 cm LAV (MOD-bp): 37.9 ml LVOT diam: 1.98 cm Ao root diam: 2.20 cm LA dimension: 2.7 cm Doppler Measurements & Calculations MV E max chris: 90.0 cm/sec Med E/e': 21.8 MV A max chris: 131.2 cm/sec Med Peak E' Chris: 4.1 cm/sec MV E/A: 0.69 Lat E/e': 11.7 Lat Peak E' Chris: 7.7 cm/sec MR max P.0 mmHg Ao max P.6 mmHg JESÚS(I,D): 1.03 cm Ao mean P.2 mmHg LV V1 mean: 53.9 cm/sec Ao V2 max: 221.5 cm/sec LV V1 mean P.26 mmHg AI P1/2t: 354.5 msec TR max chris: 262.7 cm/sec TR max P.8 mmHg Procedure A complete two-dimensional transthoracic echocardiogram was performed (2D, M-mode, Doppler and color flow Doppler). The patient was in normal sinus rhythm during the exam. Left Ventricle The left ventricular size, thickness and function are normal. Ejection Fraction = 60%. E/A reversal consistent with but not diagnostic of poor LV compliance. The left ventricular wall motion is normal . Right Ventricle The right ventricle is normal in size and function. Atria Normal left and right atrial size and function. Mitral Valve There is mild to moderate mitral valve thickening. There is mild to moderate mitral annular calcific ation. There is trace mitral regurgitation. Tricuspid Valve The tricuspid valve is normal in structure and function. There is Trace to mild tricuspid regurgitat ion. Right ventricular systolic pressure is 35 mmhg. Aortic Valve There is moderate aortic valve thickening. Trace aortic regurgitation. Pulmonic Valve The pulmonic valve is not well visualized. Great Vessels The aortic root is normal size. Pericardium/Pleura There is no pericardial effusion. There is no pleural effusion. Summary Statements The left ventricular size, thickness and function are normal Ejection Fraction = 60%. There is mild to moderate mitral valve thickening. There is mild to moderate mitral annular calcification. There is trace mitral regurgitation. There is Trace to mild tricuspid regurgitation. Right ventricular systolic pressure is 35 mmhg. There is moderate aortic valve thickening. Trace aortic regurgitation. MD Miguelito Crump 11/24/2019, 11:28 AM Ordering Physician: Sheri Jenkins Performed By: Marialuisa Proctor
--- NOTE | 2019-11-24 12:38 | PN ---
Progress Note (short form) - Note Progress Note: events noted no sob c/o left leg pain Vital Signs - 24 hr 11/23/19 11/23/19 11/23/19 14:00 18:00 21:00 Temperature 99.4 F 98.8 F Pulse Rate 108 H 99 H Respiratory 20 20 Rate Blood Pressure 129/52 L 141/67 O2 Sat by Pulse 99 96 Oximetry (%) 11/23/19 11/24/19 11/24/19 22:00 02:00 06:00 Temperature 99.2 F 98.1 F 98.0 F Pulse Rate 96 H 90 72 Respiratory 18 18 18 Rate Blood Pressure 149/78 136/64 108/65 O2 Sat by Pulse 96 95 Oximetry (%) 11/24/19 10:00 Temperature 97.6 F Pulse Rate 74 Respiratory 24 H Rate Blood Pressure 167/77 O2 Sat by Pulse 98 Oximetry (%) Current Medications Generic Name Dose Route Start Last Admin Trade Name Freq PRN Reason Stop Dose Admin Acetaminophen 650 mg 11/21/19 19:21 11/23/19 17:34 Tylenol - PO 650 mg Q6H PRN Administration FEVER Albuterol Sulfate 2 puff 11/21/19 19:20 11/21/19 20:01 Ventolin Hfa Inhaler - IH 2 puff Q4H PRN Administration SHORT OF BREATH/WHEEZING Albuterol/Ipratropium 1 amp 11/23/19 09:21 Duoneb - NEB Q4H PRN SHORTNESS OF BREATH Calcium Carbonate/Cholecalciferol 1 tab 11/21/19 10:00 11/24/19 10:40 Os-Samuel 500+D - PO 1 tab DAILY ANA Administration Docusate Sodium 100 mg 11/20/19 21:23 11/22/19 09:54 Colace - PO 100 mg BID PRN Administration CONSTIPATION Gabapentin 100 mg 11/24/19 12:45 Neurontin - PO DAILY ANA Heparin Sodium (Porcine) 5,000 unit 11/20/19 22:00 11/24/19 10:40 Heparin - SQ 5,000 unit BID ANA Administration Ceftriaxone Sodium 1 gm/ 50 mls @ 200 mls/hr 11/21/19 10:00 11/24/19 10:41 Dextrose IVPB 200 mls/hr DAILY ANA Administration Protocol Sodium Chloride 1,000 mls @ 42 mls/hr 11/24/19 13:12 Normal Saline - IV 11/24/19 16:41 ASDIR ANA Metoprolol Tartrate 25 mg 11/23/19 10:30 11/24/19 10:40 Lopressor - PO 25 mg BID ANA Administration Polyethylene Glycol 17 gm 11/21/19 15:00 11/24/19 10:41 Miralax (For Daily Use) - PO 17 grams DAILY ANA Administration Rosuvastatin Calcium 10 mg 11/20/19 22:00 11/23/19 21:19 Crestor - PO 10 mg HS ANA Administration Senna 2 tab 11/21/19 22:00 11/22/19 21:26 Senna - PO 2 tab HS PRN Administration CONSTIPATION Tramadol HCl 50 mg 11/23/19 21:15 Ultram - PO Q12H PRN PAIN LEVEL 6-10 Triamcinolone Acetonide 1 applic 11/20/19 21:10 Aristocort 0.1% Cream - TP DAILY PRN rash Laboratory Results - last 24 hr 11/23/19 11/23/19 11/23/19 11:33 16:55 16:55 D-Dimer Sodium 134 L Potassium 4.7 Chloride 97 L Carbon Dioxide 25 Anion Gap 12 BUN 49.7 H Creatinine 3.5 H Est GFR (CKD-EPI)AfAm 12.90 Est GFR (CKD-EPI)NonAf 11.13 Random Glucose 177 H Calcium 9.0 Total Bilirubin 1.0 AST 57 H ALT 27 Alkaline Phosphatase 200 H Total Protein 7.2 Albumin 2.3 L TSH 3.55 Urine Color Yellow Urine Appearance Clear Urine pH 5.0 Ur Specific Peebles 1.020 Urine Protein 2+ H Urine Glucose (UA) Negative Urine Ketones Negative Urine Blood 1+ H Urine Nitrite Positive Urine Bilirubin 1+ H Urine Urobilinogen 1.0 Ur Leukocyte Esterase Trace Urine WBC (Auto) 90.9 Urine RBC (Auto) 213.1 Urine Casts (Auto) 3.59 U Epithel Cells (Auto) 78.4 Urine Bacteria (Auto) 290 Ur Random Creatinine 140.0 Ur Random Sodium 26 L Ur Random Potassium 46.0 Ur Random Chloride 19 L 11/24/19 11/24/19 06:20 06:20 D-Dimer Cancelled Sodium 135 L Potassium 4.8 Chloride 97 L Carbon Dioxide 25 Anion Gap 13 BUN 63.1 H Creatinine 4.2 H Est GFR (CKD-EPI)AfAm 10.35 Est GFR (CKD-EPI)NonAf 8.93 Random Glucose 105 Calcium 8.9 Total Bilirubin 0.4 AST 50 H ALT 26 Alkaline Phosphatase 180 H Total Protein 6.4 Albumin 1.9 L TSH Urine Color Urine Appearance Urine pH Ur Specific Peebles Urine Protein Urine Glucose (UA) Urine Ketones Urine Blood Urine Nitrite Urine Bilirubin Urine Urobilinogen Ur Leukocyte Esterase Urine WBC (Auto) Urine RBC (Auto) Urine Casts (Auto) U Epithel Cells (Auto) Urine Bacteria (Auto) Ur Random Creatinine Ur Random Sodium Ur Random Potassium Ur Random Chloride S1 S2 RRR Lungs decreased Abd- soft, NT no edema PLAN worsening renal function, spoke with Renal ID eval for antibiotics for UTI renal sono noted continue with meds
--- NOTE | 2019-11-24 13:05 | PN ---
Progress Note (short form) - Note Progress Note: cc: fever s: no chest pain, palps, dizziness, dyspnea Current Medications Generic Name Dose Route Start Last Admin Trade Name Freq PRN Reason Stop Dose Admin Acetaminophen 650 mg 11/21/19 19:21 11/23/19 17:34 Tylenol - PO 650 mg Q6H PRN Administration FEVER Albuterol Sulfate 2 puff 11/21/19 19:20 11/21/19 20:01 Ventolin Hfa Inhaler - IH 2 puff Q4H PRN Administration SHORT OF BREATH/WHEEZING Albuterol/Ipratropium 1 amp 11/23/19 09:21 Duoneb - NEB Q4H PRN SHORTNESS OF BREATH Calcium Carbonate/Cholecalciferol 1 tab 11/21/19 10:00 11/24/19 10:40 Os-Samuel 500+D - PO 1 tab DAILY ANA Administration Docusate Sodium 100 mg 11/20/19 21:23 11/22/19 09:54 Colace - PO 100 mg BID PRN Administration CONSTIPATION Gabapentin 100 mg 11/24/19 12:45 Neurontin - PO DAILY ANA Heparin Sodium (Porcine) 5,000 unit 11/20/19 22:00 11/24/19 10:40 Heparin - SQ 5,000 unit BID ANA Administration Ceftriaxone Sodium 1 gm/ 50 mls @ 200 mls/hr 11/21/19 10:00 11/24/19 10:41 Dextrose IVPB 200 mls/hr DAILY ANA Administration Protocol Sodium Chloride 1,000 mls @ 60 mls/hr 11/23/19 16:45 11/23/19 17:06 Normal Saline - IV 11/24/19 16:41 60 mls/hr ASDIR ANA Administration Metoprolol Tartrate 25 mg 11/23/19 10:30 11/24/19 10:40 Lopressor - PO 25 mg BID ANA Administration Polyethylene Glycol 17 gm 11/21/19 15:00 11/24/19 10:41 Miralax (For Daily Use) - PO 17 grams DAILY ANA Administration Rosuvastatin Calcium 10 mg 11/20/19 22:00 11/23/19 21:19 Crestor - PO 10 mg HS ANA Administration Senna 2 tab 11/21/19 22:00 11/22/19 21:26 Senna - PO 2 tab HS PRN Administration CONSTIPATION Tramadol HCl 50 mg 11/23/19 21:15 Ultram - PO Q12H PRN PAIN LEVEL 6-10 Triamcinolone Acetonide 1 applic 11/20/19 21:10 Aristocort 0.1% Cream - TP DAILY PRN rash Vital Signs Period Temp Pulse Resp BP Sys/Corral Pulse Ox Last 24 Hr 97.6 F-99.4 F 72-108 18-24 108-167/52-78 95-99 Constitutional: Yes: Well Nourished, No Distress, Calm Cardiovascular: Yes: Regular Rate and Rhythm, S1, S2. No: JVD, Gallop, Murmur Respiratory: Yes: Regular, CTA Bilaterally. No: Accessory Muscle Use Extremities: No: Cold Edema: No Neurological: Yes: Alert. No: Seizure Psychiatric: No: Agitated no jaundice, diaphoresis Assessment/Plan Echo 02/2018: nl LV/RV, E/A reversal, mild MR, PASP at least 39 mmHg echo 11/2019 nl LV/RV function, mild to mod MV thickening, mild to mod MAC, tr MR, tr to mild TR, RVSP 35 mmHg, mod AV thickening, tr AR CXR: clear lungs/pleura ECG x 2: NSR, nl axis/intervals. no ST-T changes vs prior, no q's tele: sinus fever, UTI sx's with dirty UA, joint pains (h/o OA), tachycardia: -per pmd elevated troponin: -trop in indeterminate range, flat trend (0.2-0.2-0.1)= not c/w ACS event -no ischemic sx's, no ischemic ECG findings - echo here unremarkable -no further cv workup indicated unless clinical picture changes h/o saddle pulmonary embolism, extensive RLE DVT (2018) - circumstances/risk factors for VTE unclear to me at this time -pt was discharged on warfarin, was on 6 months course as it was considered provoked Elevated troponin - trop 0.11->0.58->0.53->1.15->0.34. no ischemic ECG changes. - secondary to massive PE - no further CV w/u indicated at present time HLD - cont home statin HTN -target < 140/90 -mildly elevated, observe trend. cont home meds for now chronic diastolic HF - cont home lasix 40 qd - no signs HF at present time D/C TELEMETRY
--- NOTE | 2019-11-24 13:11 | PN ---
Progress Note, Physician History of Present Illness: Pt seen and examined at bedside. She is awake and alert. She denies shortness of breath. She denies edema. She still has poor appetite. - Current Medication List Current Medications: Active Medications Acetaminophen (Tylenol -) 650 mg PO Q6H PRN PRN Reason: FEVER Last Admin: 11/23/19 17:34 Dose: 650 mg Documented by: Albuterol Sulfate (Ventolin Hfa Inhaler -) 2 puff IH Q4H PRN PRN Reason: SHORT OF BREATH/WHEEZING Last Admin: 11/21/19 20:01 Dose: 2 puff Documented by: Albuterol/Ipratropium (Duoneb -) 1 amp NEB Q4H PRN PRN Reason: SHORTNESS OF BREATH Calcium Carbonate/Cholecalciferol (Os-Samuel 500+D -) 1 tab PO DAILY [facility] Last Admin: 11/24/19 10:40 Dose: 1 tab Documented by: Docusate Sodium (Colace -) 100 mg PO BID PRN PRN Reason: CONSTIPATION Last Admin: 11/22/19 09:54 Dose: 100 mg Documented by: Gabapentin (Neurontin -) 100 mg PO DAILY [facility] Heparin Sodium (Porcine) (Heparin -) 5,000 unit SQ BID ANA Last Admin: 11/24/19 10:40 Dose: 5,000 unit Documented by: Ceftriaxone Sodium 1 gm/ (Dextrose) 50 mls @ 200 mls/hr IVPB DAILY [facility]; Protocol Last Admin: 11/24/19 10:41 Dose: 200 mls/hr Documented by: Sodium Chloride (Normal Saline -) 1,000 mls @ 60 mls/hr IV ASDIR ANA Stop: 11/24/19 16:41 Last Admin: 11/23/19 17:06 Dose: 60 mls/hr Documented by: Metoprolol Tartrate (Lopressor -) 25 mg PO BID ANA Last Admin: 11/24/19 10:40 Dose: 25 mg Documented by: Polyethylene Glycol (Miralax (For Daily Use) -) 17 gm PO DAILY ANA Last Admin: 11/24/19 10:41 Dose: 17 grams Documented by: Rosuvastatin Calcium (Crestor -) 10 mg PO HS ANA Last Admin: 11/23/19 21:19 Dose: 10 mg Documented by: Senna (Senna -) 2 tab PO HS PRN PRN Reason: CONSTIPATION Last Admin: 11/22/19 21:26 Dose: 2 tab Documented by: Tramadol HCl (Ultram -) 50 mg PO Q12H PRN PRN Reason: PAIN LEVEL 6-10 Triamcinolone Acetonide (Aristocort 0.1% Cream -) 1 applic TP DAILY PRN PRN Reason: rash - Objective Vital Signs: Vital Signs Temperature 97.6 F 11/24/19 10:00 Pulse Rate 74 11/24/19 10:00 Respiratory Rate 24 H 11/24/19 10:00 Blood Pressure 167/77 11/24/19 10:00 O2 Sat by Pulse Oximetry (%) 98 11/24/19 10:00 Constitutional: Yes: Calm Eyes: Yes: Conjunctiva Clear HENT: Yes: Atraumatic Neck: Yes: Supple Cardiovascular: Yes: S1, S2 Respiratory: Yes: CTA Bilaterally Gastrointestinal: Yes: Soft, Abdomen, Obese Genitourinary: Yes: WNL Musculoskeletal: Yes: WNL Edema: No Integumentary: Yes: WNL Neurological: Yes: Oriented Psychiatric: Yes: Oriented Labs: CBC, BMP 11/23/19 11:33 11/24/19 06:20 INR, PTT INR 1.18 (0.83-1.09) H 11/20/19 16:30 - ....Imaging Ultrasound: Report Reviewed Problem List - Problems (1) ALESIA (acute kidney injury) Code(s): N17.9 - ACUTE KIDNEY FAILURE, UNSPECIFIED (2) CKD (chronic kidney disease) Code(s): N18.9 - CHRONIC KIDNEY DISEASE, UNSPECIFIED Assessment/Plan Current Medications Generic Name Dose Route Start Last Admin Trade Name Dominicq PRN Reason Stop Dose Admin Acetaminophen 650 mg 11/21/19 19:21 11/23/19 17:34 Tylenol - PO 650 mg Q6H PRN Administration FEVER Albuterol Sulfate 2 puff 11/21/19 19:20 11/21/19 20:01 Ventolin Hfa Inhaler - IH 2 puff Q4H PRN Administration SHORT OF BREATH/WHEEZING Albuterol/Ipratropium 1 amp 11/23/19 09:21 Duoneb - NEB Q4H PRN SHORTNESS OF BREATH Calcium Carbonate/Cholecalciferol 1 tab 11/21/19 10:00 08/18/20 10:40 Os-Samuel 500+D - PO 1 tab DAILY ANA Administration Docusate Sodium 100 mg 11/20/19 21:23 11/22/19 09:54 Colace - PO 100 mg BID PRN Administration CONSTIPATION Gabapentin 100 mg 11/24/19 12:45 Neurontin - PO DAILY ANA Heparin Sodium (Porcine) 5,000 unit 11/20/19 22:00 11/24/19 10:40 Heparin - SQ 5,000 unit BID ANA Administration Ceftriaxone Sodium 1 gm/ 50 mls @ 200 mls/hr 11/21/19 10:00 11/24/19 10:41 Dextrose IVPB 200 mls/hr DAILY ANA Administration Protocol Sodium Chloride 1,000 mls @ 60 mls/hr 11/23/19 16:45 11/23/19 17:06 Normal Saline - IV 11/24/19 16:41 60 mls/hr ASDIR ANA Administration Metoprolol Tartrate 25 mg 11/23/19 10:30 11/24/19 10:40 Lopressor - PO 25 mg BID ANA Administration Polyethylene Glycol 17 gm 11/21/19 15:00 11/24/19 10:41 Miralax (For Daily Use) - PO 17 grams DAILY ANA Administration Rosuvastatin Calcium 10 mg 11/20/19 22:00 11/23/19 21:19 Crestor - PO 10 mg HS ANA Administration Senna 2 tab 11/21/19 22:00 11/22/19 21:26 Senna - PO 2 tab HS PRN Administration CONSTIPATION Tramadol HCl 50 mg 11/23/19 21:15 Ultram - PO Q12H PRN PAIN LEVEL 6-10 Triamcinolone Acetonide 1 applic 11/20/19 21:10 Aristocort 0.1% Cream - TP DAILY PRN rash Impression 1. ALESIA 2. ckd 3. uti 4. atrophic kidney 5. constipation 6. htn 7. PE 8. CHF Plan - renal function worsening - hold lasix - cont fluids - fena is about 0.49 - repeat labs in am - will order serologic workup - consider alt abx - discussed with medical team - pt has severe left renal atrophy - follow urine eos
[2019-11-24] MEDS ORDERED: SODIUM CHLORIDE 1,000 ML IV SCH (13:12)
[2019-11-24] MEDS: GABAPENTIN 100 MG CAPSULE PO SCH (13:53)
--- NOTE | 2019-11-24 16:11 | PN ---
Progress Note (short form) - Note Progress Note: ID CONSULT DICTATED UTI R/O SEPSIS SECONDARY TO UTI ACUTE ON CHRONIC RENAL FAILURE DAY #5 IV ANTIBIOTICS SUBSTITUTE AMOXICILLIN 250MG PO BID X 3D
--- NOTE | 2019-11-24 17:00 | CONS ---
DATE OF CONSULTATION: DATE OF DICTATION: 11/24/2019 INFECTIOUS DISEASE CONSULTATION HISTORY OF PRESENT ILLNESS: The patient is an 89-year-old female with a history of recurrent urinary tract infection, chronic kidney disease, now evaluated for a UTI. She was brought to the emergency room on November 20, 2019, with complaints of fever, low back pain, malodorous dark urine, and decreased oral intake for 3 days prior to admission. In the emergency room, the patient was noted to be febrile to 101.6 with an elevated white blood cell count. She was tachycardic. Cultures were obtained. She was empirically treated with Zosyn and ceftriaxone. She is presently day number 5 of IV antibiotic therapy. The patient has a female urinary catheter in place. She denies any suprapubic or calf pain. Her temperatures have been normal. White blood cell count has improved. CAT scan of the abdomen and pelvis showed an atrophic left kidney, no evidence of urinary obstruction. No evidence of obstructive uropathy. PAST MEDICAL HISTORY: Positive for hypertension, hyperlipidemia, and recurrent urinary tract infections, chronic kidney disease, congestive heart failure, osteoarthritis, pulmonary embolism. ALLERGIES: CLINDAMYCIN, SULFA, and LACTOSE. SOCIAL HISTORY: She resides in the community with family. Nonsmoker, nondrinker. SYSTEMS REVIEW: Neurologic: No loss of consciousness, seizure activity, focal weakness. Cardiac: Negative for chest pain or palpitations. Respiratory: Negative for cough or sputum production. Gastrointestinal: Negative vomiting or diarrhea. Genitourinary: As per HPI. LABORATORY DATA: White count 11.1, hematocrit 34.6, platelets 280, creatinine 4.2, lactic acid 1.3. Urinalysis 1535 white cells. Blood cultures negative. Urine culture grew a linares sensitive E. coli. PHYSICAL EXAMINATION: General: On exam, she is awake and alert, she is not acutely toxic appearing. Vital signs: Temperature 98.8, blood pressure 149/64, pulse 88 regular, respirations 22 per minute. HEENT: Sclerae anicteric. Patient is obese. Cardiovascular: Heart sounds S1, S2. Lungs: Clear. Abdomen: Soft, no suprapubic tenderness, no flank tenderness. Extremities: Positive for edema. IMPRESSION: 1. Urinary tract infection. Possible sepsis secondary to urinary tract infection. 2. Acute on chronic renal failure. 3. Exacerbation osteoarthritis. 4. CLINDAMYCIN and SULFA allergies. Presently day number 5 IV antibiotics. We will substitute amoxicillin adjusted for renal insufficiency. Will give 250 mg p.o. b.i.d. for 3 days. Case discussed with patient's daughter, present at the time of the examination. Thank you for the kind referral. ZAFAR JIN M.D. [id number]
[2019-11-24] MEDS ORDERED: PT OWN MED DRAWER 7, Y5N ONE (21:33)
[2019-11-24] MEDS: AMOXICILLIN 250 MG CAPSULE PO SCH (21:40)
[2019-11-24] MEDS: ROSUVASTATIN CA 10 MG TABLET (FP) PO SCH (21:40)
[2019-11-25 07:28] LABS: BILIRUBIN,TOTAL 0.4 mg/dL (0.2-1); BLOOD UREA NITROGEN 78.6 mg/dL (7-18); CALCIUM 8.9 mg/dL (8.5-10.1); CREATININE 4.2 mg/dL (0.55-1.3); POTASSIUM 5.4 mmol/L (3.5-5.1); TOT PROT 6.9 g/dl (6.4-8.2)
[2019-11-25] MEDS ORDERED: SODIUM ZIRCONIUM CYCLOSILICATE (LOKELMA) 5 GM PACKET PO ONE (07:41)
[2019-11-25] MEDS ORDERED: PT OWN MED DRAWER 7, Y5N ONE ×2 (09:44→20:51)
[2019-11-25] MEDS: HEPARIN NA (PORCINE) 5,000 UNITS/ML 1ML VIAL SQ SCH ×2 (09:59→20:59)
[2019-11-25] MEDS: AMOXICILLIN 250 MG CAPSULE PO SCH ×2 (09:59→21:00)
[2019-11-25] MEDS: CALCIUM 500MG/VIT-D 200 UNITS COMBO TABLET (FP) PO SCH (09:59)
[2019-11-25] MEDS: GABAPENTIN 100 MG CAPSULE PO SCH (10:00)
[2019-11-25] MEDS: POLYETHYLENE GLYCOL 3350 119 GM BTL PO SCH (10:00)
[2019-11-25] MEDS: METOPROLOL TARTRATE 25 MG TABLET (FP) PO SCH ×2 (10:00→20:59)
--- NOTE | 2019-11-25 10:40 | PN ---
Progress Note, Physician History of Present Illness: pulmonary alert,comfortable,sob improving,-cp - Current Medication List Current Medications: Active Medications Acetaminophen (Tylenol -) 650 mg PO Q6H PRN PRN Reason: FEVER Last Admin: 11/23/19 17:34 Dose: 650 mg Documented by: Albuterol Sulfate (Ventolin Hfa Inhaler -) 2 puff IH Q4H PRN PRN Reason: SHORT OF BREATH/WHEEZING Last Admin: 11/21/19 20:01 Dose: 2 puff Documented by: Albuterol/Ipratropium (Duoneb -) 1 amp NEB Q4H PRN PRN Reason: SHORTNESS OF BREATH Amoxicillin (Amoxicillin -) 250 mg PO BID [facility] Last Admin: 11/25/19 09:59 Dose: 250 mg Documented by: Calcium Carbonate/Cholecalciferol (Os-Samuel 500+D -) 1 tab PO DAILY [facility] Last Admin: 11/25/19 09:59 Dose: 1 tab Documented by: Docusate Sodium (Colace -) 100 mg PO BID PRN PRN Reason: CONSTIPATION Last Admin: 11/22/19 09:54 Dose: 100 mg Documented by: Gabapentin (Neurontin -) 100 mg PO DAILY [facility] Last Admin: 11/25/19 10:00 Dose: 100 mg Documented by: Heparin Sodium (Porcine) (Heparin -) 5,000 unit SQ BID [facility] Last Admin: 11/25/19 09:59 Dose: 5,000 unit Documented by: Metoprolol Tartrate (Lopressor -) 25 mg PO BID [facility] Last Admin: 11/25/19 10:00 Dose: 25 mg Documented by: Polyethylene Glycol (Miralax (For Daily Use) -) 17 gm PO DAILY [facility] Last Admin: 11/25/19 10:00 Dose: 17 grams Documented by: Rosuvastatin Calcium (Crestor -) 10 mg PO HS [facility] Last Admin: 11/24/19 21:40 Dose: Not Given Documented by: Senna (Senna -) 2 tab PO HS PRN PRN Reason: CONSTIPATION Last Admin: 11/22/19 21:26 Dose: 2 tab Documented by: Tramadol HCl (Ultram -) 50 mg PO Q12H PRN PRN Reason: PAIN LEVEL 6-10 Triamcinolone Acetonide (Aristocort 0.1% Cream -) 1 applic TP DAILY PRN PRN Reason: rash - Objective Vital Signs: Vital Signs Temperature 98.3 F 11/25/19 10:00 Pulse Rate 89 11/25/19 10:00 Respiratory Rate 18 11/25/19 10:00 Blood Pressure 161/77 11/25/19 10:00 O2 Sat by Pulse Oximetry (%) 97 11/25/19 10:00 Constitutional: Yes: Well Nourished, Calm Eyes: Yes: WNL HENT: Yes: WNL Neck: Yes: WNL Cardiovascular: Yes: Regular Rate and Rhythm, S1, S2 Respiratory: Yes: Diminished Gastrointestinal: Yes: Normal Bowel Sounds, Soft Extremities: Yes: WNL Edema: Yes Labs: 11/25/19 06:11 INR, PTT Assessment/Plan roblem List - Problems (1) Diastolic HF (heart failure) Code(s): I50.30 - UNSPECIFIED DIASTOLIC (CONGESTIVE) HEART FAILURE (2) UTI (urinary tract infection) Code(s): N39.0 - URINARY TRACT INFECTION, SITE NOT SPECIFIED Qualifiers: Urinary tract infection type: acute cystitis Hematuria presence: without hematuria Qualified Code(s): N30.00 - Acute cystitis without hematuria (3) Congestive heart failure Code(s): I50.9 - HEART FAILURE, UNSPECIFIED Qualifiers: Heart failure type: unspecified Heart failure chronicity: acute Qualified Code(s): I50.9 - Heart failure, unspecified (4) Fever Code(s): R50.9 - FEVER, UNSPECIFIED Qualifiers: Fever type: unspecified Qualified Code(s): R50.9 - Fever, unspecified Assessment/Plan FEVER/UTI + E-COLI ACUTE ON CHRONIC KIDNEY DISEASE PULMONARY HTN H/P SADDLE PE S/P IR CATHETER GUIDED TPA DIASTOLIC HF HTN HLD + TROPONIN PLAN SUPPLEMENTAL O2 INHALED BRONCHODILATORS PRN ABX MONITOR LYTES,RENAL FUNCTION TREND TROPONIN DR KOO
--- NOTE | 2019-11-25 10:53 | PN ---
Progress Note, Physician History of Present Illness: Pt seen and examined at bedside. She is awake and alert. She denies shortness of breath. She denies dysuria. - Current Medication List Current Medications: Active Medications Acetaminophen (Tylenol -) 650 mg PO Q6H PRN PRN Reason: FEVER Last Admin: 11/23/19 17:34 Dose: 650 mg Documented by: Albuterol Sulfate (Ventolin Hfa Inhaler -) 2 puff IH Q4H PRN PRN Reason: SHORT OF BREATH/WHEEZING Last Admin: 11/21/19 20:01 Dose: 2 puff Documented by: Albuterol/Ipratropium (Duoneb -) 1 amp NEB Q4H PRN PRN Reason: SHORTNESS OF BREATH Amoxicillin (Amoxicillin -) 250 mg PO BID [facility] Last Admin: 11/25/19 09:59 Dose: 250 mg Documented by: Calcium Carbonate/Cholecalciferol (Os-Samuel 500+D -) 1 tab PO DAILY [facility] Last Admin: 11/25/19 09:59 Dose: 1 tab Documented by: Docusate Sodium (Colace -) 100 mg PO BID PRN PRN Reason: CONSTIPATION Last Admin: 11/22/19 09:54 Dose: 100 mg Documented by: Gabapentin (Neurontin -) 100 mg PO DAILY [facility] Last Admin: 11/25/19 10:00 Dose: 100 mg Documented by: Heparin Sodium (Porcine) (Heparin -) 5,000 unit SQ BID [facility] Last Admin: 11/25/19 09:59 Dose: 5,000 unit Documented by: Metoprolol Tartrate (Lopressor -) 25 mg PO BID [facility] Last Admin: 11/25/19 10:00 Dose: 25 mg Documented by: Polyethylene Glycol (Miralax (For Daily Use) -) 17 gm PO DAILY [facility] Last Admin: 11/25/19 10:00 Dose: 17 grams Documented by: Rosuvastatin Calcium (Crestor -) 10 mg PO HS [facility] Last Admin: 11/24/19 21:40 Dose: Not Given Documented by: Senna (Senna -) 2 tab PO HS PRN PRN Reason: CONSTIPATION Last Admin: 11/22/19 21:26 Dose: 2 tab Documented by: Tramadol HCl (Ultram -) 50 mg PO Q12H PRN PRN Reason: PAIN LEVEL 6-10 Triamcinolone Acetonide (Aristocort 0.1% Cream -) 1 applic TP DAILY PRN PRN Reason: rash - Objective Vital Signs: Vital Signs Temperature 98.3 F 11/25/19 10:00 Pulse Rate 89 11/25/19 10:00 Respiratory Rate 18 11/25/19 10:00 Blood Pressure 161/77 11/25/19 10:00 O2 Sat by Pulse Oximetry (%) 97 11/25/19 10:00 Constitutional: Yes: Calm Eyes: Yes: Conjunctiva Clear HENT: Yes: Atraumatic Neck: Yes: Supple Cardiovascular: Yes: S1, S2 Respiratory: Yes: CTA Bilaterally Gastrointestinal: Yes: Soft Genitourinary: Yes: WNL Extremities: Yes: WNL Edema: No Neurological: Yes: Oriented Psychiatric: Yes: Oriented Labs: CBC, BMP 11/23/19 11:33 11/25/19 06:11 INR, PTT INR 1.18 (0.83-1.09) H 11/20/19 16:30 Problem List - Problems (1) ALESIA (acute kidney injury) Code(s): N17.9 - ACUTE KIDNEY FAILURE, UNSPECIFIED (2) CKD (chronic kidney disease) Code(s): N18.9 - CHRONIC KIDNEY DISEASE, UNSPECIFIED Assessment/Plan Current Medications Generic Name Dose Route Start Last Admin Trade Name Freq PRN Reason Stop Dose Admin Acetaminophen 650 mg 11/21/19 19:21 11/23/19 17:34 Tylenol - PO 650 mg Q6H PRN Administration FEVER Albuterol Sulfate 2 puff 11/21/19 19:20 11/21/19 20:01 Ventolin Hfa Inhaler - IH 2 puff Q4H PRN Administration SHORT OF BREATH/WHEEZING Albuterol/Ipratropium 1 amp 11/23/19 09:21 Duoneb - NEB Q4H PRN SHORTNESS OF BREATH Amoxicillin 250 mg 11/24/19 22:00 11/25/19 09:59 Amoxicillin - PO 250 mg BID ANA Administration Calcium Carbonate/Cholecalciferol 1 tab 11/21/19 10:00 11/25/19 09:59 Os-Samuel 500+D - PO 1 tab DAILY ANA Administration Docusate Sodium 100 mg 11/20/19 21:23 11/22/19 09:54 Colace - PO 100 mg BID PRN Administration CONSTIPATION Gabapentin 100 mg 11/24/19 12:45 11/25/19 10:00 Neurontin - PO 100 mg DAILY ANA Administration Heparin Sodium (Porcine) 5,000 unit 11/20/19 22:00 11/25/19 09:59 Heparin - SQ 5,000 unit BID ANA Administration Metoprolol Tartrate 25 mg 11/23/19 10:30 11/25/19 10:00 Lopressor - PO 25 mg BID ANA Administration Polyethylene Glycol 17 gm 11/21/19 15:00 11/25/19 10:00 Miralax (For Daily Use) - PO 17 grams DAILY ANA Administration Rosuvastatin Calcium 10 mg 11/20/19 22:00 11/24/19 21:40 Crestor - PO Not Given HS ANA Senna 2 tab 11/21/19 22:00 11/22/19 21:26 Senna - PO 2 tab HS PRN Administration CONSTIPATION Tramadol HCl 50 mg 11/23/19 21:15 Ultram - PO Q12H PRN PAIN LEVEL 6-10 Triamcinolone Acetonide 1 applic 11/20/19 21:10 Aristocort 0.1% Cream - TP DAILY PRN rash Impression 1. ALESIA 2. ckd 3. uti 4. atrophic kidney 5. constipation 6. htn 7. PE 8. CHF Plan - cont to monitor renal function - restart saline - repeat labs in am - follow serologies - abx stopped - follow urine eos - cxr reviewed - hold melinda
[2019-11-25] MEDS: SODIUM CHLORIDE 1,000 ML IV SCH (12:00)
--- NOTE | 2019-11-25 12:19 | PN ---
Progress Note (short form) - Note Progress Note: cc: fever s: no chest pain, palps, dizziness, dyspnea Current Medications Generic Name Dose Route Start Last Admin Trade Name Freq PRN Reason Stop Dose Admin Acetaminophen 650 mg 11/21/19 19:21 11/23/19 17:34 Tylenol - PO 650 mg Q6H PRN Administration FEVER Albuterol Sulfate 2 puff 11/21/19 19:20 11/21/19 20:01 Ventolin Hfa Inhaler - IH 2 puff Q4H PRN Administration SHORT OF BREATH/WHEEZING Albuterol/Ipratropium 1 amp 11/23/19 09:21 Duoneb - NEB Q4H PRN SHORTNESS OF BREATH Amoxicillin 250 mg 11/24/19 22:00 11/25/19 09:59 Amoxicillin - PO 250 mg BID ANA Administration Calcium Carbonate/Cholecalciferol 1 tab 11/21/19 10:00 11/25/19 09:59 Os-Samuel 500+D - PO 1 tab DAILY ANA Administration Docusate Sodium 100 mg 11/20/19 21:23 11/22/19 09:54 Colace - PO 100 mg BID PRN Administration CONSTIPATION Gabapentin 100 mg 11/24/19 12:45 11/25/19 10:00 Neurontin - PO 100 mg DAILY ANA Administration Heparin Sodium (Porcine) 5,000 unit 11/20/19 22:00 11/25/19 09:59 Heparin - SQ 5,000 unit BID ANA Administration Sodium Chloride 1,000 mls @ 50 mls/hr 11/25/19 11:00 Normal Saline - IV 11/26/19 10:53 ASDIR ANA Metoprolol Tartrate 25 mg 11/23/19 10:30 11/25/19 10:00 Lopressor - PO 25 mg BID ANA Administration Polyethylene Glycol 17 gm 11/21/19 15:00 11/25/19 10:00 Miralax (For Daily Use) - PO 17 grams DAILY ANA Administration Rosuvastatin Calcium 10 mg 11/20/19 22:00 11/24/19 21:40 Crestor - PO Not Given HS ANA Senna 2 tab 11/21/19 22:00 11/22/19 21:26 Senna - PO 2 tab HS PRN Administration CONSTIPATION Tramadol HCl 50 mg 11/23/19 21:15 Ultram - PO Q12H PRN PAIN LEVEL 6-10 Triamcinolone Acetonide 1 applic 11/20/19 21:10 Aristocort 0.1% Cream - TP DAILY PRN rash Vital Signs Period Temp Pulse Resp BP Sys/Corral Pulse Ox Last 24 Hr 98.1 F-98.8 F 83-90 18-22 133-161/66-79 95-98 Constitutional: Yes: Well Nourished, No Distress, Calm Cardiovascular: Yes: Regular Rate and Rhythm, S1, S2. No: JVD, Gallop, Murmur Respiratory: Yes: Regular, CTA Bilaterally. No: Accessory Muscle Use Extremities: No: Cold Edema: No Neurological: Yes: Alert. No: Seizure Psychiatric: No: Agitated no jaundice, diaphoresis Assessment/Plan Echo 02/2018: nl LV/RV, E/A reversal, mild MR, PASP at least 39 mmHg echo 11/2019 nl LV/RV function, mild to mod MV thickening, mild to mod MAC, tr MR, tr to mild TR, RVSP 35 mmHg, mod AV thickening, tr AR CXR: clear lungs/pleura ECG x 2: NSR, nl axis/intervals. no ST-T changes vs prior, no q's tele: sinus fever, UTI sx's with dirty UA, joint pains (h/o OA), tachycardia: -per pmd elevated troponin: -trop in indeterminate range, flat trend (0.2-0.2-0.1)= not c/w ACS event -no ischemic sx's, no ischemic ECG findings - echo here unremarkable -no further cv workup indicated unless clinical picture changes h/o saddle pulmonary embolism, extensive RLE DVT (2018) - circumstances/risk factors for VTE unclear to me at this time -pt was discharged on warfarin, was on 6 months course as it was considered provoked Elevated troponin - trop 0.11->0.58->0.53->1.15->0.34. no ischemic ECG changes. - secondary to massive PE - no further CV w/u indicated at present time HLD - cont home statin HTN -target < 140/90 -mildly elevated, observe trend. cont home meds for now chronic diastolic HF - holding home lasix for ALESIA, renal following - monitor volume status on IVF - no signs HF at present time D/C TELEMETRY
--- NOTE | 2019-11-25 12:54 | PN ---
Progress Note (short form) - Note Progress Note: events noted no sob Vital Signs - 24 hr 11/24/19 11/24/19 11/24/19 13:57 18:00 21:00 Temperature 98.8 F 98.8 F Pulse Rate 88 90 Respiratory 22 H 20 Rate Blood Pressure 149/67 145/79 O2 Sat by Pulse 98 98 95 Oximetry (%) 11/24/19 11/25/19 11/25/19 22:00 02:00 06:00 Temperature 98.1 F 98.8 F 98.7 F Pulse Rate 85 89 83 Respiratory 18 18 18 Rate Blood Pressure 135/66 133/66 153/75 O2 Sat by Pulse 95 95 97 Oximetry (%) 11/25/19 10:00 Temperature 98.3 F Pulse Rate 89 Respiratory 18 Rate Blood Pressure 161/77 O2 Sat by Pulse 97 Oximetry (%) Current Medications Generic Name Dose Route Start Last Admin Trade Name Freq PRN Reason Stop Dose Admin Acetaminophen 650 mg 11/21/19 19:21 11/23/19 17:34 Tylenol - PO 650 mg Q6H PRN Administration FEVER Albuterol Sulfate 2 puff 11/21/19 19:20 11/21/19 20:01 Ventolin Hfa Inhaler - IH 2 puff Q4H PRN Administration SHORT OF BREATH/WHEEZING Albuterol/Ipratropium 1 amp 11/23/19 09:21 Duoneb - NEB Q4H PRN SHORTNESS OF BREATH Amoxicillin 250 mg 11/24/19 22:00 11/25/19 09:59 Amoxicillin - PO 250 mg BID ANA Administration Calcium Carbonate/Cholecalciferol 1 tab 11/21/19 10:00 11/25/19 09:59 Os-Samuel 500+D - PO 1 tab DAILY ANA Administration Docusate Sodium 100 mg 11/20/19 21:23 11/22/19 09:54 Colace - PO 100 mg BID PRN Administration CONSTIPATION Gabapentin 100 mg 11/24/19 12:45 11/25/19 10:00 Neurontin - PO 100 mg DAILY ANA Administration Heparin Sodium (Porcine) 5,000 unit 11/20/19 22:00 11/25/19 09:59 Heparin - SQ 5,000 unit BID ANA Administration Sodium Chloride 1,000 mls @ 50 mls/hr 11/25/19 11:00 Normal Saline - IV 11/26/19 10:53 ASDIR ANA Metoprolol Tartrate 25 mg 11/23/19 10:30 11/25/19 10:00 Lopressor - PO 25 mg BID ANA Administration Polyethylene Glycol 17 gm 11/21/19 15:00 11/25/19 10:00 Miralax (For Daily Use) - PO 17 grams DAILY ANA Administration Rosuvastatin Calcium 10 mg 11/20/19 22:00 11/24/19 21:40 Crestor - PO Not Given HS ANA Senna 2 tab 11/21/19 22:00 11/22/19 21:26 Senna - PO 2 tab HS PRN Administration CONSTIPATION Tramadol HCl 50 mg 11/23/19 21:15 Ultram - PO Q12H PRN PAIN LEVEL 6-10 Triamcinolone Acetonide 1 applic 11/20/19 21:10 Aristocort 0.1% Cream - TP DAILY PRN rash Laboratory Results - last 24 hr 11/25/19 06:11 Sodium 135 L Potassium 5.4 H Chloride 98 Carbon Dioxide 24 Anion Gap 13 BUN 78.6 H Creatinine 4.2 H Est GFR (CKD-EPI)AfAm 10.35 Est GFR (CKD-EPI)NonAf 8.93 Random Glucose 120 H Calcium 8.9 Total Bilirubin 0.4 AST 47 H ALT 28 Alkaline Phosphatase 181 H Total Protein 6.9 Albumin 2.0 L S1 S2 RRR Lungs decreased Abd- soft, NT no edema PLAN renal function stable iv fluids gentle hydration ID eval for antibiotics for UTI appreciated -- on Amoxicillin renal sono noted continue with meds doppler legs done today -- negative for DVT \
[2019-11-25] MEDS: amLODIPine BESYLATE 5 MG TABLET (FP) PO SCH (13:49)
[2019-11-25] MEDS: ROSUVASTATIN CA 10 MG TABLET (FP) PO SCH (21:00)
[2019-11-26] MEDS: SODIUM CHLORIDE 1,000 ML IV SCH (05:38)
[2019-11-26 07:52] LABS: CALCIUM 8.8 mg/dL (8.5-10.1); CREATININE 3.7 mg/dL (0.55-1.3); POTASSIUM 5.2 mmol/L (3.5-5.1)
[2019-11-26 07:54] LABS: BILIRUBIN,TOTAL 0.4 mg/dL (0.2-1); TOT PROT 6.6 g/dl (6.4-8.2)
[2019-11-26] MEDS: HEPARIN NA (PORCINE) 5,000 UNITS/ML 1ML VIAL SQ SCH ×2 (10:36→21:23)
[2019-11-26] MEDS: amLODIPine BESYLATE 5 MG TABLET (FP) PO SCH (10:37)
[2019-11-26] MEDS: POLYETHYLENE GLYCOL 3350 119 GM BTL PO SCH (10:37)
[2019-11-26] MEDS: AMOXICILLIN 250 MG CAPSULE PO SCH ×2 (10:37→21:23)
[2019-11-26] MEDS: CALCIUM 500MG/VIT-D 200 UNITS COMBO TABLET (FP) PO SCH (10:37)
[2019-11-26] MEDS: METOPROLOL TARTRATE 25 MG TABLET (FP) PO SCH ×2 (10:37→21:22)
[2019-11-26] MEDS: GABAPENTIN 100 MG CAPSULE PO SCH (10:37)
--- NOTE | 2019-11-26 11:40 | PN ---
Progress Note (short form) - Note Progress Note: Chief Complaint: fever History of Present Illness: denies palpitations, cp. mildly sob at rest, "always", going on for a year or so. no feet swelling no dizzy Current Medications Generic Name Dose Route Start Last Admin Trade Name Freq PRN Reason Stop Dose Admin Acetaminophen 650 mg 11/21/19 19:21 11/23/19 17:34 Tylenol - PO 650 mg Q6H PRN Administration FEVER Albuterol Sulfate 2 puff 11/21/19 19:20 11/21/19 20:01 Ventolin Hfa Inhaler - IH 2 puff Q4H PRN Administration SHORT OF BREATH/WHEEZING Albuterol/Ipratropium 1 amp 11/23/19 09:21 Duoneb - NEB Q4H PRN SHORTNESS OF BREATH Amlodipine Besylate 5 mg 11/25/19 13:00 11/26/19 10:37 Norvasc - PO 5 mg DAILY ANA Administration Amoxicillin 250 mg 11/24/19 22:00 11/26/19 10:37 Amoxicillin - PO 250 mg BID ANA Administration Calcium Carbonate/Cholecalciferol 1 tab 11/21/19 10:00 11/26/19 10:37 Os-Samuel 500+D - PO 1 tab DAILY ANA Administration Docusate Sodium 100 mg 11/20/19 21:23 11/22/19 09:54 Colace - PO 100 mg BID PRN Administration CONSTIPATION Gabapentin 100 mg 11/24/19 12:45 11/26/19 10:37 Neurontin - PO 100 mg DAILY ANA Administration Heparin Sodium (Porcine) 5,000 unit 11/20/19 22:00 11/26/19 10:36 Heparin - SQ 5,000 unit BID ANA Administration Metoprolol Tartrate 25 mg 11/23/19 10:30 11/26/19 10:37 Lopressor - PO 25 mg BID ANA Administration Polyethylene Glycol 17 gm 11/21/19 15:00 11/26/19 10:37 Miralax (For Daily Use) - PO 17 grams DAILY ANA Administration Rosuvastatin Calcium 10 mg 11/20/19 22:00 11/25/19 21:00 Crestor - PO 10 mg HS ANA Administration Senna 2 tab 11/21/19 22:00 11/22/19 21:26 Senna - PO 2 tab HS PRN Administration CONSTIPATION Tramadol HCl 50 mg 11/23/19 21:15 Ultram - PO Q12H PRN PAIN LEVEL 6-10 Triamcinolone Acetonide 1 applic 11/20/19 21:10 Aristocort 0.1% Cream - TP DAILY PRN rash Vital Signs Period Temp Pulse Resp BP Sys/Corral Pulse Ox Last 24 Hr 97.8 F-99.0 F 74-85 18-20 127-168/58-95 96-98 Constitutional: Yes: Well Nourished, No Distress, Calm Cardiovascular: Yes: Regular Rate and Rhythm, S1, S2. No: JVD, Gallop, Murmur Respiratory: Yes: Regular, CTA Bilaterally. No: Accessory Muscle Use Extremities: No: Cold Edema: No Neurological: Yes: Alert. No: Seizure Psychiatric: No: Agitated Labs: CBC, BMP 11/23/19 11:33 11/26/19 06:09 Assessment/Plan Echo 02/2018: nl LV/RV, E/A reversal, mild MR, PASP at least 39 mmHg CXR: clear lungs/pleura ECG x 2: NSR, nl axis/intervals. no ST-T changes vs prior, no q's tele: sinus fever, UTI sx's with dirty UA, joint pains (h/o OA), tachycardia: -per pmd elevated troponin: -trop in indeterminate range, flat trend (0.2-0.2-0.1)= not c/w ACS event -no ischemic sx's, no ischemic ECG findings - echo here unremarkable -no further cv workup indicated unless clinical picture changes h/o saddle pulmonary embolism, extensive RLE DVT (2018) - circumstances/risk factors for VTE unclear to me at this time -pt was discharged on warfarin, was on 6 months course as it was considered provoked Elevated troponin - trop 0.11->0.58->0.53->1.15->0.34. no ischemic ECG changes. - secondary to massive PE - no further CV w/u indicated at present time HLD - cont home statin HTN -cont current meds chronic diastolic HF - holding home lasix for ALSEIA, renal following - monitor volume status on IVF - no signs HF at present time D/C TELEMETRY
--- NOTE | 2019-11-26 12:28 | PN ---
Progress Note (short form) - Note Progress Note: events noted no sob has pain in left leg and hip not moving as per daughter--spoke to her today Vital Signs - 24 hr 11/25/19 11/25/19 11/25/19 13:36 19:35 21:00 Temperature 98.5 F 99.0 F Pulse Rate 79 74 Respiratory 18 18 Rate Blood Pressure 150/95 153/69 O2 Sat by Pulse 98 96 Oximetry (%) 11/25/19 11/26/19 11/26/19 22:30 05:00 09:00 Temperature 98.6 F 97.8 F 98.7 F Pulse Rate 85 84 84 Respiratory 20 20 18 Rate Blood Pressure 127/58 L 168/71 142/68 O2 Sat by Pulse 96 97 97 Oximetry (%) Current Medications Generic Name Dose Route Start Last Admin Trade Name Freq PRN Reason Stop Dose Admin Acetaminophen 650 mg 11/21/19 19:21 11/23/19 17:34 Tylenol - PO 650 mg Q6H PRN Administration FEVER Albuterol Sulfate 2 puff 11/21/19 19:20 11/21/19 20:01 Ventolin Hfa Inhaler - IH 2 puff Q4H PRN Administration SHORT OF BREATH/WHEEZING Albuterol/Ipratropium 1 amp 11/23/19 09:21 Duoneb - NEB Q4H PRN SHORTNESS OF BREATH Amlodipine Besylate 5 mg 11/25/19 13:00 11/26/19 10:37 Norvasc - PO 5 mg DAILY ANA Administration Amoxicillin 250 mg 11/24/19 22:00 11/26/19 10:37 Amoxicillin - PO 250 mg BID ANA Administration Calcium Carbonate/Cholecalciferol 1 tab 11/21/19 10:00 11/26/19 10:37 Os-Samuel 500+D - PO 1 tab DAILY ANA Administration Docusate Sodium 100 mg 11/20/19 21:23 11/22/19 09:54 Colace - PO 100 mg BID PRN Administration CONSTIPATION Gabapentin 100 mg 11/24/19 12:45 11/26/19 10:37 Neurontin - PO 100 mg DAILY ANA Administration Heparin Sodium (Porcine) 5,000 unit 11/20/19 22:00 11/26/19 10:36 Heparin - SQ 5,000 unit BID ANA Administration Metoprolol Tartrate 25 mg 11/23/19 10:30 11/26/19 10:37 Lopressor - PO 25 mg BID ANA Administration Polyethylene Glycol 17 gm 11/21/19 15:00 11/26/19 10:37 Miralax (For Daily Use) - PO 17 grams DAILY ANA Administration Rosuvastatin Calcium 10 mg 11/20/19 22:00 11/25/19 21:00 Crestor - PO 10 mg HS ANA Administration Senna 2 tab 11/21/19 22:00 11/22/19 21:26 Senna - PO 2 tab HS PRN Administration CONSTIPATION Tramadol HCl 50 mg 11/23/19 21:15 Ultram - PO Q12H PRN PAIN LEVEL 6-10 Triamcinolone Acetonide 1 applic 11/20/19 21:10 Aristocort 0.1% Cream - TP DAILY PRN rash Laboratory Results - last 24 hr 11/23/19 11/26/19 16:55 06:09 Sodium 138 Potassium 5.2 H Chloride 103 Carbon Dioxide 25 Anion Gap 10 BUN 77.0 H Creatinine 3.7 H Est GFR (CKD-EPI)AfAm 12.06 Est GFR (CKD-EPI)NonAf 10.41 Random Glucose 116 H Calcium 8.8 Total Bilirubin 0.4 AST 33 ALT 23 Alkaline Phosphatase 161 H Total Protein 6.6 Albumin 2.0 L Urine Eosinophils None seen S1 S2 RRR Lungs decreased Abd- soft, NT no edema PLAN renal function slight improving iv fluids gentle hydration does not sound congested holding lasix ID eval for antibiotics for UTI appreciated -- on Amoxicillin dc after tonight's dose renal sono noted continue with meds doppler legs done -- negative for DVT will check LS spine ct and left hip CT add Nepro
--- NOTE | 2019-11-26 14:51 | PN ---
Progress Note, Physician History of Present Illness: Pt seen and examined at bedside. She is awake and alert. She denies shortness of breath. - Current Medication List Current Medications: Active Medications Acetaminophen (Tylenol -) 650 mg PO Q6H PRN PRN Reason: FEVER Last Admin: 11/23/19 17:34 Dose: 650 mg Documented by: Albuterol Sulfate (Ventolin Hfa Inhaler -) 2 puff IH Q4H PRN PRN Reason: SHORT OF BREATH/WHEEZING Last Admin: 11/21/19 20:01 Dose: 2 puff Documented by: Albuterol/Ipratropium (Duoneb -) 1 amp NEB Q4H PRN PRN Reason: SHORTNESS OF BREATH Amlodipine Besylate (Norvasc -) 5 mg PO DAILY [facility] Last Admin: 11/26/19 10:37 Dose: 5 mg Documented by: Amoxicillin (Amoxicillin -) 250 mg PO BID [facility] Last Admin: 11/26/19 10:37 Dose: 250 mg Documented by: Calcium Carbonate/Cholecalciferol (Os-Samuel 500+D -) 1 tab PO DAILY [facility] Last Admin: 11/26/19 10:37 Dose: 1 tab Documented by: Docusate Sodium (Colace -) 100 mg PO BID PRN PRN Reason: CONSTIPATION Last Admin: 11/22/19 09:54 Dose: 100 mg Documented by: Gabapentin (Neurontin -) 100 mg PO DAILY [facility] Last Admin: 11/26/19 10:37 Dose: 100 mg Documented by: Heparin Sodium (Porcine) (Heparin -) 5,000 unit SQ BID [facility] Last Admin: 11/26/19 10:36 Dose: 5,000 unit Documented by: Metoprolol Tartrate (Lopressor -) 25 mg PO BID [facility] Last Admin: 11/26/19 10:37 Dose: 25 mg Documented by: Polyethylene Glycol (Miralax (For Daily Use) -) 17 gm PO DAILY [facility] Last Admin: 11/26/19 10:37 Dose: 17 grams Documented by: Rosuvastatin Calcium (Crestor -) 10 mg PO HS [facility] Last Admin: 11/25/19 21:00 Dose: 10 mg Documented by: Senna (Senna -) 2 tab PO HS PRN PRN Reason: CONSTIPATION Last Admin: 11/22/19 21:26 Dose: 2 tab Documented by: Tramadol HCl (Ultram -) 50 mg PO Q12H PRN PRN Reason: PAIN LEVEL 6-10 Triamcinolone Acetonide (Aristocort 0.1% Cream -) 1 applic TP DAILY PRN PRN Reason: rash - Objective Vital Signs: Vital Signs Temperature 98.6 F 11/26/19 13:32 Pulse Rate 87 11/26/19 13:32 Respiratory Rate 20 11/26/19 13:32 Blood Pressure 140/69 11/26/19 13:32 O2 Sat by Pulse Oximetry (%) 97 11/26/19 09:00 Constitutional: Yes: Calm Eyes: Yes: Conjunctiva Clear HENT: Yes: Atraumatic Neck: Yes: Supple Cardiovascular: Yes: S1, S2 Respiratory: Yes: CTA Bilaterally Gastrointestinal: Yes: Soft Genitourinary: Yes: WNL Musculoskeletal: Yes: WNL Edema: No Neurological: Yes: Oriented Psychiatric: Yes: Oriented Labs: CBC, BMP 11/23/19 11:33 11/26/19 06:09 INR, PTT INR 1.18 (0.83-1.09) H 11/20/19 16:30 Problem List - Problems (1) ALESIA (acute kidney injury) Code(s): N17.9 - ACUTE KIDNEY FAILURE, UNSPECIFIED (2) CKD (chronic kidney disease) Code(s): N18.9 - CHRONIC KIDNEY DISEASE, UNSPECIFIED Assessment/Plan Current Medications Generic Name Dose Route Start Last Admin Trade Name Freq PRN Reason Stop Dose Admin Acetaminophen 650 mg 11/21/19 19:21 11/23/19 17:34 Tylenol - PO 650 mg Q6H PRN Administration FEVER Albuterol Sulfate 2 puff 11/21/19 19:20 11/21/19 20:01 Ventolin Hfa Inhaler - IH 2 puff Q4H PRN Administration SHORT OF BREATH/WHEEZING Albuterol/Ipratropium 1 amp 11/23/19 09:21 Duoneb - NEB Q4H PRN SHORTNESS OF BREATH Amlodipine Besylate 5 mg 11/25/19 13:00 11/26/19 10:37 Norvasc - PO 5 mg DAILY ANA Administration Amoxicillin 250 mg 11/24/19 22:00 11/26/19 10:37 Amoxicillin - PO 250 mg BID ANA Administration Calcium Carbonate/Cholecalciferol 1 tab 11/21/19 10:00 11/26/19 10:37 Os-Samuel 500+D - PO 1 tab DAILY ANA Administration Docusate Sodium 100 mg 11/20/19 21:23 11/22/19 09:54 Colace - PO 100 mg BID PRN Administration CONSTIPATION Gabapentin 100 mg 11/24/19 12:45 11/26/19 10:37 Neurontin - PO 100 mg DAILY ANA Administration Heparin Sodium (Porcine) 5,000 unit 11/20/19 22:00 11/26/19 10:36 Heparin - SQ 5,000 unit BID ANA Administration Metoprolol Tartrate 25 mg 11/23/19 10:30 11/26/19 10:37 Lopressor - PO 25 mg BID ANA Administration Polyethylene Glycol 17 gm 11/21/19 15:00 11/26/19 10:37 Miralax (For Daily Use) - PO 17 grams DAILY ANA Administration Rosuvastatin Calcium 10 mg 11/20/19 22:00 11/25/19 21:00 Crestor - PO 10 mg HS ANA Administration Senna 2 tab 11/21/19 22:00 11/22/19 21:26 Senna - PO 2 tab HS PRN Administration CONSTIPATION Tramadol HCl 50 mg 11/23/19 21:15 Ultram - PO Q12H PRN PAIN LEVEL 6-10 Triamcinolone Acetonide 1 applic 11/20/19 21:10 Aristocort 0.1% Cream - TP DAILY PRN rash Laboratory Tests 11/23/19 11/24/19 11/24/19 16:55 15:15 15:15 Sodium Potassium Creatinine Urine Eosinophils None seen MARK M-Florencio Pending NIC Screen Pending c-ANCA Pending Proteinase 3 (PR3) Pending p-ANCA Pending Atypical p-ANCA Pending Myeloperoxidase Ab Pending Double Strand DNA Ab Pending Glomerular Base Memb Ab Pending 11/26/19 06:09 Sodium 138 Potassium 5.2 H Creatinine 3.7 H Urine Eosinophils MARK M-Florencio NIC Screen c-ANCA Proteinase 3 (PR3) p-ANCA Atypical p-ANCA Myeloperoxidase Ab Double Strand DNA Ab Glomerular Base Memb Ab Impression 1. ALESIA 2. ckd 3. uti 4. atrophic kidney 5. constipation 6. htn 7. PE 8. CHF Plan - renal function improving - repeat labs in am - can cont fluids - follow serologies - urine eos neg - lasix on hold
[2019-11-26] MEDS ORDERED: SODIUM ZIRCONIUM CYCLOSILICATE (LOKELMA) 10 GM PACKET PO ONE (14:53)
--- NOTE | 2019-11-26 15:32 | PN ---
Progress Note (short form) - Note Progress Note: Comfortable on RA. SOB improving. No CP. No acute events overnight. Intake & Output 11/23/19 11/24/19 11/25/19 11/26/19 23:59 23:59 23:59 23:59 Intake Total 266 400 4144 800 Output Total 0 50 1000 Balance 340 540 950 -200 Weight 209 lb Last Vital Signs Temp Pulse Resp BP Pulse Ox 98.6 F 87 20 140/69 97 11/26/19 13:32 11/26/19 13:32 11/26/19 13:32 11/26/19 13:32 11/26/19 09:00 Active Medications Acetaminophen (Tylenol -) 650 mg PO Q6H PRN PRN Reason: FEVER Last Admin: 11/23/19 17:34 Dose: 650 mg Documented by: Albuterol Sulfate (Ventolin Hfa Inhaler -) 2 puff IH Q4H PRN PRN Reason: SHORT OF BREATH/WHEEZING Last Admin: 11/21/19 20:01 Dose: 2 puff Documented by: Albuterol/Ipratropium (Duoneb -) 1 amp NEB Q4H PRN PRN Reason: SHORTNESS OF BREATH Amlodipine Besylate (Norvasc -) 5 mg PO DAILY [facility] Last Admin: 11/26/19 10:37 Dose: 5 mg Documented by: Amoxicillin (Amoxicillin -) 250 mg PO BID [facility] Last Admin: 11/26/19 10:37 Dose: 250 mg Documented by: Calcium Carbonate/Cholecalciferol (Os-Samuel 500+D -) 1 tab PO DAILY [facility] Last Admin: 11/26/19 10:37 Dose: 1 tab Documented by: Docusate Sodium (Colace -) 100 mg PO BID PRN PRN Reason: CONSTIPATION Last Admin: 11/22/19 09:54 Dose: 100 mg Documented by: Gabapentin (Neurontin -) 100 mg PO DAILY [facility] Last Admin: 11/26/19 10:37 Dose: 100 mg Documented by: Heparin Sodium (Porcine) (Heparin -) 5,000 unit SQ BID [facility] Last Admin: 11/26/19 10:36 Dose: 5,000 unit Documented by: Sodium Chloride (1/2 Normal Saline) 1,000 mls @ 42 mls/hr IV ASDIR [facility] Metoprolol Tartrate (Lopressor -) 25 mg PO BID [facility] Last Admin: 11/26/19 10:37 Dose: 25 mg Documented by: Polyethylene Glycol (Miralax (For Daily Use) -) 17 gm PO DAILY ANA Last Admin: 11/26/19 10:37 Dose: 17 grams Documented by: Rosuvastatin Calcium (Crestor -) 10 mg PO HS ANA Last Admin: 11/25/19 21:00 Dose: 10 mg Documented by: Senna (Senna -) 2 tab PO HS PRN PRN Reason: CONSTIPATION Last Admin: 11/22/19 21:26 Dose: 2 tab Documented by: Sodium Zirconium Cyclosilicate (Lokelma) 10 gm PO ONCE ONE Stop: 11/26/19 14:54 Tramadol HCl (Ultram -) 50 mg PO Q12H PRN PRN Reason: PAIN LEVEL 6-10 Triamcinolone Acetonide (Aristocort 0.1% Cream -) 1 applic TP DAILY PRN PRN Reason: rash Constitutional: Yes: NAD Eyes: Yes: WNL HENT: Yes: WNL Neck: Yes: WNL Cardiovascular: Yes: Regular Rate and Rhythm, S1, S2 Respiratory: Yes: Diminished Gastrointestinal: Yes: Normal Bowel Sounds, Soft Extremities: Yes: WNL Edema: Yes Labs: Laboratory Results - last 24 hr 11/23/19 11/26/19 16:55 06:09 Sodium 138 Potassium 5.2 H Chloride 103 Carbon Dioxide 25 Anion Gap 10 BUN 77.0 H Creatinine 3.7 H Est GFR (CKD-EPI)AfAm 12.06 Est GFR (CKD-EPI)NonAf 10.41 Random Glucose 116 H Calcium 8.8 Total Bilirubin 0.4 AST 33 ALT 23 Alkaline Phosphatase 161 H Total Protein 6.6 Albumin 2.0 L Urine Eosinophils None seen Assessment/Plan - Problems (1) Diastolic HF (heart failure) Code(s): I50.30 - UNSPECIFIED DIASTOLIC (CONGESTIVE) HEART FAILURE (2) UTI (urinary tract infection) Code(s): N39.0 - URINARY TRACT INFECTION, SITE NOT SPECIFIED Qualifiers: Urinary tract infection type: acute cystitis Hematuria presence: without hematuria Qualified Code(s): N30.00 - Acute cystitis without hematuria (3) Congestive heart failure Code(s): I50.9 - HEART FAILURE, UNSPECIFIED Qualifiers: Heart failure type: unspecified Heart failure chronicity: acute Qualified Code(s): I50.9 - Heart failure, unspecified (4) Fever Code(s): R50.9 - FEVER, UNSPECIFIED Qualifiers: Fever type: unspecified Qualified Code(s): R50.9 - Fever, unspecified Assessment/Plan FEVER/UTI + E-COLI ACUTE ON CHRONIC KIDNEY DISEASE PULMONARY HTN H/P SADDLE PE S/P IR CATHETER GUIDED TPA DIASTOLIC HF HTN HLD + TROPONIN PLAN SUPPLEMENTAL O2 NEEDED INHALED BRONCHODILATORS PRN PO ABX DC PLANNING Dr Hart
[2019-11-26] MEDS: SODIUM CHLORIDE 0.45% 1,000 ML IV SCH (16:04)
[2019-11-26] MEDS ORDERED: PT OWN MED DRAWER 7, Y5N ONE (21:08)
[2019-11-26] MEDS: ROSUVASTATIN CA 10 MG TABLET (FP) PO SCH (21:23)
[2019-11-26 22:07] LABS: HEP B CORE AB, TOT Negative (Negative)
--- NOTE | 2019-11-27 06:13 | PN ---
Progress Note, Physician Chief Complaint: no CP States she feels like she is wheezing TELE: NSR - Current Medication List Current Medications: Active Medications Acetaminophen (Tylenol -) 650 mg PO Q6H PRN PRN Reason: FEVER Last Admin: 11/23/19 17:34 Dose: 650 mg Documented by: Albuterol Sulfate (Ventolin Hfa Inhaler -) 2 puff IH Q4H PRN PRN Reason: SHORT OF BREATH/WHEEZING Last Admin: 11/21/19 20:01 Dose: 2 puff Documented by: Albuterol/Ipratropium (Duoneb -) 1 amp NEB Q4H PRN PRN Reason: SHORTNESS OF BREATH Last Admin: 11/26/19 17:48 Dose: 1 amp Documented by: Amlodipine Besylate (Norvasc -) 5 mg PO DAILY [facility] Last Admin: 11/26/19 10:37 Dose: 5 mg Documented by: Amoxicillin (Amoxicillin -) 250 mg PO BID [facility] Last Admin: 11/26/19 21:23 Dose: 250 mg Documented by: Calcium Carbonate/Cholecalciferol (Os-Samuel 500+D -) 1 tab PO DAILY [facility] Last Admin: 11/26/19 10:37 Dose: 1 tab Documented by: Docusate Sodium (Colace -) 100 mg PO BID PRN PRN Reason: CONSTIPATION Last Admin: 11/22/19 09:54 Dose: 100 mg Documented by: Gabapentin (Neurontin -) 100 mg PO DAILY [facility] Last Admin: 11/26/19 10:37 Dose: 100 mg Documented by: Heparin Sodium (Porcine) (Heparin -) 5,000 unit SQ BID [facility] Last Admin: 11/26/19 21:23 Dose: 5,000 unit Documented by: Sodium Chloride (1/2 Normal Saline) 1,000 mls @ 42 mls/hr IV ASDIR [facility] Last Admin: 11/26/19 16:04 Dose: 42 mls/hr Documented by: Metoprolol Tartrate (Lopressor -) 25 mg PO BID [facility] Last Admin: 11/26/19 21:22 Dose: 25 mg Documented by: Polyethylene Glycol (Miralax (For Daily Use) -) 17 gm PO DAILY [facility] Last Admin: 11/26/19 10:37 Dose: 17 grams Documented by: Rosuvastatin Calcium (Crestor -) 10 mg PO HS [facility] Last Admin: 11/26/19 21:23 Dose: 10 mg Documented by: Senna (Senna -) 2 tab PO HS PRN PRN Reason: CONSTIPATION Last Admin: 11/22/19 21:26 Dose: 2 tab Documented by: Tramadol HCl (Ultram -) 50 mg PO Q12H PRN PRN Reason: PAIN LEVEL 6-10 Triamcinolone Acetonide (Aristocort 0.1% Cream -) 1 applic TP DAILY PRN PRN Reason: rash - Objective Vital Signs: Vital Signs Temperature 98.3 F 11/26/19 21:54 Pulse Rate 78 11/26/19 21:54 Respiratory Rate 11/26/19 21:54 Blood Pressure 154/66 11/26/19 21:54 O2 Sat by Pulse Oximetry (%) 99 11/26/19 21:54 Constitutional: Yes: No Distress Cardiovascular: Yes: Regular Rate and Rhythm Respiratory: Yes: Other (mild b/l expiratory wheezing) Gastrointestinal: Yes: Soft (nt) Edema: No Neurological: Yes: Alert, Oriented Labs: CBC, BMP 11/23/19 11:33 11/26/19 06:09 INR, PTT INR 1.18 (0.83-1.09) H 11/20/19 16:30 Laboratory Tests 11/20/19 11/27/19 11/27/19 20:02 05:49 05:49 WBC 8.6 Hgb 10.1 L Plt Count 288 Sodium 140 Potassium 4.6 Creatinine 2.9 H COVID-19 ([facility]) Not detected - ....Imaging EKG: Image Reviewed Assessment/Plan DATA: Echo 02/2018: nl LV/RV, E/A reversal, mild MR, PASP at least 39 mmHg CXR: clear lungs/pleura ECG x 2: NSR, nl axis/intervals. no ST-T changes vs prior, no q's tele: sinus fever, UTI sx's with dirty UA, joint pains (h/o OA), tachycardia: -per pmd elevated troponin: -trop in indeterminate range, flat trend (0.2-0.2-0.1)= not c/w ACS event -no ischemic sx's, no ischemic ECG findings - echo here unremarkable -no further cv workup indicated unless clinical picture changes h/o saddle pulmonary embolism, extensive RLE DVT (2018): - circumstances/risk factors for VTE unclear at this time -pt was discharged on warfarin, was on 6 months course as it was considered provoked HLD: - cont home statin HTN: -cont current meds chronic diastolic HF - holding home lasix for ALESIA, renal following. Wheezing today -Check CXR
[2019-11-27 07:13] LABS: BASO % 0.8 % (0-2.0); EOS % 2.3 % (0-4.5); HEMATOCRIT 30.2 % (32.4-45.2); HEMOGLOBIN 10.1 GM/dL (10.7-15.3); LYMPH % 12.6 % (8-40); MCH 28.8 pg (25.7-33.7); MCHC 33.3 g/dl (32.0-36.0); MEAN CELL VOLUME 86.4 fl (80-96); MEAN PLT VOLUME 8.7 fl (7.5-11.1); MONO % 10.5 % (3.8-10.2); NEUT % 73.8 % (42.8-82.8); PLATELET COUNT 288 K/MM3 (134-434); RDW 14.9 % (11.6-15.6); WHITE BLOOD COUNT 8.6 K/mm3 (4.0-10.0)
[2019-11-27 07:34] LABS: ALBUMIN 1.9 g/dl (3.4-5.0); BILIRUBIN,TOTAL 0.4 mg/dL (0.2-1); BLOOD UREA NITROGEN 68.1 mg/dL (7-18); CALCIUM 8.5 mg/dL (8.5-10.1); CREATININE 2.9 mg/dL (0.55-1.3); POTASSIUM 4.6 mmol/L (3.5-5.1); TOT PROT 6.1 g/dl (6.4-8.2)
[2019-11-27 09:59] LABS: ANISOCYTOSIS 0; MACROCYTOSIS 0; PLATELET ESTIMATE NORMAL
[2019-11-27] MEDS ORDERED: PT OWN MED DRAWER 7, Y5N ONE (10:26)
[2019-11-27] MEDS: METOPROLOL TARTRATE 25 MG TABLET (FP) PO SCH ×2 (10:27→21:29)
[2019-11-27] MEDS: amLODIPine BESYLATE 5 MG TABLET (FP) PO SCH (10:27)
[2019-11-27] MEDS: CALCIUM 500MG/VIT-D 200 UNITS COMBO TABLET (FP) PO SCH (10:27)
[2019-11-27] MEDS: AMOXICILLIN 250 MG CAPSULE PO SCH (10:28)
[2019-11-27] MEDS: GABAPENTIN 100 MG CAPSULE PO SCH (10:28)
[2019-11-27] MEDS: HEPARIN NA (PORCINE) 5,000 UNITS/ML 1ML VIAL SQ SCH ×2 (10:28→21:26)
[2019-11-27] MEDS: POLYETHYLENE GLYCOL 3350 119 GM BTL PO SCH (10:42)
--- NOTE | 2019-11-27 11:36 | PN ---
Progress Note (short form) - Note Progress Note: PULMONARY APPEARS DEPRESSED WANTS TO GO HOME VSS/AFEBRILE Constitutional: Yes: NAD Eyes: Yes: WNL HENT: Yes: WNL Neck: Yes: WNL Cardiovascular: Yes: Regular Rate and Rhythm, S1, S2 Respiratory: Yes: Diminished Gastrointestinal: Yes: Normal Bowel Sounds, Soft Extremities: Yes: WNL Edema: Yes Labs:REVIEWED IMAGES NOTED FEVER/UTI + E-COLI ACUTE ON CHRONIC KIDNEY DISEASE PULMONARY HTN H/P SADDLE PE S/P IR CATHETER GUIDED TPA 2017 DIASTOLIC HF HTN HLD + TROPONIN PLAN SUPPLEMENTAL O2 NEEDED INHALED BRONCHODILATORS PRN PO ABX DC PLANNING R MARY DAI Problem List - Problems (1) Diastolic HF (heart failure) Code(s): I50.30 - UNSPECIFIED DIASTOLIC (CONGESTIVE) HEART FAILURE (2) UTI (urinary tract infection) Code(s): N39.0 - URINARY TRACT INFECTION, SITE NOT SPECIFIED Qualifiers: Urinary tract infection type: acute cystitis Hematuria presence: without hematuria Qualified Code(s): N30.00 - Acute cystitis without hematuria (3) Congestive heart failure Code(s): I50.9 - HEART FAILURE, UNSPECIFIED Qualifiers: Heart failure type: unspecified Heart failure chronicity: acute Qualified Code(s): I50.9 - Heart failure, unspecified (4) Fever Code(s): R50.9 - FEVER, UNSPECIFIED Qualifiers: Fever type: unspecified Qualified Code(s): R50.9 - Fever, unspecified
[2019-11-27] MEDS ORDERED: ALBUTEROL SO4 2.5/IPRATROPIUM 0.5 INH SOL 3 ML VIAL.NEB. NEB PRN (12:09)
[2019-11-27] MEDS ORDERED: TRIAMCINOLONE ACET 0.1% CREAM 15 GM TUBE TP PRN (12:09)
[2019-11-27] MEDS ORDERED: ACETAMINOPHEN 325 MG TABLET (FP) PO PRN (12:09)
[2019-11-27] MEDS ORDERED: ALBUTEROL SO4 HFA INHALER IH PRN (12:09)
[2019-11-27] MEDS ORDERED: SENNOSIDES 8.6MG TABLET (FP) PO PRN (12:09)
--- NOTE | 2019-11-27 12:33 | PN ---
Progress Note, Physician History of Present Illness: Pt seen/ examined chart is reviewed awake comfortable No distress Complains of generalized pains Afebrile - Current Medication List Current Medications: Active Medications Acetaminophen (Tylenol -) 650 mg PO Q6H PRN PRN Reason: FEVER Albuterol Sulfate (Ventolin Hfa Inhaler -) 2 puff IH Q4H PRN PRN Reason: SHORT OF BREATH/WHEEZING Albuterol/Ipratropium (Duoneb -) 1 amp NEB Q4H PRN PRN Reason: SHORTNESS OF BREATH Amlodipine Besylate (Norvasc -) 5 mg PO DAILY [facility] Last Admin: 11/27/19 10:27 Dose: 5 mg Documented by: Amoxicillin (Amoxicillin -) 250 mg PO BID [facility] Last Admin: 11/27/19 10:28 Dose: 250 mg Documented by: Calcium Carbonate/Cholecalciferol (Os-Samuel 500+D -) 1 tab PO DAILY [facility] Docusate Sodium (Colace -) 100 mg PO BID PRN PRN Reason: CONSTIPATION Gabapentin (Neurontin -) 100 mg PO DAILY [facility] Last Admin: 11/27/19 10:28 Dose: 100 mg Documented by: Heparin Sodium (Porcine) (Heparin -) 5,000 unit SQ BID [facility] Sodium Chloride (1/2 Normal Saline) 1,000 mls @ 42 mls/hr IV ASDIR [facility] Last Admin: 11/26/19 16:04 Dose: 42 mls/hr Documented by: Metoprolol Tartrate (Lopressor -) 25 mg PO BID [facility] Last Admin: 11/27/19 10:27 Dose: 25 mg Documented by: Polyethylene Glycol (Miralax (For Daily Use) -) 17 gm PO DAILY [facility] Rosuvastatin Calcium (Crestor -) 10 mg PO HS [facility] Senna (Senna -) 2 tab PO HS PRN PRN Reason: CONSTIPATION Tramadol HCl (Ultram -) 50 mg PO Q12H PRN PRN Reason: PAIN LEVEL 6-10 Triamcinolone Acetonide (Aristocort 0.1% Cream -) 1 applic TP DAILY PRN PRN Reason: rash - Objective Vital Signs: Vital Signs Temperature 97.8 F 11/27/19 09:45 Pulse Rate 97 H 11/27/19 09:45 Respiratory Rate 20 11/27/19 09:45 Blood Pressure 125/72 08/21/20 09:45 O2 Sat by Pulse Oximetry (%) 97 11/27/19 09:45 Constitutional: Yes: No Distress Neck: Yes: Supple Cardiovascular: Yes: Regular Rate and Rhythm Respiratory: Yes: Diminished, Rhonchi Gastrointestinal: Yes: Soft Edema: LLE: 1+, RLE: Trace Neurological: Yes: Alert Labs: CBC, BMP 11/27/19 05:49 11/27/19 05:49 INR, PTT INR 1.18 (0.83-1.09) H 11/20/19 16:30 Problem List - Problems (1) UTI (urinary tract infection) Code(s): N39.0 - URINARY TRACT INFECTION, SITE NOT SPECIFIED Qualifiers: Urinary tract infection type: acute cystitis Hematuria presence: without hematuria Qualified Code(s): N30.00 - Acute cystitis without hematuria (2) Elevated troponin Code(s): R79.89 - OTHER SPECIFIED ABNORMAL FINDINGS OF BLOOD CHEMISTRY (3) Sepsis Code(s): A41.9 - SEPSIS, UNSPECIFIED ORGANISM Qualifiers: Sepsis type: sepsis due to unspecified organism Sepsis acute organ dysfunction status: with acute organ dysfunction Severe sepsis acute organ dysfunction type: acute renal failure Acute renal failure type: unspecified Severe sepsis shock status: without septic shock Qualified Code(s): A41.9 - Sepsis, unspecified organism; R65.20 - Severe sepsis without septic shock; N17.9 - Acute kidney failure, unspecified (4) Congestive heart failure Code(s): I50.9 - HEART FAILURE, UNSPECIFIED Qualifiers: Heart failure type: unspecified Heart failure chronicity: acute Qualified Code(s): I50.9 - Heart failure, unspecified (5) Hypertension Code(s): I10 - ESSENTIAL (PRIMARY) HYPERTENSION Qualifiers: Hypertension type: essential hypertension Qualified Code(s): I10 - Essential (primary) hypertension (6) Tachycardia Code(s): R00.0 - TACHYCARDIA, UNSPECIFIED Assessment/Plan D/W Rn again today continue present care Chest x-ray has been ordered by cardiology Labs noted kidney function continued to improve Out of bed to chair CT scan----left hip----no acute pathology----status post ORIF Back--- moderate spinal stenosis Tramadol for pain fall precautions Mild dehydration Follow-up electrolytes We'll continue to follow anticipate discharge--- 1-2 days Likely will need short-term rehabilitation will continue to follow
[2019-11-27] MEDS: SODIUM CHLORIDE 0.45% 1,000 ML IV SCH ×2 (14:00→15:00)
[2019-11-27 14:09] LABS: ANTIGLOMERULAR BASEMENT MEN.AB 2 units (0-20)
[2019-11-27 16:08] LABS: ATYPICAL pANCA <1:20 titer (Neg:<1:20); C-ANCA <1:20 titer (Neg:<1:20)
--- NOTE | 2019-11-27 16:28 | PN ---
Progress Note, Physician History of Present Illness: Pt seen and examined at bedside. She is awake and alert. She denies shortness of breath. - Current Medication List Current Medications: Active Medications Acetaminophen (Tylenol -) 650 mg PO Q6H PRN PRN Reason: FEVER Albuterol Sulfate (Ventolin Hfa Inhaler -) 2 puff IH Q4H PRN PRN Reason: SHORT OF BREATH/WHEEZING Albuterol/Ipratropium (Duoneb -) 1 amp NEB Q4H PRN PRN Reason: SHORTNESS OF BREATH Amlodipine Besylate (Norvasc -) 5 mg PO DAILY [facility] Last Admin: 11/27/19 10:27 Dose: 5 mg Documented by: Amoxicillin (Amoxicillin -) 250 mg PO BID [facility] Last Admin: 11/27/19 10:28 Dose: 250 mg Documented by: Calcium Carbonate/Cholecalciferol (Os-Samuel 500+D -) 1 tab PO DAILY [facility] Docusate Sodium (Colace -) 100 mg PO BID PRN PRN Reason: CONSTIPATION Gabapentin (Neurontin -) 100 mg PO DAILY [facility] Last Admin: 11/27/19 10:28 Dose: 100 mg Documented by: Heparin Sodium (Porcine) (Heparin -) 5,000 unit SQ BID [facility] Sodium Chloride (1/2 Normal Saline) 1,000 mls @ 42 mls/hr IV ASDIR [facility] Last Admin: 11/27/19 14:00 Dose: 42 mls/hr Documented by: Metoprolol Tartrate (Lopressor -) 25 mg PO BID [facility] Last Admin: 11/27/19 10:27 Dose: 25 mg Documented by: Polyethylene Glycol (Miralax (For Daily Use) -) 17 gm PO DAILY [facility] Rosuvastatin Calcium (Crestor -) 10 mg PO HS [facility] Senna (Senna -) 2 tab PO HS PRN PRN Reason: CONSTIPATION Tramadol HCl (Ultram -) 50 mg PO Q12H PRN PRN Reason: PAIN LEVEL 6-10 Triamcinolone Acetonide (Aristocort 0.1% Cream -) 1 applic TP DAILY PRN PRN Reason: rash - Objective Vital Signs: Vital Signs Temperature 98.8 F 11/27/19 13:00 Pulse Rate 69 11/27/19 13:00 Respiratory Rate 18 11/27/19 13:00 Blood Pressure 140/82 11/27/19 13:00 O2 Sat by Pulse Oximetry (%) 100 11/27/19 13:00 Constitutional: Yes: Calm Eyes: Yes: Conjunctiva Clear HENT: Yes: Atraumatic Neck: Yes: Supple Cardiovascular: Yes: S1, S2 Respiratory: Yes: CTA Bilaterally Gastrointestinal: Yes: Normal Bowel Sounds, Soft Genitourinary: Yes: WNL Musculoskeletal: Yes: WNL Edema: No Neurological: Yes: Oriented Psychiatric: Yes: Oriented Labs: CBC, BMP 11/27/19 05:49 11/27/19 05:49 INR, PTT INR 1.18 (0.83-1.09) H 11/20/19 16:30 Problem List - Problems (1) ALESIA (acute kidney injury) Code(s): N17.9 - ACUTE KIDNEY FAILURE, UNSPECIFIED (2) CKD (chronic kidney disease) Code(s): N18.9 - CHRONIC KIDNEY DISEASE, UNSPECIFIED Assessment/Plan Current Medications Generic Name Dose Route Start Last Admin Trade Name Freq PRN Reason Stop Dose Admin Acetaminophen 650 mg 11/27/19 12:09 Tylenol - PO Q6H PRN FEVER Albuterol Sulfate 2 puff 11/27/19 12:09 Ventolin Hfa Inhaler - IH Q4H PRN SHORT OF BREATH/WHEEZING Albuterol/Ipratropium 1 amp 11/27/19 12:09 Duoneb - NEB Q4H PRN SHORTNESS OF BREATH Amlodipine Besylate 5 mg 11/25/19 13:00 11/27/19 10:27 Norvasc - PO 5 mg DAILY ANA Administration Amoxicillin 250 mg 11/24/19 22:00 11/27/19 10:28 Amoxicillin - PO 250 mg BID ANA Administration Calcium Carbonate/Cholecalciferol 1 tab 11/28/19 10:00 Os-Samuel 500+D - PO DAILY ANA Docusate Sodium 100 mg 11/27/19 12:09 Colace - PO BID PRN CONSTIPATION Gabapentin 100 mg 11/24/19 12:45 11/27/19 10:28 Neurontin - PO 100 mg DAILY ANA Administration Heparin Sodium (Porcine) 5,000 unit 11/27/19 22:00 Heparin - SQ BID ANA Sodium Chloride 1,000 mls @ 42 mls/hr 11/26/19 15:00 11/27/19 14:00 1/2 Normal Saline IV 42 mls/hr ASDIR ANA Administration Metoprolol Tartrate 25 mg 11/23/19 10:30 11/27/19 10:27 Lopressor - PO 25 mg BID ANA Administration Polyethylene Glycol 17 gm 11/28/19 10:00 Miralax (For Daily Use) - PO DAILY ANA Rosuvastatin Calcium 10 mg 11/27/19 22:00 Crestor - PO HS ANA Senna 2 tab 11/27/19 12:09 Senna - PO HS PRN CONSTIPATION Tramadol HCl 50 mg 11/23/19 21:15 Ultram - PO Q12H PRN PAIN LEVEL 6-10 Triamcinolone Acetonide 1 applic 11/27/19 12:09 Aristocort 0.1% Cream - TP DAILY PRN rash Laboratory Tests 11/24/19 15:15 MAXIMILIAN Screen Positive H c-ANCA <1:20 Proteinase 3 (PR3) <3.5 p-ANCA <1:20 Atypical p-ANCA <1:20 Myeloperoxidase Ab <9.0 Double Strand DNA Ab <1 Glomerular Base Memb Ab 2 Impression 1. ALESIA 2. ckd 3. uti 4. atrophic kidney 5. constipation 6. htn 7. PE 8. CHF 9. positive maximilian Plan - renal function continues to improve - decrease fluids - repeat labs in am - maximilian positive, rheum eval - follow serologies - urine eos neg - lasix on hold
[2019-11-27] MEDS: ROSUVASTATIN CA 10 MG TABLET (FP) PO SCH (21:29)
[2019-11-28 07:55] LABS: ALBUMIN 1.9 g/dl (3.4-5.0); BILIRUBIN,TOTAL 0.6 mg/dL (0.2-1); BLOOD UREA NITROGEN 54.1 mg/dL (7-18); CALCIUM 8.4 mg/dL (8.5-10.1); CREATININE 2.2 mg/dL (0.55-1.3); POTASSIUM 4.3 mmol/L (3.5-5.1); TOT PROT 6.2 g/dl (6.4-8.2)
--- NOTE | 2019-11-28 09:08 | PN ---
Progress Note (short form) - Note Progress Note: events noted no sob has pain in left knee- unable to bear weight Vital Signs - 24 hr 11/27/19 11/27/19 11/27/19 09:45 12:32 13:00 Temperature 97.8 F 98.8 F Pulse Rate 97 H 69 Respiratory 20 18 Rate Blood Pressure 125/72 140/82 O2 Sat by Pulse 97 97 100 Oximetry (%) 11/27/19 11/27/19 11/28/19 21:00 22:00 04:28 Temperature 99.3 F 98.9 F Pulse Rate 81 75 Respiratory 18 18 Rate Blood Pressure 144/75 139/66 O2 Sat by Pulse 97 96 95 Oximetry (%) Current Medications Generic Name Dose Route Start Last Admin Trade Name Freq PRN Reason Stop Dose Admin Acetaminophen 650 mg 11/27/19 12:09 Tylenol - PO Q6H PRN FEVER Albuterol Sulfate 2 puff 11/27/19 12:09 Ventolin Hfa Inhaler - IH Q4H PRN SHORT OF BREATH/WHEEZING Albuterol/Ipratropium 1 amp 11/27/19 12:09 Duoneb - NEB Q4H PRN SHORTNESS OF BREATH Amlodipine Besylate 5 mg 11/25/19 13:00 11/27/19 10:27 Norvasc - PO 5 mg DAILY ANA Administration Calcium Carbonate/Cholecalciferol 1 tab 11/28/19 10:00 Os-Samuel 500+D - PO DAILY ANA Docusate Sodium 100 mg 11/27/19 12:09 Colace - PO BID PRN CONSTIPATION Gabapentin 100 mg 11/24/19 12:45 11/27/19 10:28 Neurontin - PO 100 mg DAILY ANA Administration Heparin Sodium (Porcine) 5,000 unit 11/27/19 22:00 11/27/19 21:26 Heparin - SQ 5,000 unit BID ANA Administration Sodium Chloride 1,000 mls @ 35 mls/hr 11/27/19 16:30 11/27/19 15:00 1/2 Normal Saline IV 35 mls/hr ASDIR ANA Administration Metoprolol Tartrate 25 mg 11/23/19 10:30 11/27/19 21:29 Lopressor - PO 25 mg BID ANA Administration Polyethylene Glycol 17 gm 11/28/19 10:00 Miralax (For Daily Use) - PO DAILY [facility]NA Rosuvastatin Calcium 10 mg 11/27/19 22:00 11/27/19 21:29 Crestor - PO 10 mg HS ANA Administration Senna 2 tab 11/27/19 12:09 Senna - PO HS PRN CONSTIPATION Tramadol HCl 50 mg 11/23/19 21:15 Ultram - PO Q12H PRN PAIN LEVEL 6-10 Triamcinolone Acetonide 1 applic 11/27/19 12:09 Aristocort 0.1% Cream - TP DAILY PRN rash Laboratory Results - last 24 hr 11/24/19 11/24/19 11/27/19 15:15 15:15 05:49 Neutrophils % (Manual) 79.4 Band Neutrophils % 0.0 Lymphocytes % (Manual) 11.8 Monocytes % (Manual) 4 Eosinophils % (Manual) 4.9 H Basophils % (Manual) 0.0 Myelocytes % (Man) 0 Promyelocytes % (Man) 0 Blast Cells % (Manual) 0 Nucleated RBC % 0 Metamyelocytes 0 Hypochromia 0 Platelet Estimate Normal Polychromasia 0 Poikilocytosis 0 Anisocytosis 0 Microcytosis 0 Macrocytosis 0 Sodium Potassium Chloride Carbon Dioxide Anion Gap BUN Creatinine Est GFR (CKD-EPI)AfAm Est GFR (CKD-EPI)NonAf Random Glucose Calcium Total Bilirubin AST ALT Alkaline Phosphatase Total Protein Total Protein (PEP) 6.4 Albumin Albumin (PEP) 2.3 L Globulin 4.1 H Albumin/Globulin Ratio 0.6 L Beta Globulins 1.3 MARK M-Florencio Not observed c-ANCA <1:20 Proteinase 3 (PR3) <3.5 p-ANCA <1:20 Atypical p-ANCA <1:20 Myeloperoxidase Ab <9.0 Glomerular Base Memb Ab 2 HCV Quantitation Hcv not detected HCV RNA log copies/mL TNP 11/28/19 06:15 Neutrophils % (Manual) Band Neutrophils % Lymphocytes % (Manual) Monocytes % (Manual) Eosinophils % (Manual) Basophils % (Manual) Myelocytes % (Man) Promyelocytes % (Man) Blast Cells % (Manual) Nucleated RBC % Metamyelocytes Hypochromia Platelet Estimate Polychromasia Poikilocytosis Anisocytosis Microcytosis Macrocytosis Sodium 137 Potassium 4.3 Chloride 104 Carbon Dioxide 25 Anion Gap 8 BUN 54.1 H Creatinine 2.2 H Est GFR (CKD-EPI)AfAm 22.61 Est GFR (CKD-EPI)NonAf 19.51 Random Glucose 116 H Calcium 8.4 L Total Bilirubin 0.6 AST 32 ALT 24 Alkaline Phosphatase 142 H Total Protein 6.2 L Total Protein (PEP) Albumin 1.9 L Albumin (PEP) Globulin Albumin/Globulin Ratio Beta Globulins MARK M-Florencio c-ANCA Proteinase 3 (PR3) p-ANCA Atypical p-ANCA Myeloperoxidase Ab Glomerular Base Memb Ab HCV Quantitation HCV RNA log copies/mL S1 S2 RRR Lungs decreased Abd- soft, NT left knee- warm+ tender+ no edema PLAN renal function improving holding lasix continue with meds doppler legs done -- negative for DVT Ortho eval for left knee pain check ESR and Uric acid
[2019-11-28 09:32] LABS: URIC ACID 5.8 mg/dL (2.6-7.2)
[2019-11-28] MEDS: METOPROLOL TARTRATE 25 MG TABLET (FP) PO SCH ×2 (09:36→21:29)
[2019-11-28] MEDS: amLODIPine BESYLATE 5 MG TABLET (FP) PO SCH (09:36)
[2019-11-28] MEDS: GABAPENTIN 100 MG CAPSULE PO SCH (09:36)
[2019-11-28] MEDS: CALCIUM 500MG/VIT-D 200 UNITS COMBO TABLET (FP) PO SCH (09:36)
[2019-11-28] MEDS: POLYETHYLENE GLYCOL 3350 119 GM BTL PO SCH (09:36)
[2019-11-28] MEDS: HEPARIN NA (PORCINE) 5,000 UNITS/ML 1ML VIAL SQ SCH ×2 (09:37→21:28)
--- NOTE | 2019-11-28 10:44 | CONSULT ---
Consult - text type - Consultation Consultation Note: ORTHOPEDIC SURGERY CONSULTATION NOTE Department of Orthopedic Surgery HISTORY OF PRESENT ILLNESS Ms. Torres is a 89 year old female who presents to [facility] inpatient with a UTI; The orthopedic service was consulted for left knee pain. The patient denies any injuries to her left knee, and states she has had this pain for over 1 year in her left knee. The patient complains of pain and discomfort in her left knee, particularly when ambulating. Denies any other injuries. Denies numbness, tingling or other constitutional complaints. Denies tobacco use, drug use, alcohol abuse. FAMILY HISTORY non-contributory REVIEW OF SYMPTOMS A twelve-point review of systems was performed and was negative except as noted in HPI. PHYSICAL EXAM Constitutional: Alert and oriented to person, place, and time. Appears well- developed and well-nourished. No acute distress, appropriate mood and affect. Right Lower Extremity: Skin warm, dry, and intact; no lesions, rashes or ulcers noted. Muscle mass equal and symmetric to contralateral side. No atrophy noted. No masses or effusions noted. No tenderness to palpation all joints; nontender throughout rest of extremity. No cords or calf tenderness No significant calf/ankle edema. Full passive and active ROM, free from pain. Joints stable with no pathologic laxity. EHL/TA/GS motor intact; SILT distally; 2+ DP pulses; Cap refill brisk. Tone and reflexes normal. Left Lower Extremity: Skin warm, dry, and intact; no lesions, rashes or ulcers noted. Muscle mass equal and symmetric to contralateral side. No atrophy noted. No masses or effusions noted. Tender to palpation at the medial and lateral joint lines; nontender throughout rest of extremity. No cords or calf tenderness No significant calf/ankle edema. LROM of the left knee from 0-50 secondary to pain. Full passive and active ROM of the hip and ankle and foot, free from pain. Joints stable with no pathologic laxity. EHL/TA/GS motor intact; SILT distally; 2+ DP pulses; Cap refill brisk. Tone and reflexes normal. Active Problems Problem Status Category Onset ALESIA (acute kidney injury) Acute Medical CKD (chronic kidney disease) Acute Medical Diastolic HF (heart failure) Acute Medical Elevated troponin Acute Medical Sepsis Acute Medical Tachycardia Acute Medical UTI (urinary tract infection) Acute Medical Past Medical History [employer] Cardio/Vascular CHF,HTN,Hyperlipdemia Pulmonary Pulmonary Embolus Additional Medical History Osteoarthitis Social History Smoking history Never smoked Aproximately how many 0 cigarettes per day Hx Alcohol Use No History of Substance Use None ADL Family Assistance History of Recent Travel No Allergies Allergy/AdvReac Type Severity Reaction Status Date / Time clindamycin Allergy Mild Rash Verified 11/20/19 14:42 sulfamethoxazole Allergy Mild Rash Verified 11/20/19 14:42 [From Bactrim] trimethoprim [From Bactrim] Allergy Mild Rash Verified 11/20/19 14:42 lactose AdvReac Mild Verified 11/20/19 14:42 Active Medications Generic Name Dose Route Start Last Admin Trade Name Freq PRN Reason Stop Dose Admin Acetaminophen 650 mg 11/27/19 12:09 Tylenol - PO Q6H PRN FEVER Albuterol Sulfate 2 puff 11/27/19 12:09 Ventolin Hfa Inhaler - IH Q4H PRN SHORT OF BREATH/WHEEZING Albuterol/Ipratropium 1 amp 11/27/19 12:09 Duoneb - NEB Q4H PRN SHORTNESS OF BREATH Amlodipine Besylate 5 mg 11/25/19 13:00 11/28/19 09:36 Norvasc - PO 5 mg DAILY ANA Administration Calcium Carbonate/Cholecalciferol 1 tab 11/28/19 10:00 11/28/19 09:36 Os-Samuel 500+D - PO 1 tab DAILY ANA Administration Docusate Sodium 100 mg 11/27/19 12:09 Colace - PO BID PRN CONSTIPATION Gabapentin 100 mg 11/24/19 12:45 11/28/19 09:36 Neurontin - PO 100 mg DAILY ANA Administration Heparin Sodium (Porcine) 5,000 unit 11/27/19 22:00 11/28/19 09:37 Heparin - SQ 5,000 unit BID ANA Administration Sodium Chloride 1,000 mls @ 35 mls/hr 11/27/19 16:30 11/27/19 15:00 1/2 Normal Saline IV 35 mls/hr ASDIR ANA Administration Metoprolol Tartrate 25 mg 11/23/19 10:30 11/28/19 09:36 Lopressor - PO 25 mg BID ANA Administration Polyethylene Glycol 17 gm 11/28/19 10:00 11/28/19 09:36 Miralax (For Daily Use) - PO 17 gm DAILY ANA Administration Rosuvastatin Calcium 10 mg 11/27/19 22:00 11/27/19 21:29 Crestor - PO 10 mg HS ANA Administration Senna 2 tab 11/27/19 12:09 Senna - PO HS PRN CONSTIPATION Tramadol HCl 50 mg 11/23/19 21:15 Ultram - PO Q12H PRN PAIN LEVEL 6-10 Triamcinolone Acetonide 1 applic 11/27/19 12:09 Aristocort 0.1% Cream - TP DAILY PRN rash Vital Signs (last) Temp Pulse Resp BP Pulse Ox 98.9 F 75 18 139/66 95 11/28/19 04:28 11/28/19 04:28 11/28/19 04:28 11/28/19 04:28 11/28/19 04:28 Intake and Output 11/26/19 11/27/19 11/28/19 23:59 23:59 23:59 Intake Total 1840 794 400 Output Total 1000 200 400 Balance 840 594 0 Intake: IV 970 294 400 1/2 Normal Saline 1,000 400 ml @ 35 mls/hr IV ASDIR ANA Rx#:[id number] 1/2 Normal Saline 1,000 210 294 ml @ 42 mls/hr IV ASDIR ANA Rx#:[id number] Normal Saline - 1,000 ml 750 @ 50 mls/hr IV ASDIR ANA Rx#:[id number] Saline Lock 10 Oral 870 500 Output: Urine 1000 200 400 External Catheter 1000 Void 200 400 Other: Voiding Method External Catheter External Catheter External Catheter # Unmeasured Voids Void 1 1 Bowel Movement Yes Yes Yes # Bowel Movements 1 1 1 Weight 209 lb Weight Measurement Method Patient Lift Scale Laboratory 11/27/19 05:49 11/28/19 06:15 PT with INR 14.00 SEC (9.7-13.0) H 11/20/19 16:30 PTT (Actin FS) 26.0 SECONDS (25.2-36.5) 11/20/19 16:30 IMAGING I personally reviewed all radiographs, CT, and other imaging. They demonstrate severely arthritic left knee characterized by joint space narrowing. ASSESSMENT AND PLAN Ms. Torres is a 89 year old female presenting with left knee severe osteoarthritis and pain. We have reviewed the imaging and clinical findings in detail, as well as their potential implications. After appropriate informed discussion, we agreed on the following plan. 1. Pain control 2. DVT ppx 3. WBAT / PT daily 4. No Signs of septic joint 5. Recommend rheumatologic consult 6. No further orthopedic intervention at this time All questions were answered. Thank you for involving our team in the care of this patient.
--- NOTE | 2019-11-28 10:48 | PN ---
Progress Note (short form) - Note Progress Note: PULMONARY WANTS TO GO HOME VSS/AFEBRILE Constitutional: Yes: NAD Eyes: Yes: WNL HENT: Yes: WNL Neck: Yes: WNL Cardiovascular: Yes: Regular Rate and Rhythm, S1, S2 Respiratory: Yes: Diminished Gastrointestinal: Yes: Normal Bowel Sounds, Soft Extremities: Yes: WNL Edema: Yes Labs:REVIEWED Renal function improving CXR no infiltrates FEVER/UTI + E-COLI IMPROVED ACUTE ON CHRONIC KIDNEY DISEASE PULMONARY HTN H/P SADDLE PE S/P IR CATHETER GUIDED TPA 2018 DIASTOLIC HF HTN HLD + TROPONIN PLAN SUPPLEMENTAL O2 NEEDED INHALED BRONCHODILATORS PRN PO ABX DC PLANNING R MARY DIA Problem List - Problems (1) Diastolic HF (heart failure) Code(s): I50.30 - UNSPECIFIED DIASTOLIC (CONGESTIVE) HEART FAILURE (2) UTI (urinary tract infection) Code(s): N39.0 - URINARY TRACT INFECTION, SITE NOT SPECIFIED Qualifiers: Urinary tract infection type: acute cystitis Hematuria presence: without hematuria Qualified Code(s): N30.00 - Acute cystitis without hematuria (3) Congestive heart failure Code(s): I50.9 - HEART FAILURE, UNSPECIFIED Qualifiers: Heart failure type: unspecified Heart failure chronicity: acute Qualified Code(s): I50.9 - Heart failure, unspecified (4) Fever Code(s): R50.9 - FEVER, UNSPECIFIED Qualifiers: Fever type: unspecified Qualified Code(s): R50.9 - Fever, unspecified
--- NOTE | 2019-11-28 11:31 | PN ---
Progress Note (short form) - Note Progress Note: Chief Complaint: fever History of Present Illness: denies palpitations, cp, sob no feet swelling no dizzy Current Medications Generic Name Dose Route Start Last Admin Trade Name Freq PRN Reason Stop Dose Admin Acetaminophen 650 mg 11/27/19 12:09 Tylenol - PO Q6H PRN FEVER Albuterol Sulfate 2 puff 11/27/19 12:09 Ventolin Hfa Inhaler - IH Q4H PRN SHORT OF BREATH/WHEEZING Albuterol/Ipratropium 1 amp 11/27/19 12:09 Duoneb - NEB Q4H PRN SHORTNESS OF BREATH Amlodipine Besylate 5 mg 11/25/19 13:00 11/28/19 09:36 Norvasc - PO 5 mg DAILY ANA Administration Calcium Carbonate/Cholecalciferol 1 tab 11/28/19 10:00 11/28/19 09:36 Os-Samuel 500+D - PO 1 tab DAILY ANA Administration Docusate Sodium 100 mg 11/27/19 12:09 Colace - PO BID PRN CONSTIPATION Gabapentin 100 mg 11/24/19 12:45 11/28/19 09:36 Neurontin - PO 100 mg DAILY ANA Administration Heparin Sodium (Porcine) 5,000 unit 11/27/19 22:00 11/28/19 09:37 Heparin - SQ 5,000 unit BID ANA Administration Sodium Chloride 1,000 mls @ 35 mls/hr 11/27/19 16:30 11/27/19 15:00 1/2 Normal Saline IV 35 mls/hr ASDIR ANA Administration Metoprolol Tartrate 25 mg 11/23/19 10:30 11/28/19 09:36 Lopressor - PO 25 mg BID ANA Administration Polyethylene Glycol 17 gm 11/28/19 10:00 11/28/19 09:36 Miralax (For Daily Use) - PO 17 gm DAILY ANA Administration Rosuvastatin Calcium 10 mg 11/27/19 22:00 11/27/19 21:29 Crestor - PO 10 mg HS ANA Administration Senna 2 tab 11/27/19 12:09 Senna - PO HS PRN CONSTIPATION Tramadol HCl 50 mg 11/23/19 21:15 Ultram - PO Q12H PRN PAIN LEVEL 6-10 Triamcinolone Acetonide 1 applic 11/27/19 12:09 Aristocort 0.1% Cream - TP DAILY PRN rash Vital Signs Period Temp Pulse Resp BP Sys/Corral Pulse Ox Last 24 Hr 98.8 F-99.3 F 69-81 18-18 139-144/66-82 95-100 Constitutional: Yes: Well Nourished, No Distress, Calm Cardiovascular: Yes: Regular Rate and Rhythm, S1, S2. No: JVD, Gallop, Murmur Respiratory: Yes: Regular, CTA Bilaterally. No: Accessory Muscle Use Extremities: No: Cold Edema: No Neurological: Yes: Alert. No: Seizure Psychiatric: No: Agitated no jaundice diaphoresis Labs: CBC, BMP 11/27/19 05:49 11/28/19 06:15 Assessment/Plan Echo 02/2018: nl LV/RV, E/A reversal, mild MR, PASP at least 39 mmHg CXR: clear lungs/pleura ECG x 2: NSR, nl axis/intervals. no ST-T changes vs prior, no q's fever, UTI sx's with dirty UA, joint pains (h/o OA), tachycardia: -per pmd elevated troponin: -trop in indeterminate range, flat trend (0.2-0.2-0.1)= not c/w ACS event -no ischemic sx's, no ischemic ECG findings - echo here unremarkable -no further cv workup indicated unless clinical picture changes h/o saddle pulmonary embolism, extensive RLE DVT (2018) - circumstances/risk factors for VTE unclear to me at this time -pt was discharged on warfarin, was on 6 months course as it was considered p rovoked Elevated troponin - trop 0.11->0.58->0.53->1.15->0.34. no ischemic ECG changes. - secondary to massive PE - no further CV w/u indicated at present time HLD - cont home statin HTN -cont current meds chronic diastolic HF - holding home lasix for ALESIA, renal following - monitor volume status on IVF, cxr clear - no signs HF at present time
--- NOTE | 2019-11-28 18:19 | PN ---
Progress Note (short form) - Note Progress Note: Problems 1. ALESIA 2. ckd 3. uti 4. atrophic kidney 5. constipation 6. htn 7. PE 8. CHF 9. positive maximilian Active Medications Acetaminophen (Tylenol -) 650 mg PO Q6H PRN PRN Reason: FEVER Albuterol Sulfate (Ventolin Hfa Inhaler -) 2 puff IH Q4H PRN PRN Reason: SHORT OF BREATH/WHEEZING Albuterol/Ipratropium (Duoneb -) 1 amp NEB Q4H PRN PRN Reason: SHORTNESS OF BREATH Amlodipine Besylate (Norvasc -) 5 mg PO DAILY REPLACED BY [facility] Last Admin: 11/28/19 09:36 Dose: 5 mg Documented by: Calcium Carbonate/Cholecalciferol (Os-Samuel 500+D -) 1 tab PO DAILY REPLACED BY [facility] Last Admin: 11/28/19 09:36 Dose: 1 tab Documented by: Docusate Sodium (Colace -) 100 mg PO BID PRN PRN Reason: CONSTIPATION Gabapentin (Neurontin -) 100 mg PO DAILY REPLACED BY [facility] Last Admin: 11/28/19 09:36 Dose: 100 mg Documented by: Heparin Sodium (Porcine) (Heparin -) 5,000 unit SQ BID REPLACED BY [facility] Last Admin: 11/28/19 09:37 Dose: 5,000 unit Documented by: Sodium Chloride (1/2 Normal Saline) 1,000 mls @ 35 mls/hr IV ASDIR REPLACED BY [facility] Last Admin: 11/27/19 15:00 Dose: 35 mls/hr Documented by: Metoprolol Tartrate (Lopressor -) 25 mg PO BID REPLACED BY [facility] Last Admin: 11/28/19 09:36 Dose: 25 mg Documented by: Polyethylene Glycol (Miralax (For Daily Use) -) 17 gm PO DAILY REPLACED BY [facility] Last Admin: 11/28/19 09:36 Dose: 17 gm Documented by: Rosuvastatin Calcium (Crestor -) 10 mg PO HS REPLACED BY [facility] Last Admin: 11/27/19 21:29 Dose: 10 mg Documented by: Senna (Senna -) 2 tab PO HS PRN PRN Reason: CONSTIPATION Triamcinolone Acetonide (Aristocort 0.1% Cream -) 1 applic TP DAILY PRN PRN Reason: rash Last Vital Signs Temp Pulse Resp BP Pulse Ox 98.6 F 87 18 143/65 98 11/28/19 10:00 11/28/19 10:00 11/28/19 10:00 11/28/19 10:00 11/28/19 10:00 Constitutional: Yes: NAD Eyes: Yes: WNL HENT: Yes: WNL Neck: Yes: WNL Cardiovascular: Yes: Regular Rate and Rhythm, S1, S2 Respiratory: Yes: Diminished Gastrointestinal: Yes: Normal Bowel Sounds, Soft Extremities: Yes: WNL Edema: Yes CBC, BMP 11/27/19 05:49 11/28/19 06:15 IMP- ALESIA improving with fluids positive MAXIMILIAN pending rheum eval Plan - renal function continues to improve - decrease fluids - repeat labs in am - follow serologies - lasix on hold
[2019-11-28] MEDS: ROSUVASTATIN CA 10 MG TABLET (FP) PO SCH (21:28)
[2019-11-28] MEDS: SODIUM CHLORIDE 0.45% 1,000 ML IV SCH (21:29)
[2019-11-29 08:35] LABS: CALCIUM 8.4 mg/dL (8.5-10.1); CREATININE 1.8 mg/dL (0.55-1.3); POTASSIUM 4.6 mmol/L (3.5-5.1)
[2019-11-29] MEDS ORDERED: PT OWN MED DRAWER 7, Y5N ONE (10:31)
[2019-11-29] MEDS: CALCIUM 500MG/VIT-D 200 UNITS COMBO TABLET (FP) PO SCH (10:35)
[2019-11-29] MEDS: METOPROLOL TARTRATE 25 MG TABLET (FP) PO SCH ×2 (10:35→21:23)
[2019-11-29] MEDS: HEPARIN NA (PORCINE) 5,000 UNITS/ML 1ML VIAL SQ SCH ×2 (10:35→21:23)
[2019-11-29] MEDS: amLODIPine BESYLATE 5 MG TABLET (FP) PO SCH (10:35)
[2019-11-29] MEDS: GABAPENTIN 100 MG CAPSULE PO SCH (10:35)
--- NOTE | 2019-11-29 11:03 | PN ---
Progress Note (short form) - Note Progress Note: Chief Complaint: fever History of Present Illness: denies palpitations, cp, sob no feet swelling no dizzy Current Medications Generic Name Dose Route Start Last Admin Trade Name Freq PRN Reason Stop Dose Admin Acetaminophen 650 mg 11/27/19 12:09 Tylenol - PO Q6H PRN FEVER Albuterol Sulfate 2 puff 11/27/19 12:09 Ventolin Hfa Inhaler - IH Q4H PRN SHORT OF BREATH/WHEEZING Albuterol/Ipratropium 1 amp 11/27/19 12:09 Duoneb - NEB Q4H PRN SHORTNESS OF BREATH Amlodipine Besylate 5 mg 11/25/19 13:00 11/29/19 10:35 Norvasc - PO 5 mg DAILY ANA Administration Calcium Carbonate/Cholecalciferol 1 tab 11/28/19 10:00 11/29/19 10:35 Os-Samuel 500+D - PO 1 tab DAILY ANA Administration Docusate Sodium 100 mg 11/27/19 12:09 Colace - PO BID PRN CONSTIPATION Gabapentin 100 mg 11/24/19 12:45 11/29/19 10:35 Neurontin - PO 100 mg DAILY ANA Administration Heparin Sodium (Porcine) 5,000 unit 11/27/19 22:00 11/29/19 10:35 Heparin - SQ 5,000 unit BID ANA Administration Sodium Chloride 1,000 mls @ 35 mls/hr 11/27/19 16:30 11/28/19 21:29 1/2 Normal Saline IV 35 mls/hr ASDIR ANA Administration Metoprolol Tartrate 25 mg 11/23/19 10:30 11/29/19 10:35 Lopressor - PO 25 mg BID ANA Administration Polyethylene Glycol 17 gm 11/28/19 10:00 11/28/19 09:36 Miralax (For Daily Use) - PO 17 gm DAILY ANA Administration Rosuvastatin Calcium 10 mg 11/27/19 22:00 11/28/19 21:28 Crestor - PO 10 mg HS ANA Administration Senna 2 tab 11/27/19 12:09 Senna - PO HS PRN CONSTIPATION Triamcinolone Acetonide 1 applic 11/27/19 12:09 Aristocort 0.1% Cream - TP DAILY PRN rash Vital Signs Period Temp Pulse Resp BP Sys/Corral Pulse Ox Last 24 Hr 98.5 F-99.4 F 87-88 20-20 142-151/63-71 95-97 Constitutional: Yes: Well Nourished, No Distress, Calm Cardiovascular: Yes: Regular Rate and Rhythm, S1, S2. No: JVD, Gallop, Murmur Respiratory: Yes: Regular, CTA Bilaterally. No: Accessory Muscle Use Extremities: No: Cold Edema: No Neurological: Yes: Alert. No: Seizure Psychiatric: No: Agitated no jaundice diaphoresis Labs: CBC, BMP 11/27/19 05:49 11/29/19 07:35 Assessment/Plan Echo 02/2018: nl LV/RV, E/A reversal, mild MR, PASP at least 39 mmHg CXR: clear lungs/pleura ECG x 2: NSR, nl axis/intervals. no ST-T changes vs prior, no q's fever, UTI sx's with dirty UA, joint pains (h/o OA), tachycardia: -per pmd elevated troponin: -trop in indeterminate range, flat trend (0.2-0.2-0.1)= not c/w ACS event -no ischemic sx's, no ischemic ECG findings - echo here unremarkable -no further cv workup indicated unless clinical picture changes h/o saddle pulmonary embolism, extensive RLE DVT (2018) - circumstances/risk factors for VTE unclear to me at this time -pt was discharged on warfarin, was on 6 months course as it was considered provoked Elevated troponin - trop 0.11->0.58->0.53->1.15->0.34. no ischemic ECG changes. - secondary to massive PE - no further CV w/u indicated at present time HLD - cont home statin HTN -cont current meds chronic diastolic HF - holding home lasix for ALESIA, renal following - monitor volume status on IVF, cxr clear - no signs HF at present time, cr improving
--- NOTE | 2019-11-29 11:57 | PN ---
Progress Note (short form) - Note Progress Note: PULMONARY WANTS TO GO HOME VSS/99.4 tmax Constitutional: Yes: NAD Eyes: Yes: WNL HENT: Yes: WNL Neck: Yes: WNL Cardiovascular: Yes: Regular Rate and Rhythm, S1, S2 Respiratory: Yes: Diminished Gastrointestinal: Yes: Normal Bowel Sounds, Soft Extremities: Yes: WNL Edema: Yes Labs:REVIEWED Renal function improving CXR no infiltrates FEVER/UTI + E-COLI IMPROVED ACUTE ON CHRONIC KIDNEY DISEASE PULMONARY HTN H/P SADDLE PE S/P IR CATHETER GUIDED TPA 2017 DIASTOLIC HF HTN HLD + TROPONIN PLAN SUPPLEMENTAL O2 NEEDED INHALED BRONCHODILATORS PRN PO ABX DC PLANNING R MARY DAI Problem List - Problems (1) Diastolic HF (heart failure) Code(s): I50.30 - UNSPECIFIED DIASTOLIC (CONGESTIVE) HEART FAILURE (2) UTI (urinary tract infection) Code(s): N39.0 - URINARY TRACT INFECTION, SITE NOT SPECIFIED Qualifiers: Urinary tract infection type: acute cystitis Hematuria presence: without hematuria Qualified Code(s): N30.00 - Acute cystitis without hematuria (3) Congestive heart failure Code(s): I50.9 - HEART FAILURE, UNSPECIFIED Qualifiers: Heart failure type: unspecified Heart failure chronicity: acute Qualified Code(s): I50.9 - Heart failure, unspecified (4) Fever Code(s): R50.9 - FEVER, UNSPECIFIED Qualifiers: Fever type: unspecified Qualified Code(s): R50.9 - Fever, unspecified
[2019-11-29] MEDS ORDERED: traMADol HCL 50 MG TABLET PO PRN (13:45)
--- NOTE | 2019-11-29 14:40 | PN ---
Progress Note (short form) - Note Progress Note: events noted no sob has pain in left knee- unable to bear weight spoke with orthopedics Current Medications Generic Name Dose Route Start Last Admin Trade Name Carlos PRN Reason Stop Dose Admin Acetaminophen 650 mg 11/27/19 12:09 Tylenol - PO Q6H PRN FEVER Albuterol Sulfate 2 puff 11/27/19 12:09 Ventolin Hfa Inhaler - IH Q4H PRN SHORT OF BREATH/WHEEZING Albuterol/Ipratropium 1 amp 11/27/19 12:09 Duoneb - NEB Q4H PRN SHORTNESS OF BREATH Amlodipine Besylate 5 mg 11/25/19 13:00 11/27/19 10:27 Norvasc - PO 5 mg DAILY ANA Administration Calcium Carbonate/Cholecalciferol 1 tab 11/28/19 10:00 Os-Samuel 500+D - PO DAILY ANA Docusate Sodium 100 mg 11/27/19 12:09 Colace - PO BID PRN CONSTIPATION Gabapentin 100 mg 11/24/19 12:45 11/27/19 10:28 Neurontin - PO 100 mg DAILY ANA Administration Heparin Sodium (Porcine) 5,000 unit 11/27/19 22:00 11/27/19 21:26 Heparin - SQ 5,000 unit BID ANA Administration Sodium Chloride 1,000 mls @ 35 mls/hr 11/27/19 16:30 11/27/19 15:00 1/2 Normal Saline IV 35 mls/hr ASDIR ANA Administration Metoprolol Tartrate 25 mg 11/23/19 10:30 11/27/19 21:29 Lopressor - PO 25 mg BID ANA Administration Polyethylene Glycol 17 gm 11/28/19 10:00 Miralax (For Daily Use) - PO DAILY ANA Rosuvastatin Calcium 10 mg 11/27/19 22:00 11/27/19 21:29 Crestor - PO 10 mg HS ANA Administration Senna 2 tab 11/27/19 12:09 Senna - PO HS PRN CONSTIPATION Tramadol HCl 50 mg 11/23/19 21:15 Ultram - PO Q12H PRN PAIN LEVEL 6-10 Triamcinolone Acetonide 1 applic 11/27/19 12:09 Aristocort 0.1% Cream - TP DAILY PRN rash Laboratory Results - last 24 hr 11/24/19 11/24/19 11/27/19 15:15 15:15 05:49 Neutrophils % (Manual) 79.4 Band Neutrophils % 0.0 Lymphocytes % (Manual) 11.8 Monocytes % (Manual) 4 Eosinophils % (Manual) 4.9 H Basophils % (Manual) 0.0 Myelocytes % (Man) 0 Promyelocytes % (Man) 0 Blast Cells % (Manual) 0 Nucleated RBC % 0 Metamyelocytes 0 Hypochromia 0 Platelet Estimate Normal Polychromasia 0 Poikilocytosis 0 Anisocytosis 0 Microcytosis 0 Macrocytosis 0 Sodium Potassium Chloride Carbon Dioxide Anion Gap BUN Creatinine Est GFR (CKD-EPI)AfAm Est GFR (CKD-EPI)NonAf Random Glucose Calcium Total Bilirubin AST ALT Alkaline Phosphatase Total Protein Total Protein (PEP) 6.4 Albumin Albumin (PEP) 2.3 L Globulin 4.1 H Albumin/Globulin Ratio 0.6 L Beta Globulins 1.3 MARK M-Florencio Not observed c-ANCA <1:20 Proteinase 3 (PR3) <3.5 p-ANCA <1:20 Atypical p-ANCA <1:20 Myeloperoxidase Ab <9.0 Glomerular Base Memb Ab 2 HCV Quantitation Hcv not detected HCV RNA log copies/mL [facility] 11/28/19 06:15 Neutrophils % (Manual) Band Neutrophils % Lymphocytes % (Manual) Monocytes % (Manual) Eosinophils % (Manual) Basophils % (Manual) Myelocytes % (Man) Promyelocytes % (Man) Blast Cells % (Manual) Nucleated RBC % Metamyelocytes Hypochromia Platelet Estimate Polychromasia Poikilocytosis Anisocytosis Microcytosis Macrocytosis Sodium 137 Potassium 4.3 Chloride 104 Carbon Dioxide 25 Anion Gap 8 BUN 54.1 H Creatinine 2.2 H Est GFR (CKD-EPI)AfAm 22.61 Est GFR (CKD-EPI)NonAf 19.51 Random Glucose 116 H Calcium 8.4 L Total Bilirubin 0.6 AST 32 ALT 24 Alkaline Phosphatase 142 H Total Protein 6.2 L Total Protein (PEP) Albumin 1.9 L Albumin (PEP) Globulin Albumin/Globulin Ratio Beta Globulins MARK M-Florencio c-ANCA Proteinase 3 (PR3) p-ANCA Atypical p-ANCA Myeloperoxidase Ab Glomerular Base Memb Ab HCV Quantitation HCV RNA log copies/mL S1 S2 RRR Lungs decreased Abd- soft, NT left knee- warm+ tender+ no edema PLAN renal function improving holding lasix continue with meds doppler legs done -- negative for DVT Ortho eval for left knee pain appreciated Pain management -- tramadol as needed Physical therapy
[2019-11-29] MEDS: POLYETHYLENE GLYCOL 3350 119 GM BTL PO SCH (15:37)
[2019-11-29] MEDS: traMADol HCL 50 MG TABLET PO PRN (15:44)
--- NOTE | 2019-11-29 19:05 | PN ---
Progress Note (short form) - Note Progress Note: Problems 1. ALESIA 2. ckd 3. uti 4. atrophic kidney 5. constipation 6. htn 7. PE 8. CHF 9. positive maximilian Active Medications Acetaminophen (Tylenol -) 650 mg PO Q6H PRN PRN Reason: FEVER Albuterol Sulfate (Ventolin Hfa Inhaler -) 2 puff IH Q4H PRN PRN Reason: SHORT OF BREATH/WHEEZING Albuterol/Ipratropium (Duoneb -) 1 amp NEB Q4H PRN PRN Reason: SHORTNESS OF BREATH Amlodipine Besylate (Norvasc -) 5 mg PO DAILY [facility] Last Admin: 11/29/19 10:35 Dose: 5 mg Documented by: Calcium Carbonate/Cholecalciferol (Os-Samuel 500+D -) 1 tab PO DAILY [facility] Last Admin: 11/29/19 10:35 Dose: 1 tab Documented by: Docusate Sodium (Colace -) 100 mg PO BID PRN PRN Reason: CONSTIPATION Gabapentin (Neurontin -) 100 mg PO DAILY [facility] Last Admin: 11/29/19 10:35 Dose: 100 mg Documented by: Heparin Sodium (Porcine) (Heparin -) 5,000 unit SQ BID [facility] Last Admin: 11/29/19 10:35 Dose: 5,000 unit Documented by: Sodium Chloride (1/2 Normal Saline) 1,000 mls @ 35 mls/hr IV ASDIR [facility] Last Admin: 11/28/19 21:29 Dose: 35 mls/hr Documented by: Metoprolol Tartrate (Lopressor -) 25 mg PO BID [facility] Last Admin: 11/29/19 10:35 Dose: 25 mg Documented by: Polyethylene Glycol (Miralax (For Daily Use) -) 17 gm PO DAILY [facility] Last Admin: 11/29/19 15:37 Dose: 17 gm Documented by: Rosuvastatin Calcium (Crestor -) 10 mg PO HS [facility] Last Admin: 11/28/19 21:28 Dose: 10 mg Documented by: Senna (Senna -) 2 tab PO HS PRN PRN Reason: CONSTIPATION Tramadol HCl (Ultram -) 50 mg PO Q6H PRN PRN Reason: PAIN LEVEL 6-10 Last Admin: 11/29/19 15:44 Dose: 50 mg Documented by: Triamcinolone Acetonide (Aristocort 0.1% Cream -) 1 applic TP DAILY PRN PRN Reason: rash Last Vital Signs Temp Pulse Resp BP Pulse Ox 98.7 F 79 20 143/44 L 97 11/29/19 14:58 11/29/19 14:58 11/29/19 14:58 11/29/19 14:58 11/29/19 14:58 Constitutional: Yes: NAD Eyes: Yes: WNL HENT: Yes: WNL Neck: Yes: WNL Cardiovascular: Yes: Regular Rate and Rhythm, S1, S2 Respiratory: Yes: Diminished Gastrointestinal: Yes: Normal Bowel Sounds, Soft Extremities: Yes: WNL Edema: Yes CBC, BMP 11/29/19 07:35 CBC, BMP 11/27/19 05:49 11/28/19 06:15 IMP- ALESIA improving with fluids positive MAXIMILIAN pending rheum eval Plan - renal function continues to improve - encourage oral fluids - repeat labs in am - follow serologies - lasix on hold- continue
[2019-11-29] MEDS: SODIUM CHLORIDE 0.45% 1,000 ML IV SCH (20:26)
[2019-11-29] MEDS: ROSUVASTATIN CA 10 MG TABLET (FP) PO SCH (21:23)
[2019-11-30] MEDS: DOCUSATE SODIUM 100 MG CAPSULE (FP) PO PRN (10:00)
[2019-11-30] MEDS: METOPROLOL TARTRATE 25 MG TABLET (FP) PO SCH ×2 (10:00→21:44)
[2019-11-30] MEDS: HEPARIN NA (PORCINE) 5,000 UNITS/ML 1ML VIAL SQ SCH ×2 (10:02→21:44)
[2019-11-30] MEDS: amLODIPine BESYLATE 5 MG TABLET (FP) PO SCH (10:02)
[2019-11-30] MEDS: POLYETHYLENE GLYCOL 3350 119 GM BTL PO SCH (10:03)
[2019-11-30] MEDS: GABAPENTIN 100 MG CAPSULE PO SCH (10:03)
[2019-11-30] MEDS: CALCIUM 500MG/VIT-D 200 UNITS COMBO TABLET (FP) PO SCH (10:03)
[2019-11-30] MEDS: traMADol HCL 50 MG TABLET PO PRN (10:03)
[2019-11-30 10:34] LABS: HEMATOCRIT 31.2 % (32.4-45.2); HEMOGLOBIN 10.2 GM/dL (10.7-15.3); MCH 28.7 pg (25.7-33.7); MCHC 32.8 g/dl (32.0-36.0); MEAN CELL VOLUME 87.4 fl (80-96); MEAN PLT VOLUME 8.9 fl (7.5-11.1); PLATELET COUNT 386 K/MM3 (134-434); RBC 3.57 M/mm3 (3.60-5.2); RDW 14.9 % (11.6-15.6); WHITE BLOOD COUNT 9.2 K/mm3 (4.0-10.0)
[2019-11-30 11:03] LABS: ALBUMIN 2.1 g/dl (3.4-5.0); BLOOD UREA NITROGEN 35.8 mg/dL (7-18); CALCIUM 8.7 mg/dL (8.5-10.1); POTASSIUM 4.7 mmol/L (3.5-5.1)
[2019-11-30 11:07] LABS: BILIRUBIN,TOTAL 0.6 mg/dL (0.2-1); CREATININE 1.6 mg/dL (0.55-1.3)
--- NOTE | 2019-11-30 11:40 | PN ---
Progress Note (short form) - Note Progress Note: Chief Complaint: fever History of Present Illness: denies palpitations, cp, sob no feet swelling no dizzy Current Medications Generic Name Dose Route Start Last Admin Trade Name Freq PRN Reason Stop Dose Admin Acetaminophen 650 mg 11/27/19 12:09 Tylenol - PO Q6H PRN FEVER Albuterol Sulfate 2 puff 11/27/19 12:09 Ventolin Hfa Inhaler - IH Q4H PRN SHORT OF BREATH/WHEEZING Albuterol/Ipratropium 1 amp 11/27/19 12:09 Duoneb - NEB Q4H PRN SHORTNESS OF BREATH Amlodipine Besylate 5 mg 11/25/19 13:00 11/30/19 10:02 Norvasc - PO 5 mg DAILY ANA Administration Calcium Carbonate/Cholecalciferol 1 tab 11/28/19 10:00 11/30/19 10:03 Os-Samuel 500+D - PO 1 tab DAILY ANA Administration Docusate Sodium 100 mg 11/27/19 12:09 11/30/19 10:00 Colace - PO 100 mg BID PRN Administration CONSTIPATION Gabapentin 100 mg 11/24/19 12:45 11/30/19 10:03 Neurontin - PO 100 mg DAILY ANA Administration Heparin Sodium (Porcine) 5,000 unit 11/27/19 22:00 11/30/19 10:02 Heparin - SQ 5,000 unit BID ANA Administration Sodium Chloride 1,000 mls @ 35 mls/hr 11/27/19 16:30 11/29/19 20:26 1/2 Normal Saline IV Not Given ASDIR ANA Metoprolol Tartrate 25 mg 11/23/19 10:30 11/30/19 10:00 Lopressor - PO 25 mg BID ANA Administration Polyethylene Glycol 17 gm 11/28/19 10:00 11/30/19 10:03 Miralax (For Daily Use) - PO 17 gm DAILY ANA Administration Rosuvastatin Calcium 10 mg 11/27/19 22:00 11/29/19 21:23 Crestor - PO 10 mg HS ANA Administration Senna 2 tab 11/27/19 12:09 Senna - PO HS PRN CONSTIPATION Tramadol HCl 50 mg 11/29/19 14:40 11/30/19 10:03 Ultram - PO 50 mg Q6H PRN Administration PAIN LEVEL 6-10 Triamcinolone Acetonide 1 applic 08/21/20 12:09 Aristocort 0.1% Cream - TP DAILY PRN rash Vital Signs Period Temp Pulse Resp BP Sys/Corral Pulse Ox Last 24 Hr 98.3 F-98.7 F 79-99 - 126-155/44-70 94-98 Constitutional: Yes: Well Nourished, No Distress, Calm Cardiovascular: Yes: Regular Rate and Rhythm, S1, S2. No: JVD, Gallop, Murmur Respiratory: Yes: Regular, CTA Bilaterally. No: Accessory Muscle Use Extremities: No: Cold Edema: No Neurological: Yes: Alert. No: Seizure Psychiatric: No: Agitated no jaundice diaphoresis Labs: CBC, BMP 11/30/19 08:35 11/30/19 08:35 Assessment/Plan Echo 02/2018: nl LV/RV, E/A reversal, mild MR, PASP at least 39 mmHg CXR: clear lungs/pleura ECG x 2: NSR, nl axis/intervals. no ST-T changes vs prior, no q's fever, UTI sx's with dirty UA, joint pains (h/o OA), tachycardia: -per pmd elevated troponin: -trop in indeterminate range, flat trend (0.2-0.2-0.1)= not c/w ACS event -no ischemic sx's, no ischemic ECG findings - echo here unremarkable -no further cv workup indicated unless clinical picture changes h/o saddle pulmonary embolism, extensive RLE DVT (2018) - circumstances/risk factors for VTE unclear to me at this time -pt was discharged on warfarin, was on 6 months course as it was considered provoked Elevated troponin - trop 0.11->0.58->0.53->1.15->0.34. no ischemic ECG changes. - secondary to massive PE - no further CV w/u indicated at present time HLD - cont home statin HTN -cont current meds chronic diastolic HF - holding home lasix for ALESIA, renal following - monitor volume status on IVF, cxr clear - no signs HF at present time, cr improving
[2019-11-30] MEDS ORDERED: oxyCODONE HCL 5 MG TABLET PO PRN (12:24)
--- NOTE | 2019-11-30 12:30 | PN ---
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 Pt unable to get out of bed Othro consult noted-- severe Osteo-- Did not give Steroid injection Rheumatology consult was called - Pending Knee -- not warm/red consistent with Osteoarthritis Not Infected - Current Medication List Current Medications: Active Medications Acetaminophen (Tylenol -) 650 mg PO Q6H PRN PRN Reason: FEVER Albuterol Sulfate (Ventolin Hfa Inhaler -) 2 puff IH Q4H PRN PRN Reason: SHORT OF BREATH/WHEEZING Albuterol/Ipratropium (Duoneb -) 1 amp NEB Q4H PRN PRN Reason: SHORTNESS OF BREATH Amlodipine Besylate (Norvasc -) 5 mg PO DAILY [facility] Last Admin: 11/30/19 10:02 Dose: 5 mg Documented by: Calcium Carbonate/Cholecalciferol (Os-Samuel 500+D -) 1 tab PO DAILY [facility] Last Admin: 11/30/19 10:03 Dose: 1 tab Documented by: Docusate Sodium (Colace -) 100 mg PO BID PRN PRN Reason: CONSTIPATION Last Admin: 11/30/19 10:00 Dose: 100 mg Documented by: Gabapentin (Neurontin -) 100 mg PO DAILY [facility] Last Admin: 11/30/19 10:03 Dose: 100 mg Documented by: Heparin Sodium (Porcine) (Heparin -) 5,000 unit SQ BID [facility] Last Admin: 11/30/19 10:02 Dose: 5,000 unit Documented by: Sodium Chloride (1/2 Normal Saline) 1,000 mls @ 35 mls/hr IV ASDIR [facility] Last Admin: 11/29/19 20:26 Dose: Not Given Documented by: Metoprolol Tartrate (Lopressor -) 25 mg PO BID [facility] Last Admin: 11/30/19 10:00 Dose: 25 mg Documented by: Polyethylene Glycol (Miralax (For Daily Use) -) 17 gm PO DAILY [facility] Last Admin: 11/30/19 10:03 Dose: 17 gm Documented by: Rosuvastatin Calcium (Crestor -) 10 mg PO HS [facility] Last Admin: 11/29/19 21:23 Dose: 10 mg Documented by: Senna (Senna -) 2 tab PO HS PRN PRN Reason: CONSTIPATION Triamcinolone Acetonide (Aristocort 0.1% Cream -) 1 applic TP DAILY PRN PRN Reason: rash - Objective Vital Signs: Vital Signs Temperature 98.6 F 11/30/19 09:59 Pulse Rate 99 H 11/30/19 09:59 Respiratory Rate 20 11/30/19 09:59 Blood Pressure 155/60 11/30/19 09:59 O2 Sat by Pulse Oximetry (%) 98 11/30/19 09:59 Constitutional: Yes: No Distress, Calm Neck: Yes: Supple Cardiovascular: Yes: Regular Rate and Rhythm Respiratory: Yes: Diminished Gastrointestinal: Yes: Soft Musculoskeletal: Yes: Joint Stiffness (left knee) Edema: LLE: Trace, RLE: Trace Neurological: Yes: Alert Labs: CBC, BMP 11/30/19 08:35 11/30/19 08:35 INR, PTT INR 1.18 (0.83-1.09) H 11/20/19 16:30 Problem List - Problems (1) UTI (urinary tract infection) Code(s): N39.0 - URINARY TRACT INFECTION, SITE NOT SPECIFIED Qualifiers: Urinary tract infection type: acute cystitis Hematuria presence: without hematuria Qualified Code(s): N30.00 - Acute cystitis without hematuria (2) Elevated troponin Code(s): R79.89 - OTHER SPECIFIED ABNORMAL FINDINGS OF BLOOD CHEMISTRY (3) Sepsis Code(s): A41.9 - SEPSIS, UNSPECIFIED ORGANISM Qualifiers: Sepsis type: sepsis due to unspecified organism Sepsis acute organ dysfunction status: with acute organ dysfunction Severe sepsis acute organ dysfunction type: acute renal failure Acute renal failure type: unspecified Severe sepsis shock status: without septic shock Qualified Code(s): A41.9 - Sepsis, unspecified organism; R65.20 - Severe sepsis without septic shock; N17.9 - Acute kidney failure, unspecified (4) Congestive heart failure Code(s): I50.9 - HEART FAILURE, UNSPECIFIED Qualifiers: Heart failure type: unspecified Heart failure chronicity: acute Qualified Code(s): I50.9 - Heart failure, unspecified (5) Hypertension Code(s): I10 - ESSENTIAL (PRIMARY) HYPERTENSION Qualifiers: Hypertension type: essential hypertension Qualified Code(s): I10 - Essential (primary) hypertension (6) Tachycardia Code(s): R00.0 - TACHYCARDIA, UNSPECIFIED Assessment/Plan Renal function continue to improve Left knee pain Will discuss with Ortho. Change pain med to oxy from tramadol Not ready for d/c as unable to get out of bed Will need str Will follow
[2019-11-30 13:39] VITALS: BMI 39.4
[2019-11-30] MEDS ORDERED: diphenhydrAMINE HCL 25 MG CAPSULE (FP) PO ONE (16:15)
--- NOTE | 2019-11-30 16:30 | PN ---
Progress Note, Physician History of Present Illness: Pt seen and examined at bedside. She is awake and alert. She denies shortness of breath. She complains of edema. - Current Medication List Current Medications: Active Medications Acetaminophen (Tylenol -) 650 mg PO Q6H PRN PRN Reason: FEVER Albuterol Sulfate (Ventolin Hfa Inhaler -) 2 puff IH Q4H PRN PRN Reason: SHORT OF BREATH/WHEEZING Albuterol/Ipratropium (Duoneb -) 1 amp NEB Q4H PRN PRN Reason: SHORTNESS OF BREATH Amlodipine Besylate (Norvasc -) 5 mg PO DAILY [facility] Last Admin: 11/30/19 10:02 Dose: 5 mg Documented by: Calcium Carbonate/Cholecalciferol (Os-Samuel 500+D -) 1 tab PO DAILY [facility] Last Admin: 11/30/19 10:03 Dose: 1 tab Documented by: Docusate Sodium (Colace -) 100 mg PO BID PRN PRN Reason: CONSTIPATION Last Admin: 11/30/19 10:00 Dose: 100 mg Documented by: Gabapentin (Neurontin -) 100 mg PO DAILY [facility] Last Admin: 11/30/19 10:03 Dose: 100 mg Documented by: Heparin Sodium (Porcine) (Heparin -) 5,000 unit SQ BID [facility] Last Admin: 11/30/19 10:02 Dose: 5,000 unit Documented by: Sodium Chloride (1/2 Normal Saline) 1,000 mls @ 35 mls/hr IV ASDIR [facility] Last Admin: 11/29/19 20:26 Dose: Not Given Documented by: Metoprolol Tartrate (Lopressor -) 25 mg PO BID [facility] Last Admin: 11/30/19 10:00 Dose: 25 mg Documented by: Oxycodone HCl (Roxicodone -) 5 mg PO Q4H PRN PRN Reason: PAIN LEVEL 6-10 Polyethylene Glycol (Miralax (For Daily Use) -) 17 gm PO DAILY [facility] Last Admin: 11/30/19 10:03 Dose: 17 gm Documented by: Rosuvastatin Calcium (Crestor -) 10 mg PO HS [facility] Last Admin: 11/29/19 21:23 Dose: 10 mg Documented by: Senna (Senna -) 2 tab PO HS PRN PRN Reason: CONSTIPATION Triamcinolone Acetonide (Aristocort 0.1% Cream -) 1 applic TP DAILY PRN PRN Reason: rash - Objective Vital Signs: Vital Signs Temperature 98.6 F 11/30/19 09:59 Pulse Rate 99 H 11/30/19 09:59 Respiratory Rate 20 11/30/19 09:59 Blood Pressure 155/60 11/30/19 09:59 O2 Sat by Pulse Oximetry (%) 98 11/30/19 09:59 Constitutional: Yes: Calm Eyes: Yes: Conjunctiva Clear HENT: Yes: Atraumatic Neck: Yes: Supple Cardiovascular: Yes: S1, S2 Respiratory: Yes: CTA Bilaterally Gastrointestinal: Yes: Soft Genitourinary: Yes: WNL Edema: Yes Edema: LLE: 1+, RLE: 1+ Neurological: Yes: Oriented Psychiatric: Yes: Oriented Labs: CBC, BMP 11/30/19 08:35 11/30/19 08:35 INR, PTT INR 1.18 (0.83-1.09) H 11/20/19 16:30 Problem List - Problems (1) ALESIA (acute kidney injury) Code(s): N17.9 - ACUTE KIDNEY FAILURE, UNSPECIFIED (2) CKD (chronic kidney disease) Code(s): N18.9 - CHRONIC KIDNEY DISEASE, UNSPECIFIED Assessment/Plan Current Medications Generic Name Dose Route Start Last Admin Trade Name Freq PRN Reason Stop Dose Admin Acetaminophen 650 mg 11/27/19 12:09 Tylenol - PO Q6H PRN FEVER Albuterol Sulfate 2 puff 11/27/19 12:09 Ventolin Hfa Inhaler - IH Q4H PRN SHORT OF BREATH/WHEEZING Albuterol/Ipratropium 1 amp 11/27/19 12:09 Duoneb - NEB Q4H PRN SHORTNESS OF BREATH Amlodipine Besylate 5 mg 11/25/19 13:00 11/30/19 10:02 Norvasc - PO 5 mg DAILY ANA Administration Calcium Carbonate/Cholecalciferol 1 tab 11/28/19 10:00 11/30/19 10:03 Os-Samuel 500+D - PO 1 tab DAILY ANA Administration Docusate Sodium 100 mg 11/27/19 12:09 11/30/19 10:00 Colace - PO 100 mg BID PRN Administration CONSTIPATION Gabapentin 100 mg 11/24/19 12:45 11/30/19 10:03 Neurontin - PO 100 mg DAILY ANA Administration Heparin Sodium (Porcine) 5,000 unit 11/27/19 22:00 11/30/19 10:02 Heparin - SQ 5,000 unit BID ANA Administration Sodium Chloride 1,000 mls @ 35 mls/hr 11/27/19 16:30 11/29/19 20:26 1/2 Normal Saline IV Not Given ASDIR ANA Metoprolol Tartrate 25 mg 11/23/19 10:30 11/30/19 10:00 Lopressor - PO 25 mg BID ANA Administration Oxycodone HCl 5 mg 11/30/19 12:24 Roxicodone - PO Q4H PRN PAIN LEVEL 6-10 Polyethylene Glycol 17 gm 11/28/19 10:00 11/30/19 10:03 Miralax (For Daily Use) - PO 17 gm DAILY ANA Administration Rosuvastatin Calcium 10 mg 11/27/19 22:00 11/29/19 21:23 Crestor - PO 10 mg HS ANA Administration Senna 2 tab 11/27/19 12:09 Senna - PO HS PRN CONSTIPATION Triamcinolone Acetonide 1 applic 11/27/19 12:09 Aristocort 0.1% Cream - TP DAILY PRN rash Impression 1. ALESIA 2. ckd 3. uti 4. atrophic kidney 5. constipation 6. htn 7. PE 8. CHF 9. positive maximilian Plan - renal function improving - stop fluids - restart lasix likely tomorrow - repeat labs in am - rheum eval for maximilian - follow serologies - urine eos neg
--- NOTE | 2019-11-30 16:32 | PN ---
Progress Note (short form) - Note Progress Note: PULMONARY Denies shortness of breath, cough, fevers. Vital Signs Period Temp Pulse Resp BP Sys/Corral Pulse Ox Last 24 Hr 98.3 F-98.6 F 82-99 20-20 126-155/54-70 94-98 Gen: NAD at rest Heart: RRR Lung: decreased breath sounds at the bases Abd: soft, nontender Ext: no edema CBC, BMP 11/30/19 08:35 11/30/19 08:35 Active Medications Acetaminophen (Tylenol -) 650 mg PO Q6H PRN PRN Reason: FEVER Albuterol Sulfate (Ventolin Hfa Inhaler -) 2 puff IH Q4H PRN PRN Reason: SHORT OF BREATH/WHEEZING Albuterol/Ipratropium (Duoneb -) 1 amp NEB Q4H PRN PRN Reason: SHORTNESS OF BREATH Amlodipine Besylate (Norvasc -) 5 mg PO DAILY [facility] Last Admin: 11/30/19 10:02 Dose: 5 mg Documented by: Calcium Carbonate/Cholecalciferol (Os-Samuel 500+D -) 1 tab PO DAILY [facility] Last Admin: 11/30/19 10:03 Dose: 1 tab Documented by: Docusate Sodium (Colace -) 100 mg PO BID PRN PRN Reason: CONSTIPATION Last Admin: 11/30/19 10:00 Dose: 100 mg Documented by: Gabapentin (Neurontin -) 100 mg PO DAILY [facility] Last Admin: 11/30/19 10:03 Dose: 100 mg Documented by: Heparin Sodium (Porcine) (Heparin -) 5,000 unit SQ BID [facility] Last Admin: 11/30/19 10:02 Dose: 5,000 unit Documented by: Metoprolol Tartrate (Lopressor -) 25 mg PO BID [facility] Last Admin: 11/30/19 10:00 Dose: 25 mg Documented by: Oxycodone HCl (Roxicodone -) 5 mg PO Q4H PRN PRN Reason: PAIN LEVEL 6-10 Polyethylene Glycol (Miralax (For Daily Use) -) 17 gm PO DAILY [facility] Last Admin: 11/30/19 10:03 Dose: 17 gm Documented by: Rosuvastatin Calcium (Crestor -) 10 mg PO HS [facility] Last Admin: 11/29/19 21:23 Dose: 10 mg Documented by: Senna (Senna -) 2 tab PO HS PRN PRN Reason: CONSTIPATION Triamcinolone Acetonide (Aristocort 0.1% Cream -) 1 applic TP DAILY PRN PRN Reason: rash A/P UTI h/o VTE +Troponins likely Demand Ischemia Acute Kidney Injury LV Diastolic Dysfunction HTN Hyperlipidemia - completed antibiotics - inhaled bronchodilators - O2 to keep SpO2 >90% - DVT prophylaxis
[2019-11-30] MEDS: ROSUVASTATIN CA 10 MG TABLET (FP) PO SCH (21:44)
[2019-12-01 08:50] LABS: BILIRUBIN,TOTAL 0.5 mg/dL (0.2-1); BLOOD UREA NITROGEN 36.4 mg/dL (7-18); CALCIUM 8.6 mg/dL (8.5-10.1); CREATININE 1.6 mg/dL (0.55-1.3); POTASSIUM 4.7 mmol/L (3.5-5.1); TOT PROT 6.9 g/dl (6.4-8.2)
[2019-12-01] MEDS ORDERED: PT OWN MED DRAWER 7, Y5N ONE (09:36)
[2019-12-01] MEDS: amLODIPine BESYLATE 5 MG TABLET (FP) PO SCH (09:38)
[2019-12-01] MEDS: CALCIUM 500MG/VIT-D 200 UNITS COMBO TABLET (FP) PO SCH (09:38)
[2019-12-01] MEDS: DOCUSATE SODIUM 100 MG CAPSULE (FP) PO PRN (09:38)
[2019-12-01] MEDS: GABAPENTIN 100 MG CAPSULE PO SCH (09:39)
[2019-12-01] MEDS: HEPARIN NA (PORCINE) 5,000 UNITS/ML 1ML VIAL SQ SCH ×2 (09:40→21:27)
[2019-12-01] MEDS: METOPROLOL TARTRATE 25 MG TABLET (FP) PO SCH ×2 (09:40→21:27)
[2019-12-01] MEDS: POLYETHYLENE GLYCOL 3350 119 GM BTL PO SCH (09:40)
--- NOTE | 2019-12-01 10:26 | PN ---
Progress Note, Physician History of Present Illness: PULMONARY ALERT,COMFORTABLE,ON NASAL O2,-SOB - Current Medication List Current Medications: Active Medications Acetaminophen (Tylenol -) 650 mg PO Q6H PRN PRN Reason: FEVER Albuterol Sulfate (Ventolin Hfa Inhaler -) 2 puff IH Q4H PRN PRN Reason: SHORT OF BREATH/WHEEZING Albuterol/Ipratropium (Duoneb -) 1 amp NEB Q4H PRN PRN Reason: SHORTNESS OF BREATH Amlodipine Besylate (Norvasc -) 5 mg PO DAILY [facility] Last Admin: 12/01/19 09:38 Dose: 5 mg Documented by: Calcium Carbonate/Cholecalciferol (Os-Samuel 500+D -) 1 tab PO DAILY [facility] Last Admin: 12/01/19 09:38 Dose: 1 tab Documented by: Docusate Sodium (Colace -) 100 mg PO BID PRN PRN Reason: CONSTIPATION Last Admin: 12/01/19 09:38 Dose: 100 mg Documented by: Gabapentin (Neurontin -) 100 mg PO DAILY [facility] Last Admin: 12/01/19 09:39 Dose: 100 mg Documented by: Heparin Sodium (Porcine) (Heparin -) 5,000 unit SQ BID [facility] Last Admin: 12/01/19 09:40 Dose: 5,000 unit Documented by: Metoprolol Tartrate (Lopressor -) 25 mg PO BID [facility] Last Admin: 12/01/19 09:40 Dose: 25 mg Documented by: Oxycodone HCl (Roxicodone -) 5 mg PO Q4H PRN PRN Reason: PAIN LEVEL 6-10 Last Admin: 12/01/19 09:39 Dose: 5 mg Documented by: Polyethylene Glycol (Miralax (For Daily Use) -) 17 gm PO DAILY [facility] Last Admin: 12/01/19 09:40 Dose: 17 gm Documented by: Rosuvastatin Calcium (Crestor -) 10 mg PO HS [facility] Last Admin: 11/30/19 21:44 Dose: 10 mg Documented by: Senna (Senna -) 2 tab PO HS PRN PRN Reason: CONSTIPATION Last Admin: 11/30/19 21:44 Dose: 2 tab Documented by: Triamcinolone Acetonide (Aristocort 0.1% Cream -) 1 applic TP DAILY PRN PRN Reason: rash - Objective Vital Signs: Vital Signs Temperature 99.5 F 08/25/20 06:00 Pulse Rate 87 12/01/19 06:00 Respiratory Rate 20 12/01/19 06:00 Blood Pressure 140/66 12/01/19 06:00 O2 Sat by Pulse Oximetry (%) 94 L 11/30/19 20:20 Constitutional: Yes: Well Nourished, Calm Eyes: Yes: WNL HENT: Yes: WNL Neck: Yes: WNL Cardiovascular: Yes: Regular Rate and Rhythm, S1, S2 Respiratory: Yes: Diminished Gastrointestinal: Yes: Normal Bowel Sounds, Soft Extremities: Yes: WNL Edema: Yes Labs: CBC, BMP 12/01/19 07:30 INR, PTT INR 1.18 (0.83-1.09) H 11/20/19 16:30 Assessment/Plan roblem List - Problems (1) Diastolic HF (heart failure) Code(s): I50.30 - UNSPECIFIED DIASTOLIC (CONGESTIVE) HEART FAILURE (2) UTI (urinary tract infection) Code(s): N39.0 - URINARY TRACT INFECTION, SITE NOT SPECIFIED Qualifiers: Urinary tract infection type: acute cystitis Hematuria presence: without hematuria Qualified Code(s): N30.00 - Acute cystitis without hematuria (3) Congestive heart failure Code(s): I50.9 - HEART FAILURE, UNSPECIFIED Qualifiers: Heart failure type: unspecified Heart failure chronicity: acute Qualified Code(s): I50.9 - Heart failure, unspecified (4) Fever Code(s): R50.9 - FEVER, UNSPECIFIED Qualifiers: Fever type: unspecified Qualified Code(s): R50.9 - Fever, unspecified Assessment/Plan FEVER/UTI + E-COLI ACUTE ON CHRONIC KIDNEY DISEASE PULMONARY HTN H/P SADDLE PE S/P IR CATHETER GUIDED TPA DIASTOLIC HF HTN HLD + TROPONIN PLAN SUPPLEMENTAL O2 INHALED BRONCHODILATORS PRN ABX COMPLETED MONITOR LYTES,RENAL FUNCTION DR KOO
--- NOTE | 2019-12-01 12:15 | PN ---
Progress Note (short form) - Note Progress Note: events noted no sob has pain in left knee- unable to bear weight spoke with orthopedics she has diffuse rash on her arms and back not pruritic Vital Signs - 24 hr 11/30/19 11/30/19 12/01/19 19:52 20:20 06:00 Temperature 99.1 F 99.5 F Pulse Rate 93 H 87 Respiratory 22 H 22 H 20 Rate Blood Pressure 141/67 140/66 O2 Sat by Pulse 94 L 94 L Oximetry (%) Current Medications Generic Name Dose Route Start Last Admin Trade Name Freq PRN Reason Stop Dose Admin Acetaminophen 650 mg 11/27/19 12:09 Tylenol - PO Q6H PRN FEVER Albuterol Sulfate 2 puff 11/27/19 12:09 Ventolin Hfa Inhaler - IH Q4H PRN SHORT OF BREATH/WHEEZING Albuterol/Ipratropium 1 amp 11/27/19 12:09 Duoneb - NEB Q4H PRN SHORTNESS OF BREATH Amlodipine Besylate 5 mg 11/25/19 13:00 12/01/19 09:38 Norvasc - PO 5 mg DAILY ANA Administration Calcium Carbonate/Cholecalciferol 1 tab 11/28/19 10:00 12/01/19 09:38 Os-Samuel 500+D - PO 1 tab DAILY ANA Administration Docusate Sodium 100 mg 11/27/19 12:09 12/01/19 09:38 Colace - PO 100 mg BID PRN Administration CONSTIPATION Gabapentin 100 mg 11/24/19 12:45 12/01/19 09:39 Neurontin - PO 100 mg DAILY ANA Administration Heparin Sodium (Porcine) 5,000 unit 11/27/19 22:00 12/01/19 09:40 Heparin - SQ 5,000 unit BID ANA Administration Metoprolol Tartrate 25 mg 11/23/19 10:30 12/01/19 09:40 Lopressor - PO 25 mg BID ANA Administration Oxycodone HCl 5 mg 11/30/19 12:24 12/01/19 09:39 Roxicodone - PO 5 mg Q4H PRN Administration PAIN LEVEL 6-10 Polyethylene Glycol 17 gm 11/28/19 10:00 12/01/19 09:40 Miralax (For Daily Use) - PO 17 gm DAILY ANA Administration Rosuvastatin Calcium 10 mg 11/27/19 22:00 11/30/19 21:44 Crestor - PO 10 mg HS ANA Administration Senna 2 tab 11/27/19 12:09 11/30/19 21:44 Senna - PO 2 tab HS PRN Administration CONSTIPATION Triamcinolone Acetonide 1 applic 11/27/19 12:09 Aristocort 0.1% Cream - TP DAILY PRN rash Laboratory Results - last 24 hr 11/28/19 12/01/19 06:15 07:30 Sodium 138 Potassium 4.7 Chloride 105 Carbon Dioxide 26 Anion Gap 6 L BUN 36.4 H Creatinine 1.6 H Est GFR (CKD-EPI)AfAm 33.23 Est GFR (CKD-EPI)NonAf 28.67 Random Glucose 119 H Calcium 8.6 Total Bilirubin 0.5 AST 39 H ALT 36 Alkaline Phosphatase 171 H Total Protein 6.9 Albumin 2.0 L Tot Complement (CH50) > 60 S1 S2 RRR Lungs decreased Abd- soft, NT left knee- not warm, tender+ slight edema diffuse papular lesions on arms, abd-- blister PLAN renal function improving holding lasix-- will restart as per renal continue with meds doppler legs done -- negative for DVT Ortho eval for left knee pain appreciated Pain management -- oxycodone as needed Physical therapy Rheumatology eval pain management
[2019-12-01] MEDS ORDERED: traMADol HCL 50 MG TABLET PO PRN (12:18)
[2019-12-01] MEDS ORDERED: diphenhydrAMINE HCL 25 MG CAPSULE (FP) PO PRN (12:22)
--- NOTE | 2019-12-01 12:31 | PN ---
Progress Note (short form) - Note Progress Note: cc: fever s: no chest pain, palps, dizziness, dyspnea Current Medications Generic Name Dose Route Start Last Admin Trade Name Freq PRN Reason Stop Dose Admin Acetaminophen 650 mg 11/27/19 12:09 Tylenol - PO Q6H PRN FEVER Albuterol Sulfate 2 puff 11/27/19 12:09 Ventolin Hfa Inhaler - IH Q4H PRN SHORT OF BREATH/WHEEZING Albuterol/Ipratropium 1 amp 11/27/19 12:09 Duoneb - NEB Q4H PRN SHORTNESS OF BREATH Amlodipine Besylate 5 mg 11/25/19 13:00 12/01/19 09:38 Norvasc - PO 5 mg DAILY ANA Administration Calcium Carbonate/Cholecalciferol 1 tab 11/28/19 10:00 12/01/19 09:38 Os-Samuel 500+D - PO 1 tab DAILY ANA Administration Diphenhydramine HCl 25 mg 12/01/19 12:22 Benadryl - PO Q6H PRN FOR ITCHING Docusate Sodium 100 mg 11/27/19 12:09 12/01/19 09:38 Colace - PO 100 mg BID PRN Administration CONSTIPATION Furosemide 40 mg 12/01/19 12:30 Lasix - PO DAILY ANA Gabapentin 100 mg 11/24/19 12:45 12/01/19 09:39 Neurontin - PO 100 mg DAILY ANA Administration Heparin Sodium (Porcine) 5,000 unit 11/27/19 22:00 12/01/19 09:40 Heparin - SQ 5,000 unit BID ANA Administration Metoprolol Tartrate 25 mg 11/23/19 10:30 12/01/19 09:40 Lopressor - PO 25 mg BID ANA Administration Polyethylene Glycol 17 gm 11/28/19 10:00 12/01/19 09:40 Miralax (For Daily Use) - PO 17 gm DAILY ANA Administration Rosuvastatin Calcium 10 mg 11/27/19 22:00 11/30/19 21:44 Crestor - PO 10 mg HS ANA Administration Senna 2 tab 11/27/19 12:09 11/30/19 21:44 Senna - PO 2 tab HS PRN Administration CONSTIPATION Tramadol HCl 50 mg 12/01/19 12:18 Ultram - PO Q6H PRN PAIN LEVEL 6-10 Triamcinolone Acetonide 1 applic 11/27/19 12:09 Aristocort 0.1% Cream - TP DAILY PRN rash Vital Signs Period Temp Pulse Resp BP Sys/Corral Pulse Ox Last 24 Hr 99.1 F-99.5 F 87-93 20-22 140-141/66-67 94-94 Constitutional: Yes: Well Nourished, No Distress, Calm Cardiovascular: Yes: Regular Rate and Rhythm, S1, S2. No: JVD, Gallop, Murmur Respiratory: Yes: Regular, CTA Bilaterally. No: Accessory Muscle Use Extremities: No: Cold Edema: No Neurological: Yes: Alert. No: Seizure Psychiatric: No: Agitated no jaundice diaphoresis Assessment/Plan Echo 02/2018: nl LV/RV, E/A reversal, mild MR, PASP at least 39 mmHg CXR: clear lungs/pleura ECG x 2: NSR, nl axis/intervals. no ST-T changes vs prior, no q's fever, UTI sx's with dirty UA, joint pains (h/o OA), tachycardia: -per pmd elevated troponin: -trop in indeterminate range, flat trend (0.2-0.2-0.1)= not c/w ACS event -no ischemic sx's, no ischemic ECG findings - echo here unremarkable -no further cv workup indicated unless clinical picture changes h/o saddle pulmonary embolism, extensive RLE DVT (2018) - circumstances/risk factors for VTE unclear -pt was discharged on warfarin, was on 6 months course as it was considered provoked Elevated troponin - trop 0.11->0.58->0.53->1.15->0.34. no ischemic ECG changes. - secondary to massive PE - no further CV w/u indicated at present time HLD - cont home statin HTN -cont current meds chronic diastolic HF - lasix was held for ALESIA, renal following - cr stable, will resume lasix 40 mg po daily, d/w renal
--- NOTE | 2019-12-01 12:44 | PN ---
Progress Note, Physician History of Present Illness: Pt seen and examined at bedside. She is awake and alert. She denies shortness of breath. - Current Medication List Current Medications: Active Medications Acetaminophen (Tylenol -) 650 mg PO Q6H PRN PRN Reason: FEVER Albuterol Sulfate (Ventolin Hfa Inhaler -) 2 puff IH Q4H PRN PRN Reason: SHORT OF BREATH/WHEEZING Albuterol/Ipratropium (Duoneb -) 1 amp NEB Q4H PRN PRN Reason: SHORTNESS OF BREATH Amlodipine Besylate (Norvasc -) 5 mg PO DAILY [facility] Last Admin: 12/01/19 09:38 Dose: 5 mg Documented by: Calcium Carbonate/Cholecalciferol (Os-Samuel 500+D -) 1 tab PO DAILY [facility] Last Admin: 12/01/19 09:38 Dose: 1 tab Documented by: Diphenhydramine HCl (Benadryl -) 25 mg PO Q6H PRN PRN Reason: FOR ITCHING Docusate Sodium (Colace -) 100 mg PO BID PRN PRN Reason: CONSTIPATION Last Admin: 12/01/19 09:38 Dose: 100 mg Documented by: Furosemide (Lasix -) 40 mg PO DAILY [facility] Gabapentin (Neurontin -) 100 mg PO DAILY [facility] Last Admin: 12/01/19 09:39 Dose: 100 mg Documented by: Heparin Sodium (Porcine) (Heparin -) 5,000 unit SQ BID [facility] Last Admin: 12/01/19 09:40 Dose: 5,000 unit Documented by: Metoprolol Tartrate (Lopressor -) 25 mg PO BID [facility] Last Admin: 12/01/19 09:40 Dose: 25 mg Documented by: Polyethylene Glycol (Miralax (For Daily Use) -) 17 gm PO DAILY [facility] Last Admin: 12/01/19 09:40 Dose: 17 gm Documented by: Rosuvastatin Calcium (Crestor -) 10 mg PO HS [facility] Last Admin: 11/30/19 21:44 Dose: 10 mg Documented by: Senna (Senna -) 2 tab PO HS PRN PRN Reason: CONSTIPATION Last Admin: 11/30/19 21:44 Dose: 2 tab Documented by: Tramadol HCl (Ultram -) 50 mg PO Q6H PRN PRN Reason: PAIN LEVEL 6-10 Triamcinolone Acetonide (Aristocort 0.1% Cream -) 1 applic TP DAILY PRN PRN Reason: rash - Objective Vital Signs: Vital Signs Temperature 99.5 F 12/01/19 06:00 Pulse Rate 87 12/01/19 06:00 Respiratory Rate 20 12/01/19 06:00 Blood Pressure 140/66 12/01/19 06:00 O2 Sat by Pulse Oximetry (%) 94 L 11/30/19 20:20 Constitutional: Yes: Calm Eyes: Yes: Conjunctiva Clear HENT: Yes: Atraumatic Neck: Yes: Supple Cardiovascular: Yes: S1, S2 Respiratory: Yes: CTA Bilaterally Gastrointestinal: Yes: Soft Genitourinary: Yes: WNL Musculoskeletal: Yes: WNL Edema: Yes Edema: LLE: 1+, RLE: 1+ Neurological: Yes: Oriented Psychiatric: Yes: Oriented Labs: CBC, BMP 11/30/19 08:35 12/01/19 07:30 INR, PTT INR 1.18 (0.83-1.09) H 11/20/19 16:30 Problem List - Problems (1) ALESIA (acute kidney injury) Code(s): N17.9 - ACUTE KIDNEY FAILURE, UNSPECIFIED (2) CKD (chronic kidney disease) Code(s): N18.9 - CHRONIC KIDNEY DISEASE, UNSPECIFIED Assessment/Plan Current Medications Generic Name Dose Route Start Last Admin Trade Name Freq PRN Reason Stop Dose Admin Acetaminophen 650 mg 11/27/19 12:09 Tylenol - PO Q6H PRN FEVER Albuterol Sulfate 2 puff 11/27/19 12:09 Ventolin Hfa Inhaler - IH Q4H PRN SHORT OF BREATH/WHEEZING Albuterol/Ipratropium 1 amp 11/27/19 12:09 Duoneb - NEB Q4H PRN SHORTNESS OF BREATH Amlodipine Besylate 5 mg 11/25/19 13:00 12/01/19 09:38 Norvasc - PO 5 mg DAILY ANA Administration Calcium Carbonate/Cholecalciferol 1 tab 11/28/19 10:00 12/01/19 09:38 Os-Samuel 500+D - PO 1 tab DAILY ANA Administration Diphenhydramine HCl 25 mg 12/01/19 12:22 Benadryl - PO Q6H PRN FOR ITCHING Docusate Sodium 100 mg 11/27/19 12:09 12/01/19 09:38 Colace - PO 100 mg BID PRN Administration CONSTIPATION Furosemide 40 mg 12/01/19 12:30 Lasix - PO DAILY ANA Gabapentin 100 mg 11/24/19 12:45 12/01/19 09:39 Neurontin - PO 100 mg DAILY ANA Administration Heparin Sodium (Porcine) 5,000 unit 11/27/19 22:00 12/01/19 09:40 Heparin - SQ 5,000 unit BID ANA Administration Metoprolol Tartrate 25 mg 11/23/19 10:30 12/01/19 09:40 Lopressor - PO 25 mg BID ANA Administration Polyethylene Glycol 17 gm 11/28/19 10:00 12/01/19 09:40 Miralax (For Daily Use) - PO 17 gm DAILY ANA Administration Rosuvastatin Calcium 10 mg 11/27/19 22:00 11/30/19 21:44 Crestor - PO 10 mg HS ANA Administration Senna 2 tab 11/27/19 12:09 11/30/19 21:44 Senna - PO 2 tab HS PRN Administration CONSTIPATION Tramadol HCl 50 mg 12/01/19 12:18 Ultram - PO Q6H PRN PAIN LEVEL 6-10 Triamcinolone Acetonide 1 applic 11/27/19 12:09 Aristocort 0.1% Cream - TP DAILY PRN rash Impression 1. ALESIA 2. ckd 3. uti 4. atrophic kidney 5. constipation 6. htn 7. PE 8. CHF 9. positive maximilian Plan - restart home dose of lasix - monitor renal function - rheum eval for maximilian - other serologies negative - avoid nsaids
[2019-12-01] MEDS: FUROSEMIDE 40 MG TABLET (FP) PO SCH (14:06)
--- NOTE | 2019-12-01 16:53 | PN ---
Progress Note (short form) - Note Progress Note: fever to 101 rash on arms, outer upper thighs, linear rash on lower back not itchy comfortable no complaints other then chronic knee pain fever to 101 per nurse now, no chills, noosb, looks comfortable Vital Signs Period Temp Pulse Resp BP Sys/Corral Pulse Ox Last 24 Hr 99.1 F-99.5 F 80-93 20-22 140-144/66-78 94-94 cor-rrr lungs clear abd soft,nt ext no edema knees are not warm or red, left knee is painful to touch rash as described above CBC, BMP 11/30/19 08:35 12/01/19 07:30 Microbiology 11/20/19 15:25 Blood - Peripheral Venous Blood Culture - Final NO GROWTH AFTER 5 DAYS INCUBATION 11/20/19 15:25 Blood - Peripheral Venous Blood Culture - Final NO GROWTH AFTER 5 DAYS INCUBATION 11/20/19 15:50 Urine - Urine - Catheterized Urine Culture - Final Escherichia Coli a/p fever- would agree with cultures and cxray no obvious site of infection noted rash - unclear when it started- at least yesterday, repeat cbc with diff to look for eos off antibiotics since 11/26 d/c all unnecessary meds derm eval, ?vasculitis chronic knee pain-rheumatology eval pending, ?arthrocentesis ting- improving
[2019-12-01] MEDS ORDERED: LIDOCAINE HCL 1%, 10 MG/ML (50 mL VIAL) SQ ONE (17:34)
[2019-12-01] MEDS ORDERED: LIDOCAINE HCL 1%, 10 MG/ML (20ML VIAL) NR ONE (17:45)
--- NOTE | 2019-12-01 18:28 | CONSULT ---
Consult Consult Specialty:: Rheumatology - History of Present Illness History of Present Illness: 89 y/o female with a PMHx of HTN, HLD, Saddle PE (s/p IR guided TPA, 2018), Diastolic HF, Frequent UTIs, OA, admitted with a 2 day history of fever, mid lumbar pain, foul smelling urine and left knee pain. During the admission she was found to have NIC positive at a low titer. HPI. 1. Left knee pain. The patient has a 1 year history of left knee pain related to activity. She received in the past 2 steroid injections by her PCP, the 1st one with good response, and the 2nd injection was 2 weeks ago and apparently since then she has had progressive pain. At the present time the pain is very severe, she cannot tolerate bending the knee - she cannot sit at the edge of the bed or stand -up. She denies other joint involvement. X ray of the knee (not weight bearing) revealed minimal narrowing of the lateral compartment. X rays probably weight bearing from 08/26/17 revealed mild narrowing of the lateral compartment in both knees. No chondrocalcinosis. On admission temp was 101.6 and since 11/22/19 she has not have fever, CBC with WBC on admission 13.8 and today 9.2. 2. NCI positive. NIC 1:80 with speckled pattern. No history of arthralgia in hands, Raynaud's phenomenon or Sicca syndrome. No previous history of skin rash however since yesterday she has had a progressive non-pruritic diffuse papular rash. Creatinine on admission 1.7m on 11/29 4.2 and today 1.6. Urinalysis on admission LE 2+, protein 2+ and blood 2+ and today LE neg. Bl 1+, protein 2+. Anti-DNAds, ANCA, myeloperoxidase, proteinase-3 were all negative and CH50>60. Probable false positive test. 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 No: AFIB Pulmonary: Yes: Pulmonary Embolus ...: No Musculoskeletal: Yes: Osteoarthritis Additional Medical History: Osteoarthitis - Alcohol/Substance Use Hx Alcohol Use: No History of Substance Use: reports: None - Smoking History Smoking history: Never smoked Have you smoked in the past 12 months: No Aproximately how many cigarettes per day: 0 - Social History ADL: Family Assistance History of Recent Travel: No Home Medications - Allergies Allergies/Adverse Reactions: Allergies Allergy/AdvReac Type Severity Reaction Status Date / Time clindamycin Allergy Mild Rash Verified 11/20/19 14:42 sulfamethoxazole Allergy Mild Rash Verified 11/20/19 14:42 [From Bactrim] trimethoprim [From Bactrim] Allergy Mild Rash Verified 11/20/19 14:42 lactose AdvReac Mild Verified 11/20/19 14:42 - Home Medications Home Medications: Ambulatory Orders Atorvastatin Ca [Lipitor] 10 mg PO HS 08/26/17 Calcium Carbonate/Vitamin D3 [Calcium 600 + Vit D Tablet] 1 each PO DAILY 08/07 04/25 Diclofenac Sodium [Voltaren] 100 gm TP ASDIR PRN 08/26/17 Triamcinolone 0.1% Cream [Aristocort 0.1% Cream -] 0 gm TP DAILY PRN 08/26/17 Acetaminophen [Tylenol .Regular Strength -] 650 mg PO Q6H PRN tablet 02/21/18 Furosemide [Lasix -] 40 mg PO DAILY tablet 02/21/18 traMADol HCL [Ultram -] 50 mg PO Q6H PRN #30 tablet MDD 4 02/21/18 Family Medical History Family History: Denies (no h/o CMP), Unremarkable Review of Systems - Review of Systems Eyes: reports: No Symptoms HENT: reports: No Symptoms Cardiovascular: reports: Shortness of Breath Respiratory: reports: SOB Gastrointestinal: reports: No Symptoms Musculoskeletal: reports: Other (See HPI) Integumentary: reports: Other (See HPI) Physical Exam Vital Signs: Vital Signs Temperature 101.2 F H 12/01/19 16:20 Pulse Rate 80 12/01/19 14:00 Respiratory Rate 20 12/01/19 14:00 Blood Pressure 144/78 12/01/19 14:00 O2 Sat by Pulse Oximetry (%) 94 L 12/01/19 14:00 Constitutional: Yes: Moderate Distress Eyes: Yes: WNL HENT: Yes: WNL Neck: Yes: WNL Cardiovascular: Yes: WNL Respiratory: Yes: WNL Gastrointestinal: Yes: WNL Musculoskeletal: Yes: Other (Severe tenderness and warmth in the left knee. Moderate effusion.) Integumentary: Yes: Other (Diffuse papular rash.) Labs: CBC, BMP 11/30/19 08:35 12/01/19 07:30 Laboratory Tests 11/23/19 11/24/19 11/28/19 16:55 15:15 06:15 ESR Random Glucose Calcium Total Bilirubin AST ALT Alkaline Phosphatase Total Protein Albumin Urine pH 5.0 Ur Specific [place] 1.020 Urine Protein 2+ H Urine Glucose (UA) Negative Urine Ketones Negative Urine Blood 1+ H Urine Nitrite Positive Urine Bilirubin 1+ H Urine Urobilinogen 1.0 Ur Leukocyte Esterase Trace Urine WBC (Auto) 90.9 Urine RBC (Auto) 213.1 Urine Casts (Auto) 3.59 NIC Speckled Pattern 1:80 c-ANCA <1:20 Proteinase 3 (PR3) <3.5 p-ANCA <1:20 Atypical p-ANCA <1:20 Myeloperoxidase Ab <9.0 Double Strand DNA Ab <1 Glomerular Base Memb Ab 2 Tot Complement (CH50) > 60 11/28/19 12/01/19 06:15 07:30 ESR 106 H Random Glucose 119 H Calcium 8.6 Total Bilirubin 0.5 AST 39 H ALT 36 Alkaline Phosphatase 171 H Total Protein 6.9 Albumin 2.0 L Urine pH Ur Specific [place] Urine Protein Urine Glucose (UA) Urine Ketones Urine Blood Urine Nitrite Urine Bilirubin Urine Urobilinogen Ur Leukocyte Esterase Urine WBC (Auto) Urine RBC (Auto) Urine Casts (Auto) NIC Speckled Pattern c-ANCA Proteinase 3 (PR3) p-ANCA Atypical p-ANCA Myeloperoxidase Ab Double Strand DNA Ab Glomerular Base Memb Ab Tot Complement (CH50) Problem List - Problems (1) NIC positive Assessment/Plan: Probable false positive test. Code(s): R76.8 - OTHER SPECIFIED ABNORMAL IMMUNOLOGICAL FINDINGS IN SERUM (2) Skin rash Assessment/Plan: Diffuse papular non pruritic skin rash. Etiology to be determined. Rule out drug reaction. Dermatology consult (if possible). Skin biospy. Code(s): R21 - RASH AND OTHER NONSPECIFIC SKIN ERUPTION (3) Left knee pain Assessment/Plan: Severe pain and swelling in the left knee. History of sterois injection 2 weeks ago PROCEDURE. Under aseptic conditions I tried to aspirate the left knee, obtained only 0.3 ml slightly bloody fluid. Fluid sent for culture. Rule out Septic arthritis, Plan: I will discuss case with orthopedics. Code(s): M25.562 - PAIN IN LEFT KNEE
[2019-12-01 21:06] LABS: EPI CELLS 35 /uL (0-25.1); HYALINE CASTS 2 /uL (0-3.1); URINE APPEARANCE CLEAR; URINE BACTERIA 19 /uL (0-1359); URINE BILIRUBIN NEGATIVE (NEGATIVE); URINE COLOR YELLOW; URINE GLUCOSE (UA) NEGATIVE (NEGATIVE); URINE KETONE NEGATIVE (NEGATIVE); URINE LEUK ESTERASE 1+ (NEGATIVE); URINE NITRITE NEGATIVE (NEGATIVE); URINE PROTEIN NEGATIVE (NEGATIVE); URINE RBC 9 /uL (0-23.9); URINE UROBILINOGEN 0.2 mg/dL (0.2-1.0); URINE WBC 110 /uL (0-25.8)
[2019-12-01] MEDS: ROSUVASTATIN CA 10 MG TABLET (FP) PO SCH (21:27)
[2019-12-02 08:47] LABS: BASO % 0.4 % (0-2.0); EOS % 1.2 % (0-4.5); MCHC 33.2 g/dl (32.0-36.0); MEAN CELL VOLUME 87.3 fl (80-96); MEAN PLT VOLUME 8.6 fl (7.5-11.1); MONO % 5.6 % (3.8-10.2); NEUT % 78.8 % (42.8-82.8); PLATELET COUNT 380 K/MM3 (134-434); RBC 3.43 M/mm3 (3.60-5.2); WHITE BLOOD COUNT 10.1 K/mm3 (4.0-10.0)
[2019-12-02 09:14] LABS: ALBUMIN 2.6 g/dl (3.4-5.0); BILIRUBIN,TOTAL 0.7 mg/dL (0.2-1); CALCIUM 8.6 mg/dL (8.5-10.1); CREATININE 1.5 mg/dL (0.55-1.3); POTASSIUM 4.4 mmol/L (3.5-5.1); TOT PROT 7.2 g/dl (6.4-8.2)
[2019-12-02] MEDS: GABAPENTIN 100 MG CAPSULE PO SCH (11:29)
[2019-12-02] MEDS: FUROSEMIDE 40 MG TABLET (FP) PO SCH (11:30)
[2019-12-02] MEDS: amLODIPine BESYLATE 5 MG TABLET (FP) PO SCH (11:30)
[2019-12-02] MEDS: METOPROLOL TARTRATE 25 MG TABLET (FP) PO SCH ×2 (11:30→21:33)
[2019-12-02] MEDS: CALCIUM 500MG/VIT-D 200 UNITS COMBO TABLET (FP) PO SCH (11:30)
[2019-12-02] MEDS: HEPARIN NA (PORCINE) 5,000 UNITS/ML 1ML VIAL SQ SCH ×2 (11:32→21:33)
[2019-12-02] MEDS: POLYETHYLENE GLYCOL 3350 119 GM BTL PO SCH (11:33)
--- NOTE | 2019-12-02 11:47 | PN ---
Progress Note, Physician History of Present Illness: Pt seen and examined at bedside. She is awake and appears comfortable. She denies shortness of breath. - Current Medication List Current Medications: Active Medications Acetaminophen (Tylenol -) 650 mg PO Q6H PRN PRN Reason: FEVER Last Admin: 12/01/19 19:32 Dose: 650 mg Documented by: Albuterol Sulfate (Ventolin Hfa Inhaler -) 2 puff IH Q4H PRN PRN Reason: SHORT OF BREATH/WHEEZING Albuterol/Ipratropium (Duoneb -) 1 amp NEB Q4H PRN PRN Reason: SHORTNESS OF BREATH Amlodipine Besylate (Norvasc -) 5 mg PO DAILY [facility] Last Admin: 12/02/19 11:30 Dose: 5 mg Documented by: Calcium Carbonate/Cholecalciferol (Os-Samuel 500+D -) 1 tab PO DAILY [facility] Last Admin: 12/02/19 11:30 Dose: 1 tab Documented by: Diphenhydramine HCl (Benadryl -) 25 mg PO Q6H PRN PRN Reason: FOR ITCHING Last Admin: 12/01/19 15:07 Dose: 25 mg Documented by: Docusate Sodium (Colace -) 100 mg PO BID PRN PRN Reason: CONSTIPATION Last Admin: 12/01/19 09:38 Dose: 100 mg Documented by: Furosemide (Lasix -) 40 mg PO DAILY [facility] Last Admin: 12/02/19 11:30 Dose: 40 mg Documented by: Gabapentin (Neurontin -) 100 mg PO DAILY [facility] Last Admin: 12/02/19 11:29 Dose: 100 mg Documented by: Heparin Sodium (Porcine) (Heparin -) 5,000 unit SQ BID [facility] Last Admin: 12/02/19 11:32 Dose: 5,000 unit Documented by: Metoprolol Tartrate (Lopressor -) 25 mg PO BID [facility] Last Admin: 12/02/19 11:30 Dose: 25 mg Documented by: Polyethylene Glycol (Miralax (For Daily Use) -) 17 gm PO DAILY [facility] Last Admin: 12/02/19 11:33 Dose: Not Given Documented by: Rosuvastatin Calcium (Crestor -) 10 mg PO HS [facility] Last Admin: 12/01/19 21:27 Dose: 10 mg Documented by: Senna (Senna -) 2 tab PO HS PRN PRN Reason: CONSTIPATION Last Admin: 11/30/19 21:44 Dose: 2 tab Documented by: Tramadol HCl (Ultram -) 50 mg PO Q6H PRN PRN Reason: PAIN LEVEL 6-10 Triamcinolone Acetonide (Aristocort 0.1% Cream -) 1 applic TP DAILY PRN PRN Reason: rash Last Admin: 12/01/19 14:07 Dose: 1 applic Documented by: - Objective Vital Signs: Vital Signs Temperature 99.2 F 12/02/19 06:31 Pulse Rate 85 12/02/19 06:31 Respiratory Rate 20 12/02/19 06:31 Blood Pressure 177/72 H 12/02/19 06:31 O2 Sat by Pulse Oximetry (%) 98 12/02/19 06:31 Constitutional: Yes: Calm Eyes: Yes: Conjunctiva Clear HENT: Yes: Atraumatic Neck: Yes: Supple Cardiovascular: Yes: S1, S2 Respiratory: Yes: CTA Bilaterally Gastrointestinal: Yes: Soft Edema: Yes Edema: LLE: 1+, RLE: 1+ Integumentary: Yes: Rash Neurological: Yes: Oriented Psychiatric: Yes: Oriented Labs: CBC, BMP 12/02/19 08:05 12/02/19 08:05 INR, PTT INR 1.18 (0.83-1.09) H 11/20/19 16:30 Problem List - Problems (1) ALESIA (acute kidney injury) Code(s): N17.9 - ACUTE KIDNEY FAILURE, UNSPECIFIED (2) CKD (chronic kidney disease) Code(s): N18.9 - CHRONIC KIDNEY DISEASE, UNSPECIFIED Assessment/Plan Current Medications Generic Name Dose Route Start Last Admin Trade Name Freq PRN Reason Stop Dose Admin Acetaminophen 650 mg 11/27/19 12:09 12/01/19 19:32 Tylenol - PO 650 mg Q6H PRN Administration FEVER Albuterol Sulfate 2 puff 11/27/19 12:09 Ventolin Hfa Inhaler - IH Q4H PRN SHORT OF BREATH/WHEEZING Albuterol/Ipratropium 1 amp 11/27/19 12:09 Duoneb - NEB Q4H PRN SHORTNESS OF BREATH Amlodipine Besylate 5 mg 11/25/19 13:00 12/02/19 11:30 Norvasc - PO 5 mg DAILY ANA Administration Calcium Carbonate/Cholecalciferol 1 tab 11/28/19 10:00 12/02/19 11:30 Os-Samuel 500+D - PO 1 tab DAILY ANA Administration Diphenhydramine HCl 25 mg 12/01/19 12:22 12/01/19 15:07 Benadryl - PO 25 mg Q6H PRN Administration FOR ITCHING Docusate Sodium 100 mg 11/27/19 12:09 12/01/19 09:38 Colace - PO 100 mg BID PRN Administration CONSTIPATION Furosemide 40 mg 12/01/19 13:00 12/02/19 11:30 Lasix - PO 40 mg DAILY ANA Administration Gabapentin 100 mg 11/24/19 12:45 12/02/19 11:29 Neurontin - PO 100 mg DAILY ANA Administration Heparin Sodium (Porcine) 5,000 unit 11/27/19 22:00 12/02/19 11:32 Heparin - SQ 5,000 unit BID ANA Administration Metoprolol Tartrate 25 mg 11/23/19 10:30 12/02/19 11:30 Lopressor - PO 25 mg BID ANA Administration Polyethylene Glycol 17 gm 11/28/19 10:00 12/02/19 11:33 Miralax (For Daily Use) - PO Not Given DAILY ANA Rosuvastatin Calcium 10 mg 11/27/19 22:00 12/01/19 21:27 Crestor - PO 10 mg HS ANA Administration Senna 2 tab 11/27/19 12:09 11/30/19 21:44 Senna - PO 2 tab HS PRN Administration CONSTIPATION Tramadol HCl 50 mg 12/01/19 12:18 Ultram - PO Q6H PRN PAIN LEVEL 6-10 Triamcinolone Acetonide 1 applic 11/27/19 12:09 12/01/19 14:07 Aristocort 0.1% Cream - TP 1 applic DAILY PRN Administration rash Impression 1. ALESIA 2. ckd 3. uti 4. atrophic kidney 5. constipation 6. htn 7. PE 8. CHF 9. positive maximilian Plan - renal function improving - cont lasix - rheum input appreciated - discussed with medical team - cxr reviewed - derm eval for rash
--- NOTE | 2019-12-02 12:39 | PN ---
Progress Note (short form) - Note Progress Note: events noted no sob has pain in left knee- unable to bear weight spoke with orthopedics she has worsening diffuse rash on her arms and back-- now more patches rash on thighs as well not pruritic Vital Signs - 24 hr 12/01/19 12/01/19 12/01/19 14:00 16:20 19:33 Temperature 99.1 F 101.2 F H 100.5 F H Pulse Rate 80 Respiratory 20 Rate Blood Pressure 144/78 O2 Sat by Pulse 94 L Oximetry (%) 12/01/19 12/01/19 12/02/19 21:00 23:00 02:10 Temperature 99.0 F 98.5 F Pulse Rate 106 H 92 H Respiratory 20 20 20 Rate Blood Pressure 151/69 149/72 O2 Sat by Pulse 94 L 95 96 Oximetry (%) 12/02/19 06:31 Temperature 99.2 F Pulse Rate 85 Respiratory 20 Rate Blood Pressure 177/72 H O2 Sat by Pulse 98 Oximetry (%) Current Medications Generic Name Dose Route Start Last Admin Trade Name Freq PRN Reason Stop Dose Admin Acetaminophen 650 mg 11/27/19 12:09 12/01/19 19:32 Tylenol - PO 650 mg Q6H PRN Administration FEVER Albuterol Sulfate 2 puff 11/27/19 12:09 Ventolin Hfa Inhaler - IH Q4H PRN SHORT OF BREATH/WHEEZING Amlodipine Besylate 5 mg 11/25/19 13:00 12/02/19 11:30 Norvasc - PO 5 mg DAILY ANA Administration Calcium Carbonate/Cholecalciferol 1 tab 11/28/19 10:00 12/02/19 11:30 Os-Samuel 500+D - PO 1 tab DAILY ANA Administration Diphenhydramine HCl 25 mg 12/01/19 12:22 12/01/19 15:07 Benadryl - PO 25 mg Q6H PRN Administration FOR ITCHING Docusate Sodium 100 mg 11/27/19 12:09 12/01/19 09:38 Colace - PO 100 mg BID PRN Administration CONSTIPATION Furosemide 40 mg 12/01/19 13:00 12/02/19 11:30 Lasix - PO 40 mg DAILY ANA Administration Gabapentin 100 mg 11/24/19 12:45 12/02/19 11:29 Neurontin - PO 100 mg DAILY ANA Administration Heparin Sodium (Porcine) 5,000 unit 11/27/19 22:00 12/02/19 11:32 Heparin - SQ 5,000 unit BID ANA Administration Metoprolol Tartrate 25 mg 11/23/19 10:30 12/02/19 11:30 Lopressor - PO 25 mg BID ANA Administration Polyethylene Glycol 17 gm 11/28/19 10:00 12/02/19 11:33 Miralax (For Daily Use) - PO Not Given DAILY ANA Rosuvastatin Calcium 10 mg 11/27/19 22:00 12/01/19 21:27 Crestor - PO 10 mg HS ANA Administration Senna 2 tab 11/27/19 12:09 11/30/19 21:44 Senna - PO 2 tab HS PRN Administration CONSTIPATION Tramadol HCl 50 mg 12/01/19 12:18 Ultram - PO Q6H PRN PAIN LEVEL 6-10 Triamcinolone Acetonide 1 applic 11/27/19 12:09 12/01/19 14:07 Aristocort 0.1% Cream - TP 1 applic DAILY PRN Administration rash Laboratory Results - last 24 hr 12/01/19 12/01/19 12/02/19 20:00 21:26 08:05 WBC 10.1 H RBC 3.43 L Hgb 10.0 L Hct 30.0 L MCV 87.3 MCH 29.0 MCHC 33.2 RDW 15.0 Plt Count 380 MPV 8.6 Absolute Neuts (auto) 7.9 Neutrophils % 78.8 Lymphocytes % 14.0 Monocytes % 5.6 Eosinophils % 1.2 Basophils % 0.4 Nucleated RBC % 0 Sodium Potassium Chloride Carbon Dioxide Anion Gap BUN Creatinine Est GFR (CKD-EPI)AfAm Est GFR (CKD-EPI)NonAf POC Glucometer 129 Random Glucose Calcium Total Bilirubin AST ALT Alkaline Phosphatase Total Protein Albumin Urine Color Yellow Urine Appearance Clear Urine pH 5.0 Ur Specific [place] 1.009 L Urine Protein Negative Urine Glucose (UA) Negative Urine Ketones Negative Urine Blood 1+ H Urine Nitrite Negative Urine Bilirubin Negative Urine Urobilinogen 0.2 Ur Leukocyte Esterase 1+ H Urine WBC (Auto) 110 Urine RBC (Auto) 9 Urine Casts (Auto) 2 U Epithel Cells (Auto) 35 U Sm Round Cell (Auto) 3 Urine Bacteria (Auto) 19 12/02/19 08:05 WBC RBC Hgb Hct MCV MCH MCHC RDW Plt Count MPV Absolute Neuts (auto) Neutrophils % Lymphocytes % Monocytes % Eosinophils % Basophils % Nucleated RBC % Sodium 137 Potassium 4.4 Chloride 102 Carbon Dioxide 26 Anion Gap 8 BUN 30.0 H Creatinine 1.5 H Est GFR (CKD-EPI)AfAm 35.93 Est GFR (CKD-EPI)NonAf 31.00 POC Glucometer Random Glucose 119 H Calcium 8.6 Total Bilirubin 0.7 AST 41 H ALT 36 Alkaline Phosphatase 165 H Total Protein 7.2 Albumin 2.6 L Urine Color Urine Appearance Urine pH Ur Specific [place] Urine Protein Urine Glucose (UA) Urine Ketones Urine Blood Urine Nitrite Urine Bilirubin Urine Urobilinogen Ur Leukocyte Esterase Urine WBC (Auto) Urine RBC (Auto) Urine Casts (Auto) U Epithel Cells (Auto) U Sm Round Cell (Auto) Urine Bacteria (Auto) S1 S2 RRR Lungs decreased Abd- soft, NT left knee--- warm++, tender+ slight edema diffuse papular lesions on arms, abd-- blister, patches on arms B.L rash seen on thighs PLAN stable on Lasix continue with meds doppler legs done -- negative for DVT recall Ortho-- concerning septic joint Rheum eval noted-- joint aspirated Pain management -- tramadol as needed derm eval Physical therapy
--- NOTE | 2019-12-02 13:15 | PN ---
Progress Note (short form) - Note Progress Note: no further fever continued knee pain- s/p arthrocentesis by rheumatology off antibiotics Vital Signs Period Temp Pulse Resp BP Sys/Corral Pulse Ox Last 24 Hr 98.5 F-101.2 F 80-106 20-20 144-177/69-78 94-98 cor-rrr lungs clear abd soft,nt ext rash on arms and legs- increased CBC, BMP 12/02/19 08:05 12/02/19 08:05 Microbiology 11/20/19 15:25 Blood - Peripheral Venous Blood Culture - Final NO GROWTH AFTER 5 DAYS INCUBATION 11/20/19 15:25 Blood - Peripheral Venous Blood Culture - Final NO GROWTH AFTER 5 DAYS INCUBATION 11/20/19 15:50 Urine - Urine - Catheterized Urine Culture - Final Escherichia Coli cxray no infiltrate a/p fever- f/u cultures, f/u arthocentesis rash - unclear when it started- off antibiotics since 11/26 d/c all unnecessary meds derm eval, ?vasculitis chronic knee pain-s/p arthrocentesis ting- improving
--- NOTE | 2019-12-02 13:30 | PN ---
Progress Note (short form) - Note Progress Note: cc: fever s: no chest pain, palps, dizziness, dyspnea Current Medications Generic Name Dose Route Start Last Admin Trade Name Freq PRN Reason Stop Dose Admin Acetaminophen 650 mg 11/27/19 12:09 12/01/19 19:32 Tylenol - PO 650 mg Q6H PRN Administration FEVER Albuterol Sulfate 2 puff 11/27/19 12:09 Ventolin Hfa Inhaler - IH Q4H PRN SHORT OF BREATH/WHEEZING Amlodipine Besylate 5 mg 11/25/19 13:00 12/02/19 11:30 Norvasc - PO 5 mg DAILY ANA Administration Calcium Carbonate/Cholecalciferol 1 tab 11/28/19 10:00 12/02/19 11:30 Os-Samuel 500+D - PO 1 tab DAILY ANA Administration Diphenhydramine HCl 25 mg 12/01/19 12:22 12/01/19 15:07 Benadryl - PO 25 mg Q6H PRN Administration FOR ITCHING Docusate Sodium 100 mg 11/27/19 12:09 12/01/19 09:38 Colace - PO 100 mg BID PRN Administration CONSTIPATION Furosemide 40 mg 12/01/19 13:00 12/02/19 11:30 Lasix - PO 40 mg DAILY ANA Administration Gabapentin 100 mg 11/24/19 12:45 12/02/19 11:29 Neurontin - PO 100 mg DAILY ANA Administration Heparin Sodium (Porcine) 5,000 unit 11/27/19 22:00 12/02/19 11:32 Heparin - SQ 5,000 unit BID ANA Administration Metoprolol Tartrate 25 mg 11/23/19 10:30 12/02/19 11:30 Lopressor - PO 25 mg BID ANA Administration Polyethylene Glycol 17 gm 11/28/19 10:00 12/02/19 11:33 Miralax (For Daily Use) - PO Not Given DAILY ANA Rosuvastatin Calcium 10 mg 11/27/19 22:00 12/01/19 21:27 Crestor - PO 10 mg HS ANA Administration Senna 2 tab 11/27/19 12:09 11/30/19 21:44 Senna - PO 2 tab HS PRN Administration CONSTIPATION Tramadol HCl 50 mg 12/01/19 12:18 Ultram - PO Q6H PRN PAIN LEVEL 6-10 Triamcinolone Acetonide 1 applic 11/27/19 12:09 12/01/19 14:07 Aristocort 0.1% Cream - TP 1 applic DAILY PRN Administration rash Vital Signs Period Temp Pulse Resp BP Sys/Corral Pulse Ox Last 24 Hr 98.5 F-101.2 F 80-106 20- 144-177/69-78 94-98 Constitutional: Yes: Well Nourished, No Distress, Calm Cardiovascular: Yes: Regular Rate and Rhythm, S1, S2. No: JVD, Gallop, Murmur Respiratory: Yes: Regular, CTA Bilaterally. No: Accessory Muscle Use Extremities: No: Cold Edema: No Neurological: Yes: Alert. No: Seizure Psychiatric: No: Agitated no jaundice diaphoresis, + erythematous rash on upper/lower ext, back Assessment/Plan Echo 02/2018: nl LV/RV, E/A reversal, mild MR, PASP at least 39 mmHg CXR: clear lungs/pleura ECG x 2: NSR, nl axis/intervals. no ST-T changes vs prior, no q's fever, UTI sx's with dirty UA, joint pains (h/o OA), tachycardia: -per pmd rash - manage per primary - derm consulted elevated troponin: -trop in indeterminate range, flat trend (0.2-0.2-0.1)= not c/w ACS event -no ischemic sx's, no ischemic ECG findings - echo here unremarkable -no further cv workup indicated unless clinical picture changes h/o saddle pulmonary embolism, extensive RLE DVT (2018) - circumstances/risk factors for VTE unclear -pt was discharged on warfarin, was on 6 months course as it was considered provoked Elevated troponin - trop 0.11->0.58->0.53->1.15->0.34. no ischemic ECG changes. - secondary to massive PE - no further CV w/u indicated at present time HLD - cont home statin HTN -cont current meds chronic diastolic HF - lasix was held for ALESIA, renal following - cr stable, resumed lasix 40 mg po daily, monitor Cr
--- NOTE | 2019-12-02 14:31 | PN ---
Progress Note, Physician History of Present Illness: PULMONARY ALERT,-C/O SOB,+ KNEE PAIN - Current Medication List Current Medications: Active Medications Acetaminophen (Tylenol -) 650 mg PO Q6H PRN PRN Reason: FEVER Last Admin: 12/01/19 19:32 Dose: 650 mg Documented by: Albuterol Sulfate (Ventolin Hfa Inhaler -) 2 puff IH Q4H PRN PRN Reason: SHORT OF BREATH/WHEEZING Amlodipine Besylate (Norvasc -) 5 mg PO DAILY [facility] Last Admin: 12/02/19 11:30 Dose: 5 mg Documented by: Calcium Carbonate/Cholecalciferol (Os-Samuel 500+D -) 1 tab PO DAILY [facility] Last Admin: 12/02/19 11:30 Dose: 1 tab Documented by: Diphenhydramine HCl (Benadryl -) 25 mg PO Q6H PRN PRN Reason: FOR ITCHING Last Admin: 12/01/19 15:07 Dose: 25 mg Documented by: Docusate Sodium (Colace -) 100 mg PO BID PRN PRN Reason: CONSTIPATION Last Admin: 12/01/19 09:38 Dose: 100 mg Documented by: Furosemide (Lasix -) 40 mg PO DAILY [facility] Last Admin: 12/02/19 11:30 Dose: 40 mg Documented by: Gabapentin (Neurontin -) 100 mg PO DAILY [facility] Last Admin: 12/02/19 11:29 Dose: 100 mg Documented by: Heparin Sodium (Porcine) (Heparin -) 5,000 unit SQ BID [facility] Last Admin: 12/02/19 11:32 Dose: 5,000 unit Documented by: Metoprolol Tartrate (Lopressor -) 25 mg PO BID [facility] Last Admin: 12/02/19 11:30 Dose: 25 mg Documented by: Polyethylene Glycol (Miralax (For Daily Use) -) 17 gm PO DAILY [facility] Last Admin: 12/02/19 11:33 Dose: Not Given Documented by: Rosuvastatin Calcium (Crestor -) 10 mg PO HS [facility] Last Admin: 12/01/19 21:27 Dose: 10 mg Documented by: Senna (Senna -) 2 tab PO HS PRN PRN Reason: CONSTIPATION Last Admin: 11/30/19 21:44 Dose: 2 tab Documented by: Tramadol HCl (Ultram -) 50 mg PO Q6H PRN PRN Reason: PAIN LEVEL 6-10 Triamcinolone Acetonide (Aristocort 0.1% Cream -) 1 applic TP DAILY PRN PRN Reason: rash Last Admin: 12/01/19 14:07 Dose: 1 applic Documented by: - Objective Vital Signs: Vital Signs Temperature 99.2 F 12/02/19 06:31 Pulse Rate 85 12/02/19 06:31 Respiratory Rate 20 12/02/19 06:31 Blood Pressure 177/72 H 12/02/19 06:31 O2 Sat by Pulse Oximetry (%) 98 12/02/19 06:31 Constitutional: Yes: Calm, Obese Eyes: Yes: WNL HENT: Yes: WNL Neck: Yes: WNL Cardiovascular: Yes: Regular Rate and Rhythm, S1, S2 Respiratory: Yes: CTA Bilaterally Gastrointestinal: Yes: Normal Bowel Sounds, Soft Extremities: Yes: WNL Edema: Yes Labs: CBC, BMP 12/02/19 08:05 12/02/19 08:05 INR, PTT INR 1.18 (0.83-1.09) H 11/20/19 16:30 Assessment/Plan [place] List - Problems (1) Diastolic HF (heart failure) Code(s): I50.30 - UNSPECIFIED DIASTOLIC (CONGESTIVE) HEART FAILURE (2) UTI (urinary tract infection) Code(s): N39.0 - URINARY TRACT INFECTION, SITE NOT SPECIFIED Qualifiers: Urinary tract infection type: acute cystitis Hematuria presence: without hematuria Qualified Code(s): N30.00 - Acute cystitis without hematuria (3) Congestive heart failure Code(s): I50.9 - HEART FAILURE, UNSPECIFIED Qualifiers: Heart failure type: unspecified Heart failure chronicity: acute Qualified Code(s): I50.9 - Heart failure, unspecified (4) Fever Code(s): R50.9 - FEVER, UNSPECIFIED Qualifiers: Fever type: unspecified Qualified Code(s): R50.9 - Fever, unspecified Assessment/Plan FEVER/UTI + E-COLI ACUTE ON CHRONIC KIDNEY DISEASE PULMONARY HTN H/P SADDLE PE S/P IR CATHETER GUIDED TPA DIASTOLIC HF HTN HLD + TROPONIN PLAN SUPPLEMENTAL O2 INHALED BRONCHODILATORS PRN ABX COMPLETED MONITOR LYTES,RENAL FUNCTION DR KOO
[2019-12-02] MEDS: ROSUVASTATIN CA 10 MG TABLET (FP) PO SCH (21:33)
--- NOTE | 2019-12-03 12:00 | PN ---
Progress Note (short form) - Note Progress Note: events noted no sob has pain in left knee- unable to bear weight spoke with orthopedics she has diffuse rash on her arms and back--linear rash on legs rash on thighs as well not pruritic Vital Signs - 24 hr 12/02/19 12/02/19 12/02/19 14:00 17:20 20:38 Temperature 98.2 F 99.8 F H 98.8 F Pulse Rate 91 H 91 H 90 Respiratory 20 20 20 Rate Blood Pressure 127/73 136/62 130/63 O2 Sat by Pulse 96 98 Oximetry (%) 12/02/19 12/03/19 12/03/19 20:40 07:36 10:00 Temperature 98.5 F 98.2 F Pulse Rate 82 95 H Respiratory 20 20 18 Rate Blood Pressure 147/67 150/67 O2 Sat by Pulse 98 90 L 98 Oximetry (%) Current Medications Generic Name Dose Route Start Last Admin Trade Name Freq PRN Reason Stop Dose Admin Acetaminophen 650 mg 11/27/19 12:09 12/01/19 19:32 Tylenol - PO 650 mg Q6H PRN Administration FEVER Albuterol Sulfate 2 puff 11/27/19 12:09 Ventolin Hfa Inhaler - IH Q4H PRN SHORT OF BREATH/WHEEZING Amlodipine Besylate 5 mg 11/25/19 13:00 12/02/19 11:30 Norvasc - PO 5 mg DAILY ANA Administration Docusate Sodium 100 mg 11/27/19 12:09 12/01/19 09:38 Colace - PO 100 mg BID PRN Administration CONSTIPATION Furosemide 40 mg 12/01/19 13:00 12/02/19 11:30 Lasix - PO 40 mg DAILY ANA Administration Heparin Sodium (Porcine) 5,000 unit 11/27/19 22:00 12/02/19 21:33 Heparin - SQ 5,000 unit BID ANA Administration Metoprolol Tartrate 25 mg 11/23/19 10:30 12/02/19 21:33 Lopressor - PO 25 mg BID ANA Administration Polyethylene Glycol 17 gm 11/28/19 10:00 12/02/19 11:33 Miralax (For Daily Use) - PO Not Given DAILY ANA Prednisone 20 mg 12/03/19 12:00 Deltasone - PO DAILY ANA Rosuvastatin Calcium 10 mg 11/27/19 22:00 12/02/19 21:33 Crestor - PO 10 mg HS ANA Administration Senna 2 tab 11/27/19 12:09 11/30/19 21:44 Senna - PO 2 tab HS PRN Administration CONSTIPATION Tramadol HCl 50 mg 12/01/19 12:18 Ultram - PO Q6H PRN PAIN LEVEL 6-10 S1 S2 RRR Lungs decreased Abd- soft, NT left knee--- warm++, tender+ slight edema diffuse papular lesions on arms, abd-- blister, patches on arms B.L rash seen on thighs PLAN stable on Lasix continue with meds doppler legs done -- negative for DVT Sinovial fluid joint -- negative culture and gram stain- not enough fluid to check crystals or cell count Dermatology eval appreciated-- consult in paper chart-- vasculitis---> start prednisone 20mg daily x 2 weeks, may need colchicine if theres a flare up I have dc all unnecessary meds Pain management -- tramadol as needed dc planning to home -home VNS ,. home PT , [employer]
--- NOTE | 2019-12-03 12:01 | PN ---
Progress Note (short form) - Note Progress Note: Chief Complaint: fever History of Present Illness: denies palpitations, cp, sob no feet swelling no dizzy Current Medications Generic Name Dose Route Start Last Admin Trade Name Dominicq PRN Reason Stop Dose Admin Acetaminophen 650 mg 11/27/19 12:09 12/01/19 19:32 Tylenol - PO 650 mg Q6H PRN Administration FEVER Albuterol Sulfate 2 puff 11/27/19 12:09 Ventolin Hfa Inhaler - IH Q4H PRN SHORT OF BREATH/WHEEZING Amlodipine Besylate 5 mg 11/25/19 13:00 12/02/19 11:30 Norvasc - PO 5 mg DAILY ANA Administration Docusate Sodium 100 mg 11/27/19 12:09 12/01/19 09:38 Colace - PO 100 mg BID PRN Administration CONSTIPATION Furosemide 40 mg 12/01/19 13:00 12/02/19 11:30 Lasix - PO 40 mg DAILY ANA Administration Heparin Sodium (Porcine) 5,000 unit 11/27/19 22:00 12/02/19 21:33 Heparin - SQ 5,000 unit BID ANA Administration Metoprolol Tartrate 25 mg 11/23/19 10:30 12/02/19 21:33 Lopressor - PO 25 mg BID ANA Administration Polyethylene Glycol 17 gm 11/28/19 10:00 12/02/19 11:33 Miralax (For Daily Use) - PO Not Given DAILY ANA Prednisone 20 mg 12/03/19 12:00 Deltasone - PO DAILY ANA Rosuvastatin Calcium 10 mg 11/27/19 22:00 12/02/19 21:33 Crestor - PO 10 mg HS ANA Administration Senna 2 tab 11/27/19 12:09 11/30/19 21:44 Senna - PO 2 tab HS PRN Administration CONSTIPATION Tramadol HCl 50 mg 12/01/19 12:18 Ultram - PO Q6H PRN PAIN LEVEL 6-10 Vital Signs Period Temp Pulse Resp BP Sys/Corral Pulse Ox Last 24 Hr 98.2 F-99.8 F 82-95 18-20 127-150/62-73 90-98 Constitutional: Yes: Well Nourished, No Distress, Calm Cardiovascular: Yes: Regular Rate and Rhythm, S1, S2. No: JVD, Gallop, Murmur Respiratory: Yes: Regular, CTA Bilaterally. No: Accessory Muscle Use Extremities: No: Cold Edema: No Neurological: Yes: Alert. No: Seizure Psychiatric: No: Agitated no jaundice diaphoresis Labs: CBC, BMP 12/02/19 08:05 12/02/19 08:05 Assessment/Plan Echo 02/2018: nl LV/RV, E/A reversal, mild MR, PASP at least 39 mmHg CXR: clear lungs/pleura ECG x 2: NSR, nl axis/intervals. no ST-T changes vs prior, no q's fever, UTI sx's with dirty UA, joint pains (h/o OA), tachycardia: -per pmd elevated troponin: -trop in indeterminate range, flat trend (0.2-0.2-0.1)= not c/w ACS event -no ischemic sx's, no ischemic ECG findings - echo here unremarkable -no further cv workup indicated unless clinical picture changes h/o saddle pulmonary embolism, extensive RLE DVT (2018) - circumstances/risk factors for VTE unclear to me at this time -pt was discharged on warfarin, was on 6 months course as it was considered provoked Elevated troponin - trop 0.11->0.58->0.53->1.15->0.34. no ischemic ECG changes. - secondary to massive PE - no further CV w/u indicated at present time HLD - cont home statin HTN -cont current meds chronic diastolic HF - no signs HF at present time, cr improved, now back on po lasix cardiac foote stable
[2019-12-03] MEDS: FUROSEMIDE 40 MG TABLET (FP) PO SCH (12:09)
[2019-12-03] MEDS: METOPROLOL TARTRATE 25 MG TABLET (FP) PO SCH ×2 (12:09→21:48)
[2019-12-03] MEDS: HEPARIN NA (PORCINE) 5,000 UNITS/ML 1ML VIAL SQ SCH ×2 (12:09→21:48)
[2019-12-03] MEDS: POLYETHYLENE GLYCOL 3350 119 GM BTL PO SCH ×2 (12:11→17:13)
[2019-12-03] MEDS: amLODIPine BESYLATE 5 MG TABLET (FP) PO SCH (12:12)
[2019-12-03] MEDS: predniSONE 20 MG TABLET (UD) PO SCH (12:13)
--- NOTE | 2019-12-03 13:10 | PN ---
Progress Note (short form) - Note Progress Note: PULMONARY Denies shortness of breath, cough, fevers. Vital Signs Period Temp Pulse Resp BP Sys/Corral Pulse Ox Last 24 Hr 98.2 F-99.8 F 82-95 18-20 127-150/62-73 90-98 Gen: NAD at rest Heart: RRR Lung: decreased breath sounds at the bases Abd: soft, nontender Ext: no edema CBC, BMP 12/02/19 08:05 12/02/19 08:05 Active Medications Acetaminophen (Tylenol -) 650 mg PO Q6H PRN PRN Reason: FEVER Last Admin: 12/01/19 19:32 Dose: 650 mg Documented by: Albuterol Sulfate (Ventolin Hfa Inhaler -) 2 puff IH Q4H PRN PRN Reason: SHORT OF BREATH/WHEEZING Amlodipine Besylate (Norvasc -) 5 mg PO DAILY [facility] Last Admin: 12/03/19 12:12 Dose: 5 mg Documented by: Docusate Sodium (Colace -) 100 mg PO BID PRN PRN Reason: CONSTIPATION Last Admin: 12/01/19 09:38 Dose: 100 mg Documented by: Furosemide (Lasix -) 40 mg PO DAILY [facility] Last Admin: 12/03/19 12:09 Dose: 40 mg Documented by: Heparin Sodium (Porcine) (Heparin -) 5,000 unit SQ BID [facility] Last Admin: 12/03/19 12:09 Dose: 5,000 unit Documented by: Metoprolol Tartrate (Lopressor -) 25 mg PO BID [facility] Last Admin: 12/03/19 12:09 Dose: 25 mg Documented by: Polyethylene Glycol (Miralax (For Daily Use) -) 17 gm PO DAILY [facility] Last Admin: 12/03/19 12:11 Dose: 17 gm Documented by: Prednisone (Deltasone -) 20 mg PO DAILY [facility] Last Admin: 12/03/19 12:13 Dose: 20 mg Documented by: Rosuvastatin Calcium (Crestor -) 10 mg PO HS [facility] Last Admin: 12/02/19 21:33 Dose: 10 mg Documented by: Senna (Senna -) 2 tab PO HS PRN PRN Reason: CONSTIPATION Last Admin: 11/30/19 21:44 Dose: 2 tab Documented by: Tramadol HCl (Ultram -) 50 mg PO Q6H PRN PRN Reason: PAIN LEVEL 6-10 A/P UTI h/o VTE +Troponins likely Demand Ischemia Acute Kidney Injury LV Diastolic Dysfunction HTN Hyperlipidemia - completed antibiotics - inhaled bronchodilators - O2 to keep SpO2 >90% - DVT prophylaxis
--- NOTE | 2019-12-03 14:12 | PN ---
Progress Note (short form) - Note Progress Note: afebrile purpuric rash on arms, outer upper thighs, linear rash on lower back not itchy comfortable no complaints other then chronic knee pain Vital Signs Period Temp Pulse Resp BP Sys/Corral Pulse Ox Last 24 Hr 98.2 F-99.8 F 82-95 18-20 130-150/62-67 90-98 cor-rrr lungs clear abd soft,nt left knee tender to touch rash unchanged CBC, BMP 12/02/19 08:05 12/02/19 08:05 Microbiology 12/01/19 18:10 Synovial Fluid - Knee Gram Stain - Final 12/01/19 18:10 Synovial Fluid - Knee Body Fluid Culture - Preliminary NO AEROBIC GROWTH, 24 HRS 12/01/19 20:00 Urine - Urine - Catheterized Urine Culture - Final NO GROWTH OBTAINED 12/01/19 20:30 Blood - Peripheral Venous Blood Culture - Preliminary NO GROWTH OBTAINED AFTER 24 HOURS, INCUBATION TO CONTINUE FOR 4 DAYS. 12/01/19 20:30 Blood - Peripheral Venous Blood Culture - Preliminary NO GROWTH OBTAINED AFTER 24 HOURS, INCUBATION TO CONTINUE FOR 4 DAYS. 11/20/19 15:25 Blood - Peripheral Venous Blood Culture - Final NO GROWTH AFTER 5 DAYS INCUBATION 11/20/19 15:25 Blood - Peripheral Venous Blood Culture - Final NO GROWTH AFTER 5 DAYS INCUBATION 11/20/19 15:50 Urine - Urine - Catheterized Urine Culture - Final Escherichia Coli a/p fever- resolved, cultures negative rash - d/c all unnecessary meds derm eval, ?vasculitis, chronic knee pain-unchanged
--- NOTE | 2019-12-03 14:37 | PN ---
Progress Note, Physician History of Present Illness: Pt seen and examined at bedside. She denies shortness of breath. - Current Medication List Current Medications: Active Medications Acetaminophen (Tylenol -) 650 mg PO Q6H PRN PRN Reason: FEVER Last Admin: 12/01/19 19:32 Dose: 650 mg Documented by: Albuterol Sulfate (Ventolin Hfa Inhaler -) 2 puff IH Q4H PRN PRN Reason: SHORT OF BREATH/WHEEZING Amlodipine Besylate (Norvasc -) 5 mg PO DAILY [facility] Last Admin: 12/03/19 12:12 Dose: 5 mg Documented by: Docusate Sodium (Colace -) 100 mg PO BID PRN PRN Reason: CONSTIPATION Last Admin: 12/01/19 09:38 Dose: 100 mg Documented by: Furosemide (Lasix -) 40 mg PO DAILY [facility] Last Admin: 12/03/19 12:09 Dose: 40 mg Documented by: Heparin Sodium (Porcine) (Heparin -) 5,000 unit SQ BID [facility] Last Admin: 12/03/19 12:09 Dose: 5,000 unit Documented by: Metoprolol Tartrate (Lopressor -) 25 mg PO BID [facility] Last Admin: 12/03/19 12:09 Dose: 25 mg Documented by: Polyethylene Glycol (Miralax (For Daily Use) -) 17 gm PO DAILY [facility] Last Admin: 12/03/19 12:11 Dose: 17 gm Documented by: Prednisone (Deltasone -) 20 mg PO DAILY [facility] Last Admin: 12/03/19 12:13 Dose: 20 mg Documented by: Rosuvastatin Calcium (Crestor -) 10 mg PO HS [facility] Last Admin: 12/02/19 21:33 Dose: 10 mg Documented by: Senna (Senna -) 2 tab PO HS PRN PRN Reason: CONSTIPATION Last Admin: 11/30/19 21:44 Dose: 2 tab Documented by: Tramadol HCl (Ultram -) 50 mg PO Q6H PRN PRN Reason: PAIN LEVEL 6-10 - Objective Vital Signs: Vital Signs Temperature 98.1 F 12/03/19 14:18 Pulse Rate 98 H 12/03/19 14:18 Respiratory Rate 18 12/03/19 14:18 Blood Pressure 129/48 L 12/03/19 14:18 O2 Sat by Pulse Oximetry (%) 100 08/27/20 14:18 Constitutional: Yes: Calm Eyes: Yes: Conjunctiva Clear HENT: Yes: Atraumatic Neck: Yes: Supple Cardiovascular: Yes: S1, S2 Respiratory: Yes: CTA Bilaterally Gastrointestinal: Yes: Soft Genitourinary: Yes: WNL Edema: LLE: Trace, RLE: Trace Neurological: Yes: Oriented Psychiatric: Yes: Oriented Labs: CBC, BMP 12/02/19 08:05 12/02/19 08:05 INR, PTT INR 1.18 (0.83-1.09) H 11/20/19 16:30 Problem List - Problems (1) ALESIA (acute kidney injury) Code(s): N17.9 - ACUTE KIDNEY FAILURE, UNSPECIFIED (2) CKD (chronic kidney disease) Code(s): N18.9 - CHRONIC KIDNEY DISEASE, UNSPECIFIED Assessment/Plan Current Medications Generic Name Dose Route Start Last Admin Trade Name Freq PRN Reason Stop Dose Admin Acetaminophen 650 mg 11/27/19 12:09 12/01/19 19:32 Tylenol - PO 650 mg Q6H PRN Administration FEVER Albuterol Sulfate 2 puff 11/27/19 12:09 Ventolin Hfa Inhaler - IH Q4H PRN SHORT OF BREATH/WHEEZING Amlodipine Besylate 5 mg 11/25/19 13:00 12/03/19 12:12 Norvasc - PO 5 mg DAILY ANA Administration Docusate Sodium 100 mg 11/27/19 12:09 12/01/19 09:38 Colace - PO 100 mg BID PRN Administration CONSTIPATION Furosemide 40 mg 12/01/19 13:00 12/03/19 12:09 Lasix - PO 40 mg DAILY ANA Administration Heparin Sodium (Porcine) 5,000 unit 11/27/19 22:00 12/03/19 12:09 Heparin - SQ 5,000 unit BID ANA Administration Metoprolol Tartrate 25 mg 11/23/19 10:30 12/03/19 12:09 Lopressor - PO 25 mg BID ANA Administration Polyethylene Glycol 17 gm 11/28/19 10:00 12/03/19 12:11 Miralax (For Daily Use) - PO 17 gm DAILY ANA Administration Prednisone 20 mg 12/03/19 12:00 12/03/19 12:13 Deltasone - PO 20 mg DAILY ANA Administration Rosuvastatin Calcium 10 mg 11/27/19 22:00 12/02/19 21:33 Crestor - PO 10 mg HS ANA Administration Senna 2 tab 11/27/19 12:09 11/30/19 21:44 Senna - PO 2 tab HS PRN Administration CONSTIPATION Tramadol HCl 50 mg 12/01/19 12:18 Ultram - PO Q6H PRN PAIN LEVEL 6-10 Laboratory Tests 11/24/19 11/28/19 15:15 06:15 MAXIMILIAN Screen Positive H c-ANCA <1:20 Proteinase 3 (PR3) <3.5 p-ANCA <1:20 Atypical p-ANCA <1:20 Myeloperoxidase Ab <9.0 Double Strand DNA Ab <1 Glomerular Base Memb Ab 2 Tot Complement (CH50) > 60 Impression 1. ALESIA 2. ckd 3. uti 4. atrophic kidney 5. constipation 6. htn 7. PE 8. CHF 9. positive maximilian Plan - cont lasix - renal function improving, will cont to monitor - derm eval - anca neg - rheum input appreciated
[2019-12-03] MEDS: ROSUVASTATIN CA 10 MG TABLET (FP) PO SCH (21:48)
[2019-12-04] MEDS ORDERED: PT OWN MED DRAWER 7, Y5N ONE (09:33)
--- NOTE | 2019-12-04 09:47 | PN ---
Progress Note, Physician - Current Medication List Current Medications: Active Medications Acetaminophen (Tylenol -) 650 mg PO Q6H PRN PRN Reason: FEVER Last Admin: 12/01/19 19:32 Dose: 650 mg Documented by: Albuterol Sulfate (Ventolin Hfa Inhaler -) 2 puff IH Q4H PRN PRN Reason: SHORT OF BREATH/WHEEZING Amlodipine Besylate (Norvasc -) 5 mg PO DAILY [facility] Last Admin: 12/03/19 12:12 Dose: 5 mg Documented by: Docusate Sodium (Colace -) 100 mg PO BID PRN PRN Reason: CONSTIPATION Last Admin: 12/01/19 09:38 Dose: 100 mg Documented by: Furosemide (Lasix -) 40 mg PO DAILY [facility] Last Admin: 12/03/19 12:09 Dose: 40 mg Documented by: Heparin Sodium (Porcine) (Heparin -) 5,000 unit SQ BID [facility] Last Admin: 12/03/19 21:48 Dose: 5,000 unit Documented by: Metoprolol Tartrate (Lopressor -) 25 mg PO BID [facility] Last Admin: 12/03/19 21:48 Dose: 25 mg Documented by: Polyethylene Glycol (Miralax (For Daily Use) -) 17 gm PO DAILY [facility] Last Admin: 12/03/19 17:13 Dose: Not Given Documented by: Prednisone (Deltasone -) 20 mg PO DAILY [facility] Last Admin: 12/03/19 12:13 Dose: 20 mg Documented by: Rosuvastatin Calcium (Crestor -) 10 mg PO HS [facility] Last Admin: 12/03/19 21:48 Dose: 10 mg Documented by: Senna (Senna -) 2 tab PO HS PRN PRN Reason: CONSTIPATION Last Admin: 11/30/19 21:44 Dose: 2 tab Documented by: Tramadol HCl (Ultram -) 50 mg PO Q6H PRN PRN Reason: PAIN LEVEL 6-10 - Objective Vital Signs: Vital Signs Temperature 98.6 F 12/04/19 05:55 Pulse Rate 72 12/04/19 05:55 Respiratory Rate 20 12/04/19 05:55 Blood Pressure 141/54 L 12/04/19 05:55 O2 Sat by Pulse Oximetry (%) 97 12/04/19 05:55 Labs: CBC, BMP 12/02/19 08:05 12/02/19 08:05 INR, PTT INR 1.18 (0.83-1.09) H 11/20/19 16:30 Problem List - Problems (1) UTI (urinary tract infection) Code(s): N39.0 - URINARY TRACT INFECTION, SITE NOT SPECIFIED Qualifiers: Urinary tract infection type: acute cystitis Hematuria presence: without hematuria Qualified Code(s): N30.00 - Acute cystitis without hematuria (2) Elevated troponin Code(s): R79.89 - OTHER SPECIFIED ABNORMAL FINDINGS OF BLOOD CHEMISTRY (3) Sepsis Code(s): A41.9 - SEPSIS, UNSPECIFIED ORGANISM Qualifiers: Sepsis type: sepsis due to unspecified organism Sepsis acute organ dy sfunction status: with acute organ dysfunction Severe sepsis acute organ dysfunction type: acute renal failure Acute renal failure type: unspecified Severe sepsis shock status: without septic shock Qualified Code(s): A41.9 - Sepsis, unspecified organism; R65.20 - Severe sepsis without septic shock; N17.9 - Acute kidney failure, unspecified (4) Congestive heart failure Code(s): I50.9 - HEART FAILURE, UNSPECIFIED Qualifiers: Heart failure type: unspecified Heart failure chronicity: acute Qualified Code(s): I50.9 - Heart failure, unspecified (5) Hypertension Code(s): I10 - ESSENTIAL (PRIMARY) HYPERTENSION Qualifiers: Hypertension type: essential hypertension Qualified Code(s): I10 - Essential (primary) hypertension (6) Tachycardia Code(s): R00.0 - TACHYCARDIA, UNSPECIFIED
[2019-12-04] MEDS: FUROSEMIDE 40 MG TABLET (FP) PO SCH (10:08)
[2019-12-04] MEDS: METOPROLOL TARTRATE 25 MG TABLET (FP) PO SCH (10:08)
[2019-12-04] MEDS: POLYETHYLENE GLYCOL 3350 119 GM BTL PO SCH (10:08)
[2019-12-04] MEDS: amLODIPine BESYLATE 5 MG TABLET (FP) PO SCH (10:08)
[2019-12-04] MEDS: HEPARIN NA (PORCINE) 5,000 UNITS/ML 1ML VIAL SQ SCH (10:08)
[2019-12-04] MEDS: predniSONE 20 MG TABLET (UD) PO SCH (10:08)
--- NOTE | 2019-12-04 11:16 | DS ---
Physical Examination Vital Signs: Vital Signs Temperature 98.6 F 12/04/19 05:55 Pulse Rate 72 12/04/19 05:55 Respiratory Rate 20 12/04/19 05:55 Blood Pressure 141/54 L 12/04/19 05:55 O2 Sat by Pulse Oximetry (%) 97 12/04/19 05:55 Findings/Remarks: pt seen/ examined today awake/ comfortable chronic knee pain issues-- says better still able to get out with assistance Extensive counselling-- for str-- pt and family declines wants to go home d/w Cm - [place] also Constitutional: Yes: No Distress Neck: Yes: Supple Cardiovascular: Yes: Regular Rate and Rhythm Respiratory: Yes: CTA Bilaterally Gastrointestinal: Yes: Soft Edema: LLE: Trace, RLE: Trace Labs: CBC, BMP 12/02/19 08:05 12/02/19 08:05 Discharge Summary Problems reviewed: Yes Reason For Visit: UTI,ELEVATED TROPONIN LEVEL,SEPSIS Current Active Problems ALESIA (acute kidney injury) (Acute) NIC positive (Acute) CKD (chronic kidney disease) (Acute) Diastolic HF (heart failure) (Acute) Elevated troponin (Acute) Sepsis (Acute) Skin rash (Acute) Tachycardia (Acute) UTI (urinary tract infection) (Acute) Hospital Course: Pt with extemsive history admitted for fever/ uti treated with abx Other issues ACUTE ON CHRONIC KIDNEY DISEASE- better PULMONARY HTN H/P SADDLE PE S/P IR CATHETER GUIDED TPA 2017-- off A/C DIASTOLIC HF HTN HLD RASH LIKELY ALLERGIC VS VASCULITIC-- seen by Derm- On prednisone Chronic knee pain issuse- s/p tap-- ortho dont want any procedure done Rheumatology also followed Since family insists to take home today - will d/c with close f/u with her pmd slowly taper steroids slowly Dermatology f/u meds reconcilled d/c to family today time spend approx 45 min in examining/documenting/ coordating care Condition: Guarded - Instructions Referrals: Mukesh Delgado MD [Primary Care Provider] - Disposition: HOME - Home Medications Comprehensive Discharge Medication List: Ambulatory Orders Atorvastatin Ca [Lipitor] 10 mg PO HS 08/26/17 Calcium Carbonate/Vitamin D3 [Calcium 600 + Vit D Tablet] 1 each PO DAILY 08/26/17 Diclofenac Sodium [Voltaren] 100 gm TP ASDIR PRN 08/26/17 Triamcinolone 0.1% Cream [Aristocort 0.1% Cream -] 0 gm TP DAILY PRN 08/26/17 Acetaminophen [Tylenol .Regular Strength -] 650 mg PO Q6H PRN tablet 02/21/18 Furosemide [Lasix -] 40 mg PO DAILY tablet 02/21/18 traMADol HCL [Ultram -] 50 mg PO Q6H PRN #30 tablet MDD 4 02/21/18 Amlodipine Besylate [Norvasc -] 5 mg PO DAILY #30 tablet 12/04/19 Metoprolol Tartrate [Lopressor -] 25 mg PO BID #60 tablet 12/04/19 Polyethylene Glycol 3350 [Miralax 119 gm Btl -] 17 gm PO DAILY bottle 12/04/19 Sennosides [Senna -] 2 tab PO HS PRN tablet 12/04/19 predniSONE [Deltasone -] 20 mg PO DAILY #30 tablet 12/04/19
--- NOTE | 2019-12-04 11:53 | PN ---
Progress Note (short form) - Note Progress Note: PULMONARY Diffuse b/l upper ext rash/thighs/back/not itchy VSS/afebrile Constitutional: Yes: NAD Eyes: Yes: WNL HENT: Yes: WNL Neck: Yes: WNL Cardiovascular: Yes: Regular Rate and Rhythm, S1, S2 Respiratory: Yes: Diminished Gastrointestinal: Yes: Normal Bowel Sounds, Soft Extremities: Yes: WNL/B/L RASH UPPER EXT Edema: Yes Labs:REVIEWED Renal function improving CXR no infiltrates S/P FEVER/UTI + E-COLI IMPROVED ACUTE ON CHRONIC KIDNEY DISEASE PULMONARY HTN H/P SADDLE PE S/P IR CATHETER GUIDED TPA 2018 DIASTOLIC HF HTN HLD RASH LIKELY ALLERGIC VS VASCULITIC PLAN SUPPLEMENTAL O2 NEEDED INHALED BRONCHODILATORS PRN AGREE WITH STOPPING NONESSENTIAL MEDS Key HERNANDEZ MD Problem List - Problems (1) Diastolic HF (heart failure) Code(s): I50.30 - UNSPECIFIED DIASTOLIC (CONGESTIVE) HEART FAILURE (2) UTI (urinary tract infection) Code(s): N39.0 - URINARY TRACT INFECTION, SITE NOT SPECIFIED Qualifiers: Urinary tract infection type: acute cystitis Hematuria presence: without hematuria Qualified Code(s): N30.00 - Acute cystitis without hematuria (3) Congestive heart failure Code(s): I50.9 - HEART FAILURE, UNSPECIFIED Qualifiers: Heart failure type: unspecified Heart failure chronicity: acute Qualified Code(s): I50.9 - Heart failure, unspecified (4) Fever Code(s): R50.9 - FEVER, UNSPECIFIED Qualifiers: Fever type: unspecified Qualified Code(s): R50.9 - Fever, unspecified
--- NOTE | 2019-12-04 15:53 | PN ---
Progress Note, Physician History of Present Illness: Pt seen and examined at bedide. She is awake and alert. She denies shortness of breath. - Current Medication List Current Medications: Active Medications Acetaminophen (Tylenol -) 650 mg PO Q6H PRN PRN Reason: FEVER Last Admin: 12/01/19 19:32 Dose: 650 mg Documented by: Albuterol Sulfate (Ventolin Hfa Inhaler -) 2 puff IH Q4H PRN PRN Reason: SHORT OF BREATH/WHEEZING Amlodipine Besylate (Norvasc -) 5 mg PO DAILY [facility] Last Admin: 12/04/19 10:08 Dose: 5 mg Documented by: Docusate Sodium (Colace -) 100 mg PO BID PRN PRN Reason: CONSTIPATION Last Admin: 12/01/19 09:38 Dose: 100 mg Documented by: Furosemide (Lasix -) 40 mg PO DAILY [facility] Last Admin: 12/04/19 10:08 Dose: 40 mg Documented by: Heparin Sodium (Porcine) (Heparin -) 5,000 unit SQ BID [facility] Last Admin: 12/04/19 10:08 Dose: 5,000 unit Documented by: Metoprolol Tartrate (Lopressor -) 25 mg PO BID [facility] Last Admin: 12/04/19 10:08 Dose: 25 mg Documented by: Polyethylene Glycol (Miralax (For Daily Use) -) 17 gm PO DAILY [facility] Last Admin: 12/04/19 10:08 Dose: Not Given Documented by: Prednisone (Deltasone -) 20 mg PO DAILY [facility] Last Admin: 12/04/19 10:08 Dose: 20 mg Documented by: Rosuvastatin Calcium (Crestor -) 10 mg PO HS [facility] Last Admin: 12/03/19 21:48 Dose: 10 mg Documented by: Senna (Senna -) 2 tab PO HS PRN PRN Reason: CONSTIPATION Last Admin: 11/30/19 21:44 Dose: 2 tab Documented by: Tramadol HCl (Ultram -) 50 mg PO Q6H PRN PRN Reason: PAIN LEVEL 6-10 Last Admin: 12/04/19 10:41 Dose: 50 mg Documented by: - Objective Vital Signs: Vital Signs Temperature 98.5 F 12/04/19 14:15 Pulse Rate 95 H 12/04/19 14:15 Respiratory Rate 20 12/04/19 14:15 Blood Pressure 132/61 12/04/19 14:15 O2 Sat by Pulse Oximetry (%) 95 12/04/19 14:15 Constitutional: Yes: Calm Eyes: Yes: Conjunctiva Clear HENT: Yes: Atraumatic Neck: Yes: Supple Cardiovascular: Yes: S1, S2 Respiratory: Yes: CTA Bilaterally Gastrointestinal: Yes: Normal Bowel Sounds, Soft Genitourinary: Yes: WNL Musculoskeletal: Yes: WNL Edema: No Neurological: Yes: Oriented Psychiatric: Yes: Oriented Labs: CBC, BMP 12/02/19 08:05 12/02/19 08:05 INR, PTT INR 1.18 (0.83-1.09) H 11/20/19 16:30 Problem List - Problems (1) ALESIA (acute kidney injury) Code(s): N17.9 - ACUTE KIDNEY FAILURE, UNSPECIFIED (2) CKD (chronic kidney disease) Code(s): N18.9 - CHRONIC KIDNEY DISEASE, UNSPECIFIED Assessment/Plan Current Medications Generic Name Dose Route Start Last Admin Trade Name Freq PRN Reason Stop Dose Admin Acetaminophen 650 mg 11/27/19 12:09 12/01/19 19:32 Tylenol - PO 650 mg Q6H PRN Administration FEVER Albuterol Sulfate 2 puff 11/27/19 12:09 Ventolin Hfa Inhaler - IH Q4H PRN SHORT OF BREATH/WHEEZING Amlodipine Besylate 5 mg 11/25/19 13:00 12/04/19 10:08 Norvasc - PO 5 mg DAILY ANA Administration Docusate Sodium 100 mg 11/27/19 12:09 12/01/19 09:38 Colace - PO 100 mg BID PRN Administration CONSTIPATION Furosemide 40 mg 12/01/19 13:00 12/04/19 10:08 Lasix - PO 40 mg DAILY ANA Administration Heparin Sodium (Porcine) 5,000 unit 11/27/19 22:00 12/04/19 10:08 Heparin - SQ 5,000 unit BID ANA Administration Metoprolol Tartrate 25 mg 11/23/19 10:30 12/04/19 10:08 Lopressor - PO 25 mg BID ANA Administration Polyethylene Glycol 17 gm 11/28/19 10:00 12/04/19 10:08 Miralax (For Daily Use) - PO Not Given DAILY ANA Prednisone 20 mg 12/03/19 12:00 08/28/20 10:08 Deltasone - PO 20 mg DAILY ANA Administration Rosuvastatin Calcium 10 mg 11/27/19 22:00 12/03/19 21:48 Crestor - PO 10 mg HS ANA Administration Senna 2 tab 11/27/19 12:09 11/30/19 21:44 Senna - PO 2 tab HS PRN Administration CONSTIPATION Tramadol HCl 50 mg 12/01/19 12:18 12/04/19 10:41 Ultram - PO 50 mg Q6H PRN Administration PAIN LEVEL 6-10 Impression 1. ALESIA 2. ckd 3. uti 4. atrophic kidney 5. constipation 6. htn 7. PE 8. CHF 9. positive maximilian 10. rash Plan - renal function stable - will need outpt follow up - repeat maximilian as outpt - cont home dose of lasix - encourage po intake
[2019-12-04 16:58] VITALS: BP 125/58; PULSE 86; TEMP 98.3
== END 2019-12-04 17:00 | disposition home or self-care (01) | DRG 872 ==
LOC: JER 14:01 → JERBED 19:01 → J4S 11-21 01:37 → J8W 11-27 11:39
PROVIDERS: ADMIT Internal Medicine; ATTEND Internal Medicine
PROC: 0S9D3ZX Drainage of Left Knee Joint, Percutaneous Approach, Diagnostic (ICD-10-PCS; principal; 2019-12-01)
DX: A41.51 Sepsis due to Escherichia coli [E. coli] (principal); N39.0 Urinary tract infection, site not specified; I24.8 Other forms of acute ischemic heart disease; I13.0 Hypertensive heart and chronic kidney disease with heart failure and stage 1 through stage 4 chronic kidney disease, or unspecified chronic kidney disease; I50.32 Chronic diastolic (congestive) heart failure; N17.9 Acute kidney failure, unspecified; R00.0 Tachycardia, unspecified; R76.8 Other specified abnormal immunological findings in serum; R21 Rash and other nonspecific skin eruption; I77.6 Arteritis, unspecified; M17.12 Unilateral primary osteoarthritis, left knee; M25.562 Pain in left knee; N26.1 Atrophy of kidney (terminal); E78.5 Hyperlipidemia, unspecified; N18.9 Chronic kidney disease, unspecified; K59.09 Other constipation; I27.20 Pulmonary hypertension, unspecified; Z86.711 Personal history of pulmonary embolism; Z86.718 Personal history of other venous thrombosis and embolism
CPT/HCPCS: 36415; 71045-TC-FY; 72100-TC-FY; 72131-TC; 73560-TC-LT-FY; 73700-TC-RT; 74176-TC; 76775-TC; 76856-TC; 80048; 80053; 81003; 82436; 82565; 82962; 83036; 83516; 83520; 83605; 84133; 84155; 84165; 84300; 84443; 84484; 84550; 85025; 85027; 85379; 85610; 85651; 85730; 86038; 86162; 86225; 86256; 86704; 86706; 86707; 86708; 86709; 87040; 87070; 87075; 87086; 87186; 87205; 87340; 87522; 93005; 93010; 93306-TC; 93970-TC; 94640; 97116-GP; 97161-GP; 99285-25; J0131; J1644; U0003